=== PATIENT | male | born 1955 | race Caucasian/White ===

== ENCOUNTER 2019-05-05 09:47 | Outpatient (CLI) | payer OTHER, SELFPAY ==
--- NOTE | 2019-05-05 09:56 | NM_ITS ---
WS: [id number] NUCLEAR MEDICINE HIDA SCAN CLINICAL INFORMATION: ABDOMINAL PAIN TECHNIQUE: Following intravenous administration of 7.7 mCi of technetium 99m mebrofenin, images of th e abdomen were obtained over the course of 60 minutes. Next, gallbladder ejection fraction was determ ined by obtaining preprandial and one-hour postprandial images of the gallbladder following oral roma stion of Ensure. COMPARISON: None. FINDINGS: Normal hepatic uptake at 5 minutes. Gallbladder is seen at 10 minutes. No evidence of acute cholecyst itis. Normal small bowel activity is visualized. No evidence of choledocholithiasis. Normal hepatic e xcretion. Gallbladder ejection fraction 93% within normal limits. No evidence of chronic cholecystitis. NM/NM hepatobiliary w phar* [id number] IMPRESSION: 1. No evidence of acute or chronic cholecystitis. 2. Gallbladder ejection fraction 93%.
== END 2019-05-05 09:48 | disposition home or self-care (01) ==
LOC: RAD 09:48
PROVIDERS: Family Provider Emergency Medicine Emergency Medical Services; PCP Emergency Medicine Emergency Medical Services; Visit Provider Surgery
DX: R10.9 Unspecified abdominal pain (principal)
CPT/HCPCS: 78227; A9537

== ENCOUNTER 2019-05-28 06:48 | Day surgery (SDC) | payer OTHER, SELFPAY ==
[2019-05-27 08:18] VITALS: BMI 33.4
--- NOTE | 2019-05-28 07:26 | ANES.PREANE2 ---
Pre-Anesthetic Assessment Pre-Anesthetic Assessment: Height/Weight: Height 1.73 m Weight 99.79 kg Preop Diagnosis: abdominal pain Proposed Procedure: Operation Date: 05/28/19 08:15 Proposed Procedures p EGD(Not Applicable) - Paco Sullivan MD Last Intake: 22:00 Social: Packs per day: 1.5 Pack years: 30 Comment: dyan 1990 Exam: Pre-Anes Outpt Exam: alert, oriented x 3 and clear to auscultation bilaterally Additional Exam Findings (including area of procedure): irreg,irreg Airway: Submandibular: WNL Cervical ROM: WNL MP: 2 Dentition: False CV/HEM: CV/HEM: Afib Comments: afib x 2y stress test 5y ago negative Swapna 6m no changes/concerns GI: GI: GERD Metabolic: Metabolic: DM Comments: rx'd 5y, normally 77-105 Neuropsych: Neuropsych: CVA Comments: mini strokes, space out Anesthetic Plan: ASA status: III Anesthesia: MAC Data Anesthesia Cardiac Studies: No Data to Display
[2019-05-28 07:59] VITALS: BP 173/91; PULSE 59; RESP 20; TEMP 36.6; O2SAT 92
[2019-05-28] MEDS: sodium chloride 0.9% 1,000 ML 30 ML (08:09)
[2019-05-28 08:23] LABS: Glucose Point of Care 140 mg/dL (70-110)
--- NOTE | 2019-05-28 08:29 | PM.HPUD ---
H&P update H&P Update: DATE OF SURGERY/PROCEDURE: 05/28/19 DATE H&P PERFORMED: 05/05/19 PREOP DIAGNOSIS: abdominal pain PLANNED PROCEDURE: Operation Date: 05/28/19 08:15 Proposed Procedures p EGD(Not Applicable) - Paco Sullivan MD Full H&P HPI: PLANNED PROCEDURE: Diagnostic EGD HPI: Chief complaint repeated nausea and vomiting HPI This is a 63 years old gentleman was seen before in my office back in April 18, 2019 as a referral from the emergency department for nausea and vomiting and diarrhea for 3 weeks in association with abdominal pain, patient gives history of peptic ulcer disease patient had recently had a colonoscopy according to his description and was found to have diverticulosis, a CT scan of the abdomen and pelvis was done on April 07, 2019 was found to have no acute abdominal or pelvic abnormalities and also diverticulosis without acute diverticulitis and concomitant finding of avascular necrosis of left femoral head, patient at that time was offered a diagnostic EGD. ROS: ROS: All systems were reviewed negative except for the above Pertinent Exam Findings: PHYSICAL EXAM: alert, oriented x 3, clear to auscultation bilaterally and regular rate & rhythm OTHER PERTINENT EXAM FINDINGS: Abdominal examination nontender soft no signs of peritonitis or guarding A&P Assessment and plan (1) Nausea and vomiting: Plan of care; After thorough history and physical examination and reviewing the chart, plan to perform a diagnostic esophagogastroduodenoscopy and possible biopsy in the GI lab. Informed consent per chart were,Indications, risks, benefits, and alternatives were all discussed with the patient and did agree to proceed. Status: Acute Code(s): R11.2 - Nausea with vomiting, unspecified
--- NOTE | 2019-05-28 09:03 | ANE.PACU2 ---
 Inpatient post-anesthesia follow up: Airway intact: Yes Vital signs: Temperature 97.9 F Pulse Rate 59 Respiratory Rate 20 Blood Pressure 173/91 Pulse Oximetry 92 Oxygen Delivery Me thod Oxygen Flow Rate Fraction of Inspir ed Oxygen Hydration adequate: Yes Nausea and vomiting: No Pain level: 1 Mental status: Baseline
[2019-05-28 09:16] VITALS: PULSE 76; RESP 18; TEMP 36.2; O2SAT 94
[2019-05-29 07:44] LABS: H. Pylori / CLO Test Negative
== END 2019-05-28 09:38 | disposition home or self-care (01) ==
PROVIDERS: Family Provider Emergency Medicine Emergency Medical Services; Visit Provider Surgery
PROC: 0DJ08ZZ Inspection of Upper Intestinal Tract, Via Natural or Artificial Opening Endoscopic (ICD-10-PCS; CPT 43235; principal; 2019-05-28 08:15)
DX: R10.9 Unspecified abdominal pain (principal); K44.9 Diaphragmatic hernia without obstruction or gangrene; K29.70 Gastritis, unspecified, without bleeding; Z87.891 Personal history of nicotine dependence; I48.91 Unspecified atrial fibrillation; K21.9 Gastro-esophageal reflux disease without esophagitis; E11.9 Type 2 diabetes mellitus without complications; Z86.73 Personal history of transient ischemic attack (TIA), and cerebral infarction without residual deficits; E78.5 Hyperlipidemia, unspecified; I10 Essential (primary) hypertension; Z82.49 Family history of ischemic heart disease and other diseases of the circulatory system; F32.9 Major depressive disorder, single episode, unspecified; Z79.82 Long term (current) use of aspirin
CPT/HCPCS: 12345; 36416; 43239; 82962; 87077; J2704; J7030

== ENCOUNTER 2019-06-24 06:36 | Day surgery (SDC) | payer OTHER, SELFPAY ==
[2019-06-23 12:36] VITALS: BMI 32.5
--- NOTE | 2019-06-23 12:44 | ECG_ITS ---
Measurements Intervals Edison Rate: 56 P: 30 MI: 174 QRS: 55 QRSD: 96 T: 46 QT: 427 QTc: 413 SINUS BRADYCARDIA Compared to ECG 09/28/2017 17:44:05 No significant changes Electronically Signed On 06-23-2019 20:30:23 ENVIRONMENTAL HEALTH AND SAFETY INTERN by Leti Ma M.D. [email or web address]
--- NOTE | 2019-06-23 13:27 | ANES.PREANE2 ---
Pre-Anesthetic Assessment Pre-Anesthetic Assessment: Height/Weight: Height 1.73 m Weight 97.069 kg Preop Diagnosis: Symptomatic gallbladder disease Proposed Procedure: Operation Date: 06/24/19 08:10 Proposed Procedures p Laparoscopic Cholecystectomy 30243 R10.9(Not Applicable) - Paco Sullivan MD Familial anesthetic complications: trouble waking up Social: Social History: No alcohol and No tobacco Exam: Pre-Anes Outpt Exam: alert, oriented x 3, clear to auscultation bilaterally and regular rate & rhythm Airway: Cervical ROM: WNL and Other (large hall) MP: 2 Additional comments: edentulous Pulmonary: Pulmonary: None reported CV/HEM: CV/HEM: Afib (on (last took sunday)) and HTN : : None reported Hepatic: Hepatic: None reported GI: GI: GERD Metabolic: Metabolic: DM Musc/skel: Musc/skel: Lower Back Pain and OA/DJD Comments: gout Neuropsych: Neuropsych: TIA (1 year ago) Anesthetic Plan: ASA status: 3 Anesthesia: General Risk of > 500 ml blood loss (7ml/kg in children): No Data Anesthesia Cardiac Studies: No Data to Display
[2019-06-24] VITALS (9 sets, daily range): BP systolic 110–133; BP diastolic 57–70; PULSE 54–61; RESP 16–18; TEMP 36.1–36.6; O2SAT 90–98
[2019-06-24] MEDS: sodium chloride 0.9% 1,000 ML 30 ML IV (07:03)
[2019-06-24 07:04] LABS: Glucose Point of Care 131 mg/dL (70-110)
--- NOTE | 2019-06-24 07:48 | W.PM.OPSUD ---
Surgery/Procedure H&P Update DATE OF PROCEDURE: June 24, 2019 DATE H&P PERFORMED: 06/16/19 H&P UPDATE INFORMATION: I have reviewed H&P completed within last 30 days and No changes to prior documentation PREOP DIAGNOSIS: Symptomatic gallbladder disease PRIMARY INDICATION FOR PROCEDURE: The same PLANNED PROCEDURE: Operation Date: 06/24/19 08:10 Proposed Procedures p Laparoscopic Cholecystectomy 43391 R10.9(Not Applicable) - Paco Sullivan MD
[2019-06-24] MEDS: lidocaine 2% INJ 20 mL INJECTION (08:00)
--- NOTE | 2019-06-24 08:39 | P.OP_ITS ---
Operative Report Date of procedure: June 24, 2019 Pre-op Diagnosis: Symptomatic gallbladder disease Post-op diagnosis: same (Chronic cholecystitis) Procedure Done: Laparoscopic cholecystectomy Specimens removed/disposition: Gallbladder and contents Surgeon: Paco Sullivan Motion Picture Scene Builder: Surgical tonny Auguste Circulating nurse Rosa M Anesthesia: General (cRNAs is Laura and Smart) Estimated blood loss (mL): 5 Condition: stable Disposition: same day Brief History: This is a pleasant 64 years old gentleman with history of persistent nausea, further work-up showed dysfunction of the gallbladder with HIDA scan due to the patient's subjective symptoms. plan of care; After thorough history physical examination and reviewing the chart ,I counseled the patient for laparoscopic cholecystectomy possible open, indications risks including but not limited injury to the common bile duct and other viscera.benefits and alternatives all discussed with the patient, and she did a gree to proceed. All questions have been answered and all concerns have been addressed to patient's satisfaction. Informed consent per chart Procedure: Patient was identified in the holding area and taken back to the operative suite, placed in supine position intubated by anesthesia . Time-out was done verifying the patient's name/date of /planned procedure and destination after the procedure, all were in agreement. SCDs confirmed to be functioning, preoperative antibiotics administered per protocol, and beta capri protocol was confirmed. Patient was appropriately secured to the table, footboard was applied to the OR table, before prep and drape anesthesia was asked to tilt the table back and forth to make sure that the patient is appropriately secured and she was. Prep and drape of the abdomen was done under the usual sterile technique, followed by that supraumbilical skin incision,skin incision was done by a 15 blade knife, and stay sutures were applied to the fascia and Mandel trocar technique was used to enter the abdominal without injuring any abdominal viscera, started by low flow gas insufflation followed by a high flow, started with a 10 mm laparoscope and under direct vision there was no evidence of any injuries, the scope then switched to a 30? ,10 millimeter scope and under direct visualization 5 millimeter trocar was inserted in the epigastric region followed by two 5 mm trocars were inserted in the right upper quadrant that was done after injection of local lidocaine 2% at all incision sites. Gallbladder showed chronic cholecystitis with hepatomegaly likely due to fatty liver. Patient was then positioned in the head up and tilted to the left dissection started by taking adhesions down using Maryland forceps with heat, continued dissection until I identified the critical view of the cystic duct and cystic artery where seen connected to the gallbladder. Clips were applied on the cystic duct towards the common bile duct 1 towards the gallbladder then divided is in sharp scissors, 2 clips were then applied onto the cystic artery and 1 towards the gallbladder and divided by sharp scissors. Dissection was then carried along of the gallbladder from the gallbladder fossa using cautery as well as sharp dissection with heat energy. The gallbladder then was dissected out from the gallbladder fossa totally , cholecystectomy was then achieved and was placed in an Endo Catch bag and then retrieved from the Mandel trocar site under direct visualization using a 5 mm 30? scope through the epigastric trocar, specimen was then passed to the circulating nurse to go for permanent pathology,irrigation and hemostasis was done to the gallbladder fossa after hemostasis was secured, final survey laparoscopy was done that showed no injuries. Suction irrigation was obtained The supraumbilical fascial defect was then closed using interrupted Vicryl sutures using a fascial closure device ;Frank Llanos under direct visualization Gas was allowed to deflate,Trocars were then taken out under direct vision there was no evidence of bleeding Specimen was passed to the circulating nurse for permanent pathology. No drains were placed and the supraumbilical incision as well as all trocar sites were closed by by 4-0 Monocryl to approximate the skin edges of the supraumbilical incision, dressing was applied in the form of Dermabond and the patient patient got extubated and was taken to recovery area in a stable condition. Count of sponges, needles and instruments were completed at the end of the procedure I was present for the whole entire procedure.
[2019-06-24] MEDS: HYDROcodone-acetaminophen 5-325 mg Tablet 1 TAB PO (09:50)
== END 2019-06-24 10:40 | disposition home or self-care (01) ==
PROVIDERS: Family Provider Emergency Medicine Emergency Medical Services; PCP Emergency Medicine Emergency Medical Services; Visit Provider Surgery
PROC: 0FT44ZZ Resection of Gallbladder, Percutaneous Endoscopic Approach (ICD-10-PCS; CPT 47562; principal; 2019-06-24 08:10)
DX: K80.10 Calculus of gallbladder with chronic cholecystitis without obstruction (principal); Z79.82 Long term (current) use of aspirin; I48.91 Unspecified atrial fibrillation; I10 Essential (primary) hypertension; K21.9 Gastro-esophageal reflux disease without esophagitis; E11.9 Type 2 diabetes mellitus without complications; M19.90 Unspecified osteoarthritis, unspecified site; Z86.73 Personal history of transient ischemic attack (TIA), and cerebral infarction without residual deficits
CPT/HCPCS: 47562; 12345; 36416; 82962; 88304; 93005; 96365; J0131; J0690; J1100; J2001; J2370; J2704; J2710; J3010; J3490; J7030

== ENCOUNTER 2019-07-16 13:43 | Outpatient (CLI) | payer OTHER, SELFPAY ==
--- NOTE | 2019-07-16 14:15 | USCV_ITS ---
Clark Vinh Age: 64 Gender: M : 1955 Exam Date: 07/16/2019 13:52 Ordering Phys: Reagan Barcenas MD ([email or web address]) Technologist: Andry Joseph Exam Location: [facility] [place] Indication: CAROTID STENOSIS Risk Factors: Previous Vascular Surgery: Right Brachial BP: / Left Brachial BP: / Right Left Velocity (cm/s) Spectral Plaque Velocity (cm/s) Spectral Plaque Syst/Diast Broadening Syst/Diast Broadening 95.90/ 25.40 Prox CCA 78.80 / 17.80 94.80/ 19.80 Mid CCA 88.20 / 15.90 58.40/ 17.60 Distal CCA 66.60 / 16.90 40.10/ 10.30 Prox ICA 60.40 / 16.80 66.90/ 12.40 Mid ICA 92.80 / 24.60 56.35/ 16.30 Distal ICA 80.50 / 16.80 117.10 ECA 151.60 0.91 ICA/CCA 1.05 Antegrade Vertebral Antegrade 38.90/ 8.70 cm/s 33.50/ 8.90 cm/s Subclavian Tri FINDINGS Minimal atherosclerotic change at the right common carotid bifurcation. CONCLUSIONS Negative bilateral carotid Doppler ultrasound. Dr. Mercedes Medina MD (Electronically Signed) Final Date: 16 July 2019 14:43 S
== END 2019-07-16 13:44 | disposition home or self-care (01) ==
LOC: US 13:44
PROVIDERS: Family Provider Emergency Medicine Emergency Medical Services; PCP Emergency Medicine Emergency Medical Services; Visit Provider Internal Medicine Cardiovascular Disease
DX: I65.23 Occlusion and stenosis of bilateral carotid arteries (principal)
CPT/HCPCS: 93880

== ENCOUNTER → 2019-07-22 10:15 | Outpatient (BNVA) | payer OTHER, SELFPAY | PROVIDERS: Family Provider Emergency Medicine Emergency Medical Services; PCP Emergency Medicine Emergency Medical Services; Referring Provider Emergency Medicine Emergency Medical Services; Visit Provider Specialist | DX: R56.9 Unspecified convulsions (principal); G43.711 Chronic migraine without aura, intractable, with status migrainosus; Z87.891 Personal history of nicotine dependence | CPT/HCPCS: 99204 ==

== ENCOUNTER → 2019-08-12 12:48 | Outpatient (BNVA) | payer OTHER, SELFPAY | PROVIDERS: Family Provider Emergency Medicine Emergency Medical Services; PCP Emergency Medicine Emergency Medical Services; Visit Provider Specialist | DX: G40.909 Epilepsy, unspecified, not intractable, without status epilepticus (principal) | CPT/HCPCS: 95816 ==

== ENCOUNTER 2019-09-08 08:50 | Observation (INO) | payer OTHER, SELFPAY ==
[2019-09-05 09:32] VITALS: BMI 32.1
[2019-09-08] VITALS (15 sets, daily range): BP systolic 96–142; BP diastolic 51–86; PULSE 60–98; RESP 10–21; TEMP 36.3–36.6; O2SAT 88–99
--- NOTE | 2019-09-08 06:13 | P.ANESASSM_ITS ---
Pre-Anesthetic Assessment Pre-Anesthetic Assessment: Height/Weight: Height 1.73 m Weight 95.708 kg Temp Pulse Resp BP Pulse Ox 97.8 F 80 18 102/65 91 09/08/19 06:07 09/08/19 06:07 09/08/19 06:07 09/08/19 06:07 09/08/19 06:07 Preop Diagnosis: Lumbar spinal stenosis Proposed Procedure: Operation Date: 09/08/19 07:00 Proposed Procedures p Bilateral L4-5 laminotomy/foraminotomy/possible discectomy/possible laminectomy (77945) M48.062(Bilateral) - Tom Cabrera MD Familial anesthetic complications: none Was Beta Denae taken within 24 hours: Yes Last intake: Intake took no medications this morning Last Liquid Date 09/07/19 Last Liquid Time 20:00 Last Solid Date 09/07/19 Last Solid Time 20:00 Social: Comment: smokes pot Exam: Pre-Anes Outpt Exam: alert, oriented x 3, clear to auscultation bilaterally and regular rate & rhythm Airway: Cervical ROM: WNL MP: 4 Dentition: False Additional comments: full hall Pulmonary: Pulmonary: None reported CV/HEM: CV/HEM: Afib and HTN Comments: last took eliquis since sunday : : None reported Hepatic: Hepatic: None reported GI: GI: None reported Metabolic: Metabolic: DM, Hyperlipidemia and Morbid obesity Musc/skel: Musc/skel: Lower Back Pain Neuropsych: Neuropsych: Seizure (1 week ago (last one)) Comments: s/p CEA on L Anesthetic Plan: ASA status: 3 Anesthesia: General Risk of > 500 ml blood loss (7ml/kg in children): No PFSH Anesthesia PFSH: Medical History (Updated 07/29/19 @ 10:22 by Tom Cabrera MD) Afib Hypercholesteremia Hypertension Nausea and vomiting Spinal stenosis, lumbar region, with neurogenic claudication Spondylolisthesis, lumbar region Surgical History (Updated 07/29/19 @ 10:48 by Tom Cabrera MD) History of jeremiah hole surgery Twist drill drainage of bilateral subdural hematomas, 12/20/2016, [facility] [place] History of esophagogastroduodenoscopy (EGD) (~05/2019) History of laparoscopic cholecystectomy (~06/2019) Family History Other CAD (coronary artery disease) Cancer Diabetes Hypertension Stroke Denies family history of Anesthesia complication Bleeding disorder Social History (Updated 07/29/19 @ 10:07 by Carol Dawson LPN) Smoking and tobacco status: former smoker Alcohol intake: never Lives independently: Yes Marital status: Current occupational status: retired History of recent travel: No Data Anesthesia Cardiac Studies: No Data to Display
[2019-09-08 06:19] LABS: Glucose Point of Care 134 mg/dL (70-110)
[2019-09-08] MEDS: sodium chloride 0.9% 1,000 ML 30 ML IV (06:50)
--- NOTE | 2019-09-08 06:56 | W.PM.OPSUD ---
Surgery/Procedure H&P Update DATE OF PROCEDURE: September 08, 2019 DATE H&P PERFORMED: 09/03/19 H&P UPDATE INFORMATION: I have reviewed H&P completed within last 30 days and H&P to be scanned into chart PREOP DIAGNOSIS: Lumbar spinal stenosis PRIMARY INDICATION FOR PROCEDURE: Pain PLANNED PROCEDURE: Operation Date: 09/08/19 07:00 Proposed Procedures Bilateral L4-5 laminotomy/foraminotomy/possible discectomy/possible laminectomy (58004) M48.062(Bilateral) - Tom Cabrera MD
--- NOTE | 2019-09-08 07:06 | PM.OP2 ---
Brief Operative Note: Date of procedure: 09/08/19 Pre-op diagnosis: Lumbar spinal stenosis Post-op diagnosis: same Procedure Done: Bilateral L4-L5 laminotomy/foraminotomy Surgeon: Tom Cabrera Estimated blood loss (mL): 10 Complications: None. Post-op Plan: PACU, then rudolph Condition: stable Disposition: PACU Coding Level of Care Code Acute Director Of Perioperative Services for Jason Foley
--- NOTE | 2019-09-08 07:07 | XR_ITS ---
WS: [id number] Lumbar spine, portable lateral in the OR, 09/08/2019, 0724 hours Clinical Data: surgery Comparison: Lateral lumbar spine, 11/05/2018. Findings: There is a radiopaque needle in the subcutaneous tissues of back at the level of the L4 This process. The tip of the needle is directed toward the L4/L5 disc level XR/XR lumbar spine 1V port 60232 Impression: Localization of L4-L5 disc.
--- NOTE | 2019-09-08 07:46 | XR_ITS ---
WS: [id number] Lumbar spine, portable lateral in the OR, 09/08/2019, 0746 hours. Clinical Data: SURGERY Comparison: Portable lateral lumbar lumbar spine, 09/08/2019, 0724 hours. Findings: The radiopaque probe is now pointed at the L4-L5 disc level XR/XR lumbar spine 1V port 62645 Impression: Localization of L4-L5 disc.
[2019-09-08] MEDS: thrombin 5,000 unit SDV 5000 UNIT XX (07:49)
--- NOTE | 2019-09-08 08:05 | SUR.OPER ---
I tried to give family an update on the procedure but no one answered.
--- NOTE | 2019-09-08 08:09 | SUR.OPER ---
Family Notified Of Patient's Status Via Phone.
[2019-09-08] MEDS: atorvastatin 40 mg Tablet 80 MG PO (10:14)
[2019-09-08] MEDS: cyanocobalamin 1,000 mcg Tablet 3000 MCG PO (10:14)
[2019-09-08] MEDS: divalproex ER 500 mg Tablet (24H) 1000 MG PO (10:14)
[2019-09-08] MEDS: fluticasone nasal spray 16gm Btl 1 SPRAY INTRANASAL ×2 (10:14→17:28)
[2019-09-08] MEDS: ferrous sulfate EC 325 mg Tablet PO ×2 (10:14→17:28)
[2019-09-08] MEDS: tamsulosin 0.4 mg Capsule 0.8 MG PO (10:14)
[2019-09-08] MEDS: pantoprazole DR 40 mg Tablet PO (10:14)
[2019-09-08] MEDS: cetirizine 10 mg Tablet PO (10:14)
[2019-09-08] MEDS: sotalol 80 mg Tablet PO ×2 (10:14→17:28)
[2019-09-08] MEDS: gabapentin 300 mg Capsule PO ×2 (10:14→14:58)
[2019-09-08] MEDS: allopurinol 300 mg Tablet PO (10:14)
[2019-09-08 11:10] LABS: Glucose Point of Care 155 mg/dL (70-110)
--- NOTE | 2019-09-08 16:53 | P.OP_ITS ---
Operative Report Date of procedure: September 08, 2019 Pre-op Diagnosis: Lumbar spinal stenosis Post-op diagnosis: same Procedure Done: Bilateral L4-L5 laminotomy/foraminotomy/limited facetectomy Pathology: none sent Surgeon: Tom Cabrera Anesthesia: General Estimated blood loss (mL): 10 IV fluids (mL): 1,500 Urine output (mL): 250 Complications: None. Condition: stable Disposition: PACU Brief History: The patient is a 64-year-old male with symptomatic, radiographically confirmed lumbar spinal stenosis. Imaging studies demonstrated dominant abnormalities at L4-L5. Symptoms were more prominent on the left than the right. Conservative treatment trials failed to provide lasting symptom relief. After review of the options with the risks/potential benefits/rationale for each, the patient requested to proceed with bilateral surgical decompression at L4-L5. Procedure: After routine preoperative evaluation and informed consent were obtained, the patient was taken to the Operating Room and placed under general endotracheal anesthesia. He was rotated onto the Operating Room table in the modified knee- chest position with the aid of the Gill spine frame. The lumbosacral area was prepared with hair clippers. A proposed midline skin incision was marked with a sterile skin marker, following localization with intraoperative radiography. The lumbosacral area was scrubbed with Betadine and prepped with DuraPrep. Sterile towels and drapes were applied, and an Ioban surgical barrier was placed. The p roposed incision site was infiltrated with 1% Xylocaine with Epinephrine. A skin incision was made and carried down into the subcutaneous tissues. The lumbodorsal fascia was identified and divided in the midline. Subperiosteal dissection was carried down along the lamina of L4 and L5 on the left. Deep self-retaining retractors were placed. Intraoperative radiography verified the desired surgical level. A laminotomy was fashioned across the L4-L5 interspace with Leksell and Kerrison rongeurs. Ligamentum flavum was resected at the base of the laminotomy site with Kerrison rongeurs. Ligament resection was extended across the midline and into the lateral recess. A limited resection of the medial aspect of the facet joint was also performed to further decompress the lateral recess. The neural foramen was identified and enlarged in its medial extent with Kerrison rongeurs. The thecal sac was retracted from lateral to medial with the nerve root retractor. Disc bulge was demonstrated, without tc disc herniation or neural impingement. Once the decompression was felt to be adequate on the left side, the dura was covered with thrombin-soaked Gelfoam and a Cottonoid. The retractors were removed and repositioned to the contralateral side, where a right-sided subperiosteal dissection was performed across the L4-L5 interspace. A laminotomy was again fashioned with Leksell and Kerrison rongeurs. Ligamentum flavum was resected at the base of the laminotomy site with extension into the lateral recess. A limited resection of the medial aspect of the facet joint was performed with Kerrison rongeurs. The neural foramen was enlarged in its medial extent. Retraction of the thecal sac from lateral to medial with the nerve root retractor demonstrated disc bulge, but no herniation or residual neural impingement. Retractors were repositioned to maximize the exposure bilaterally. The previously placed Gelfoam and Cottonoid were removed, and the wound was copiously irrigated with sterile saline and antibiotic irrigation. Bilateral decompression of the neural elements at the operative level was again verified with the [place] dental instrument. A thin layer of Surgi-Emanuel hemostatic matrix was placed over the dura at both laminotomy sites. Wound closure was then performed in multiple layers with 2-0 Vicryl Plus simple interrupted closure of the lumbodorsal fascia, superficial fascia and deep dermis as separate layers. Final skin closure was performed with 3-0 Vicryl Plus in a running subcuticular pattern. Steri-Strips were applied, and a sterile dressing was placed. He was rotated onto the Recovery Room cart in the supine position, and extubated by Anesthesia personnel. He tolerated the procedure well. All sponge, needle, and instrument counts were correct at the completion of the procedure.
--- NOTE | 2019-09-08 16:58 | PM.DCS ---
Discharge Providers Date of Admission: 09/08/19 08:50 Date of Discharge: September 08, 2019 Attending Provider at Admission: Tom Cabrera MD Attending Provider at Discharge: Tom Cabrera MD Primary Care Provider: Guicho Vega DO Diagnoses at Discharge Discharge Diagnosis (1) Spinal stenosis, lumbar region, with neurogenic claudication: Status: Acute (2) Spondylolisthesis, lumbar region: Status: Acute Reason for Visit Reason for Visit: Reason For Visit: spinal stenosis Brief History: The patient is a 64-year-old male with symptomatic, radiographically confirmed lumbar spinal stenosis. Imaging studies demonstrated dominant abnormalities at L4-L5. Symptoms were more prominent on the left than the right. Conservative treatment trials failed to provide lasting symptom relief. After review of the options with the risks/potential benefits/rationale for each, the patient requested to proceed with bilateral surgical decompression at L4-L5. Hospital Course Hospital Course: Patient underwent bilateral L4-L5 laminotomy/foraminotomy on 09/08/2019. He tolerated the procedure well. He completed preoperative and postoperative intravenous antibiotic doses, and the physical therapy postop spine protocol. He was ambulatory, voiding, and tolerating diet prior to discharge home on the evening of the date of surgery. Physical Exam Const: COMMON NORMALS: no acute distress GENERAL APPEARANCE: cooperative Resp: COMMON NORMALS: normal respiratory effort EFFORT & INSPECTION: Yes able to speak in complete sentences and No tachypneic Extremity: COMMON NORMALS: no clubbing, cyanosis or edema Neuro: COMMON NORMALS: moves all extremities Psych: COMMON NORMALS: mental status grossly normal ATTITUDE: Yes calm and Yes engaged ACTIVITY/MOTOR BEHAVIOR: Yes appropriate eye contact MOOD & AFFECT: Yes euthymic mood Skin: WOUNDS: Yes surgical site (lumbar surgical site dressing C/D/I. Incision without erythema or drainage) Urinary Catheter Management^: F: Cath Placed During This Visit: yes, but has since been removed by the nurse Urinary Catheter Date of Insertion: 09/08/19 Urinary Catheter Time of Insertion: 07:25 Date Urinary Catheter Removed: 09/08/19 Time Urinary Catheter Discontinued: 08:50 Discharge Data Data Completed and Pending: Completed Studies During Hospitalization Category Date Time Status XR lumbar spine 1 view portable [XR lumbar spine 1V Exams 09/08/19 07:07 Completed port 83323] Routi ne XR lumbar spine 1 view portable [XR lumbar spine 1V Exams 09/08/19 07:46 Completed port [id number]] Routi ne Procedures Performed: Bilateral L4-L5 laminotomy/foraminotomy/limited facetectomy. IV antibiotics. Physical Therapy. Vitals: Last Vital Signs Temp 97.7 F 09/08/19 18:25 Pulse 67 09/08/19 18:25 Resp 18 09/08/19 18:25 BP 142/77 09/08/19 18:25 Pulse Ox 95 09/08/19 18:25 Discharge Plan Discharge Patient Disposition: Home, Self-Care Condition: Stable Prescriptions: [place] 7.5-325 mg tablet 1 tab PO Q4H PRN (Reason: pain) Qty: 30 RF: 0 Continued allopurinol 300 mg tablet 300 mg PO DAILY RF: 0 atorvastatin 80 mg tablet 80 mg PO DAILY RF: 0 cetirizine 10 mg capsule 10 mg PO DAILY RF: 0 cholecalciferol (vitamin D3) 3,000 unit tablet 3,000 unit PO DAILY RF: 0 docusate sodium 100 mg capsule 100 mg PO BID RF: 0 ferrous sulfate 325 mg (65 mg iron) tablet 325 mg PO BID RF: 0 fluticasone propionate [Allergy Relief (fluticasone)] 50 mcg/actuation spray,suspension 1 spray INTRANASAL BID RF: 0 gabapentin 300 mg capsule 300 mg PO TID RF: 0 hydrochlorothiazide 25 mg tablet 25 mg PO QAM RF: 0 lisinopril 40 mg tablet 40 mg PO DAILY RF: 0 omeprazole 20 mg tablet,delayed release (DR/EC) 20 mg PO BID RF: 0 pioglitazone 30 mg tablet 30 mg PO DAILY RF: 0 sildenafil 50 mg tablet 50 mg PO Q7D RF: 0 divalproex [Depakote ER] 500 mg tablet extended release 24 hr 1,000 mg PO DAILY Qty: 60 RF: 5 sotalol 160 mg Tablet 80 mg PO BID RF: 0 tamsulosin 0.4 mg Capsule 0.8 mg PO DAILY RF: 0 Held apixaban 5 mg tablet 5 mg PO BID RF: 0 Hold Instructions: Resume on 05/31/19. aspirin 81 mg tablet,delayed release (DR/EC) 81 mg PO ONCE RF: 0 Hold Instructions: Resume on 05/30/19. Discharge Orders: Discharge Order (Routine); Ordered 09/08/19 Ordered By: Tom Cabrera Referrals: Tom Cabrera MD [Physician] - 2 weeks (Please call in the morning to set up a follow up appointment with DR. Cabrera ) Discharge Diet: Usual diet Discharge Activity: Limit activity as instructed and As per PT/OT instructions Patient Instructions: Hydrocodone/Acetaminophen (By mouth), Lumbar Spinal Stenosis (DC), Surgical Site Infections (GEN) Activity Restrictions/Additional Instructions: Activity - No driving until office followup visit - No lifting/pushing/pulling over 10 pounds - Avoid twisting or bending - Walking is encouraged - Home exercise per physical therapist - You may engage in sexual intercourse at any time as long as it is comfortable for you - Check with your doctor before returning to work. Notify your doctor if you develop: - temperature of 101.5 degrees F. or higher - redness or swelling of the incision - Foul drainage - increasing pain - increasing numbness or tingling in the arms or legs - New or increasing problems with vision, balance, memory, speaking, nausea or vomiting Hygiene: - Showering is okay - No tub baths or soaking Other: Remove outer bandage 3 days after surgery. If you have paper strips, leave in place until they fall off on their own. If you have stitches, keep your incision dry until the stitches are removed. Your doctor's office is available to answer any questions from 7 AM to 5:00 PM, Sunday through at [phone]. After hours, go to the emergency room at [facility] or call 911 for assistance. Discharge Date/Time: 09/08/19 18:26 Discharge Attestations Time Spent in Discharge Care*: other (postop global) Quality Metrics Clinical Quality Measures During this hospital stay, did patient experience: None Coding Level of Care Code Acute Rubber Washer for Chg Fwd Diagnoses Spinal stenosis, lumbar region, with neurogenic claudication M48.062 Spondylolisthesis, lumbar region M43.16
[2019-09-08 17:16] LABS: Glucose Point of Care 117 mg/dL (70-110)
[2019-09-08] MEDS: HYDROcodone-acetaminophen 7.5-325 mg Tablet 1 TAB PO (17:27)
[2019-09-08] MEDS: ondansetron 2 mg/ML SDV 2 mL 4 MG IVP (17:28)
== END 2019-09-08 18:26 | disposition home or self-care (01) ==
LOC: MEDSURG 08:50
PROVIDERS: Admitting Provider Specialist; PCP Emergency Medicine Emergency Medical Services; Visit Provider Specialist
PROC: (CPT 63030; principal; 2019-09-08 07:00)
DX: M48.062 Spinal stenosis, lumbar region with neurogenic claudication (principal); M43.16 Spondylolisthesis, lumbar region; I48.91 Unspecified atrial fibrillation; I10 Essential (primary) hypertension; E11.9 Type 2 diabetes mellitus without complications; E78.5 Hyperlipidemia, unspecified; E66.01 Morbid (severe) obesity due to excess calories; Z68.32 Body mass index [BMI] 32.0-32.9, adult; Z87.891 Personal history of nicotine dependence
CPT/HCPCS: 63030; 12345; 36416; 51702; 72020; 82962; 96361; 96365; 96372; 96375; 97161; G0378; J0690; J1815; J2001; J2370; J2405; J2704; J3010; J3490; J7030

== ENCOUNTER → 2019-10-14 12:29 | Outpatient (BNVA) | payer OTHER, SELFPAY | PROVIDERS: PCP Emergency Medicine Emergency Medical Services; Visit Provider Specialist | DX: R29.90 Unspecified symptoms and signs involving the nervous system (principal); G40.219 Localization-related (focal) (partial) symptomatic epilepsy and epileptic syndromes with complex partial seizures, intractable, without status epilepticus; G43.109 Migraine with aura, not intractable, without status migrainosus | CPT/HCPCS: 99214 ==

== ENCOUNTER 2019-11-03 14:46 | Emergency (ER) | payer OTHER, MEDICARE, SELFPAY ==
[2019-11-03 14:56] VITALS: BP 118/63; PULSE 65; RESP 20; TEMP 36.2; O2SAT 94; BMI 30.4
--- NOTE | 2019-11-03 15:05 | W.ED.HA ---
HPI - Headache General: Chief Complaint: Dizziness Stated Complaint: poss seizure, dizzy Time Seen by Provider: 11/03/19 15:00 Source: patient Mode of arrival: ambulatory Limitations: no limitations History of Present Illness: HPI Narrative: 64-year-old male that has a history of migraines and sees Dr. Wei for these migraines. He states that he has had a migraine since Sunday that is been constant he rates a 4 out of 10. He states he is also had some dizziness that is consistent with his migraines. She started him on Depakote recently. He denies any fevers. He denies any vomiting. MD elicited complaint: headache Associated symptoms: Deny chest pain, fever(s), nausea, rash or vomiting Review of Systems Const: Denies: fever(s), chills, body aches or change in appetite Eyes: Denies: blurry vision or eye discomfort ENMT: Denies: throat pain or dental pain Card: Denies: chest pain Resp: Denies: dyspnea GI: Denies: abdominal pain, nausea, vomiting or diarrhea : Denies: dysuria Musc: Denies: neck pain or back pain Skin/Breast: Denies: rash Neuro: Reports: headache(s) Psych: Denies: depression Donny/Lymph: Denies: easy bruising All/Imm: Denies: urticaria PFSH ED PFSH: Medical History (Updated 11/03/19 @ 16:30 by Deniz Torrez MD) Afib Anticoagulation adequate with anticoagulant therapy Carotid stenosis Chronic kidney disease (CKD) Diabetes Hypercholesteremia Hypertension Nausea and vomiting Spinal stenosis, lumbar region, with neurogenic claudication Spondylolisthesis, lumbar region Surgical History History of jeremiah hole surgery Twist drill drainage of bilateral subdural hematomas, 12/20/2016, [facility] [place] History of esophagogastroduodenoscopy (EGD) (~05/2019) History of laparoscopic cholecystectomy (~06/2019) Family History Other CAD (coronary artery disease) Cancer Diabetes Hypertension Stroke Denies family history of Anesthesia complication Bleeding disorder Social History Smoking and tobacco status: former smoker Alcohol intake: never Lives independently: Yes Marital status: Current occupational status: retired History of recent travel: No Physical Exam Const: COMMON NORMALS: no acute distress, patient oriented x3 and healthy appearing HENMT: COMMON NORMALS: normocephalic and atraumatic HEAD & SCALP: normocephalic and atraumatic Eye: COMMON NORMALS: Equal, round and reactive pupils present and EOMs intact bilaterally PUPIL: Yes Equal, round and reactive pupils present Neck/C-Spine: COMMON NORMALS: full ROM and supple Chest: COMMONS NORMALS: normal inspection of the chest and normal palpation of entire chest wall Resp: COMMON NORMALS: normal respiratory effort, No retractions, No use of accessory muscles and clear to auscultation bilaterally AUSCULTATION: clear to auscultation bilaterally Cardio: COMMON NORMALS: regular rate, regular rhythm and No murmurs present (Cardio) RATE: regular rate RHYTHM: regular rhythm GI: COMMON NORMALS: Normal to inspection, nondistended, normoactive bowel sounds present, Soft to palpation, non-tender and no masses PALPATION: Yes Soft to palpation Extremity: COMMON NORMALS: normal to inspection and full ROM Neuro: COMMON NORMALS: patient oriented x3, moves all extremities and no focal motor deficits Psych: COMMON NORMALS: mental status grossly normal, Normal thought process present and cooperative THOUGHT PROCESS: Normal thought process present Skin: COMMON NORMALS: no rashes or lesions noted and no wounds GENERAL SKIN EXAM: no rashes or lesions noted Course Vital Signs: Vital signs: Vital Signs Temperature 97.2 F L 11/03/19 14:56 Pulse Rate 55 L 11/03/19 16:09 Respiratory Rate 18 11/03/19 16:09 Blood Pressure 103/57 11/03/19 16:09 Pulse Oximetry 95 11/03/19 16:09 MDM - Headache MDM Narrative: Medical decision making narrative: Patient presents here with headache that is chronic in nature. Patient also has some dizziness that is chronic as well. He feels improved after Reglan and Benadryl. We will place him on Antivert. He is stable for discharge and is to follow-up with his primary care doctor in 3 to 5 days and return if worsening. Lab Data: Labs: Lab Results 11/03/19 11/03/19 Range/Units 15:12 15:12 WBC 8.8 (4.0-10.0) 10^3/ uL RBC 4.62 (4.1-5.3) 10^6/u L Hgb 14.0 (11.7-16.6) g/dL Hct 42.6 (42.0-52.0) % MCV 92.2 (80-94) fL MCH 30.3 (28.0-34.0) pg MCHC 32.9 (30.0-36.0) g/dL RDW 14.4 (12.1-15.1) % Plt Count 196 (130-400) 10^3/c mm MPV 10.9 H (7.4-10.4) fL Neut % (Auto) 64.3 % Lymph % (Auto) 24.4 % [place] % (Auto) 7.9 % Eos % (Auto) 2.5 % Baso % (Auto) 0.7 % Neut # (Auto) 5.65 (1.8-7.7) 10^3/u L Lymph # (Auto) 2.1 (0.8-4.8) 10^3/u L [place] # (Auto) 0.7 (0.2-0.9) 10^3/u L Eos # (Auto) 0.2 (0.0-0.8) 10^3/u L Baso # (Auto) 0.1 (0.0-0.1) 10^3/u L Nucleated RBC % (a uto) 0 % Nucleated RBCs # 0.0 /100WBC Sodium 138 (136-145) mmol/L Potassium 3.8 (3.5-5.1) mmol/L Chloride 101 (98-107) mmol/L Carbon Dioxide 29 (22-29) mmol/L Anion Gap 11.8 (5-19) BUN 18 (8-23) mg/dL Creatinine 0.9 (0.7-1.2) mg/dL GFR Calculation 84.7 L (90-130) mL/min Glucose 158 H (65-115) mg/dL Calculated Osmolal ity 286 (285-295) mOsm/k g Calcium 10.0 (8.5-10.5) mg/dL Total Bilirubin 0.6 (0.15-1.2) mg/dL AST 14 (0-40) U/L ALT 11 (0-41) U/L Alkaline Phosphata se 94 (40-130) IU/L Total Protein 6.8 (6.6-8.7) g/dL Albumin 4.2 (3.5-5.2) g/dL Globulin 2.6 (1.3-4.6) g/dL Valproic Acid 2.8 L (50-100) ug/mL Imaging Data^: CT Head: Attestation: I personally reviewed and interpreted this imaging study as follows: Radiologist's impression: [address] [address] [address] Scan Report Signed Patient: Vinh Taylor Unit #: [id number] : 1955 Age/Sex: 64 / M ADM Date: 11/03/19 Loc: ER Room/Bed: Attending Dr: Ordering Provider/Ordering MD: Deniz Torrez MD Date of Service: 11/03/19 Procedure(s): CT head wo con* [id number] Accession Number(s): [id number] Report Number: [id number] PROCEDURE INFORMATION: Exam: CT Head Without Contrast Exam date and time: 11/03/2019 3:46 PM Age: 64 years old Clinical indication: Pain; Dizziness; Headache; Prior surgery; Additional info: MCCONNELL TECHNIQUE: Imaging protocol: Computed tomography of the head without contrast. Radiation optimization: All CT scans at this facility use at least one of these dose optimization techniques: automated exposure control; mA and/or kV adjustment per patient size (includes targeted exams where dose is matched to clinical indication); or iterative reconstruction. COMPARISON: [place] [id number] 04/09/2018 8:32 AM RADIATION DOSE METRICS: Total DLP (mGy-cm): 818.41 FINDINGS: Brain: There is volume loss and periventricular low density compatible with chronic small vessel disease changes. There is no acute hemorrhage, edema or mass effect. Basal ganglia lacunar infarcts are unchanged. Ventricles: Normal. No ventriculomegaly. Bones/joints: Unremarkable. No acute fracture. Sinuses: There is patchy mucosal thickening in the sinuses. No air-fluid levels in the sinuses. Mastoid air cells: Visualized mastoid air cells are well aerated. Soft tissues: Unremarkable. CT/CT head wo con* [id number] IMPRESSION: No acute intracranial abnormality. Discharge Plan Discharge Patient Disposition: Home, Self-Care Clinical Impression: Dizziness Headache Qualifiers: Headache type: unspecified Headache chronicity pattern: acute headache Intractability: not intractable Qualified Code(s): R51 - Headache Condition: Stable Prescriptions: New meclizine 25 mg tablet 25 mg PO BID PRN (Reason: dizziness) Qty: 20 RF: 0 No Action allopurinol 300 mg tablet 300 mg PO DAILY RF: 0 apixaban 5 mg tablet 5 mg PO BID RF: 0 Hold Instructions: Resume on 09/11/19. aspirin 81 mg tablet,delayed release (DR/EC) 81 mg PO ONCE RF: 0 Hold Instructions: Resume on 09/09/19. atorvastatin 80 mg tablet 80 mg PO DAILY RF: 0 cetirizine 10 mg capsule 10 mg PO DAILY RF: 0 cholecalciferol (vitamin D3) 3,000 unit tablet 3,000 unit PO DAILY RF: 0 docusate sodium 100 mg capsule 100 mg PO BID RF: 0 ferrous sulfate 325 mg (65 mg iron) tablet 325 mg PO BID RF: 0 fluticasone propionate [Allergy Relief (fluticasone)] 50 mcg/actuation spray,suspension 1 spray INTRANASAL BID RF: 0 hydrochlorothiazide 25 mg tablet 25 mg PO QAM RF: 0 lisinopril 40 mg tablet 40 mg PO DAILY RF: 0 omeprazole 20 mg tablet,delayed release (DR/EC) 20 mg PO BID RF: 0 pioglitazone 30 mg tablet 30 mg PO DAILY RF: 0 sildenafil 50 mg tablet 50 mg PO Q7D RF: 0 gabapentin 300 mg capsule 300 mg PO BID RF: 0 divalproex [Depakote ER] 500 mg tablet extended release 24 hr 1,000 mg PO DAILY Qty: 60 RF: 5 sotalol 160 mg Tablet 80 mg PO BID RF: 0 tamsulosin 0.4 mg Capsule 0.8 mg PO DAILY RF: 0 [place] 7.5-325 mg tablet 1 tab PO Q4H PRN (Reason: pain) Qty: 30 RF: 0 Discharge Orders: Discharge Order (Routine); Ordered 11/03/19 Ordered By: Deniz Torrez Referrals: Guicho Vega DO [Primary Care Provider] - 1-3 days Discharge Diet: Advance as tolerated Discharge Activity: Resume usual activity Patient Instructions: Acute Headache (ED), Dizziness (ED) Coding Level of Care Code ED Motion Designer for Jason Fwalexis Exam Comprehensive
[2019-11-03 15:14] VITALS: BP 118/63; PULSE 65; RESP 16; O2SAT 93
[2019-11-03] MEDS: sodium chloride 0.9% 1,000 ML 999 ML IV (15:19)
[2019-11-03 15:20] LABS: Basophils # 0.1 10^3/uL (0.0-0.1); Basophils % 0.7 %; Eosinophils # 0.2 10^3/uL (0.0-0.8); Eosinophils % 2.5 %; Hematocrit 42.6 % (42.0-52.0); Lymphocytes # 2.1 10^3/uL (0.8-4.8); Lymphocytes % 24.4 %; Mean Corpuscular HGB Conc 32.9 g/dL (30.0-36.0); Mean Corpuscular Hemoglobin 30.3 pg (28.0-34.0); Mean Corpuscular Volume 92.2 fL (80-94); Mean Platelet Volume 10.9 fL (7.4-10.4); Monocytes # 0.7 10^3/uL (0.2-0.9); Monocytes % 7.9 %; Neutrophils # 5.65 10^3/uL (1.8-7.7); Neutrophils % 64.3 %; Nucleated Red Blood Cells % 0 %; Platelet Count 196 10^3/cmm (130-400); Red Blood Count 4.62 10^6/uL (4.1-5.3); Red Cell Distribution Width 14.4 % (12.1-15.1); White Blood Count 8.8 10^3/uL (4.0-10.0)
[2019-11-03] MEDS: ketorolac 30 mg/mL INJ 15 MG IVP (15:20)
[2019-11-03] MEDS: metoclopramide 5 mg/mL SDV 2 mL IVP (15:21)
[2019-11-03] MEDS: diphenhydrAMINE 50 mg/mL SDV 1mL 25 MG IVP (15:21)
[2019-11-03 15:38] LABS: Alanine Aminotransferase 11 U/L (0-41); Albumin Level 4.2 g/dL (3.5-5.2); Alkaline Phosphatase 94 IU/L (40-130); Anion Gap 11.8 (5-19); Aspartate Amino Transferase 14 U/L (0-40); Blood Urea Nitrogen 18 mg/dL (8-23); Carbon Dioxide 29 mmol/L (22-29); Chloride 101 mmol/L (98-107); Creatinine Clr Calc Pharmacy 89.4991; Globulin 2.6 g/dL (1.3-4.6); Glomerular Filtration Rate 84.7 mL/min (90-130); Glucose 158 mg/dL (65-115); Osmolality Calculated 286 mOsm/kg (285-295); Potassium 3.8 mmol/L (3.5-5.1); Sodium 138 mmol/L (136-145); Total Bilirubin 0.6 mg/dL (0.15-1.2); Total Protein 6.8 g/dL (6.6-8.7); Valproic Acid Level 2.8 ug/mL (50-100)
--- NOTE | 2019-11-03 15:41 | CTR_ITS ---
PROCEDURE INFORMATION: Exam: CT Head Without Contrast Exam date and time: 11/03/2019 3:46 PM Age: 64 years old Clinical indication: Pain; Dizziness; Headache; Prior surgery; Additional info: MCCONNELL TECHNIQUE: Imaging protocol: Computed tomography of the head without contrast. Radiation optimization: All CT scans at this facility use at least one of these dose optimization techniques: automated exposure control; mA and/or kV adjustment per patient size (includes targeted exams where dose is matched to clinical indication); or iterative reconstruction. COMPARISON: CT [place] [facility] [place] [id number] 04/09/2018 8:32 AM RADIATION DOSE METRICS: Total DLP (mGy-cm): 818.41 FINDINGS: Brain: There is volume loss and periventricular low density compatible with chronic small vessel disease changes. There is no acute hemorrhage, edema or mass effect. Basal ganglia lacunar infarcts are unchanged. Ventricles: Normal. No ventriculomegaly. Bones/joints: Unremarkable. No acute fracture. Sinuses: There is patchy mucosal thickening in the sinuses. No air-fluid levels in the sinuses. Mastoid air cells: Visualized mastoid air cells are well aerated. Soft tissues: Unremarkable. CT/CT head wo con* [id number] IMPRESSION: No acute intracranial abnormality. Radiation Dose CTDIVOL = (mGy): DLP = 818.41 (mGy-cm)
[2019-11-03 16:09] VITALS: BP 103/57; PULSE 55; RESP 18; O2SAT 95
[2019-11-03 16:38] VITALS: BP 111/61; PULSE 57; RESP 18; O2SAT 92
[2019-11-03 17:06] VITALS: BP 112/61; PULSE 54; RESP 16; O2SAT 93
== END 2019-11-03 17:07 | disposition home or self-care (01) ==
PROVIDERS: Emergency Provider Emergency Medicine; PCP Emergency Medicine Emergency Medical Services
DX: R42 Dizziness and giddiness (principal); R51 Headache; Z79.82 Long term (current) use of aspirin; I48.91 Unspecified atrial fibrillation; E11.9 Type 2 diabetes mellitus without complications; I10 Essential (primary) hypertension; Z87.891 Personal history of nicotine dependence
CPT/HCPCS: 12345; 36415; 70450; 80053; 80164; 85025; 96361; 96374; 96375; 99282; 99284; J1200; J1885; J2765; J7030

== ENCOUNTER → 2020-07-21 11:50 | Outpatient (BNVA) | payer OTHER, SELFPAY | PROVIDERS: PCP Emergency Medicine Emergency Medical Services; Visit Provider Specialist | DX: G40.219 Localization-related (focal) (partial) symptomatic epilepsy and epileptic syndromes with complex partial seizures, intractable, without status epilepticus (principal); G43.711 Chronic migraine without aura, intractable, with status migrainosus; Z79.899 Other long term (current) drug therapy; Z87.891 Personal history of nicotine dependence | CPT/HCPCS: 99214 ==

== ENCOUNTER 2020-07-21 13:54 | Outpatient (CLI) | payer OTHER, SELFPAY ==
[2020-07-21 14:53] LABS: Valproic Acid Level 32.9 ug/mL (50-100)
== END 2020-07-21 13:55 | disposition home or self-care (01) ==
LOC: LAB 13:56
PROVIDERS: PCP Emergency Medicine Emergency Medical Services; Visit Provider Specialist
DX: R56.9 Unspecified convulsions (principal); Z79.899 Other long term (current) drug therapy
CPT/HCPCS: 36415; 80164

== ENCOUNTER 2020-08-06 08:00 | Outpatient (CLI) | payer OTHER, SELFPAY ==
--- NOTE | 2020-08-06 08:15 | USCV_ITS ---
OchiltreeJeremy gibsondy Age: 65 Gender: M : 1955 Exam Date: 08/06/2020 08:19 Ordering Phys: Guicho Vega DO Technologist: Jessy Gambino Exam Location: [facility] [place] Indication: SCREENING FOR AAA HISTORY: Screening Diameter (cm) AP x Transverse x Length Velocity (cm/s) Waveform Prox Aorta: 2.20 x 2.32 x 41.90 Mid Aorta: 2.05 x 2.18 x 48.10 Distal Aorta: 2.00 x 2.05 x 52.10 Right Iliac Prox: 0.86 x 1.20 x 66.10 Left Iliac Prox: 1.15 x 1.20 x 99.20 Stent Prox Landing x x Aneurysmal Sac Max x x Lt Lat Sac Dim Rt Lat Sac Dim Stent Dist Landing x x Right Iliac Stent x x Left Iliac Stent x x Right Renal Art Left Renal Art FINDINGS: Comparison: none available. A complete assessment of the abdominal aorta was not possible. Ectatic abdominal aorta with evidence of atherosclerotic plaque noted. There is no evidence of a right common iliac artery aneurysm. There is no evidence of a left common iliac artery aneurysm. CONCLUSIONS No evidence of abdominal aortic aneurysm. Limited by poor acoustic windows. Dr. Liane Dyer DO (Electronically Signed) Final Date: 06 August 2020 10:10 S
== END 2020-08-06 08:01 | disposition home or self-care (01) ==
LOC: US 08:02
PROVIDERS: PCP Emergency Medicine Emergency Medical Services; Visit Provider Emergency Medicine Emergency Medical Services
DX: Z13.6 Encounter for screening for cardiovascular disorders (principal)
CPT/HCPCS: 76706

== ENCOUNTER → 2020-08-18 08:13 | Outpatient (BNVA) | payer OTHER, SELFPAY | PROVIDERS: PCP Emergency Medicine Emergency Medical Services; Visit Provider Family Medicine | DX: R11.2 Nausea with vomiting, unspecified (principal); Z11.52 Encounter for screening for COVID-19 | CPT/HCPCS: 87635 ==

== ENCOUNTER 2020-08-23 06:48 | Day surgery (SDC) | payer OTHER, SELFPAY ==
[2020-08-19 13:47] VITALS: BMI 32.5
--- NOTE | 2020-08-23 07:06 | ANES.PREANE2 ---
Pre-Anesthetic Assessment Pre-Anesthetic Assessment: Height/Weight: Height 1.73 m Weight 97.069 kg Preop Diagnosis: Nausea and vomiting Proposed Procedure: Operation Date: 08/23/20 07:45 Proposed Procedures p EGD 83748 R11.2(Not Applicable) - Paco Sullivan MD Was Beta Denae taken within 24 hours: Yes Was Clonidine taken within 24 hours: N/A Social: Social History: Tobacco and No alcohol Exam: Pre-Anes Outpt Exam: alert and oriented x 3 Additional Exam Findings (including area of procedure): IRR, decreased BS, rhonchi Airway: Submandibular: WNL Cervical ROM: WNL MP: 2 Dentition: False Additional comments: [place] Pulmonary: Pulmonary: COPD CV/HEM: CV/HEM: Afib, HTN and PVD GI: GI: GERD Metabolic: Metabolic: Morbid obesity Musc/skel: Musc/skel: Lower Back Pain Neuropsych: Neuropsych: Seizure Anesthetic Plan: ASA status: 3 Anesthesia: MAC Risk of > 500 ml blood loss (7ml/kg in children): No PFSH Anesthesia PFSH: Medical History Afib Anticoagulation adequate with anticoagulant therapy Carotid stenosis Chronic kidney disease (CKD) Diabetes Hypercholesteremia Hypertension Nausea and vomiting Spinal stenosis, lumbar region, with neurogenic claudication Spondylolisthesis, lumbar region Surgical History History of jeremiah hole surgery Twist drill drainage of bilateral subdural hematomas, 12/20/2016, [facility] [place] History of esophagogastroduodenoscopy (EGD) (~05/2019) History of laparoscopic cholecystectomy (~06/2019) History of lumbar laminectomy Bilateral L4-L5 laminotomy/foraminotomy/limited facetectomy Family History Other CAD (coronary artery disease) Cancer Diabetes Hypertension Stroke Denies family history of Anesthesia complication Bleeding disorder Social History Smoking and tobacco status: former smoker Alcohol intake: never Lives independently: Yes Marital status: Current occupational status: retired History of recent travel: No Data Anesthesia Cardiac Studies: No Data to Display
[2020-08-23 07:17] VITALS: BP 157/78; PULSE 56; RESP 18; TEMP 36.3; O2SAT 96
--- NOTE | 2020-08-23 07:24 | W.PM.OPSUD ---
Surgery/Procedure H&P Update DATE OF PROCEDURE: August 23, 2020 DATE H&P PERFORMED: 08/16/20 H&P UPDATE INFORMATION: I have reviewed H&P completed within last 30 days, I have examined patient prior to procedure and No changes to prior documentation PREOP DIAGNOSIS: Nausea and vomiting PRIMARY INDICATION FOR PROCEDURE: The same PLANNED PROCEDURE: Operation Date: 08/23/20 07:45 Proposed Procedures p EGD 85815 R11.2(Not Applicable) - Paco Sullivan MD
[2020-08-23] MEDS: sodium chloride 0.9% 1,000 ML 30 ML IV (07:30)
[2020-08-23 08:37] VITALS: BP 118/73; PULSE 64; RESP 16; TEMP 36.2; O2SAT 93
[2020-08-23 08:47] VITALS: BP 118/73; PULSE 63; RESP 16; TEMP 36.2; O2SAT 93
[2020-08-23 09:19] LABS: Glucose Point of Care 120 mg/dL (70-110)
--- NOTE | 2020-08-23 14:47 | ANE.PACU2 ---
Inpatient post-anesthesia follow up: Airway intact: Yes Vital signs: Temperature 97.2 F Pulse Rate 63 Respiratory Rate 16 Blood Pressure 118/73 Pulse Oximetry 93 Oxygen Delivery Me thod Room Air Oxygen Flow Rate Fraction of Inspir ed Oxygen Hydration adequate: Yes Nausea and vomiting: No Pain level: 1 Mental status: Baseline
[2020-08-24 12:11] LABS: H. Pylori / CLO Test Negative
== END 2020-08-23 09:06 | disposition home or self-care (01) ==
PROVIDERS: PCP Emergency Medicine Emergency Medical Services; Visit Provider Surgery
PROC: 0DJ08ZZ Inspection of Upper Intestinal Tract, Via Natural or Artificial Opening Endoscopic (ICD-10-PCS; CPT 43235; principal; 2020-08-23 07:45)
DX: R11.2 Nausea with vomiting, unspecified (principal); K21.00 Gastro-esophageal reflux disease with esophagitis, without bleeding; K44.9 Diaphragmatic hernia without obstruction or gangrene; K29.70 Gastritis, unspecified, without bleeding; J44.9 Chronic obstructive pulmonary disease, unspecified; I48.91 Unspecified atrial fibrillation; E66.01 Morbid (severe) obesity due to excess calories; Z68.32 Body mass index [BMI] 32.0-32.9, adult; E11.22 Type 2 diabetes mellitus with diabetic chronic kidney disease; I12.9 Hypertensive chronic kidney disease with stage 1 through stage 4 chronic kidney disease, or unspecified chronic kidney disease; N18.9 Chronic kidney disease, unspecified; Z87.891 Personal history of nicotine dependence
CPT/HCPCS: 36416; 43239; 82962; 87077; 96360; J2704; J7030

== ENCOUNTER 2021-01-14 02:31 | Inpatient (IN) | payer OTHER, MEDICARE, SELFPAY ==
[2021-01-14] VITALS (13 sets, daily range): BP systolic 103–178; BP diastolic 68–125; PULSE 75–133; RESP 11–22; TEMP 36.4–37.7; O2SAT 89–96; BMI 31.9
--- NOTE | 2021-01-14 02:32 | XRR_ITS ---
PROCEDURE INFORMATION: Exam: XR Chest Exam date and time: 01/14/2021 2:32 AM Age: 65 years old Clinical indication: Sternal or substernal pain; Patient HX: Substernal chest pain. History of afib. ; Additional info: Cp TECHNIQUE: Imaging protocol: XR of the chest. Views: 1 view. COMPARISON: CR Chest 1 [place] [id number] 09/28/2017 12:36 PM FINDINGS: Lungs: There are low lung volumes. Otherwise, the lungs are clear. Pleural spaces: Unremarkable. No pleural effusion. No pneumothorax. Heart/Mediastinum: Unremarkable. No cardiomegaly. Bones/joints: Unremarkable. XR/XR chest 1V portable [id number] IMPRESSION: There are low lung volumes. Otherwise, the lungs are clear.
--- NOTE | 2021-01-14 02:32 | ECG_ITS ---
[facility] Test Date: 2021-01-14 Pat Name: Vinh Taylor Department: Room: Gender: Male Life Claims Examiner: : 1955 Requested By: Deniz Torrez Order Number: [id number] Reading MD: DEE HILTON Measurements Intervals [place] Rate: 155 P: NM: QRS: 64 QRSD: 96 T: 31 QT: 273 QTc: 438 Interpretive Statements ATRIAL FIBRILLATION WITH RAPID VENTRICULAR RESPONSE MARKED ST DEPRESSION, CONSIDER SUBENDOCARDIAL INJURY Compared to ECG 06/23/2019 13:19:43 ST (T wave) deviation now present Sinus bradycardia no longer present Electronically Signed On 01-14-2021 15:41:57 CDT by DEE HILTON [id number]
--- NOTE | 2021-01-14 02:43 | ED_ITS ---
HPI - Chest Pain General: Chief Complaint: Chest Pain Stated Complaint: Chest Pains Time Seen by Provider: 01/14/21 02:31 Source: patient Mode of arrival: ambulatory Limitations: no limitations History of Present Illness: HPI narrative: 65-year-old male who states he woke up roughly 30 minutes an hour ago with chest pain. States pressure type pains in her chest he rates a 10 out of 10. Denies any nausea or shortness of breath. He does have a history of A. fib. Denies any history of heart disease. Denies any nausea or vomiting. Denies any worsening improving factors. Associated symptoms: Deny abdominal pain, dyspnea, fever(s), nausea or vomiting Review of Systems Const: Denies: fever(s), chills, body aches or change in appetite Eyes: Denies: blurry vision or eye discomfort ENMT: Denies: throat pain or dental pain Card: Reports: chest pain Resp: Denies: dyspnea GI: Denies: abdominal pain, nausea, vomiting or diarrhea : Denies: dysuria Musc: Denies: neck pain or back pain Skin/Breast: Denies: rash Neuro: Denies: headache(s) Psych: Denies: depression Donny/Lymph: Denies: easy bruising All/Imm: Denies: urticaria PFSH ED PFSH: Medical History Afib Anticoagulation adequate with anticoagulant therapy Carotid stenosis Chronic kidney disease (CKD) Diabetes Hypercholesteremia Hypertension Nausea and vomiting Spinal stenosis, lumbar region, with neurogenic claudication Spondylolisthesis, lumbar region Surgical History History of jeremiah hole surgery Twist drill drainage of bilateral subdural hematomas, 12/20/2016, [facility] [place] History of esophagogastroduodenoscopy (EGD) (~05/2019) History of laparoscopic cholecystectomy (~06/2019) History of lumbar laminectomy Bilateral L4-L5 laminotomy/foraminotomy/limited facetectomy Family History Other CAD (coronary artery disease) Cancer Diabetes Hypertension Stroke Denies family history of Anesthesia complication Bleeding disorder Social History Smoking and tobacco status: former smoker Alcohol intake: never Lives independently: Yes Marital status: Current occupational status: retired History of recent travel: No Physical Exam Const: COMMON NORMALS: no acute distress, patient oriented x3 and healthy ap pearing HENMT: COMMON NORMALS: normocephalic and atraumatic HEAD & SCALP: normocephalic and atraumatic Eye: COMMON NORMALS: Equal, round and reactive pupils present and EOMs intact bilaterally PUPIL: Yes Equal, round and reactive pupils present Neck/C-Spine: COMMON NORMALS: full ROM and supple Chest: COMMONS NORMALS: normal inspection of the chest and normal palpation of entire chest wall Resp: COMMON NORMALS: normal respiratory effort, No retractions, No use of accessory muscles and clear to auscultation bilaterally AUSCULTATION: clear to auscultation bilaterally Cardio: COMMON NORMALS: No murmurs present (Cardio) RATE: tachycardic RHYTHM: abnormal rhythm irregularly irregular GI: COMMON NORMALS: Normal to inspection, nondistended, normoactive bowel sounds present, Soft to palpation, non-tender and no masses PALPATION: Yes Soft to palpation Extremity: COMMON NORMALS: normal to inspection and full ROM Neuro: COMMON NORMALS: patient oriented x3, moves all extremities and no focal motor deficits Psych: COMMON NORMALS: mental status grossly normal, Normal thought process present and cooperative THOUGHT PROCESS: Normal thought process present Skin: COMMON NORMALS: no rashes or lesions noted and no wounds GENERAL SKIN EXAM: no rashes or lesions noted Course Vital Signs: Vital signs: Vital Signs Temperature 99.4 F 01/14/21 02:50 Pulse Rate 128 H 01/14/21 02:50 Respiratory Rate 20 H 01/14/21 03:26 Blood Pressure 144/73 01/14/21 02:50 Pulse Oximetry 89 L 01/14/21 02:50 MDM - Chest Pain MDM Narrative: Medical decision making narrative: Patient presents here with chest pain is also in A. fib with RVR. Patient is currently on a Cardizem drip and his rate is improved to around 100. Patient is pain-free currently and has a negative D-dimer and negative troponin. Spoke to hospitalist and will admit to the cardiac stepdown unit. Lab Data: Labs: Lab Results 01/14/21 01/14/21 01/14/21 02:44 02:44 02:44 WBC 9.9 10^3/uL 10^3/ uL (4.0-10.0) RBC 4.81 10^6/uL 10^6 /uL (4.1-5.3) Hgb 15.1 g/dL g/dL (11.7-16.6) Hct 44.1 % % (42.0-52.0) MCV 91.7 fl fl (80-94) MCH 31.4 pg pg (28.0-34.0) MCHC 34.2 g/dL g/dL (30.0-36.0) RDW 13.1 % % (12.1-15.1) Plt Count 198 10^3/cmm 10^3 /cmm (130-400) MPV 10.6 fL H fL (7.4-10.4) Neut % (Auto) 55.9 % % Lymph % (Auto) 30.4 % % [place]bot % (Auto) 8.1 % % Eos % (Auto) 4.4 % % Baso % (Auto) 0.9 % % Neut # (Auto) 5.53 10^3/uL 10^3 /uL (1.8-7.7) Lymph # (Auto) 3.0 10^3/uL 10^3/ uL (0.8-4.8) [place]bot # (Auto) 0.8 10^3/uL 10^3/ uL (0.2-0.9) Eos # (Auto) 0.4 10^3/uL 10^3/ uL (0.0-0.8) Baso # (Auto) 0.1 10^3/uL 10^3/ uL (0.0-0.1) Nucleated RBC % (a uto) 0 % % Nucleated RBCs # 0.0 /100WBC /100W BC PT INR D-Dimer Sodium 137 mmol/L mmol/L (136-145) Potassium 3.2 mmol/L L mmol /L (3.5-5.1) Chloride 90 mmol/L L mmol/ L (98-107) Carbon Dioxide 34 mmol/L H mmol/ L (22-29) Anion Gap 16.2 (5-19) BUN 15 mg/dL mg/dL (8-23) Creatinine 0.9 mg/dL mg/dL (0.7-1.2) GFR Calculation 84.4 mL/min L mL/ min (90-130) Glucose 138 mg/dL H mg/dL (65-115) Calculated Osmolal ity 287 mOsm/kg mOsm/ kg (285-295) Calcium 10.0 mg/dL mg/dL (8.5-10.5) Total Bilirubin 0.4 mg/dL mg/dL (0.15-1.2) AST 12 U/L U/L (0-40) ALT 9 U/L U/L (0-41) Alkaline Phosphata se 92 IU/L IU/L (40-130) Troponin T Baselin e 9 ng/L ng/L (0-15) Total Protein 8.0 g/dL g/dL (6.6-8.7) Albumin 4.3 g/dL g/dL (3.5-5.2) Globulin 3.7 g/dL g/dL (1.3-4.6) SARS-CoV-2 Ag (Rap id) 01/14/21 01/14/21 02:44 03:30 WBC RBC Hgb Hct MCV MCH MCHC RDW Plt Count MPV Neut % (Auto) Lymph % (Auto) [place] % (Auto) Eos % (Auto) Baso % (Auto) Neut # (Auto) Lymph # (Auto) [place] # (Auto) Eos # (Auto) Baso # (Auto) Nucleated RBC % (a uto) Nucleated RBCs # PT 13.60 SECONDS SEC ONDS (12.1-14.9) INR 1.01 (0.8-1.2) D-Dimer 0.50 ug/mIFEU ug/ mIFEU (0-0.59) Sodium Potassium Chloride Carbon Dioxide Anion Gap BUN Creatinine GFR Calculation Glucose Calculated Osmolal ity Calcium Total Bilirubin AST ALT Alkaline Phosphata se Troponin T Baselin e Total Protein Albumin Globulin SARS-CoV-2 Ag (Rap id) Negative (Negative) Imaging Data^: CXR: Attestation: I personally reviewed and interpreted this imaging study as follows: Radiologist's impression: [address] [address] XRay Report Signed Patient: Vinh Taylor Unit #: [id number] : 1955 Age/Sex: 65 / M ADM Date: 01/14/21 Loc: ER Room/Bed: Attending Dr: Ordering Provider/Ordering MD: Deniz Torrez MD Date of Service: 01/14/21 Procedure(s): XR chest 1V portable [id number] Accession Number(s): [id number] Report Number: [id number] PROCEDURE INFORMATION: Exam: XR Chest Exam date and time: 01/14/2021 2:32 AM Age: 65 years old Clinical indication: Sternal or substernal pain; Patient HX: Substernal chest pain. History of afib. ; Additional info: Cp TECHNIQUE: Imaging protocol: XR of the chest. Views: 1 view. COMPARISON: CR Chest 1 [place] [id number] 09/28/2017 12:36 PM FINDINGS: Lungs: There are low lung volumes. Otherwise, the lungs are clear. Pleural spaces: Unremarkable. No pleural effusion. No pneumothorax. Heart/Mediastinum: Unremarkable. No cardiomegaly. Bones/joints: Unremarkable. XR/XR chest 1V portable [id number] IMPRESSION: There are low lung volumes. Otherwise, the lungs are clear. Dictated By: Nando Felder Signed By: Nando Felder Signed Date/Time: 01/14/21346 DD/ 5 EKG Data^: EKG 1: Attestation: I personally reviewed and interpreted this EKG as follows: EKG interpretation date: 01/14/21 EKG interpretation time: 02:37 Interpretation: afib with rvr hr [address] elevation qrs 96 qtc 360 EKG 2: Attestation: I personally reviewed and interpreted this EKG as follows: EKG interpretation date: 01/14/21 EKG interpretation time: 03:06 Interpretation: aib with rvr hr [address] elevation qrs 101 qtc 456 Discharge Plan Discharge Patient Disposition: Admitted As Inpatient Clinical Impression: Chest pain, Atrial fibrillation with RVR Condition: Stable Coding Level of Care Code ED Information Technology Account Manager for Chg Fwd Exam Comprehensive
[2021-01-14 02:48] LABS: Basophils # 0.1 10^3/uL (0.0-0.1); Basophils % 0.9 %; Eosinophils # 0.4 10^3/uL (0.0-0.8); Eosinophils % 4.4 %; Hematocrit 44.1 % (42.0-52.0); Hemoglobin 15.1 g/dL (11.7-16.6); Lymphocytes % 30.4 %; Mean Corpuscular HGB Conc 34.2 g/dL (30.0-36.0); Mean Corpuscular Hemoglobin 31.4 pg (28.0-34.0); Mean Corpuscular Volume 91.7 fl (80-94); Mean Platelet Volume 10.6 fL (7.4-10.4); Monocytes # 0.8 10^3/uL (0.2-0.9); Monocytes % 8.1 %; Neutrophils # 5.53 10^3/uL (1.8-7.7); Neutrophils % 55.9 %; Nucleated Red Blood Cells % 0 %; Platelet Count 198 10^3/cmm (130-400); Red Blood Count 4.81 10^6/uL (4.1-5.3); Red Cell Distribution Width 13.1 % (12.1-15.1); White Blood Count 9.9 10^3/uL (4.0-10.0)
[2021-01-14] MEDS: aspirin 81 mg Chew Tablet 324 MG PO (02:54)
[2021-01-14] MEDS: ondansetron 2 mg/ML SDV 2 mL 4 MG IVP (02:55)
[2021-01-14] MEDS: aspirin 325 mg Tablet 81 MG PO (02:55)
[2021-01-14] MEDS: morphine 4 mg/mL SDV 1 mL IVP (02:55)
--- NOTE | 2021-01-14 02:56 | PC.NURSE ---
Pt dropped one of the 81mg ASA tablets onto the floor. A new verbal order was obtained for the 4th 81mg tablet.
[2021-01-14 03:01] LABS: INR 1.01 (0.8-1.2)
[2021-01-14 03:09] LABS: Alanine Aminotransferase 9 U/L (0-41); Albumin Level 4.3 g/dL (3.5-5.2); Alkaline Phosphatase 92 IU/L (40-130); Anion Gap 16.2 (5-19); Aspartate Amino Transferase 12 U/L (0-40); Blood Urea Nitrogen 15 mg/dL (8-23); Carbon Dioxide 34 mmol/L (22-29); Chloride 90 mmol/L (98-107); Globulin 3.7 g/dL (1.3-4.6); Glomerular Filtration Rate 84.4 mL/min (90-130); Glucose 138 mg/dL (65-115); Osmolality Calculated 287 mOsm/kg (285-295); Potassium 3.2 mmol/L (3.5-5.1); Sodium 137 mmol/L (136-145); Total Bilirubin 0.4 mg/dL (0.15-1.2)
[2021-01-14 03:10] LABS: Troponin(5th) Baseline 9 ng/L (0-15)
[2021-01-14] MEDS: HYDROmorphone 1 mg/mL INJ 1 mL IVP (03:26)
[2021-01-14] MEDS: acetaminophen 325 mg Tablet 650 MG PO (03:27)
[2021-01-14] MEDS: sodium chloride 0.9% 1,000 ML 999 ML IV (03:55)
[2021-01-14 04:20] LABS: SARS Covid-2 Antigen Negative (Negative)
--- NOTE | 2021-01-14 04:32 | ECG_ITS ---
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1955 Requested By: Deniz Torrez Order Number: [id number] Reading MD: DEE HILTON Measurements Intervals [place] Rate: 92 P: [place]: QRS: 46 QRSD: 101 T: 45 QT: 397 QTc: 493 Interpretive Statements ATRIAL FIBRILLATION WITH ABERRANT CONDUCTION OR VENTRICULAR PREMATURE COMPLEXES ABNORMAL RHYTHM ECG Compared to ECG 01/14/2021 02:37:08 Ventricular premature complex(es) now present Aberrant conduction of supraventricular beat(s) now present ST (T wave) deviation no longer present Electronically Signed On 01-14-2021 15:42:28 CDT by DEE HILTON [id number]
[2021-01-14 05:08] LABS: Troponin 5 2HR 13.36 ng/L (0-15); Troponin 5 2HR Delta 4.36 ABS# (0-10)
--- NOTE | 2021-01-14 05:25 | PM.HP ---
Providers/Chief Complaint Admitting Physician: Zuleika Adamson MD Primary Care Provider: Guicho Vega DO Chief Complaint: Chest Pains History of Present Illness Vinh Taylor is a 65 year old male with past medical history of atrial fibrillation, diabetes, hypertension, history of a traumatic subdural hematoma 2016 , carotid stenosis and dyslipidemia, complex partial seziures presented to the hospital today with chief complaint of chest pain. States that he had an episode of chest pressure located in the retrosternal area, nonradiating started yesterday at around 4:00, then self resolved. Symptoms recurred again early this morning which brought him into the emergency room. Also c/o shortness of breath with this episode. Here he was noted to have A. fib with RVR with heart rate in 150s to 160s. He has been started on a Cardizem infusion currently going at 15/h, heart rate currently between 90-100. States that the chest discomfort is resolved with better heart rate control. He has had on and off chest pain which is similar in nature at least for the past 6 months. He also has a history of an abnormal stress test in 2017, followed as outpatient by cardiology. Today his EKG showed A. fib with RVR with ST segment depression. Troponin at baseline and 2 hours are negative. Blood pressure has been stable between 1 30-1 40 systolic. He is currently on anticoagulation with Eliquis for A. fib, confirms that Eliquis has been reinstated once the subdural hematoma had resolved. It was traumatic in nature. Patient is additionally on aspirin 81 mg p.o. daily. He had an upper GI endoscopy in August 2020 which showed reflux and findings of gastritis. No recent cough, expectoration, fever. He is unvaccinated for COVID-19. D-dimer today is negative at 0.5 Review of Systems General: Reports: 10 or more systems reviewed and unremarkable except in HPI and below Const: Denies: fever(s), chills or body aches Eyes: Denies: change in vision, blurry vision or photophobia ENMT: Reports: hoarseness; Denies: throat pain, enlarged tonsils, odynophagia or nasal congestion Card: Denies: chest pain, palpitations, irregular heart rhythm, edema, swelling of feet/ankles, lightheadedness, pre-syncope, dyspnea on exertion or orthopnea Resp: Denies: dyspnea, productive cough, non-productive cough, wheezing, stridor, pain on inspiration, change in phlegm color, hemoptysis or chest congestion GI: Denies: abdominal pain, nausea, vomiting, hematemesis, coffee ground emesis, dysphagia, heartburn, diarrhea, constipation, GI cramping, change in stool character, hematochezia or melena : Denies: flank pain, dysuria, urinary frequency, urinary urgency, urinary hesitancy or hematuria Musc: Denies: neck pain, back pain, extremity pain, joint swelling, joint warmth or deformity Neuro: Denies: headache(s), numbness in extremities, weakness in extremities, sensory changes, difficulty walking, frequent falls, dizziness, vertigo, behavioral changes, Slurred speech present or seizure-like activity Psych: Denies: anxiety, depression, suicidal ideation or homicidal ideation Endo: Denies: polyuria, polydipsia, tired all the time, cold intolerance or hot flashes Donny/Lymph: Denies: easy bruising or easy bleeding Medications/Allergies Home Medications Medication Instructions Recorded Confirmed Last Taken Type allopurinol 300 mg tablet 300 mg PO DAILY 05/06/19 09/23/20 08/22/20 History apixaban 5 mg tablet 5 mg PO BID 05/06/19 09/23/20 08/21/20 History aspirin 81 mg tablet,delayed 81 mg PO ONCE 05/06/19 09/23/20 08/21/20 History release atorvastatin 80 mg tablet 80 mg PO DAILY 05/06/19 09/23/20 08/22/20 History cetirizine 10 mg capsule 10 mg PO DAILY 05/06/19 09/23/20 08/22/20 History cholecalciferol (vitamin D3) 75 3,000 unit PO DAILY 05/06/19 09/23/20 08/22/20 History mcg (3,000 unit) tablet docusate sodium 100 mg capsule 100 mg PO BID 05/06/19 09/23/20 08/22/20 History ferrous sulfate 325 mg (65 mg 325 mg PO BID 05/06/19 09/23/20 08/22/20 History iron) tablet fluticasone propionate 50 1 spray INTRANASAL BID 05/06/19 09/23/20 08/22/20 History mcg/actuation nasal spray,suspension hydrochlorothiazide 25 mg tablet 25 mg PO QAM 05/06/19 09/23/20 08/22/20 History lisinopril 40 mg tablet 40 mg PO DAILY 05/06/19 09/23/20 08/22/20 History omeprazole 20 mg tablet,delayed 20 mg PO BID 05/06/19 09/23/20 08/22/20 History release pioglitazone 30 mg tablet 30 mg PO DAILY 05/06/19 09/23/20 08/22/20 History sildenafil 50 mg tablet 50 mg PO Q7D 05/06/19 09/23/20 1 Day Ago History ~09/07/19 sotalol 80 mg PO BID 05/27/19 09/23/20 08/22/20 History tamsulosin 0.8 mg PO DAILY 05/27/19 09/23/20 08/22/20 History gabapentin 300 mg capsule 300 mg PO BID cap 10/14/19 09/23/20 08/22/20 History divalproex 500 mg tablet,extended 1,500 mg PO DAILY #90 tab 07/22/20 09/23/20 08/22/20 Rx release 24 hr Allergies Allergy/AdvReac Type Severity Reaction Status Date / Time codeine Allergy Intermediate ALGY-Swell Verified 09/23/20 13:37 Lip/Tongue/Throat PFSH Acute PFSH: Medical History (Updated 01/14/21 @ 05:51 by Zuleika Adamson MD) Afib Anticoagulation adequate with anticoagulant therapy Carotid stenosis Chronic kidney disease (CKD) Diabetes Hypercholesteremia Hypertension Nausea and vomiting Spinal stenosis, lumbar region, with neurogenic claudication Spondylolisthesis, lumbar region Surgical History (Updated 01/14/21 @ 05:51 by Zuleika Adamson MD) History of jeremiah hole surgery Twist drill drainage of bilateral subdural hematomas, 12/20/2016, [facility] [place] History of esophagogastroduodenoscopy (EGD) (~05/2019) History of laparoscopic cholecystectomy (~06/2019) History of lumbar laminectomy Bilateral L4-L5 laminotomy/foraminotomy/limited facetectomy Previous back surgery Family History Other CAD (coronary artery disease) Cancer Diabetes Hypertension Stroke Denies family history of Anesthesia complication Bleeding disorder Social History Smoking and tobacco status: former smoker Alcohol intake: never Lives independently: Yes Marital status: Current occupational status: retired History of recent travel: No Vitals/I&O/Wt Last Vital Signs Temp 99.4 F 01/14/21 02:50 Pulse 128 H 01/14/21 02:50 Resp 20 H 01/14/21 03:26 BP 144/73 01/14/21 02:50 Pulse Ox 89 L 01/14/21 02:50 01/13/21 01/13/21 01/14/21 14:59 22:59 06:59 Intake Total 2.833 / 2.833 Balance 2.833 / 2.833 Weight last 48 hrs Weight 95.254 kg Physical Exam Narrative: EXAM NARRATIVE: General: No acute distress, AO x3 HEENT: PERRLA, pupils bilaterally equal and reactive, pallors not present Chest: Normal vesicular breath sounds, no added sounds, equal good air entry bilaterally CVS: S1-S2 regular, no murmurs, no tachycardia, no gallops, no rubs Abdomen: Soft, nontender, no organomegaly, bowel sounds present Neuro: No focal deficits, no facial deformity, AO x3, power 5/5 in all limbs Extremities: no edema clubbing or cyanosis Data : 01/14/21 02:44 01/14/21 02:44 A&P Assessment and plan (1) Atrial fibrillation with RVR: Presenting today with A. fib with RVR and chest pain. EKG showed A. fib RVR with heart rate of [address] segment depression noted in leads II, III, V5, V6. Troponin series negative at baseline and 2 hours. Pending 6-hour troponin. Started on Cardizem infusion, currently at 15 mg/h Start overlap with p.o. Cardizem,, continue sotalol Continue Eliquis 5 mg p.o. twice daily, confirmed with that Eliquis was resumed once subdural hematoma resolved. That was a result of a traumatic injury in 2017. Continue aspirin 81 mg p.o. daily Abnormal stress test dating back to 2018, complaining of on and off chest pain going on about 6 months at this point. Status: Acute (2) Chest pain: Currently likely related to A. fib with RVR, reports pain is improved with heart rate control. Status: Acute (3) Hypokalemia: Supplement with 40 mEq p.o. potassium Status: Acute Attestations Medical Necessity Statement*: Anticipate greater than 2 midnight admission for A. fib RVR, heart rate control, work-up of chest pain Coding Level of Care Code Acute Textile Science Technician for [facility] Fwd Diagnoses Atrial fibrillation with RVR I48.91 Chest pain R07.9 Hypokalemia E87.6
[2021-01-14 06:13] LABS: NT Pro B Type Natriuretic Pept 156 pg/mL (0-125)
[2021-01-14 08:09] LABS: Thyroid Stimulating Hormone 13.06 uIU/mL (0.27-4.20)
--- NOTE | 2021-01-14 08:20 | PC.PHAR ---
pt and pts verified pts medications- still waiting for [facility] to fax med list-pts states the medication bottle has gabapentin 900mg po tid-pt states he only takes 300mg bid-pts states the pts medication bottle has meclizine 50mg tid prn-pt states he just takes 25mg bid-pts states the pt is still taking effexor xr -notes are made in the pharmacy comments
[2021-01-14 08:29] LABS: Glucose Point of Care 179 mg/dL (70-110)
--- NOTE | 2021-01-14 08:32 | ECG_ITS ---
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
[2021-01-14] MEDS: potassium chloride ER 20 mEq Tablet 40 MEQ PO (08:54)
[2021-01-14] MEDS: allopurinol 300 mg Tablet PO (08:55)
[2021-01-14] MEDS: apixaban 5 mg Tablet PO (08:55)
[2021-01-14] MEDS: gabapentin 300 mg Capsule PO ×2 (08:55→18:03)
[2021-01-14] MEDS: sotalol 80 mg Tablet PO ×2 (08:56→18:03)
[2021-01-14] MEDS: aspirin 81 mg EC Tablet PO (08:56)
[2021-01-14] MEDS: atorvastatin 40 mg Tablet 80 MG PO (08:56)
[2021-01-14] MEDS: pantoprazole DR 40 mg Tablet PO (08:56)
[2021-01-14] MEDS: divalproex ER 500 mg Tablet (24H) 1500 MG PO (09:45)
[2021-01-14 09:50] LABS: Troponin 5 6HR 17.61 ng/L (0-15); Troponin 5 6HR Delta 8.61 ng/L (0-12)
--- NOTE | 2021-01-14 10:07 | PM.PN ---
Subjective Subjective: Interval history: This morning heart rate is in 70s I have asked flow his nurse to cut down Cardizem drip to 5 and give him scheduled sotalol and Cardizem and turn off Cardizem within 30 minutes to 1 hour Hold hydrochlorothiazide for low blood pressure Patient is describing his chest pain as substernal, pressure-like sensation, 1/10, mostly happened at the time of exertion associated shortness of breath. Vitals/I&O/Wt Last Vital Signs Temp 97.5 F L 01/14/21 07:28 Pulse 75 01/14/21 07:28 Resp 16 01/14/21 07:28 BP 111/68 01/14/21 07:28 Pulse Ox 96 01/14/21 07:28 01/13/21 01/14/21 01/14/21 22:59 06:59 14:59 Intake Total 2.833 / 2.833 196.5 / 196.5 Balance 2.833 / 2.833 196.5 / 196.5 Weight last 48 hrs Weight 95.254 kg Physical Exam Narrative: EXAM NARRATIVE: Patient was sitting comfortably in his bed Saturating well on room air, I discontinued his nasal cannula oxygen supplementation, and he was able to maintain his O2 saturation above 92% Still complaining of 1/10 substernal chest pain however states significant improvement since last night No active shortness of breath Chest pain is not reproducible Abdomen soft Dose-limiting no edema Awake alert oriented x3 GCS 15 Data : 01/14/21 02:44 01/14/21 02:44 A&P Assessment and plan (1) Unstable angina: Status: Acute (2) Hypokalemia: Status: Acute (3) Atrial fibrillation with RVR: Status: Acute (4) GERD (gastroesophageal reflux disease): Status: Acute (5) Hiatal hernia: Status: Acute (6) Gastritis: Status: Acute Additional A&P Information Active issues Unstable angina A. fib RVR Hypokalemia Abnormal TSH Plan Titrate off Cardizem and start Cardizem p.o. along sotalol Continue Eliquis Hold hydrochlorothiazide because of borderline blood pressures EKG without ischemic or infarctive changes troponins unremarkable D-dimer 0.5 Full code Cardiac diet I will ask Dr. Marcano to evaluate him today as well, he does show typical signs of unstable angina, substernal, lasting more than 30 minutes, response to opioids, exertional shortness of breath and chest pain Requested treat for abnormal TSH noted Attestations Medical Necessity Statement*: Continue cardiac management Time Spent in Patient Care: 16 - 35 minutes Coding Level of Care Code Acute Printing Assistant for Chg Fwd Diagnoses Unstable angina I20.0 Hypokalemia E87.6 Atrial fibrillation with RVR I48.91 GERD (gastroesophageal reflux disease) K21.9 Hiatal hernia K44.9 Gastritis K29.70
--- NOTE | 2021-01-14 10:17 | USCV_ITS ---
Vinh Taylor Age: 65 Gender: M : 1955 Exam Date: 01/14/2021 13:58 Ordering Phys: Kevin Varela MD Technologist: Exam Location: [facility] – [place] Indication: SOB BP: 95 / 65 HR: 79 Rhythm: Sinus Technical Quality: Adequate MEASUREMENTS (Male / Female) Normal Values 2D ECHO LV Diastolic Diameter PLAX 3.4 cm 4.2 - 5.9 / 3.9 - 5.3 cm LV Systolic Diameter PLAX 2.9 cm IVS Diastolic Thickness 1.2 cm 0.6 - 1.0 / 0.6 - 0.9 cm IVS Systolic Thickness 1.5 cm LVPW Diastolic Thickness 1.2 cm 0.6 - 1.0 / 0.6 - 0.9 cm LVPW Systolic Thickness 1.5 cm LVOT Diameter 2.1 cm LV Ejection Fraction 2D Teich 1.5 % LV Ejection Fraction MOD 2C 55.6 % LV Ejection Fraction 2C AL 55.9 % LA Diameter 4.1 cm LA Width 4.1 cm LA Height 5.7 cm RA Width 4.0 cm RA Height 4.2 cm DOPPLER AV Peak Velocity 127.0 cm/s LVOT Peak Velocity 79.0 cm/s AV Area Cont Eq vti 2.2 cm squared AV Area Cont Eq pk 2.1 cm squared MV Area PHT 5.0 cm squared Mitral E to A Ratio 1.8 MV E' Velocity 51.5 cm/s Mitral E to MV E' Ratio 8.6 Mitral E to LV E' Lateral Ratio 7.1 Mitral E to LV E' Septal Ratio 11.0 TR Peak Velocity 164.8 cm/s TR Peak Gradient 10.9 mmHg TV Peak E Velocity 101.0 cm/s Right Atrial Pressure 3.0 mmHg Pulmonary Artery Systolic Pressu 13.9 mmHg FINDINGS Left Ventricle Normal left ventricular size. LV systolic function is normal with EF of 55-60%. No regional wall motion abnormalities. Diastolic function is indeterminate because of atrial fibrillation Right Ventricle The right ventricle is normal in size and function. Right Atrium The right atrium is normal in size. RA pressure is normal Left Atrium The left atrium is normal in size. Mitral Valve Structurally normal mitral valve without significant stenosis or prolapse. There is no mitral regurgitation. Aortic Valve Structurally normal aortic valve without significant sclerosis or stenosis. There is no aortic regurgitation. Tricuspid Valve Structurally normal tricuspid valve without significant stenosis or regurgitation. Insufficient TR jet to calculate RVSP Pulmonic Valve Structurally normal pulmonic valve without significant stenosis. There is no pulmonic regurgitation. Pericardium Normal pericardium without effusion. Aorta Normal ascending aorta dimension. CONCLUSIONS LV systolic function is normal with EF of 55 to 60%. Diastolic function is indeterminate because of atrial fibrillation. RA pressure is normal. No significant valvular heart disease is noted. No comparison studies are available. Arpit Marcano MD (Electronically Signed) Final Date: 15 January 2021 13:59 S
[2021-01-14 10:52] LABS: Free T4 Free Thyroxine 0.89 ng/dL (0.82-1.77)
[2021-01-14] MEDS: dilTIAZem 30 mg Tablet PO ×3 (11:54→23:05)
--- NOTE | 2021-01-14 13:16 | PC.CHAP ---
Pastoral Care Encounter/Spiritual Assessment Type of Contact [] Declined goggles assembler visit [] Patient/Family/Request visit [] Outpatient visit [] Follow-up visit [] Physician referral [] Code/Alert [] Routine visit [] Staff referral [] Actively dying [] Patient sleeping [] Family support [] [] Out of room [] Palliative care [] [xx] Receiving care in room [] Pre-surgical visit [] Trauma [] Long length of stay [] ICU visit [] Other: Relational/Emotional Strength [] Patient feels connected with others/family/visitors/staff [] Distress [] Loneliness/isolation [] Abandonment Spirituality of Patient [] Person of Amairani [] Attends Rastafarian of their Amairani [] Believes in Prayer [] Reads Bible or Gnosticist materials [] There are Spiritual issues to be addressed Roaster Helper Interventions [] Prayer [] Active listening [] Non-anxious presence [] Spiritual/emotional support [] Crisis/trauma care [] Spiritual counseling [] Bereavement support [] Provided bereavement packet [] Provided Bible/devotional materials [] Provided toy/stuffed animal, coloring book to patient or family member [] Provided Communion [] Anointing/[place] [] Salvation [] Completed spiritual assessment [] Other: Impact on Illness or Injury [] Angry [] Fearful [] Anxious [] Often cries [] Exhaustion [] Unable to work [] Unable to attend scientology [] Unable to walk/stand [] Unable to read [] Unable to drive [] Unable to eat/drink [] Unable to sleep [] Unable to be with family [] Patient intubated [] Other: Summary Therapist had just entered room to start therapy. Follow up later. Time spent with patient
--- NOTE | 2021-01-14 16:18 | P.CONIM_ITS ---
Providers/Reason For Consult Consulting Physician/Specialty*: Arpit Marcano MD/ Cardiology Reason for Consult*: Unstable angina Requesting Physician: Dr Varela Attending Physician: Kevin Varela MD Primary Care Provider: Guicho Vega DO History of Present Illness History of Present Illness Vinh Taylor is a 65 year old male with past medical history of atrial fibrillation, diabetes, hypertension, history of a traumatic subdural hematoma 2016 , carotid stenosis and dyslipidemia, complex partial seziures presented to the hospital chest discomfort episodes. Hepresented to the h he started having chest pain yesterday afternoon which was on and off. It was substernal without significant radiation. Earlier this morning the episode of chest discomfort was prolonged and he came to the hospital for that. Was found to be in A. fib with RVR. Heart rate was in 130-140 range. He is on Eliquis for anticoagulation at home. He had upper GI endoscopy in August of this year which showed gastritis. He was put on Cardizem drip initially and his heart rates improved with that. However chest discomfort episodes are still there. He says that these symptoms are happening for the last few months. Troponin has not increased. EKG showed atrial fibrillation with PVCs. Review of Systems General: Reports: 10 or more systems reviewed and unremarkable except in HPI and below Const: Denies: fever(s), chills or body aches Eyes: Denies: change in vision, blurry vision or photophobia ENMT: Reports: hoarseness; Denies: throat pain, enlarged tonsils, odynophagia or nasal congestion Card: Denies: chest pain, palpitations, irregular heart rhythm, edema, swelling of feet/ankles, lightheadedness, pre-syncope, dyspnea on exertion or orthopnea Resp: Denies: dyspnea, productive cough, non-productive cough, wheezing, strid or, pain on inspiration, change in phlegm color, hemoptysis or chest congestion GI: Denies: abdominal pain, nausea, vomiting, hematemesis, coffee ground emesis, dysphagia, heartburn, diarrhea, constipation, GI cramping, change in stool character, hematochezia or melena : Denies: flank pain, dysuria, urinary frequency, urinary urgency, urinary hesitancy or hematuria Musc: Denies: neck pain, back pain, extremity pain, joint swelling, joint warmth or deformity Neuro: Denies: headache(s), numbness in extremities, weakness in extremities, sensory changes, difficulty walking, frequent falls, dizziness, vertigo, behavioral changes, Slurred speech present or seizure-like activity Psych: Denies: anxiety, depression, suicidal ideation or homicidal ideation Endo: Denies: polyuria, polydipsia, tired all the time, cold intolerance or hot flashes Donny/Lymph: Denies: easy bruising or easy bleeding Meds/Allergies Home Medications and Allergies Home Medications Medication Instructions Recorded Confirmed Last Taken Type allopurinol 300 mg tablet 300 mg PO DAILY 05/06/19 01/14/21 08/22/20 History atorvastatin 80 mg tablet 80 mg PO DAILY 05/06/19 01/14/21 08/22/20 History cetirizine 10 mg capsule 10 mg PO QAM 05/06/19 01/14/21 08/22/20 History docusate sodium 100 mg capsule 100 mg PO BID 05/06/19 01/14/21 08/22/20 History ferrous sulfate 325 mg (65 mg 325 mg PO BID 05/06/19 01/14/21 08/22/20 History iron) tablet fluticasone propionate 50 2 spray INTRANASAL DAILY PRN 05/06/19 01/14/21 08/22/20 History mcg/actuation nasal spray,suspension hydrochlorothiazide 25 mg tablet 25 mg PO QAM 05/06/19 01/14/21 08/22/20 History lisinopril 40 mg tablet 40 mg PO DAILY 05/06/19 01/14/21 08/22/20 History omeprazole 20 mg tablet,delayed 20 mg PO BID 05/06/19 01/14/21 08/22/20 History release pioglitazone 30 mg tablet 30 mg PO DAILY 05/06/19 01/14/21 08/22/20 History sildenafil 50 mg tablet 50 mg PO PRN 05/06/19 01/14/21 1 Day Ago History ~09/07/19 sotalol 80 mg PO BID 05/27/19 01/14/21 08/22/20 History tamsulosin 0.8 mg PO BEDTIME 05/27/19 01/14/21 08/22/20 History gabapentin 300 mg capsule 300 mg PO BID cap 10/14/19 01/14/21 08/22/20 History Vitamin D3 1 cap PO DAILY 01/14/21 01/14/21 Unknown History albuterol sulfate [ProAir HFA] 2 puff INHALATION Q4H PRN 01/14/21 01/14/21 Unknown History apixaban 5 mg PO BID 01/14/21 01/14/21 Unknown History aspirin [Aspir-81] 81 mg PO QAM 01/14/21 01/14/21 Unknown History dextromethorphan-guaifenesin 1 tab PO BID PRN 01/14/21 01/14/21 Unknown History [Mucinex DM] divalproex 750 mg PO BID 01/14/21 01/14/21 Unknown History meclizine 25 mg PO BID 01/14/21 01/14/21 Unknown History venlafaxine [Effexor XR] 37.5 mg PO DAILY 01/14/21 01/14/21 Unknown History Allergies Allergy/AdvReac Type Severity Reaction Status Date / Time codeine Allergy Intermediate ALGY-Swell Verified 01/14/21 08:20 Lip/Tongue/Throat Current Medications Current Medications Generic Name Dose Route Start Last Admin Trade Name Freq PRN Reason Stop Dose Admin Allopurinol 300 mg 01/14/21 09:00 01/14/21 08:55 Allopurinol 300 Mg Tablet PO 300 mg DAILY MITCHEL Administration Apixaban 5 mg 01/14/21 09:00 01/14/21 08:55 Apixaban 5 Mg Tablet PO 5 mg BID MITCHEL Administration Aspirin 81 mg 01/14/21 09:00 01/14/21 08:56 Aspirin 81 Mg Ec Tablet PO 81 mg DAILY MITCHEL Administration Atorvastatin Calcium 80 mg 01/14/21 09:00 01/14/21 08:56 Atorvastatin 40 Mg Tablet PO 80 mg DAILY MITCHEL Administration Diltiazem HCl 30 mg 01/14/21 06:00 01/14/21 11:54 Diltiazem 30 Mg Tablet PO 30 mg Q6H MITCHEL Administration Divalproex Sodium 1,500 mg 01/14/21 09:00 01/14/21 09:45 Divalproex Er 500 Mg Tablet (24h) PO 1,500 mg DAILY MITCHEL Administration Gabapentin 300 mg 01/14/21 09:00 01/14/21 08:55 Gabapentin 300 Mg Capsule PO 300 mg BID MITCHEL Administration Hydrochlorothiazide 25 mg 01/14/21 06:00 01/14/21 08:36 Hydrochlorothiazide 25 Mg Tablet PO Not Given QAM MITCHEL Lisinopril 40 mg 01/14/21 09:00 01/14/21 08:35 Lisinopril 20 Mg Tablet PO Not Given DAILY MITCHEL Pantoprazole Sodium 40 mg 01/14/21 09:00 01/14/21 08:[address] 40 Mg Tablet PO 40 mg DAILY MITCHEL Administration Sotalol HCl 80 mg 01/14/21 09:00 01/14/21 08:56 Sotalol 80 Mg Tablet PO 80 mg BID MITCHEL Administration PFSH Acute PFSH: Medical History Afib Anticoagulation adequate with anticoagulant therapy Carotid stenosis Chronic kidney disease (CKD) Diabetes Hypercholesteremia Hypertension Nausea and vomiting Spinal stenosis, lumbar region, with neurogenic claudication Spondylolisthesis, lumbar region Surgical History History of jeremiah hole surgery Twist drill drainage of bilateral [place]omas[place] [facility] [place] of esophagogastroduodenoscopy (EGD) (~05/2019) History of laparoscopic cholecystectomy (~06/2019) History of lumbar laminectomy Bilateral L4-L5 laminotomy/foraminotomy/limited facetectomy Previous back surgery Family History Other CAD (coronary artery disease) Cancer Diabetes Hypertension Stroke Denies family history of Anesthesia complication Bleeding disorder Social History Smoking and tobacco status: former smoker Alcohol intake: never Lives independently: Yes Marital status: Current occupational status: retired History of recent travel: No Vitals/I&O/Wt Last Vital Signs Temp 97.6 F 01/14/21 12:00 Pulse 103 H 01/14/21 14:00 Resp 16 01/14/21 12:00 BP 103/68 01/14/21 12:00 Pulse Ox 95 01/14/21 12:00 01/14/21 01/14/21 01/14/21 06:59 14:59 22:59 Intake Total 2.833 / 2.833 444.917 / 444.917 Balance 2.833 / 2.833 444.917 / 444.917 Weight last 48 hrs Weight 210 lb Physical Exam Narrative: EXAM NARRATIVE: GENERAL: Patient is alert, awake and oriented x3. [] NECK: No jugular vein distension. [] HEENT: No cyanosis. No icterus. No pallor. [] HEART: Irregularly irregular, S1 and S2. No murmur, rub or gallop. [] LUNGS: Clear to auscultate bilaterally. [] ABDOMEN: Soft, nontender and nondistended. Positive bowel sounds. No guarding, rebound or tenderness. [] CENTRAL NERVOUS SYSTEM: Grossly nonfocal. [] EXTREMITIES: Lower extremities with 1+ edema bilaterally. Pulses palpable in the lower extremities, both dorsalis pedis and posterior tibial. [] A&P Assessment and plan (1) Unstable angina: Status: Acute (2) Atrial fibrillation with RVR: Status: Acute (3) Carotid stenosis: Status: Acute (4) Chronic kidney disease (CKD): Status: Acute (5) Hypertension: Status: Acute (6) Hypercholesteremia: Status: Acute Patient has presented with atrial fibrillation he does have associated chest pain symptoms that have been worsening over the last few months. He is still having on and off chest pain. As he was on anticoagulation with Eliquis and got his morning dose today, we will hold off on coronary angiogram for today and will plan on performing it tomorrow. Risks and benefits of the procedure have been discussed with the patient. He understands the risks and benefits and wants to proceed with the procedure. N.p.o. past midnight. Order echocardiogram. Hold Eliquis for coronary angiogram. Continue sotalol Thank you for involving us with care of this patient. We will continue to follow. Please call with questions. 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
[2021-01-14] MEDS: tamsulosin 0.4 mg Capsule 0.8 MG PO (20:40)
[2021-01-15] VITALS (42 sets, daily range): BP systolic 85–175; BP diastolic 57–94; PULSE 58–104; RESP 0–23; TEMP 36.4–36.7; O2SAT 91–99
[2021-01-15] MEDS: ondansetron 2 mg/ML SDV 2 mL 4 MG IVP (03:23)
[2021-01-15 04:06] LABS: Basophils # 0.1 10^3/uL (0.0-0.1); Basophils % 0.8 %; Eosinophils # 0.5 10^3/uL (0.0-0.8); Eosinophils % 4.7 %; Hematocrit 40.7 % (42.0-52.0); Hemoglobin 13.6 g/dL (11.7-16.6); Lymphocytes # 2.6 10^3/uL (0.8-4.8); Lymphocytes % 26.3 %; Mean Corpuscular HGB Conc 33.4 g/dL (30.0-36.0); Mean Corpuscular Hemoglobin 31.4 pg (28.0-34.0); Monocytes # 0.7 10^3/uL (0.2-0.9); Monocytes % 6.5 %; Neutrophils % 61.4 %; Nucleated Red Blood Cells % 0 %; Platelet Count 176 10^3/cmm (130-400); Red Blood Count 4.33 10^6/uL (4.1-5.3); Red Cell Distribution Width 13.3 % (12.1-15.1); White Blood Count 9.9 10^3/uL (4.0-10.0)
[2021-01-15 04:26] LABS: Alanine Aminotransferase 7 U/L (0-41); Albumin Level 3.4 g/dL (3.5-5.2); Alkaline Phosphatase 76 IU/L (40-130); Anion Gap 11.1 (5-19); Aspartate Amino Transferase 11 U/L (0-40); Blood Urea Nitrogen 16 mg/dL (8-23); Carbon Dioxide 32 mmol/L (22-29); Chloride 95 mmol/L (98-107); Globulin 2.7 g/dL (1.3-4.6); Glomerular Filtration Rate 112.8 mL/min (90-130); Glucose 129 mg/dL (65-115); Magnesium 1.9 mg/dL (1.7-2.3); Osmolality Calculated 281 mOsm/kg (285-295); Potassium 4.1 mmol/L (3.5-5.1); Sodium 134 mmol/L (136-145); Total Bilirubin 0.4 mg/dL (0.15-1.2); Total Protein 6.1 g/dL (6.6-8.7)
--- NOTE | 2021-01-15 05:48 | PC.NURSE ---
Pts systolic blood pressure have been fluctuating froms 80s-low 100s. Notified Dr. Adamson and she said to hold the 0600 Cardizem.
--- NOTE | 2021-01-15 05:50 | PC.NURSE ---
Shift Note Frequent safety and comfort rounds continue. Pt reported no pain throughout the night. Orders and nursing care completed as indicated. Pt has been NPO since 0000 due to heart cath 01/15. Patient monitored for response to intervention and treatment. Education provided includes Cardizem and its side effects. Patient verbalized understanding.
[2021-01-15 07:34] LABS: Glucose Point of Care 135 mg/dL (70-110)
[2021-01-15] MEDS: dilTIAZem 30 mg Tablet PO ×2 (09:05→17:10)
[2021-01-15] MEDS: sodium chloride 0.9% 1,000 ML 50 ML IV (09:05)
[2021-01-15] MEDS: diphenhydrAMINE 50 mg Capsule PO (10:30)
--- NOTE | 2021-01-15 10:45 | PC.NURSE ---
to cardiac laboratory secretary at this time
--- NOTE | 2021-01-15 10:51 | P.PN_ITS ---
Subjective Subjective: Interval history: No overnight events Patient is planned for angiogram today at 11 Patient is not endorsing active chest pain Normal hemodynamics Vitals/I&O/Wt Last Vital Signs Temp 97.5 F L 01/15/21 08:00 Pulse 74 01/15/21 08:00 Resp 16 01/15/21 08:00 BP 107/65 01/15/21 08:00 Pulse Ox 96 01/15/21 08:00 01/14/21 01/15/21 01/15/21 22:59 06:59 14:59 Intake Total 340 / 784.917 Balance 340 / 784.917 Weight last 48 hrs Weight 95.254 kg Physical Exam Narrative: EXAM NARRATIVE: Patient was laying comfortably in his bed Euvolemic No neurological deficit EOMI, PERRLA S1, S2 Saturating well on room air No audible stridor or wheezing Data : 01/15/21 03:10 01/15/21 03:10 A&P Assessment and plan (1) Unstable angina: Status: Acute (2) Hypokalemia: Status: Acute (3) Atrial fibrillation with RVR: Status: Acute (4) GERD (gastroesophageal reflux disease): Status: Acute Additional A&P Information Plan for today Patient is going for angiogram for chest pain, unstable angina A. fib with slow ventricular response, I will decrease frequency of Cardizem to every 8 hours instead of every 6 continue sotalol, monitor on telemetry, will reevaluate after angiogram I will advance his diet after the angiogram Start Eliquis 12 hours after the procedure Attestations Medical Necessity Statement*: Continue medical management Time Spent in Patient Care: less than 15 minutes Coding Level of Care Code Acute Medical Office Specialist for Jason Foley Diagnoses Unstable angina I20.0 Hypokalemia E87.6 Atrial fibrillation with RVR I48.91 GERD (gastroesophageal reflux disease) K21.9
--- NOTE | 2021-01-15 11:00 | XACV_ITS ---
Exam Room: [facility] Ht: 173 cm Wt: 95 kg BSA: 2.17 m2 Gender: Male : 1955 Any Known Allergies: Codeine Exam Priority: Routine Procedure(s): Procedure Description: Diagnostic procedure Procedure Description: Left Heart Catheterization Procedure Description: Coronary Angiography Diagnostic Cath Status: Urgent Diagnostic Findings * Left Anterior Descending has minor luminal irregularities. * Circumflex has luminal irregularities. * Left Main: Difficult to assess because of tortuosity. Has moderate to severe 50% stenosis. RAFY: 3 flow. * Proximal Right Coronary Artery: obstructive 70% stenosis, RAFY: 3 flow. * Coronary angiography shows right dominance. Conclusions 1. Moderate to severe left main stenosis. However because of tortuosity, accurate assessment of stenosis not possible. FFR was not available today 2. in Gumming Machine Operator and will need staged procedure 3. on Sunday 4. to assess severity of left main artery.. 5. Severe proximal RCA stenosis. Recommendations * Plan for FFR of left main artery on Sunday. If FFR is significant, we will refer to CT surgery for CABG. If it is not significant, we will proceed with PCI of RCA.. * Continue with antiplatelet therapy. Interventional RX Recommendation: none Diagnostic RX Recommendation: none Anticoagulation: Heparin Pressures Phase:Rest AO : 121 / 50 ( 82 ) @ 10:19:00 AM 135 / 76 ( 102 ) @ 10:23:00 AM 130 / 61 ( 92 ) @ 10:27:00 AM 126 / 57 ( 86 ) @ 10:27:00 AM 126 / 62 ( 90 ) @ 10:35:00 AM LV : 122 / / 23 @ 10:27:00 AM 133 / / 23 @ 10:27:00 AM Valves Phase:DefaultPhase AV : 0.0 @ 11:52:20 AM AV Mean Gradient: 0.0 @ 11:52:20 AM Clinical Evaluation EBL: 5mL-10mL Procedural Details Procedure Consent Obtained. Pre-Procedure Time Out. Identified patient by full name and date of as verbalized by the patient/guarantor. Does the consent match the physician's order: Yes. Accurate & Complete Informed Consent: Yes. Inpatient/Outpatient History & Physical on Chart: Yes. If H&P is completed, is and addenduem needed: No; If yes, is the addendum complete: N/A. Visualize and Verify Site with Patient/Guarantor: N/A. Relevant Radiology Images available: Yes. Pre-op teaching completed and patient verbalized understanding. The risks, benefits, and alternatives of sedation and/or procedure were discussed by physician. The patient agrees to continue. Procedure started. [facility] Clinical Fraility Score: 3: Managing Well. Gumming Machine Operator Indications: ACS > 24 hours. Chest Pain Symptom Assessment: Typical Angina Symptoms. Correct patient, site and procedure confirmed by cath team. Current diagnosis: NSTEMI. PERRLA. Strong, equal hand automation application engineer bilaterally. Lungs clear x 5 lobes. IV Site on Arrival: 20 gauge in the left anticubital. IV Fluids: 0.9% NaCl at KVO. 0 mL infused prior to vp lab. Pre Procedural Pulses: bilateral dorsalis pedis was 2+. Pre Procedural Pulses: bilateral posterior tibial was 1+. Oxygen started at 2liters/min via nasal canula. right groin was prepped with chloroprep then draped in the usual sterile fashion. right radial was prepped with chloroprep then draped in the usual sterile fashion. Baseline sample Acquired. HR: 67 BPM. Physician notified. Patient's family unavailable. Physician arrived. Physician scrubbed in. Immediate Pre-Procedure Time Out. Correct Patient: Yes; Correct Procedure: Yes; Correct Site: Yes; Correct Patient Position: Yes; Correct Supplies: Yes; Dried Flammable Prep: Yes; Blood Products Available: N/A;. Lidocaine 1% infiltrated to the right radial. Arterial access obtained. A 5 eritrean Juliocesar catheter in over wire. Multiple views taken of left coronary artery. Catheter redirected to the RCA. Catheter removed over the exchange wire. A 5 eritrean JR4 catheter in over wire. Multiple views taken of right coronary artery. JR4 advanced to the LV. EDP Sample taken: LV 122/4,23; HR: 54 BPM; SpO2: 92%. Pullback taken: LV 133/1,23; AO 130/61(92); Mean: 0mmHg, Peak to Peak: 0mmHg, SEP: 8sec/min; HR: 71 BPM; SpO2: 92%. Catheter removed over the exchange wire. Side port of sheath attached to Normal Saline flush at KVO to maintain patency. Physician scrubbed out. Physician review of cine films. Physician scrubbed in. A 5 eritrean JL3.5 catheter in over wire. Multiple views taken of left coronary artery. Catheter removed over the exchange wire. A 5 eritrean JL4 catheter in over wire. Catheter removed over the exchange wire. A 5 eritrean TIG catheter in over wire. Catheter removed over the exchange wire. Physician review of cine films. Physician scrubbed out. Vital chart was stopped. A TR Band was successful obtaining hemostatsis at the Right Radial artery insertion site. TR band placed. Hemostasis obtained. Post Procedure: Pulses reassessed and unchanged. PERRLA. Strong, equal hand automation application engineer bilaterally. No VTE prophylaxis required. Medication's Wasted: Lidocaine 1% = 18 mL. Medication's Wasted: Heparin = 1000 units. Medication's Wasted: Nitro = 50 mcg. Total IV fluids: 42 mL. Contrast type used: Omnipaque 300 mgI/mL, 500 mL bottle. Complications: None. Estimated blood loss: 5mL-10mL. Procedure completed. Patient transferred by wheelchair to 1st floor. Access Site Site: Right Radial artery Sheath Size: 6 Fr Hemostasis Method: TR Band Hemostasis Success: Successful Procedure Medications Start: 11:08 AM Stop: 11:08 AM Medication: Versed Amount: 1 mg Route: I.V. Start: 11:08 AM Stop: 11:08 AM Medication: Fentanyl Amount: 50 mcg Start: 11:15 AM Stop: 11:15 AM Medication: Heparin Amount: 5000 units Route: I.V. Start: 11:18 AM Stop: 11:18 AM Medication: Versed Amount: 1 mg Route: I.V. I, the attending physician, have reviewed and verified all procedure medications. Yes, all medications given per verbal order History/Risk Factors Hypertension: Yes Dyslipidemia: Yes Peripheral Arterial Disease (PAD): No Myocardial Infarction (WA): No Obesity: Yes Renal Disease: No Tobacco Use: Former Prior Interventions PCI: No CABG: No Valve Surgery: No Report Signatures Finalized by Arpit Marcano MD on 01/30/2021 09:49 PM
[2021-01-15] MEDS: atorvastatin 40 mg Tablet 80 MG PO (13:10)
[2021-01-15] MEDS: aspirin 81 mg EC Tablet PO (13:11)
[2021-01-15] MEDS: sotalol 80 mg Tablet PO ×2 (13:11→18:20)
[2021-01-15] MEDS: tamsulosin 0.4 mg Capsule 0.8 MG PO (13:13)
[2021-01-15] MEDS: gabapentin 300 mg Capsule PO ×2 (13:14→18:20)
[2021-01-15] MEDS: divalproex ER 500 mg Tablet (24H) 1500 MG PO (13:14)
[2021-01-15] MEDS: lisinopril 20 mg Tablet 40 MG PO (13:15)
[2021-01-15] MEDS: pantoprazole DR 40 mg Tablet PO (13:16)
[2021-01-15] MEDS: allopurinol 300 mg Tablet PO (13:16)
[2021-01-15 13:52] LABS: Glucose Point of Care 154 mg/dL (70-110)
[2021-01-15 16:44] LABS: Glucose Point of Care 131 mg/dL (70-110)
--- NOTE | 2021-01-15 17:00 | PC.NURSE ---
received from cardiac laboratory technical specialist at 12:00 via w/c.report received.pt is drowsy but easily awakened.right wrist with tr band on and inflated.right hand is warm to touch and with brisk capillary refill.no hematoma noted.palpable radial pulse noted distal to tr band.instructed in activity restrictions s/p radial artery procedure...and instructed to notify staff for any bleeding,pain,numbness..or for any concerns at all.pt verb understanding of instructions.
--- NOTE | 2021-01-15 18:59 | PC.NURSE ---
tr band slowly deflated over several hours...and finally removed at 1600.no hematoma formation noted.right hand remains warm to touch and with brisk capillary refill.palpable pulse noted.site dressed with 2x2 and secured with biocclusive drsg.instructed in activity restrictions s/p tr band removal...and instructed to notify staff for any bleediing,pain,numbness..or for any concerns at all.pt verb understanding of instructions
--- NOTE | 2021-01-15 19:29 | P.HPUD_ITS ---
Surgery/Procedure H&P Update DATE OF PROCEDURE: January 15, 2021 DATE H&P PERFORMED: 01/14/21 H&P UPDATE INFORMATION: I have reviewed H&P completed within last 30 days, I have examined patient prior to procedure and No changes to prior documentation PREOP DIAGNOSIS: Chest pain/unstable angina PRIMARY INDICATION FOR PROCEDURE: Chest pain/unstable angina PLANNED PROCEDURE: Operation Date: 01/15/21 11:00 Proposed Procedures p Cardiac Catheterization(Left) - Arpit Marcano M.D Possible percutaneous coronary intervention PATIENT REASSESSED PRIOR TO SEDATION, WITH NO CHANGE NOTED: Yes PHYSICAL EXAM: alert, oriented x 3, clear to auscultation bilaterally and reg ular rate & rhythm AIRWAY EVAL/ANESTHESIA PLAN: ASA III, Monitored Anesthesia, Local Anesthesia, Risks, benefits & alternatives of sedation and/or procedure discussed and Patie nt agrees to continue as planned
--- NOTE | 2021-01-15 19:32 | P.PN_ITS ---
Subjective Subjective: Interval history: Patient has converted back to NSR. He underwent coronary angiogram today. He has moderate left main stenosis that was difficult to assess because of tortuosity. Also had proximal RCA severe stenosis. We will plan on a staged procedure on Sunday to perform FFR of left main artery as it was not available in the lab today. Vitals/I&O/Wt Last Vital Signs Temp 98.1 F 01/15/21 18:46 Pulse 73 01/15/21 18:46 Resp 15 01/15/21 18:46 BP 144/82 01/15/21 18:46 Pulse Ox 99 01/15/21 18:46 01/15/21 01/15/21 01/15/21 06:59 14:59 22:59 Output Total 400 / 400 Balance -400 / -400 Weight last 48 hrs Weight 210 lb Physical Exam Narrative: EXAM NARRATIVE: GENERAL: Patient is alert, awake and oriented x3. [] NECK: No jugular vein distension. [] HEENT: No cyanosis. No icterus. No pallor. [] HEART: Irregularly irregular, S1 and S2. No murmur, rub or gallop. [] LUNGS: Clear to auscultate bilaterally. [] ABDOMEN: Soft, nontender and nondistended. Positive bowel sounds. No guarding, rebound or tenderness. [] CENTRAL NERVOUS SYSTEM: Grossly nonfocal. [] EXTREMITIES: Lower extremities with no edema bilaterally. Pulses palpable in the lower extremities, both dorsalis pedis and posterior tibial. [] Data : 01/15/21 03:10 01/15/21 03:10 A&P Assessment and plan (1) Unstable angina: Status: Acute (2) Atrial fibrillation with RVR: Status: Acute (3) Carotid stenosis: Status: Acute (4) Chronic kidney disease (CKD): Status: Acute (5) Hypertension: Status: Acute (6) Hypercholesteremia: Status: Acute Patient has converted back to normal sinus rhythm. Start Lovenox at therapeutic doses so we will continue holding Eliquis for now in anticipation of FFR/PCI on Sunday. Patient had coronary angiogram done today. Left main artery has at least moderate stenosis. Will need better assessment with FFR. It was not available in the Clean Up Worker today. We will plan on FFR of left main artery on Sunday morning. If abnormal, CT surgery will be consulted for possible CABG. If it is normal, we will proceed with PCI of RCA. Echocardiogram performed does not show regional wall motion abnormalities and EF is normal. Continue sotalol Thank you for involving us with care of this patient. We will continue to follow. Please call with questions. Attestations Medical Necessity Statement*: Care expected to cross 2 midnights. Coding Level of Care Code Acute Package Yarns Drying Machine Operator for [facility] Fwd Diagnoses Unstable angina I20.0 Atrial fibrillation with RVR I48.91 Carotid stenosis I65.29 Chronic kidney disease (CKD) N18.9 Hypertension I10 Hypercholesteremia E78.00
[2021-01-15 19:41] LABS: Quest SARS-CoV-2 RNA NOT DETECTED (NOT DETECTED)
[2021-01-15] MEDS: enoxaparin 100 mg/mL Syringe SUBCUT (21:03)
[2021-01-16] VITALS (14 sets, daily range): BP systolic 93–171; BP diastolic 48–84; PULSE 60–71; RESP 12–20; TEMP 36.8; O2SAT 92–96
--- NOTE | 2021-01-16 01:43 | PC.NURSE ---
Pts blood pressures have been low throughout the night ranging from 90s-100s. Cardizem was due at 0100, messaged Dr. Adamson and dose is to be held.
--- NOTE | 2021-01-16 05:23 | PC.NURSE ---
Shift Note Frequent safety and comfort rounds continue. Pt tolerated going to the bathroom without getting lightheaded or SOB. Orders and nursing care completed as indicated. Patient monitored for response to intervention and treatment. Education provided includes lovenox. Patient verbalized understanding but needs reinforcement.
[2021-01-16] MEDS: aspirin 81 mg EC Tablet PO (09:22)
[2021-01-16] MEDS: enoxaparin 100 mg/mL Syringe SUBCUT ×2 (09:22→20:49)
[2021-01-16] MEDS: gabapentin 300 mg Capsule PO ×2 (09:22→17:57)
[2021-01-16] MEDS: tamsulosin 0.4 mg Capsule 0.8 MG PO (09:22)
[2021-01-16] MEDS: allopurinol 300 mg Tablet PO (09:23)
[2021-01-16] MEDS: atorvastatin 40 mg Tablet 80 MG PO (09:23)
[2021-01-16] MEDS: dilTIAZem 30 mg Tablet PO ×2 (09:23→20:48)
[2021-01-16] MEDS: lisinopril 20 mg Tablet 40 MG PO (09:23)
[2021-01-16] MEDS: divalproex ER 500 mg Tablet (24H) 1500 MG PO (09:23)
[2021-01-16] MEDS: pantoprazole DR 40 mg Tablet PO (09:23)
[2021-01-16] MEDS: sotalol 80 mg Tablet PO ×2 (09:23→17:57)
--- NOTE | 2021-01-16 09:50 | P.PN_ITS ---
Subjective Subjective: Interval history: Patient is overall doing well. He is staying in normal sinus rhythm with controlled heart rate. Denies active chest pain today. Vitals/I&O/Wt Last Vital Signs Temp 98.3 F 01/16/21 03:05 Pulse 63 01/16/21 08:00 Resp 20 H 01/16/21 08:00 BP 120/67 01/16/21 08:00 Pulse Ox 92 01/16/21 08:00 Physical Exam Narrative: EXAM NARRATIVE: GENERAL: Patient is alert, awake and oriented x3. [] NECK: No jugular vein distension. [] HEENT: No cyanosis. No icterus. No pallor. [] HEART: Irregularly irregular, S1 and S2. No murmur, rub or gallop. [] LUNGS: Clear to auscultate bilaterally. [] ABDOMEN: Soft, nontender and nondistended. Positive bowel sounds. No guarding, rebound or tenderness. [] CENTRAL NERVOUS SYSTEM: Grossly nonfocal. [] EXTREMITIES: Lower extremities with no edema bilaterally. Pulses palpable in the lower extremities, both dorsalis pedis and posterior tibial. [] Data : 01/15/21 03:10 01/15/21 03:10 A&P Assessment and plan (1) Unstable angina: Status: Acute (2) Atrial fibrillation with RVR: Status: Acute (3) Carotid stenosis: Status: Acute (4) Chronic kidney disease (CKD): Status: Acute (5) Hypertension: Status: Acute (6) Hypercholesteremia: Status: Acute Patient has converted back to normal sinus rhythm. Patient started on Lovenox for now. Continue holding Eliquis in anticipation of FFR with possible PCI tomorrow. Patient had coronary angiogram done yesterday. Left main artery has at least moderate stenosis. Will need better assessment with FFR. It was not available in the Bonding [facility] today. We will plan on FFR of left main artery on Sunday morning. If abnormal, CT surgery will be consulted for possible CABG. If it is normal, we will proceed with PCI of RCA. Echocardiogram performed does not show regional wall motion abnormalities and EF is normal. Continue sotalol Thank you for involving us with care of this patient. We will continue to follow. Please call with questions. Attestations Medical Necessity Statement*: Care expected to cross 2 midnights. Coding Level of Care Code Acute Talent Development Consultant for [facility] Fwd Diagnoses Unstable angina I20.0 Atrial fibrillation with RVR I48.91 Carotid stenosis I65.29 Chronic kidney disease (CKD) N18.9 Hypertension I10 Hypercholesteremia E78.00
--- NOTE | 2021-01-16 10:42 | PM.PN ---
Subjective Subjective: Interval history: Patient was seen and examined this morning. No recurrence of chest pain. Plan for staged angiogram probably on Sunday CSU nurse updated, patient updated Vitals/I&O/Wt Last Vital Signs Temp 98.3 F 01/16/21 03:05 Pulse 63 01/16/21 08:00 Resp 20 H 01/16/21 08:00 BP 120/67 01/16/21 08:00 Pulse Ox 92 01/16/21 08:00 01/15/21 01/16/21 01/16/21 22:59 06:59 14:59 Intake Total 240 / 240 Balance 240 / 240 Physical Exam Narrative: EXAM NARRATIVE: Patient was laying comfortably in his bed Breakfast tray in front of him EOMI, PERRLA No neurological deficit S1, S2 No murmur No sign of heart failure Abdomen soft Saturating well on room air Data : 01/15/21 03:10 01/15/21 03:10 A&P Assessment and plan (1) Unstable angina: Status: Acute (2) Hypokalemia: Status: Acute (3) Atrial fibrillation with RVR: Status: Acute (4) GERD (gastroesophageal reflux disease): Status: Acute (5) Hiatal hernia: Status: Acute (6) Gastritis: Status: Acute Additional A&P Information Paroxysmal A. fib: Patient has converted into sinus rhythm heart rate fluctuated between 58-80, hemodynamically stable I decreased his Cardizem yesterday to 60 mg every 12h I did notice today that his heart rate has been going below 60, will discontinue Cardizem and monitor on sotalol his Eliquis was held in anticipation of angiogram, we will keep him on therapeutic dose of Lovenox for now and start Eliquis after his procedure Unstable angina Please review cardiac cath report for further details, in summary he has 2 stenotic lesions, there were no FFR studies done yesterday, plan for another angiogram on Sunday No recurrence of chest pain Hiatal hernia no acute exacerbation Gastritis: No active pain N.p.o. after midnight Full code DVT prophylaxis therapeutic Lovenox will suffice Attestations Medical Necessity Statement*: Angiogram tomorrow Time Spent in Patient Care: less than 15 minutes Coding Level of Care Code Acute Websphere Commerce Developer for [facility] Fwd Diagnoses Unstable angina I20.0 Hypokalemia E87.6 Atrial fibrillation with RVR I48.91 GERD (gastroesophageal reflux disease) K21.9 Hiatal hernia K44.9 Gastritis K29.70
--- NOTE | 2021-01-16 11:53 | PC.CHAP ---
Pastoral Care Encounter/Spiritual Assessment Type of Contact [] Declined tie knitter helper visit [] Patient/Family/Request visit [] Outpatient visit [XX] Follow-up visit [] Physician referral [] Code/Alert [] Routine visit [] Staff referral [] Actively dying [XX] Patient sleeping [] Family support [] [] Out of room [] Palliative care [] [] Receiving care in room [] Pre-surgical visit [] Trauma [] Long length of stay [] ICU visit [] Other: Relational/Emotional Strength [] Patient feels connected with others/family/visitors/staff [] Distress [] Loneliness/isolation [] Abandonment Spirituality of Patient [] Person of Amairani [] Attends Holiness of their Amairani [] Believes in Prayer [] Reads Bible or Episcopalian materials [] There are Spiritual issues to be addressed Legal Librarian Interventions [] Prayer [] Active listening [] Non-anxious presence [] Spiritual/emotional support [] Crisis/trauma care [] Spiritual counseling [] Bereavement support [] Provided bereavement packet [] Provided Bible/devotional materials [] Provided toy/stuffed animal, coloring book to patient or family member [] Provided Communion [] Anointing/[place] [] Salvation [] Completed spiritual assessment [] Other: Impact on Illness or Injury [] Angry [] Fearful [] Anxious [] Often cries [] Exhaustion [] Unable to work [] Unable to attend druze [] Unable to walk/stand [] Unable to read [] Unable to drive [] Unable to eat/drink [] Unable to sleep [] Unable to be with family [] Patient intubated [] Other: Summary Time spent with patient
--- NOTE | 2021-01-16 18:31 | PC.NURSE ---
Shift Note Frequent safety and comfort rounds continue. Orders and/or nursing care completed as indicated. Patient monitored for response to intervention and treatment(s). Education provided includes[medication education]. Patient and/or brand representative verb understanding. Will continue to monitor.
[2021-01-17] VITALS (7 sets, daily range): BP systolic 147–176; BP diastolic 77–90; PULSE 66–104; RESP 15–17; TEMP 36.6–36.8; O2SAT 93–96
[2021-01-17] MEDS: sodium chloride 0.9% 1,000 ML 50 ML IV (05:07)
[2021-01-17] MEDS: diphenhydrAMINE 50 mg Capsule PO (05:07)
--- NOTE | 2021-01-17 05:08 | XACV_ITS ---
Exam Room: 103 Ht: 173 cm Wt: 95 kg BSA: 2.17 m2 Gender: Male : 1955 Any Known Allergies: Codeine Exam Priority: Routine Indication(s): - Unstable angina Procedure(s): Procedure Description: Diagnostic procedure Procedure Description: Coronary Angiography Procedure Description: Pressure Wire Diagnostic Cath Status: Urgent Diagnostic Findings * Circumflex has luminal irregularities. Mid left circumflex artery has moderate disease.. * Left Main : moderate 50% stenosis, RAFY: 3 flow. * Left Anterior Descending has no disease. * Proximal Right Coronary Artery: obstructive 70% stenosis, RAFY: 3 flow. * Coronary angiography shows right dominance. Interventional Findings * Procedure details: We engaged left main artery with XB 3.5 guide catheter. IV heparin was administered to maintain an ACT above 250 seconds. After zeroing and equalizing FFR wire was put in LAD. FFR value of 0.77 was obtained. FFR wire was then advanced to the left circumflex artery and FFR value 0.78 was obtained. This confirmed severe left main artery stenosis. At this time final angiogram was performed that showed excellent stent expansion, RAFY-3 flow and no residual stenosis. Pressure wire and guide catheter were removed. Patient left the Half Section Ironer in a stable condition. Conclusions 1. Severe left main artery stenosis.. 2. Severe proximal RCA stenosis. Recommendations * Transferred back to CSU. * CT surgery consult for CABG. Interventional RX Recommendation: CABG Diagnostic RX Recommendation: CABG Anticoagulation: Heparin Clinical Evaluation EBL: 5mL-10mL Procedural Details Hemodynamic formulas in Rest were re-calculated based on hemoglobin value from 01/15/2021 3:10:00 AM. Procedure Consent Obtained. Admit Source: In Patient. Current Diagnosis : Unstable angina. Pre-Procedure Time Out. Identified patient by full name and date of as verbalized by the patient/guarantor. Does the consent match the physician's order: Yes. Accurate & Complete Informed Consent: Yes. Inpatient/Outpatient History & Physical on Chart: Yes. If H&P is completed, is and addenduem needed: No; If yes, is the addendum complete: N/A. Visualize and Verify Site with Patient/Guarantor: N/A. Relevant Radiology Images available: Yes. Pre-op teaching completed and patient verbalized understanding. The risks, benefits, and alternatives of sedation and/or procedure were discussed by physician. The patient agrees to continue. Procedure started. [facility] Clinical Fraility Score: 3: Managing Well. Half Section Ironer Indications: Unstable Angina. Chest Pain Symptom Assessment: Typical Angina Symptoms. Cardiovascular Instability: No, stable. Correct patient, site and procedure confirmed by cath team. Current diagnosis: Unstable angina. PERRLA. Strong, equal hand wheel cutter bilaterally. Lungs clear x 5 lobes. IV Site on Arrival: 18 gauge in the right wrist. IV Site on Arrival: 20 gauge in the left wrist. IV Fluids: 0.9% NaCl at KVO. 0 mL infused prior to cardiac catheterization technician. Pre Procedural Pulses: bilateral dorsalis pedis was Doppled. Pre Procedural Pulses: bilateral posterior tibial was Doppled. Pre Procedural Pulses: bilateral radial was 2+. Oxygen started at 3liters/min via nasal canula. bilateral groins was prepped with chloroprep then draped in the usual sterile fashion. Physician notified. Patient's family unavailable. Equipment: 5F - Femoral. Equipment: 6F - Femoral. Heparinized Saline (2 units/mL), 1000 mL bag. Kit, Micropuncture. Cardiac Cath Pack. ACIST Manifold Kit Model BT 2000. Physician arrived. Physician scrubbed in. Immediate Pre-Procedure Time Out. Correct Patient: Yes; Correct Procedure: Yes; Correct Site: Yes; Correct Patient Position: Yes; Correct Supplies: Yes; Dried Flammable Prep: Yes; Blood Products Available: N/A;. Lidocaine 1% infiltrated to the right groin. Inventory is CRD 6 FR XB 3.5 GUIDE. Arterial access obtained with micropuncture set. 6 faroese XB 3.5 guide catheter was inserted over the wire. Guide seated in the LCS. FFR guidewire was advanced through the guide catheter to lesion in the Mid Left Main. FFR equilized and advanced across the lesion. Wire parked in the LAD. An FFR value of 0.77 was obtained for a lesion located at LMCA. FFR wire removed. Rezeroed calibration and reinserted. Wire equilized then advanced down the circumflex artery. An FFR value of 0.78 was obtained for a lesion located at LMCA. FFR wire removed. Angiography performed. Guide catheter removed over the wire. A CRD 5F JR4 Diagnostic Catheter was advanced over the wire and used for right coronary angiography. Multiple views taken of right coronary artery. Catheter removed over the wire. A Right femoral angiogram was performed to determine safe placement of closure device. A Angio-Seal VIP ([facility] [place]go) was successful obtaining hemostatsis at the Right Femoral artery insertion site. Angioseal placed without complications. No signs or symptoms of hematoma noted. Sterile dressing applied per usual sterile fashion.. LOT # [id number]. exp: 09-20-2021. Physician scrubbed out after review of films. Post Procedure: Pulses reassessed and unchanged. PERRLA. Strong, equal hand wheel cutter bilaterally. No VTE prophylaxis required. Medication's Wasted: Lidocaine 1% = 10 ml. Medication's Wasted: Adenosine = 57 mg. Medication's Wasted: Fentanyl = 50 mcg. Total IV fluids: 45.7 mL. Fluoro: 11:02. Contrast type used: Omnipaque 300 mgI/mL, 500 mL bottle. [id number]. Post-op diagnosis: Severe left main disease. CAD. Stenosis of the proximal right coronary artery. Complications: None. Estimated blood loss: 5mL-10mL. Procedure completed. Patient transferred by bed to 1st floor. Vital chart was stopped. Access Site Site: Right Femoral artery Sheath Size: 6 Fr Hemostasis Method: Angio-Seal VIP ([facility] [facility]fego) Hemostasis Success: Successful Procedure Medications Start: 6:04 AM Stop: 6:04 AM Medication: Versed Amount: 1 mg Route: I.V. Start: 6:04 AM Stop: 6:04 AM Medication: Fentanyl Amount: 50 mcg Route: I.V. Start: 6:11 AM Stop: 6:11 AM Medication: Heparin Amount: 6000 units Route: I.V. Start: 6:19 AM Stop: 6:19 AM Medication: Adenosine (Adenocard) Amount: 806 ml/hr Route: I.V. Start: 6:23 AM Stop: 6:23 AM Medication: Adenosine (Adenocard) Route: I.V. Start: 6:29 AM Stop: 6:29 AM Medication: Adenosine (Adenocard) Amount: 806 ml/hr Route: I.V. Start: 6:30 AM Stop: 6:30 AM Medication: Adenosine (Adenocard) Route: I.V. Start: 6:31 AM Stop: 6:31 AM Medication: Versed Amount: 1 mg Route: I.V. I, the attending physician, have reviewed and verified all procedure medications. Yes, all medications given per verbal order History/Risk Factors Hypertension: Yes Dyslipidemia: Yes Peripheral Arterial Disease (PAD): No Myocardial Infarction (ND): No Obesity: Yes Renal Disease: No Tobacco Use: Former Prior Interventions PCI: No CABG: No Valve Surgery: No Report Signatures Finalized by Arpit Marcano MD on 01/30/2021 10:10 PM
[2021-01-17 05:42] LABS: Anion Gap 12.4 (5-19); Blood Urea Nitrogen 19 mg/dL (8-23); Calcium 8.8 mg/dL (8.5-10.5); Carbon Dioxide 30 mmol/L (22-29); Chloride 99 mmol/L (98-107); Glomerular Filtration Rate 96.7 mL/min (90-130); Glucose 101 mg/dL (65-115); Osmolality Calculated 288 mOsm/kg (285-295); Potassium 3.4 mmol/L (3.5-5.1); Sodium 138 mmol/L (136-145)
--- NOTE | 2021-01-17 05:46 | PC.NURSE ---
Patient picked up for technology lab teacher. Report will be given to oncoming nurse at shift change.
--- NOTE | 2021-01-17 06:51 | W.PM.OPSUD ---
Surgery/Procedure H&P Update DATE OF PROCEDURE: January 17, 2021 DATE H&P PERFORMED: 01/14/21 H&P UPDATE INFORMATION: I have reviewed H&P completed within last 30 days and I have examined patient prior to procedure CHANGES TO PREVIOUS DOCUMENTATION: Patient underwent left heart cath on 01/15/2021 that showed moderate to severe left main stenosis and severe proximal RCA stenosis. However given tortuous nature of left main artery, visual assessment was not felt to be adequate for decision making regarding coronary artery bypass surgery. We have brought patient back for FFR of left main artery as it was not available during the last procedure. PREOP DIAGNOSIS: Chest pain/unstable angina PRIMARY INDICATION FOR PROCEDURE: Chest pain/unstable angina PLANNED PROCEDURE: Operation Date: 01/15/21 11:00 Proposed Procedures p Cardiac Catheterization(Left) - Arpit Marcano M.D Operation Date: 01/17/21 06:00 Proposed Procedures p Cardiac Catheterization/FFR/Possible Percutaneous Coronary Intervention(Left) - Arpit Marcano M.D PATIENT REASSESSED PRIOR TO SEDATION, WITH NO CHANGE NOTED: Yes PHYSICAL EXAM: alert, oriented x 3, clear to auscultation bilaterally and regular rate & rhythm AIRWAY EVAL/ANESTHESIA PLAN: normal airway, ASA III, Monitored Anesthesia, Local Anesthesia, Risks, benefits & alternatives of sedation and/or procedure discussed and Patient agrees to continue as planned
--- NOTE | 2021-01-17 07:25 | PM.PN ---
Subjective Subjective: Interval history: Patient underwent FFR of left main artery. It was significantly abnormal with a value of 0.77 from LAD and 0.78 from left circumflex artery. He developed chest discomfort symptoms with engagement during adenosine infusion which resolved once adenosine was stopped. Vitals/I&O/Wt Last Vital Signs Temp 98 F 01/17/21 03:34 Pulse 77 01/17/21 05:45 Resp 17 01/17/21 03:34 BP 147/77 01/17/21 03:34 Pulse Ox 93 01/17/21 03:34 01/16/21 01/17/21 01/17/21 22:59 06:59 14:59 Intake Total 540 / 1140 150 / 1290 Output Total 400 / 400 400 / 800 Balance 140 / 740 -250 / 490 Physical Exam Narrative: EXAM NARRATIVE: GENERAL: Patient is alert, awake and oriented x3. [] NECK: No jugular vein distension. [] HEENT: No cyanosis. No icterus. No pallor. [] HEART: Irregularly irregular, S1 and S2. No murmur, rub or gallop. [] LUNGS: Clear to auscultate bilaterally. [] ABDOMEN: Soft, nontender and nondistended. Positive bowel sounds. No guarding, rebound or tenderness. [] CENTRAL NERVOUS SYSTEM: Grossly nonfocal. [] EXTREMITIES: Lower extremities with no edema bilaterally. Pulses palpable in the lower extremities, both dorsalis pedis and posterior tibial. [] Data : 01/15/21 03:10 01/17/21 04:33 A&P Assessment and plan (1) Unstable angina: Status: Acute (2) Atrial fibrillation with RVR: Status: Acute (3) Carotid stenosis: Status: Acute (4) Chronic kidney disease (CKD): Status: Acute (5) Hypertension: Status: Acute (6) Hypercholesteremia: Status: Acute Patient has converted back to normal sinus rhythm. Patient underwent FFR of left main artery that showed significant left main disease. I have discussed the case with Dr. Batista from CT surgery who will see patient and give his recommendations regarding appropriateness and timing of CABG. Based on CT surgery recommendations, plan for discharge later today if CABG is planned as an outpatient. Will await recs. Also has significant proximal RCA stenosis. Echocardiogram performed does not show regional wall motion abnormalities and EF is normal. Continue sotalol Continue Lovenox for now till surgery plan is finalized. If planned as an outpatient, can resume Eliquis. Thank you for involving us with care of this patient. We will continue to follow. Please call with questions. Attestations Medical Necessity Statement*: Care expected to cross 2 midnights Coding Level of Care Code Acute Diesel Maintenance Technician for [facility] Fwd Diagnoses Unstable angina I20.0 Atrial fibrillation with RVR I48.91 Carotid stenosis I65.29 Chronic kidney disease (CKD) N18.9 Hypertension I10 Hypercholesteremia E78.00
[2021-01-17] MEDS: apixaban 5 mg Tablet PO ×2 (08:35→19:01)
--- NOTE | 2021-01-17 10:29 | PC.SOCIAL ---
IMM UPdated Page 2 of IMM updated and reviewed. Initialed, timed and dated. Copy left in the chart.
--- NOTE | 2021-01-17 16:55 | P.CONIM_ITS ---
Providers/Reason For Consult Consulting Physician/Specialty*: Dr. Batista/cardiothoracic surgery Reason for Consult*: Coronary artery disease with left main coronary artery stenosis Requesting Physician: Dr. Marcano Attending Physician: Mayuri Turcios MD Primary Care Provider: Guicho Vega DO History of Present Illness History of Present Illness Vinh Taylor is a 65 year old male who was admitted after presenting to the emergency department on January 14 with retrosternal chest discomfort associated with shortness of breath and rapid heart rate of 150-160. He was determined to be in atrial fibrillation with RVR and Cardizem infusion was initiated with control of his heart rate to less than [address] also [address] depression. He has a prior history of atrial fibrillation and is on Eliquis. There is also history of an abnormal stress test in 2018 and he had previously been cared for by Dr. Barcenas from our cardiology department. On presentation, his chest discomfort improved with control of his heart rate and was the second episode he had had in the prior 24 hours. Family history for coronary artery disease includes a brother who had three- vessel bypass surgery approximately 6 years ago at the age of approximately 62- 64. Mr. Taylor has a past history of tobacco use, though none since the . Transthoracic echocardiogram performed on the day of admission revealed preserved LV function of 55 to 60%. He did have some diastolic dysfunction but this was also in the face of atrial fibrillation. Right atrial pressure was normal. No significant valvular pathology was noted. After admission, he did have continued short episodes of chest discomfort and after evaluation by Dr. Graham, left heart catheterization was recommended. This was performed on January 15 after he had spontaneously converted back to normal sinus rhythm. He was noted to have some left main stenosis which was difficult to quantify due to tortuosity. He also had proximal RCA disease. It was felt he would benefit from FFR interrogation, and this was performed earlier today. FFR revealed a value of 0.77 with a left main as compared to the LAD and 0.78 compared to the left circumflex. He did develop chest discomfort with adenosine administration and resolution once it was stopped. Given these findings of significance of his left main stenosis, I was consulted to evaluate for consideration for surgical revascularization. Currently, Mr. Maldonado is resting comfortably in the CSU and remains pain-free. He has was present during my interview. It is to note that he has had prior left carotid endarterectomy by Dr. Toi Romero several years ago. I did duplex study was most recently completed on July 15 and ICA/CCA ratio 1.05 on the left (operative) side. ICA to CCA ratio was 0.91 on the right side. He has had no neurologic complaints or history for amaurosis. His past history is significant for subdural hematoma requiring bilateral bur holes drainage and November 2016. Chest x-ray from January 14 is clear. Cardiac silhouette is unremarkable. Review of Systems Const: Denies: fever(s), chills, change in appetite, change in weight, fatigue or night sweats Eyes: Denies: change in vision or blurry vision ENMT: Denies: odynophagia or hoarseness Card: Reports: chest pain, palpitations, irregular heart rhythm and dyspnea on exertion; Denies: edema Resp: Reports: dyspnea and non-productive cough; Denies: hemoptysis GI: Reports: heartburn; Denies: abdominal pain, nausea, vomiting, hematemesis, coffee ground emesis, dysphagia or change in bowel habits : Denies: difficulty urinating, dysuria, urinary frequency, urinary urgency or urinary hesitancy Musc: Denies: extremity pain or extremity swelling Skin/Breast: Denies: rash Neuro: Denies: headache(s), numbness in extremities, weakness in extremities or sensory changes Psych: Denies: anxiety, depression or change in appetite Endo: Denies: polyuria, polydipsia or cold intolerance Donny/Lymph: Denies: easy bruising, easy bleeding, petechiae or enlarged lymph nodes Meds/Allergies Home Medications and Allergies Home Medications Medication Instructions Recorded Confirmed Last Taken Type allopurinol 300 mg tablet 300 mg PO DAILY 05/06/19 01/14/21 08/22/20 History atorvastatin 80 mg tablet 80 mg PO DAILY 05/06/19 01/14/21 08/22/20 History cetirizine 10 mg capsule 10 mg PO QAM 05/06/19 01/14/21 08/22/20 History docusate sodium 100 mg capsule 100 mg PO BID 05/06/19 01/14/21 08/22/20 History ferrous sulfate 325 mg (65 mg 325 mg PO BID 05/06/19 01/14/21 08/22/20 History iron) tablet fluticasone propionate 50 2 spray INTRANASAL DAILY PRN 05/06/19 01/14/21 08/22/20 History mcg/actuation nasal spray,suspension hydrochlorothiazide 25 mg tablet 25 mg PO QAM 05/06/19 01/14/21 08/22/20 History lisinopril 40 mg tablet 40 mg PO DAILY 05/06/19 01/14/21 08/22/20 History omeprazole 20 mg tablet,delayed 20 mg PO BID 05/06/19 01/14/21 08/22/20 History release pioglitazone 30 mg tablet 30 mg PO DAILY 05/06/19 01/14/21 08/22/20 History sildenafil 50 mg tablet 50 mg PO PRN 05/06/19 01/14/21 1 Day Ago History ~09/07/19 sotalol 80 mg PO BID 05/27/19 01/14/21 08/22/20 History tamsulosin 0.8 mg PO BEDTIME 05/27/19 01/14/21 08/22/20 History gabapentin 300 mg capsule 300 mg PO BID cap 10/14/19 01/14/21 08/22/20 History Vitamin D3 1 cap PO DAILY 01/14/21 01/14/21 Unknown History albuterol sulfate [ProAir HFA] 2 puff INHALATION Q4H PRN 01/14/21 01/14/21 Unknown History apixaban 5 mg PO BID 01/14/21 01/14/21 Unknown History aspirin [Aspir-81] 81 mg PO QAM 01/14/21 01/14/21 Unknown History dextromethorphan-guaifenesin 1 tab PO BID PRN 01/14/21 01/14/21 Unknown History [Mucinex DM] divalproex 750 mg PO BID 01/14/21 01/14/21 Unknown History meclizine 25 mg PO BID 01/14/21 01/14/21 Unknown History venlafaxine [Effexor XR] 37.5 mg PO DAILY 01/14/21 01/14/21 Unknown History Allergies Allergy/AdvReac Type Severity Reaction Status Date / Time codeine Allergy Intermediate ALGY-Swell Verified 01/14/21 08:20 Lip/Tongue/Throat Current Medications Current Medications Generic Name Dose Route Start Last Admin Trade Name Freq PRN Reason Stop Dose Admin Allopurinol 300 mg 01/14/21 09:00 01/16/21 09:23 Allopurinol 300 Mg Tablet PO 300 mg DAILY MITCHEL Administration Apixaban 5 mg 01/14/21 09:00 01/17/21 08:35 Apixaban 5 Mg Tablet PO 5 mg BID MITCHEL Administration Aspirin 81 mg 01/14/21 09:00 01/16/21 09:22 Aspirin 81 Mg Ec Tablet PO 81 mg DAILY MITCHEL Administration Atorvastatin Calcium 80 mg 01/14/21 09:00 01/16/21 09:23 Atorvastatin 40 Mg Tablet PO 80 mg DAILY MITCHEL Administration Diltiazem HCl 30 mg 01/16/21 21:00 01/16/21 20:48 Diltiazem 30 Mg Tablet PO 30 mg Q12H MITCHEL Administration Divalproex Sodium 1,500 mg 01/14/21 09:00 01/16/21 09:23 Divalproex Er 500 Mg Tablet (24h) PO 1,500 mg DAILY MITCHEL Administration Gabapentin 300 mg 01/14/21 09:00 01/16/21 17:57 Gabapentin 300 Mg Capsule PO 300 mg BID MITCHEL Administration Hydrochlorothiazide 25 mg 01/14/21 06:00 01/14/21 08:36 Hydrochlorothiazide 25 Mg Tablet PO Not Given QAM MITCHEL Sodium Chloride 1,000 mls @ 50 mls/hr 01/17/21 05:00 01/17/21 05:07 Sodium Chloride 0.9% IV 01/18/21 00:59 50 mls/hr .Q20H ONE Administration Lisinopril 40 mg 01/14/21 09:00 01/16/21 09:23 Lisinopril 20 Mg Tablet PO 40 mg DAILY MITCHEL Administration Ondansetron HCl 4 mg 01/14/21 05:33 01/15/21 03:23 Ondansetron 2 Mg/Ml Sdv 2 Ml IVP 4 mg Q8H PRN Administration vomiting, or N/V if npo Pantoprazole Sodium 40 mg 01/14/21 09:00 01/16/21 09:[address] 40 Mg Tablet PO 40 mg DAILY MITCHEL Administration Sotalol HCl 80 mg 01/14/21 09:00 01/16/21 17:57 Sotalol 80 Mg Tablet PO 80 mg BID MITCHEL Administration Tamsulosin HCl 0.8 mg 01/14/21 09:00 01/16/21 09:22 Tamsulosin 0.4 Mg Capsule PO 0.8 mg DAILY MITCHEL Administration PFSH Acute PFSH: Medical History Afib Anticoagulation adequate with anticoagulant therapy Carotid stenosis Chronic kidney disease (CKD) Diabetes Hypercholesteremia Hypertension Nausea and vomiting Spinal stenosis, lumbar region, with neurogenic claudication Spondylolisthesis, lumbar region Surgical History History of jeremiah hole surgery Twist drill drainage of [place] [facility] [place] of esophagogastroduodenoscopy (EGD) (~05/2019) History of laparoscopic cholecystectomy (~06/2019) History of lumbar laminectomy Bilateral L4-L5 laminotomy/foraminotomy/limited facetectomy Previous back surgery Family History Other CAD (coronary artery disease) Cancer Diabetes Hypertension Stroke Denies family history of Anesthesia complication Bleeding disorder Social History Smoking and tobacco status: former smoker Alcohol intake: never Lives independently: Yes Marital status: Current occupational status: retired History of recent travel: No Vitals/I&O/Wt Last Vital Signs Temp 98.2 F 01/17/21 11:27 Pulse 104 H 01/17/21 14:00 Resp 17 01/17/21 11:27 BP 148/82 01/17/21 11:27 Pulse Ox 96 01/17/21 11:27 01/17/21 01/17/21 01/17/21 06:59 14:59 22:59 Intake Total 150 / 1290 840 / 840 Output Total 400 / 800 900 / 900 Balance -250 / 490 -60 / -60 Physical Exam Const: COMMON NORMALS: alert ORIENTATION/CONSCIOUSNESS: Yes oriented to person, Yes oriented to place and Yes oriented to time HENMT: COMMON NORMALS: normocephalic, atraumatic and hearing grossly normal bilaterally HEAD & SCALP: normocephalic and atraumatic FACE & SINUS: normal facial exam Neck/C-Spine: COMMON NORMALS: full ROM, supple and No carotid bruits GENERAL: Yes trachea midline and No lymphadenopathy OTHER: Well-healed left neck incision Lymph: LYMPHATIC: no lymphadenopathy noted and no lymphedema noted Chest: COMMONS NORMALS: normal inspection of the chest and normal palpation of entire chest wall Resp: COMMON NORMALS: normal respiratory effort, No use of accessory muscles, clear to auscultation bilaterally and percussion normal EFFORT & INSPECTION: Yes able to speak in complete sentences and Yes symmetric chest movement AUSCULTATION: clear to auscultation bilaterally PERCUSSION: percussion normal Cardio: COMMON NORMALS: regular rate, regular rhythm, S1 normal heart sound present, No murmurs present (Cardio) and No rub (Cardio) PALPATION: normal PMI RATE: regular rate RHYTHM: regular rhythm HEART SOUNDS: S1 normal heart sound present GI: COMMON NORMALS: Normal to inspection, nondistended, normoactive bowel sounds present Extremity: COMMON NORMALS: no clubbing, cyanosis or edema Neuro: COMMON NORMALS: no focal motor deficits and no sensory deficits noted SENSORIUM/ORIENTATION: Yes alert, Yes oriented to person, Yes oriented to place and Yes oriented to time Psych: COMMON NORMALS: mental status grossly normal, Normal thought process present, cooperative and speech normal SPEECH: Yes normal speech MOOD & AFFECT: Yes euthymic mood THOUGHT PROCESS: Normal thought process present A&P Assessment and plan (1) Left main coronary artery disease: Mr. Taylor is a 65-year old diabetic gentleman with two-vessel coronary artery disease including significant left main coronary artery stenosis and proximal RCA disease. He has preserved LV function. Severity of his left main disease has been confirmed by FFR measurement by Dr. Marcano. He currently is pain-free. He does not use tobacco. He is followed through the [place] [facility] system here in [place]. He resides locally. I reviewed with him and his the findings of the left heart catheterization and utilized our educational teaching materials to discuss his coronary stenoses and the recommendation to consider surgical revascularization. This was discussed at length and numerous questions were answered. He wishes to discuss matters further with his and with other family members. We did provide our educational materials for him to take home with him for further conversations. We will be contacting him later next week to schedule an appointment early next week further conversations or to answer any questions he may have. If he and family so desire, we will tentatively plan for surgical revascularization or assist with other arrangements at his direction. Presently, he remains pain-free and is eager for discharge. I will keep in close contact with Dr. Marcano as we proceed. Status: Acute Consult Attestations Medical Necessity Statement: Exertional chest pain with confirmed left main coronary artery stenosis Time Spent in Patient Care: Greater than 35 minutes Coding Level of Care Code Acute Project Consultant for Jason Foley Diagnoses Left main coronary artery disease I25.10
--- NOTE | 2021-01-17 18:17 | PM.DCS ---
Discharge Providers Date of Admission: 01/14/21 06:30 Date of Discharge: January 17, 2021 Attending Provider at Admission: Zuleika Adamson MD Attending Provider at Discharge: Mayuri Turcios MD Primary Care Provider: Guicho Vega DO Diagnoses at Discharge Discharge Diagnosis (1) Left main coronary artery disease: Status: Acute Reason for Visit Reason for Visit: Chest Pains Hospital Course Hospital Course HPI as per Dr. Snow Justice Cuca Taylor is a 65 year old male with past medical history of atrial fibrillation, diabetes, hypertension, history of a traumatic subdural hematoma 2016 , carotid stenosis and dyslipidemia, complex partial seziures presented to the hospital today with chief complaint of chest pain. States that he had an episode of chest pressure located in the retrosternal area, nonradiating started yesterday at around 4:00, then self resolved. Symptoms recurred again early this morning which brought him into the emergency room. Also c/o shortness of breath with this episode. Here he was noted to have A. fib with RVR with heart rate in 150s to 160s. He has been started on a Cardizem infusion currently going at 15/h, heart rate currently between 90-100. States that the chest discomfort is resolved with better heart rate control. He has had on and off chest pain which is similar in nature at least for the past 6 months. He also has a history of an abnormal stress test in 2017, followed as outpatient by cardiology. Today his EKG showed A. fib with RVR with ST segment depression. Troponin at baseline and 2 hours are negative. Blood pressure has been stable between 1 30-1 40 systolic. He is currently on anticoagulation with Eliquis for A. fib, confirms that Eliquis has been reinstated once the subdural hematoma had resolved. It was traumatic in nature. Patient is additionally on aspirin 81 mg p.o. daily. He had an upper GI endoscopy in August 2020 which showed reflux and findings of gastritis. No recent cough, expectoration, fever. He is unvaccinated for COVID-19. D-dimer today is negative at 0.5 Course: Patient was admitted with chest pain. He was seen by cardiology and taken for angiogram. A second angiogram was done for FFR studies as they could not be done the first time. LAD occluded and tortuous in nature. Cardiothoracic surgery was consulted by cardiology. Decision was made to perform CABG as an outpatient. Patient was discharged to follow up with CT surgery and cardiology outpatient. Patient was discharged on sotalol 80 BID and cardizem 120 mg daily. Rest of home medications were kept the same as prior. Physical Exam Narrative: EXAM NARRATIVE: Patient was sittin comfortably in bed having lunch when seen. present at bedside. EOMI, PERRLA No neurological deficit S1, S2, no murmer, No sign of heart failure Abdomen soft, non distended, Saturating well on room air Lower extremities: non edematous Discharge Data Data Completed and Pending: Completed Studies During Hospitalization Category Date Time Status XR chest 1V fahad ble [id number] Stat Exams 01/14/21 02:32 Completed CV. echo complete * [id number] Routine Ultrasound 01/14/21 10:17 Completed Pending at discharge Category Date Time Status BOOK ILLUSTRATOR request for service Routin e Exams 01/15/21 11:00 Taken BOOK ILLUSTRATOR request for service Routin e Exams 01/17/21 05:08 Taken Sestamibi Stress Test Request Routi ne Exams 01/14/21 08:37 Ordered Labs from last 24 hours 01/17/21 04:33 Sodium 138 Potassium 3.4 L Chloride 99 Carbon Dioxide 30 H Anion Gap 12.4 BUN 19 Creatinine 0.8 GFR Calculation 96.7 Glucose 101 Calculated Osmolal ity 288 Calcium 8.8 Vitals: Last Vital Signs Temp 98.2 F 01/17/21 11:27 Pulse 104 H 01/17/21 14:00 Resp 17 01/17/21 11:27 BP 148/82 01/17/21 11:27 Pulse Ox 96 01/17/21 11:27 Discharge Plan Discharge Patient Disposition: Home Condition: Stable Prescriptions: New sotalol 80 mg Tablet 80 mg PO BID 30 Days Qty: 60 RF: 0 Cardizem CD 120 mg capsule,extended release 24hr 120 mg PO DAILY 30 Days Qty: 30 RF: 0 Continued allopurinol 300 mg tablet 300 mg PO DAILY RF: 0 atorvastatin 80 mg tablet 80 mg PO DAILY RF: 0 cetirizine 10 mg capsule 10 mg PO QAM RF: 0 docusate sodium 100 mg capsule 100 mg PO BID RF: 0 ferrous sulfate 325 mg (65 mg iron) tablet 325 mg PO BID RF: 0 fluticasone propionate [Allergy Relief (fluticasone)] 50 mcg/actuation spray,suspension 2 spray INTRANASAL DAILY PRN (Reason: Allergy Symptoms) RF: 0 hydrochlorothiazide 25 mg tablet 25 mg PO QAM RF: 0 lisinopril 40 mg tablet 40 mg PO DAILY RF: 0 omeprazole 20 mg tablet,delayed release (DR/EC) 20 mg PO BID RF: 0 pioglitazone 30 mg tablet 30 mg PO DAILY RF: 0 gabapentin 300 mg capsule 300 mg PO BID RF: 0 tamsulosin 0.4 mg Capsule 0.8 mg PO BEDTIME RF: 0 Effexor XR 37.5 mg Capsule,Extended Release 24hr 37.5 mg PO DAILY RF: 0 aspirin 81 mg Tablet,Delayed Release (Dr/Ec) 81 mg PO QAM RF: 0 divalproex 500 mg Tablet Extended Release 24 Hr 750 mg PO BID RF: 0 ProAir HFA 90 mcg/actuation Hfa Aerosol Inhaler 2 puff INHALATION Q4H PRN (Reason: Shortness Of Breath) RF: 0 apixaban 5 mg Tablet 5 mg PO BID RF: 0 Vitamin D3 1 cap PO DAILY RF: 0 Held sildenafil 50 mg tablet 50 mg PO PRN RF: 0 Hold Instructions: discuss with cardiology outpatient before resuming Discontinued sotalol 160 mg Tablet 80 mg PO BID RF: 0 meclizine 25 mg Tablet 25 mg PO BID RF: 0 dextromethorphan-guaifenesin [Mucinex DM] 60-1,200 mg Tablet Extended Release 12 Hr 1 tab PO BID PRN (Reason: Congestion) RF: 0 Discharge Orders: Discharge Order (Routine); Ordered 01/17/21 Ordered By: Mayuri Turcios Referrals: Arpit Marcano M.D [Physician] - 1 week ([facility] will contact you to schedule an appointment in 1 week. If you haven't heard from them by tomorrow afternoon. Please call ) Guicho Vega DO [Primary Care Provider] - 4-7 days (Please call fpr an follow-up appointment in 4 to 7 days. ) Jorge Luis Batista MD [Physician] - 1 week ([facility] will contact you to schedule an appointment in 1 week. If you haven't heard from them by tomorrow. Please call ) Discharge Diet: Cardiac Discharge Activity: Limit activity as instructed Patient Instructions: Left Heart Catheterization (DC), Chest Pain Stoplight, Post Angiogram Home Care Instructions Discharge Attestations Time Spent in Discharge Care*: greater than 30 min Status at Discharge: Cognitive status at discharge: cognitively intact, Quality Metrics Clinical Quality Measures During this hospital stay, did patient experience: None Coding Level of Care Code Acute Chg FW DC note Diagnoses Left main coronary artery disease I25.10
[2021-01-17] MEDS: potassium chloride oral liq 20 mEq/15 mL UDC 40 MEQ PO (19:02)
--- NOTE | 2021-01-17 21:07 | PC.NURSE ---
Patient discharged to home via car accompanied by . Discharge instructions reviewed with patient and/or customer success representative. Mobile pharmacy medications and/or prescriptions provided. Belongings/home medications returned.
--- NOTE | 2021-01-19 08:45 | PC.SOCIAL ---
discharge follow up call made, spoke with patient. patient reports he is doing good. patient picked up cardizem and sotalol from the pharmacy and he is taking as directed. patient is aware of discontinued medications. follow up appointment dates and times for Dr. Krys Batista given to patient. patient had made his follow up appointment with his pcp.
== END 2021-01-17 20:30 | disposition home or self-care (01) | DRG 287 ==
LOC: ER 04:32 → CSU 07:40
PROVIDERS: Internal Medicine; Admitting Provider Student in an Organized Health Care Education/Training Program; Emergency Provider Emergency Medicine; PCP Emergency Medicine Emergency Medical Services; Visit Provider Internal Medicine
PROC: B2151ZZ Fluoroscopy of Left Heart using Low Osmolar Contrast (ICD-10-PCS; principal; 2021-01-15 11:00)
PROC: B2101ZZ Fluoroscopy of Single Coronary Artery using Low Osmolar Contrast (ICD-10-PCS; principal; 2021-01-17 06:00)
DX: I25.110 Atherosclerotic heart disease of native coronary artery with unstable angina pectoris (principal); I48.91 Unspecified atrial fibrillation; I65.29 Occlusion and stenosis of unspecified carotid artery; E11.22 Type 2 diabetes mellitus with diabetic chronic kidney disease; I12.9 Hypertensive chronic kidney disease with stage 1 through stage 4 chronic kidney disease, or unspecified chronic kidney disease; N18.9 Chronic kidney disease, unspecified; Z87.891 Personal history of nicotine dependence; E78.5 Hyperlipidemia, unspecified; E87.6 Hypokalemia; K21.9 Gastro-esophageal reflux disease without esophagitis; Z79.51 Long term (current) use of inhaled steroids; Z79.82 Long term (current) use of aspirin; Z82.49 Family history of ischemic heart disease and other diseases of the circulatory system; E78.00 Pure hypercholesterolemia, unspecified; K29.70 Gastritis, unspecified, without bleeding; K44.9 Diaphragmatic hernia without obstruction or gangrene
CPT/HCPCS: 36415; 36416; 71045; 80048; 80053; 82962; 83735; 83880; 84439; 84443; 84484; 85025; 85378; 85610; 87426; 87635; 93005; 93306; 93452; 93571; 96361; 96372; 96374; 96375; 96376; 99285; C1760; C1769; C1887; C1894; J0153; J1170; J1644; J1650; J2250; J2270; J2405; J3010; J3490; J7030; J7050; Q0163; Q9967

== ENCOUNTER → 2021-01-19 13:46 | Outpatient (BNVA) | payer OTHER, SELFPAY | PROVIDERS: PCP Emergency Medicine Emergency Medical Services; Visit Provider Specialist | DX: R56.9 Unspecified convulsions (principal); G43.711 Chronic migraine without aura, intractable, with status migrainosus; Z98.890 Other specified postprocedural states; Z87.891 Personal history of nicotine dependence | CPT/HCPCS: 99214 ==

== ENCOUNTER → 2021-02-03 15:06 | Outpatient (BNVA) | payer OTHER, SELFPAY | PROVIDERS: PCP Emergency Medicine Emergency Medical Services; Visit Provider Nurse Practitioner Family | DX: I25.10 Atherosclerotic heart disease of native coronary artery without angina pectoris (principal); Z09 Encounter for follow-up examination after completed treatment for conditions other than malignant neoplasm | CPT/HCPCS: 80048 ==

== ENCOUNTER → 2021-02-10 10:03 | Outpatient (BNVA) | payer OTHER, SELFPAY | PROVIDERS: PCP Emergency Medicine Emergency Medical Services; Visit Provider Internal Medicine | DX: I25.810 Atherosclerosis of coronary artery bypass graft(s) without angina pectoris (principal); Z20.822 Contact with and (suspected) exposure to COVID-19 | CPT/HCPCS: 87635 ==

== ENCOUNTER 2021-02-14 17:02 | Inpatient (IN) | payer OTHER, MEDICARE, SELFPAY ==
[2021-02-09 11:46] VITALS: BMI 30.4
[2021-02-09 12:26] LABS: Add Urine Microscopic? NO; Charge for UA Resulting for Rev
[2021-02-09 12:31] LABS: Basophils # 0.1 10^3/uL (0.0-0.1); Basophils % 1.3 %; Eosinophils # 0.4 10^3/uL (0.0-0.8); Eosinophils % 5.1 %; Hematocrit 41.9 % (42.0-52.0); Hemoglobin 13.9 g/dL (11.7-16.6); Lymphocytes # 1.6 10^3/uL (0.8-4.8); Lymphocytes % 19.4 %; Mean Corpuscular HGB Conc 33.2 g/dL (30.0-36.0); Mean Corpuscular Hemoglobin 31.2 pg (28.0-34.0); Mean Corpuscular Volume 94.2 fl (80-94); Mean Platelet Volume 10.8 fL (7.4-10.4); Monocytes # 0.7 10^3/uL (0.2-0.9); Neutrophils # 5.37 10^3/uL (1.8-7.7); Neutrophils % 65.8 %; Nucleated Red Blood Cells % 0 %; Platelet Count 175 10^3/cmm (130-400); Red Blood Count 4.45 10^6/uL (4.1-5.3); White Blood Count 8.2 10^3/uL (4.0-10.0)
--- NOTE | 2021-02-09 12:40 | PC.OT ---
OT PRE-OP CABG EDUCATION ORDERS RECEIVED. PATIENT EDUCATED ON STERNAL PRECAUTIONS, PLB AND ENERGY CONSERVATION TECHNIQUES.
[2021-02-09 12:44] LABS: INR 1.02 (0.8-1.2)
[2021-02-09 12:45] LABS: Partial Thromboplastin Time 28.1 SECONDS (23.9-36.7)
--- NOTE | 2021-02-09 12:45 | USCV_ITS ---
Vinh Taylor Age: 65 Gender: M : 1955 Exam Date: 02/09/2021 12:55 Ordering Phys: Jorge Luis Batista MD (Andy) ([email or web address] [email or web address] Technologist: Alisha Díaz [place] [facility] [place]: pre op CABG RIGHT LEFT LOWER EXTREMITY Diameter Diameter (cm) (cm) 0.54 High Thigh 0.52 0.26 Mid Thigh 0.34 0.28 Above Knee 0.28 0.17 Below Knee 0.35 0.19 Mid Calf 0.23 0.13 Ankle 0.25 RIGHT LEFT UPPER EXTREMITY The Upper Extremity section is not evaluated at this time Findings right leg GSV calf is small and superficial. Patient was in dependent position during scan. Veins were found to be easily compressible. Conclusions 1. Compressible patent veins bilaterally. 2. Normal caliber veins in the left side. 3. Relatively small caliber infrapopliteal veins on the right side, appears to be very superficial Dr Leti Ma MD [facility] (Electronically Signed) Final Date: 09 February 2021 22:33 S
--- NOTE | 2021-02-09 12:46 | ANES.PREANE2 ---
Pre-Anesthetic Assessment Pre-Anesthetic Assessment: Height/Weight: Height 1.73 m Weight 90.718 kg Preop Diagnosis: Coronary artery disease/left main stenosis Proposed Procedure: Operation Date: 02/14/21 08:30 Proposed Procedures p CABG(Not Applicable) - Jorge Luis Batista MD Was Beta Denae taken within 24 hours: N/A Was Clonidine taken within 24 hours: N/A Social: Social History: No alcohol and No tobacco Comment: h/o smoking Exam: Pre-Anes Outpt Exam: alert, oriented x 3 and clear to auscultation bilaterally Airway: Submandibular: WNL Cervical ROM: WNL MP: 2 Dentition: False Pulmonary: Pulmonary: COPD CV/HEM: CV/HEM: Afib, Angina (Stable), CAD, HTN and PVD Comments: EF 55% : : Chronic renal Insufficiency GI: GI: GERD Metabolic: Metabolic: Hyperlipidemia Neuropsych: Neuropsych: MCCONNELL and Seizure Anesthetic Plan: ASA status: 4 Anesthesia: General Other: A.line, CVL/PAC, SHOAIB Risk of > 500 ml blood loss (7ml/kg in children): Yes, adequate IV access and fluids planned PFSH Anesthesia PFSH: Medical History Afib Anticoagulation adequate with anticoagulant therapy Carotid stenosis Chronic kidney disease (CKD) Diabetes Gastritis Hypercholesteremia Hypertension Nausea and vomiting Spinal stenosis, lumbar region, with neurogenic claudication Spondylolisthesis, lumbar region Surgical History History of jeremiah hole surgery Twist drill drainage of bilateral subdural hematomas, 12/20/2016, [facility] [place] History of esophagogastroduodenoscopy (EGD) (~05/2019) History of laparoscopic cholecystectomy (~06/2019) History of lumbar laminectomy Bilateral L4-L5 laminotomy/foraminotomy/limited facetectomy Previous back surgery Family History Other CAD (coronary artery disease) Cancer Diabetes Hypertension Stroke Denies family history of Anesthesia complication Bleeding disorder Social History Alcohol intake: never Lives independently: Yes Marital status: Current occupational status: retired History of recent travel: No Data Anesthesia CBC & Chem 7: 02/09/21 12:10 02/09/21 12:10 Other Labs: Laboratory Results - last 48 hr 02/09/21 02/09/21 12:10 12:10 WBC 8.2 RBC 4.45 Hgb 13.9 Hct 41.9 L MCV 94.2 H MCH 31.2 MCHC 33.2 RDW 14.0 Plt Count 175 MPV 10.8 H Neut % (Auto) 65.8 Lymph % (Auto) 19.4 [place] % (Auto) 8.0 Eos % (Auto) 5.1 Baso % (Auto) 1.3 Neut # (Auto) 5.37 Lymph # (Auto) 1.6 [place] # (Auto) 0.7 Eos # (Auto) 0.4 Baso # (Auto) 0.1 Nucleated RBC % (auto) 0 Nucleated RBCs # 0.0 PT 13.70 INR 1.02 APTT 28.1 Cardiac Studies: Echocardiogram 01/14/21
[2021-02-09 13:01] LABS: Alanine Aminotransferase 9 U/L (0-41); Alkaline Phosphatase 88 IU/L (40-130); Anion Gap 14.2 (5-19); Aspartate Amino Transferase 15 U/L (0-40); Blood Urea Nitrogen 14 mg/dL (8-23); Calcium 9.3 mg/dL (8.5-10.5); Carbon Dioxide 29 mmol/L (22-29); Chloride 99 mmol/L (98-107); Free T4 Free Thyroxine 0.96 ng/dL (0.82-1.77); Globulin 3.2 g/dL (1.3-4.6); Glomerular Filtration Rate 84.4 mL/min (90-130); Glucose 122 mg/dL (65-115); Osmolality Calculated 288 mOsm/kg (285-295); Potassium 4.2 mmol/L (3.5-5.1); Sodium 138 mmol/L (136-145); Thyroid Stimulating Hormone 3.26 uIU/mL (0.27-4.20); Total Bilirubin 0.5 mg/dL (0.15-1.2); Total Protein 7.2 g/dL (6.6-8.7)
[2021-02-09 13:15] LABS: Bilirubin Urine Neg (Negative); Blood Urine Neg (Negative); Glucose Urine UA Norm (Normal); Ketones Urine Negative (Negative); Leukocyte Esterase Urine Negative (Negative); Nitrate Urine Negative (Negative); Protein Urine Neg (Negative); Urine Appearance Clear (CLEAR); Urine Color Straw (Yellow); Urobilinogen Urine Norm (Negative); pH Urine 7 (5-7)
[2021-02-14] VITALS (32 sets, daily range): BP systolic 76–170; BP diastolic 55–85; PULSE 56–78; RESP 15–17; TEMP 36.2–37.8; O2SAT 96–100
[2021-02-14 06:04] LABS: Glucose Point of Care 144 mg/dL (70-110)
[2021-02-14] MEDS: lidocaine 1% INJ 20 mL INTRADERMA (06:18)
--- NOTE | 2021-02-14 06:19 | W.PM.OPSUD ---
Surgery/Procedure H&P Update DATE OF PROCEDURE: February 14, 2021 DATE H&P PERFORMED: 02/06/21 H&P UPDATE INFORMATION: I have reviewed H&P completed within last 30 days, I have examined patient prior to procedure and No changes to prior documentation PREOP DIAGNOSIS: Chest pain/unstable angina: Left Main stenosis PLANNED PROCEDURE: Operation Date: 02/14/21 08:00 Proposed Procedures p CABG(Not Applicable) - Jorge Luis Batista MD
--- NOTE | 2021-02-14 07:01 | P.ANESUD_ITS ---
Pre-Anesthetic Update Pre-Anesthetic Assessment: Date of Surgery/Procedure: 02/14/21 Preop Kaelyn gnosis: Chest pain/unstable angina: Left Main stenosis Proposed Procedure: Operation Date: 02/14/21 08:00 Proposed Procedures p CABG(Not Applicable) - Jorge Luis Batista MD Any changes to Pre-Anesthetic Assessment?: No Last Intake: Intake Last Liquid Date 02/13/21 Last Liquid Time 21:30 Last Solid Date 02/13/21 Last Solid Time 21:30 Labs Last 48hrs: Laboratory Results - last 48 hr 02/09/21 02/14/21 12:10 06:01 POC Glucose 144 H Blood Type O Positive Rho(D) Type Positive Antibody Screen Negative Crossmatch See Detail Vitals: Temperature 97.1 F L 02/14/21 05:43 Temperature Source Temporal Artery S can 02/14/21 05:43 Pulse Rate 56 L 02/14/21 05:43 Respiratory Rate 15 02/14/21 05:43 Blood Pressure 170/85 02/14/21 05:43 Blood Pressure Rachana n 113 02/14/21 05:43 Pulse Oximetry 96 02/14/21 05:43 Oxygen Delivery Me thod 02/14/21 05:43 Exam: Pre-Anes Outpt Exam: alert, oriented x 3, clear to auscultation bilaterally and regular rate & rhythm Other Pertinent Information: Other Pertinent Information: GETA, A.line, CVL/PAC, SHOAIB Cardiac Studies: Echocardiogram 01/14/21
[2021-02-14] MEDS: cefUROXime 1,500 MG in sodium chloride 0.9% (plus) 50 ML 100 MG IV ×2 (08:25→14:07)
[2021-02-14] MEDS: vancomycin 1,000 MG SDV 2000 MG IRRIGATION (08:45)
[2021-02-14] MEDS: heparin, porcine 1,000 unit/mL INJ 10 mL 1750 UNIT IRRIGATION (08:45)
[2021-02-14] MEDS: sodium bicarbonate 1 mEq/mL SDV 50mL 0.7 MEQ IRRIGATION (08:45)
--- NOTE | 2021-02-14 12:08 | XR_ITS ---
WS: [id number] Exam: XR chest 1V portable [id number] Date/Time of Exam: 02/14/2021 5:08 PM Reason For Exam: POST OPEN HEART IN OR 1 WILL CALL WHEN READY Comparison 01/14/2021. There is mild cardiac enlargement with diffuse bilateral interstitial infiltrates throughout both renan gs. The lungs are fully inflated. No pleural effusions. Signs of previous CABG surgery. A right IJ ca theter extends into the heart with the tip of the catheter located at the right perihilar region. An endotracheal tube is in place about 5 cm above the robina in good position. An additional opaque line is seen in the midline and extends below the diaphragm. A another opaque line superimposes the left chest. Significance of this is undetermined. A second IJ line also noted appears to end in the lower one third of the SVC. XR/XR chest 1V portable [id number] IMPRESSION: 1. Diffuse infiltrates throughout both lungs that may represent interstitial pu lmonary edema or pneumonia. 2. Mild cardiac enlargement. 3. Signs of recent cardiac surgery. 4. ET tube appears to be in satisfactory position. Additional vascular lines id entified as detailed above.
--- NOTE | 2021-02-14 17:29 | ECG_ITS ---
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 Measurements Intervals [place] Rate: 72 P: 35 UT: 130 QRS: 66 QRSD: 101 T: 39 QT: 424 QTc: 467 Interpretive Statements SINUS RHYTHM NONSPECIFIC T-WAVE ABNORMALITY Compared to ECG 01/14/2021 08:26:08 Atrial fibrillation no longer present Ventricular premature complex(es) no longer present Aberrant conduction of supraventricular beat(s) no longer present T-wave abnormality still present Electronically Signed On 02-14-2021 23:57:12 CDT by Leti Ma M.D. [id number]
--- NOTE | 2021-02-14 17:34 | P.OP_ITS ---
Operative Report Date of procedure: February 14, 2021 Pre-op Diagnosis: Chest pain/unstable angina: Left Main stenosis Post-op diagnosis: same Procedure Done: 1. Coronary artery bypass grafting x3 (1 artery and 2 veins) utilizing in situ left internal mammary artery to left anterior descending artery, reverse saphenous vein graft aorta to the obtuse marginal branch of the circumflex artery, and reverse of his vein graft aorta to the right coronary artery. #2. Endoscopic vein harvesting of the left greater saphenous vein Pathology: none sent Surgeon: Jorge Luis Batista Anesthesia: General Estimated blood loss (mL): 500 Complications: None Condition: stable Disposition: ICU Brief History: Mr. Taylor is a 65-year-old gentleman with left main coronary artery stenosis who was originally evaluated by Dr. Marcano after presenting with atrial fibrillation and rapid ventricular response. Left heart catheterization confirmed proximal RCA disease and a complex left main stenosis which was confirmed by FFR. Because of his left main stenosis he was referred for consideration of surgical revascularization. He underwent outpatient evaluation and education. After consultation, he wished to proceed with plans for CABG. He and his were carefully educated. Appropriate consents have been reviewed and signed. Procedure: Details and risks of the surgery were carefully and frankly explained to Mr. Taylor and his family. Particular risks of this surgery carefully reviewed with them included the possibility of , stroke, heart attack, major bleeding, infection, pneumonia, pain, organ failure, failure to benefit, early closure of the bypass grafts, prolonged hospital stay and subsequent need for further procedures. Increased risks for complications secondary to diabetes mellitus and left main coronary artery stenosis were carefully reviewed. Patient and family understand these increased risks. All questions were answered and appropriate consents were reviewed and signed. Preoperative education for the patient and the family included both written and video materials. He and his wished to proceed with plans for attempted surgical revascularization for severe coronary artery bypass. PROCEDURE: Preoperative evaluation was obtained from our Anesthesia colleagues and adequate IVs were confirmed. The patient was then taken to the Operating Room Suite where general anesthesia was induced. Appropriate invasive monitoring lines were placed, including large bore peripheral IVs, central line, Licking-Lori catheter, Yan catheter and associated monitoring leads. After careful positioning on the Operating Room table, the patient was subsequently sterilely prepped and draped. Saphenous vein was harvested by endoscopic technique from the left thigh and leg. Branches were secured with ligature and clips and the vein was extracted from the tunnel without tension. It was then flushed with a Heparin and albumin solution and prepared for grafting. Vein harvest sites were irrigated, platelet poor plasma infused into the tunnel and port sites closed with 3-0 and 4-0 Vicryl Plus suture. Simultaneously with vein harvesting, a median sternotomy was created utilizing a #10 scalpel blade with hemostasis controlled with cautery. After reaching the sternal table, the sternum was divided with a reciprocating saw. Bleeding was controlled with cautery and judicious use of bone wax. Following this, the left chest wall was elevated with a Rultract retractor. The left internal mammary artery was dissected free with branches being secured with clips and cautery. The distal end was left intact. After harvesting of the mammary artery, a left pleural chest tube was then placed. The left chest wall was then lowered and moistened antibiotic-soaked laparotomy pads were placed in the wound, followed by an Ankeney retractor. The sternum was then and the pericardium opened and secured with stay sutures. After inspection, 2-0 pledgeted Ethibond sutures were placed at cannulation sites, at which time the patient was fully heparinized. Following this, the left internal mammary artery was taken down from its distal attachment, flushed with Papaverine solution, prepared for grafting and brisk flow confirmed. A soft bulldog was applied distally. Next, the heart was cannulated with a 22-Latvian aortic cannula, two-stage venous cannula and aortic root vent. The patient was subsequently placed on cardiopulmonary bypass and cooled systemically to 34 degrees. Aortic cross-clamp was then carefully placed and 4 degree Celsius cold blood cardioplegia was administered through the aortic root in antegrade fashion. Prompt diastolic arrest was obtained. Left ventricular decompression was confirmed. The heart was cooled systemically with iced saline with an insulation pad in place to protect the phrenic nerve. Throughout the cross-clamp period, at 20-30 minute intervals, antegrade blood cardioplegia was administered to maintain asystole. We then inspected the cardiac surface and coronary anatomy. Initially, the RCA at 1.75 mm in size was dissected free from a generous adipose layer. Coronary arteriotomy was created. Vein was anastomosed distally with running 7-0 Prolene suture and proximally to a 4 mm aortotomy with 5-0 Prolene. Next, the obtuse marginal branch of the circumflex artery was dissected free. Arteriotomy was created and another end-to-side anastomosis was performed utilizing saphenous vein to the coronary artery distally with running 7-0 Prolene suture and proximally to a 4 mm aortotomy with 5-0 Prolene. With the rewarming phase of bypass continuing, the left internal mammary artery was brought through a left anterior pericardial window into the field. The LAD was opened up in its mid one-third and was approximately 2 mm in size. The POOLE was then anastomosed to the LAD with a running 7-0 Prolene suture. It should be noted that all distal coronary anastomoses were performed over the appropriate size coronary shunt which was removed prior to securing the distal suture line. Following this, aortic cross-clamp was released and de-airing maneuvers were performed through the aortic root vent, as well as being confirmed by transesophageal echocardiography. Dobutamine at 3 mcg per kilogram per minute was administered with good chronotropic and inotropic affect. The heart returned to spontaneous sinus rhythm and did not require cardioversion or pacing. After adequate recovery from the cross-clamp period and confirmation of cardiac stability, Mr. Taylor was weaned from bypass without difficulty. Venous cannula was removed. Heparin was reversed with Protamine and confirmed by measurement of activated clotting time. The heart was then decannulated and cannulation sites were oversewn as required. Pacing wires were placed and brought through the skin and secured. Radiopaque markers were placed on the vein grafts at the level of aorta. Two mediastinal drains were placed and connected to Pleur-evac suction. The wound was carefully irrigated and hemostasis was confirmed after repair of some bleeding from the distal anastomosis of the OMB graft. This was performed utilizing 7-0 Prolene suture in an off-pump fashion. Ankeney retractor was removed and sponge and needle count was correct. The sternum was then reapproximated very carefully with interrupted #7 stainless steel wire with Surgicel strips used beneath the sternal table. Fascia was closed with #1 Vicryl suture with the next layers being closed with 2-0 and 3-0 suture. The skin was reapproximated carefully in a subcuticular manner. Sterile dressings were applied, followed by a vacuum-assisted dressing. The patient was carefully removed from the operating room table and transferred to the Intensive Care Unit. His was then counseled as to the details of the procedure.
[2021-02-14 17:42] LABS: ABG PCO2 46.4 mmHg (35-45); ABG PH Result 7.33 (7.35-7.45); Alveolar-Arterial Oxygen Gradi 65.4 mmHg (5-10); Arterial Blood Gas Hematocrit 34.9 % (42-52); Base Excess ABG -1.6 mmol/L (-2.0-2.0); Blood Gas Allen Test Pos; Blood Gas Operator Identificat BD; Blood Gas Sample Site ALINE; Blood Gas Sample Type Arterial; Blood Gas Tidal Volume 0.55; Carboxyhemoglobin 1.8 %THgb (0.4-20.1); HCO3 ABG 24.5 mmol/L (22-26); HGB O2 Sat 96.5 % (95-100); Ionized Calcium Level - ABG 1.3 mmol/L (1.1-1.4); Methemoglobin 1.3 % (0.4-1.5); Oxygen Device VENT; Oxygen Saturation ABG 99.5; Potassium Level - ABG 4.6 mmol/L (3.5-5.0); Total Hemoglobin 11.4 g/dL (14-18)
[2021-02-14 17:47] LABS: Basophils # 0.1 10^3/uL (0.0-0.1); Basophils % 0.6 %; Eosinophils % 0.1 %; Hematocrit 33.8 % (42.0-52.0); Hemoglobin 10.8 g/dL (11.7-16.6); Lymphocytes # 0.9 10^3/uL (0.8-4.8); Mean Corpuscular Hemoglobin 30.3 pg (28.0-34.0); Mean Corpuscular Volume 94.7 fl (80-94); Mean Platelet Volume 10.9 fL (7.4-10.4); Monocytes % 9.8 %; Neutrophils # 8.11 10^3/uL (1.8-7.7); Neutrophils % 79.8 %; Nucleated Red Blood Cells % 0 %; Platelet Count 91 10^3/cmm (130-400); Red Blood Count 3.57 10^6/uL (4.1-5.3); Red Cell Distribution Width 14.9 % (12.1-15.1); White Blood Count 10.2 10^3/uL (4.0-10.0)
[2021-02-14] MEDS: fentaNYL 50 mcg/mL INJ 2mL IVP ×2 (18:06→20:09)
[2021-02-14 18:20] LABS: Anion Gap 10.7 (5-19); Blood Urea Nitrogen 10 mg/dL (8-23); Calcium 8.4 mg/dL (8.5-10.5); Carbon Dioxide 23 mmol/L (22-29); Chloride 112 mmol/L (98-107); Glomerular Filtration Rate 112.8 mL/min (90-130); Glucose 137 mg/dL (65-115); Magnesium 2.2 mg/dL (1.7-2.3); Osmolality Calculated 293 mOsm/kg (285-295); Potassium 4.7 mmol/L (3.5-5.1); Sodium 141 mmol/L (136-145)
[2021-02-14] MEDS: sodium chloride 0.9% 1,000 ML 75 ML IV (18:23)
[2021-02-14] MEDS: chlorhexidine gluconate 0.12% Btl 473 mL 15 ML MUCOUS MEM (18:23)
[2021-02-14] MEDS: mupirocin oint 22 gm 1 APPLIC NASAL (18:41)
[2021-02-14 18:43] LABS: Glucose Point of Care 137 mg/dL (70-110)
[2021-02-14] MEDS: albumin 12.5 GM/250 ML VIAL IV (19:18)
[2021-02-14] MEDS: propofol 1,000 MG/100 ML INJ 27.22 MG IV (19:20)
[2021-02-14] MEDS: nitroglycerin drip 50 MG/250 ML PREMIX IV (19:45)
[2021-02-14] MEDS: aspirin 81 mg Chew Tablet PO (20:09)
[2021-02-14] MEDS: divalproex Sprinkles 125 mg Capsule 750 MG PO (20:09)
[2021-02-14 21:02] LABS: INR 1.23 (0.8-1.2)
[2021-02-14 21:03] LABS: Partial Thromboplastin Time 33.4 SECONDS (23.9-36.7)
[2021-02-14] MEDS: atorvastatin 40 mg Tablet 80 MG PO (21:06)
[2021-02-14] MEDS: gabapentin 300 mg Capsule PO (21:06)
[2021-02-14] MEDS: tamsulosin 0.4 mg Capsule 0.8 MG PO (21:06)
[2021-02-14 21:51] LABS: Basophils % 0.3 %; Hematocrit 30.6 % (42.0-52.0); Hemoglobin 10.1 g/dL (11.7-16.6); Lymphocytes # 0.9 10^3/uL (0.8-4.8); Mean Corpuscular Hemoglobin 30.3 pg (28.0-34.0); Mean Corpuscular Volume 91.9 fl (80-94); Mean Platelet Volume 11.1 fL (7.4-10.4); Monocytes # 0.7 10^3/uL (0.2-0.9); Monocytes % 7.6 %; Neutrophils # 7.41 10^3/uL (1.8-7.7); Neutrophils % 81.5 %; Nucleated Red Blood Cells % 0 %; Platelet Count 88 10^3/cmm (130-400); Red Blood Count 3.33 10^6/uL (4.1-5.3); Red Cell Distribution Width 15.3 % (12.1-15.1); White Blood Count 9.1 10^3/uL (4.0-10.0)
[2021-02-14 22:12] LABS: Blood Urea Nitrogen 11 mg/dL (8-23); Calcium 8.4 mg/dL (8.5-10.5); Carbon Dioxide 23 mmol/L (22-29); Chloride 110 mmol/L (98-107); Glomerular Filtration Rate 96.7 mL/min (90-130); Glucose 108 mg/dL (65-115); Osmolality Calculated 290 mOsm/kg (285-295); Sodium 140 mmol/L (136-145)
[2021-02-14] MEDS: propofol 1,000 MG/100 ML INJ 10.89 MG IV (23:08)
[2021-02-14] MEDS: oxyCODONE-APAP 5-325 mg Tablet PO (23:50)
[2021-02-15] VITALS (100 sets, daily range): BP systolic 91–152; BP diastolic 52–81; PULSE 62–95; RESP 0–22; TEMP 36.4–37.7; O2SAT 92–99
[2021-02-15] MEDS: fentaNYL 50 mcg/mL INJ 2mL IVP ×2 (00:17→02:28)
[2021-02-15 01:35] LABS: Basophils % 0.2 %; Hematocrit 31.1 % (42.0-52.0); Hemoglobin 10.1 g/dL (11.7-16.6); Lymphocytes % 9.4 %; Mean Corpuscular HGB Conc 32.5 g/dL (30.0-36.0); Mean Corpuscular Hemoglobin 30.3 pg (28.0-34.0); Mean Corpuscular Volume 93.4 fl (80-94); Mean Platelet Volume 10.9 fL (7.4-10.4); Monocytes # 0.8 10^3/uL (0.2-0.9); Monocytes % 7.8 %; Neutrophils # 8.51 10^3/uL (1.8-7.7); Neutrophils % 82.2 %; Nucleated Red Blood Cells % 0 %; Platelet Count 91 10^3/cmm (130-400); Red Blood Count 3.33 10^6/uL (4.1-5.3); Red Cell Distribution Width 15.6 % (12.1-15.1); White Blood Count 10.4 10^3/uL (4.0-10.0)
--- NOTE | 2021-02-15 01:37 | PC.NURSE ---
Extubated per RT and placed on O2 at 3L per NC. Tolerated well.
[2021-02-15 02:07] LABS: Anion Gap 11.8 (5-19); Blood Urea Nitrogen 12 mg/dL (8-23); Calcium 8.1 mg/dL (8.5-10.5); Carbon Dioxide 23 mmol/L (22-29); Chloride 110 mmol/L (98-107); Glomerular Filtration Rate 84.4 mL/min (90-130); Glucose 131 mg/dL (65-115); Osmolality Calculated 294 mOsm/kg (285-295); Potassium 3.8 mmol/L (3.5-5.1); Sodium 141 mmol/L (136-145)
[2021-02-15] MEDS: potassium chloride premix 100 ML 50 MEQ IV (02:18)
[2021-02-15 02:28] LABS: Magnesium 1.9 mg/dL (1.7-2.3)
[2021-02-15 03:22] LABS: ABG PCO2 37.7 mmHg (35-45); ABG PH Result 7.33 (7.35-7.45); Alveolar-Arterial Oxygen Gradi 2.3 mmHg (5-10); Arterial Blood Gas Hematocrit 27.7 % (42-52); Base Excess ABG -5.9 mmol/L (-2.0-2.0); Blood Gas Allen Test Pos; Blood Gas Sample Site Radial, right; Blood Gas Sample Type Arterial; Carboxyhemoglobin 1.3 %THgb (0.4-20.1); HCO3 ABG 19.6 mmol/L (22-26); HGB O2 Sat 94.2 % (95-100); Methemoglobin 1.2 % (0.4-1.5); Oxygen Device NC; Oxygen Saturation ABG 96.7; PO2 ABG 84.7 mmHg (80.0-100.0); Potassium Level - ABG 3.3 mmol/L (3.5-5.0)
[2021-02-15] MEDS: hyDRALAzine 20 mg/mL INJ 1 mL 5 MG IVP (03:29)
[2021-02-15] MEDS: morphine 4 mg/mL SDV 1 mL 2 MG IVP ×3 (03:40→21:13)
[2021-02-15] MEDS: oxyCODONE-APAP 5-325 mg Tablet PO ×3 (04:27→23:15)
--- NOTE | 2021-02-15 04:47 | ANE.PACU2 ---
Inpatient post-anesthesia follow up: Airway intact: Yes (ETT) Vital signs: Temperature 97.1 F Pulse Rate 79 Respiratory Rate 12 Blood Pressure 131/65 Pulse Oximetry 92 Oxygen Delivery Me thod Nasal Cannula Oxygen Flow Rate 100 Fraction of Inspir ed Oxygen 40 Hydration adequate: Yes Nausea and vomiting: No Pain level: 3 Additional Comments: Intubated/ventilated to ICU
--- NOTE | 2021-02-15 06:00 | XRR_ITS ---
PROCEDURE INFORMATION: Exam: XR Chest Exam date and time: 02/15/2021 6:00 AM Age: 65 years old Clinical indication: Other: Cabg; Prior surgery; Surgery date: 3-7 days post-operative; Additional info: S/P cabg TECHNIQUE: Imaging protocol: XR of the chest. Views: 1 view. COMPARISON: CR XR chest 1V portable [id number] 02/14/2021 5:01 PM FINDINGS: Tubes, catheters and devices: Right IJ approach central line is in satisfactory position, with distal tip in the SVC, approximately 2 cm above the SVC/RA junction. Surgical clips project over the left neck. Right IJ approach Stoddard-Lori catheter is in satisfactory position, with tip in the distal main right pulmonary artery. Lungs: Improving pulmonary edema. Streaky bilateral atelectasis seen. Pleural spaces: Mediastinal and pleural drains remain in satisfactory position. Heart/Mediastinum: Stable cardiomediastinal silhouette. The patient is status post CABG. Bones/joints: Median sternotomy changes seen. XR/XR chest 1V portable [id number] IMPRESSION: Improving pulmonary edema. Radiation Dose CTDIVOL = (mGy): DLP = (mGy-cm)
--- NOTE | 2021-02-15 06:00 | ECG_ITS ---
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 Measurements Intervals [place] Rate: 75 P: 14 HI: 145 QRS: 44 QRSD: 94 T: 79 QT: 392 QTc: 441 Interpretive Statements SINUS RHYTHM NONSPECIFIC ST & T-WAVE ABNORMALITY Compared to ECG 02/14/2021 17:52:00 No significant changes Electronically Signed On 02-15-2021 23:32:29 CDT by Arpit Marcano M.D. [id number]
[2021-02-15 06:30] LABS: INR 1.16 (0.8-1.2)
[2021-02-15 06:45] LABS: Basophils % 0.3 %; Eosinophils % 0.1 %; Hematocrit 30.6 % (42.0-52.0); Lymphocytes # 1.6 10^3/uL (0.8-4.8); Mean Corpuscular HGB Conc 32.7 g/dL (30.0-36.0); Mean Corpuscular Hemoglobin 30.6 pg (28.0-34.0); Mean Corpuscular Volume 93.6 fl (80-94); Mean Platelet Volume 10.8 fL (7.4-10.4); Monocytes # 1.2 10^3/uL (0.2-0.9); Monocytes % 10.2 %; Neutrophils # 8.68 10^3/uL (1.8-7.7); Neutrophils % 75.1 %; Nucleated Red Blood Cells % 0 %; Platelet Count 89 10^3/cmm (130-400); Red Blood Count 3.27 10^6/uL (4.1-5.3); Red Cell Distribution Width 15.7 % (12.1-15.1); White Blood Count 11.5 10^3/uL (4.0-10.0)
[2021-02-15 07:12] LABS: Anion Gap 10.2 (5-19); Blood Urea Nitrogen 12 mg/dL (8-23); Calcium 7.7 mg/dL (8.5-10.5); Carbon Dioxide 25 mmol/L (22-29); Chloride 111 mmol/L (98-107); Glomerular Filtration Rate 112.8 mL/min (90-130); Glucose 113 mg/dL (65-115); Glucose Fasting 113 mg/dL (74-106); Magnesium 2.1 mg/dL (1.7-2.3); Osmolality Calculated 295 mOsm/kg (285-295); Potassium 4.2 mmol/L (3.5-5.1); Sodium 142 mmol/L (136-145)
--- NOTE | 2021-02-15 07:25 | PC.NURSE ---
recd. sleeping. awakens easily.
--- NOTE | 2021-02-15 07:30 | PM.PN ---
Subjective Subjective: Interval history: Postop day #1 status post CABG x3. Extubated. No arrhythmias reported by nursing service. Chest tube output 500 cc since surgery. H&H is stable. Chest x-ray shows improving pulmonary edema. Cardiac silhouette is stable. Streak-like basilar atelectasis left greater than right. Support lines are in good position. Sotalol was held due to his heart rate being between mid 60s to 70 Vitals/I&O/Wt Last Vital Signs Temp 97.1 F L 02/14/21 05:43 Pulse 73 02/15/21 07:00 Resp 16 02/15/21 07:00 BP 120/69 02/15/21 06:00 Pulse Ox 95 02/15/21 07:00 02/14/21 02/15/21 02/15/21 22:59 06:59 14:59 Intake Total 6672.323 / 6772.323 367.292 / 7139.615 Output Total 3054 / 3054 653 / 3707 145 / 145 Balance 3618.323 / 3718.323 -285.708 / 3432.615 -145 / -145 Weight last 48 hrs Weight 222 lb Physical Exam Chest: COMMONS NORMALS: normal inspection of the chest and normal palpation of entire chest wall Resp: COMMON NORMALS: normal respiratory effort, No retractions and No use of accessory muscles EFFORT & INSPECTION: Yes symmetric chest movement OTHER: Creased breath sounds in the bases. Cardio: COMMON NORMALS: regular rate, regular rhythm, S1 normal heart sound present, No gallops present (Cardio) and No rub (Cardio) RATE: regular rate RHYTHM: regular rhythm HEART SOUNDS: S1 normal heart sound present Extremity: OTHER: 1-2+ peripheral edema Neuro: OTHER: Moves all extremities to command though is not very verbal this morning. Shaking his head yes and no to questions appropriately. Urinary Catheter Management^: Yan: Cath Placed During This Visit: yes Reason for Continuing Indwelling Catheter: Accurate Measurement of Urinary Output in Critically Ill Patients Urinary Catheter Date of Insertion: 02/14/21 Urinary Catheter Time of Insertion: 07:30 Data : 02/15/21 06:38 02/15/21 06:38 A&P Assessment and plan (1) Status post aorto-coronary artery bypass graft: POD #1 status post CABG x3 Plan: CBC, BMP, chest x-ray in a.m. Aspirin 81 mg daily. Lipitor 80 mg daily. Will hold on beta-capri for now as we watch his heart rate recover. I have spoken personally with Dr. Marcano who is gracious enough to assist with assessing Mr. Taylor postoperatively as well. Status: Acute Attestations Medical Necessity Statement*: POD #1 status post CABG Time Spent in Patient Care: 16 - 35 minutes Coding Level of Care Code Acute Toolmaker Helper for Jason Foley Diagnoses Status post aorto-coronary artery bypass graft Z95.1
--- NOTE | 2021-02-15 07:49 | PC.NURSE ---
swan tor catheter removed intact. cordis remains as well as cvl. no ectopy with removal. is having occasional pvc noted. this am.
[2021-02-15] MEDS: sodium chloride 0.9% 1,000 ML 75 ML IV ×2 (08:08→20:23)
[2021-02-15] MEDS: ondansetron 2 mg/ML SDV 2 mL 4 MG IVP (09:09)
[2021-02-15 09:21] LABS: Glucose Point of Care 107 mg/dL (70-110)
[2021-02-15 09:21] LABS: Glucose Point of Care 119 mg/dL (70-110)
[2021-02-15 09:21] LABS: Glucose Point of Care 115 mg/dL (70-110)
[2021-02-15 09:21] LABS: Glucose Point of Care 118 mg/dL (70-110)
[2021-02-15 09:21] LABS: Glucose Point of Care 124 mg/dL (70-110)
[2021-02-15 09:21] LABS: Glucose Point of Care 115 mg/dL (70-110)
[2021-02-15 09:21] LABS: Glucose Point of Care 109 mg/dL (70-110)
[2021-02-15 09:21] LABS: Glucose Point of Care 112 mg/dL (70-110)
[2021-02-15 09:21] LABS: Glucose Point of Care 136 mg/dL (70-110)
[2021-02-15 09:21] LABS: Glucose Point of Care 131 mg/dL (70-110)
[2021-02-15 09:21] LABS: Glucose Point of Care 151 mg/dL (70-110)
[2021-02-15 09:21] LABS: Glucose Point of Care 107 mg/dL (70-110)
[2021-02-15 09:21] LABS: Glucose Point of Care 137 mg/dL (70-110)
[2021-02-15 09:21] LABS: Glucose Point of Care 95 mg/dL (70-110)
[2021-02-15 09:21] LABS: Glucose Point of Care 140 mg/dL (70-110)
[2021-02-15] MEDS: aspirin 81 mg Chew Tablet PO (09:32)
[2021-02-15] MEDS: pantoprazole 40 mg SDV IVP (09:32)
[2021-02-15] MEDS: chlorhexidine gluconate 0.12% Btl 473 mL 15 ML MUCOUS MEM ×2 (09:32→18:02)
[2021-02-15] MEDS: mupirocin oint 22 gm 1 APPLIC NASAL ×2 (09:33→18:02)
[2021-02-15] MEDS: venlafaxine ER (24HR) 37.5 mg Capsule PO (09:38)
[2021-02-15] MEDS: gabapentin 300 mg Capsule PO ×2 (09:38→21:10)
[2021-02-15] MEDS: metoprolol tartrate 25 mg Tablet 12.5 MG PO ×2 (09:54→21:22)
--- NOTE | 2021-02-15 10:57 | PC.NURSE ---
asked to bring depakote in. dr. brody has been directing dosing. her office was called and her nurse stated he was using it for headaches and was instructed to wean off by 500mg each day, starting on 01/19/21. pt. states he has already weaned himself off the depakote
[2021-02-15 11:05] LABS: Glucose Point of Care 137 mg/dL (70-110)
[2021-02-15 11:05] LABS: Glucose Point of Care 137 mg/dL (70-110)
--- NOTE | 2021-02-15 11:30 | PC.NURSE ---
remains up in chair sleeping.
--- NOTE | 2021-02-15 11:39 | PC.NURSE ---
remains up in chair, sleeping. at bedside. fadumoakote returned to to take home.
[2021-02-15] MEDS: albumin 12.5 GM/250 ML VIAL IV (13:54)
[2021-02-15 14:20] LABS: ABG PCO2 39.5 mmHg (35-45); ABG PCO2 42.2 mmHg (35-45); ABG PCO2 43.4 mmHg (35-45); ABG PCO2 46.3 mmHg (35-45); ABG PCO2 47.5 mmHg (35-45); ABG PCO2 47.8 mmHg (35-45); ABG PCO2 50.2 mmHg (35-45); ABG PCO2 50.3 mmHg (35-45); ABG PH Result 7.31 (7.35-7.45); ABG PH Result 7.35 (7.35-7.45); ABG PH Result 7.36 (7.35-7.45); ABG PH Result 7.39 (7.35-7.45); ABG PH Result 7.41 (7.35-7.45); ABG PH Result 7.42 (7.35-7.45); ABG PH Result 7.43 (7.35-7.45); ABG PH Result 7.44 (7.35-7.45); Alveolar-Arterial Oxygen Gradi 0.7 mmHg (5-10); Alveolar-Arterial Oxygen Gradi 4.9 mmHg (5-10); Arterial Blood Gas Hematocrit 25.1 % (42-52); Arterial Blood Gas Hematocrit 26.3 % (42-52); Arterial Blood Gas Hematocrit 26.5 % (42-52); Arterial Blood Gas Hematocrit 27.5 % (42-52); Arterial Blood Gas Hematocrit 27.6 % (42-52); Arterial Blood Gas Hematocrit 31.8 % (42-52); Arterial Blood Gas Hematocrit 36.3 % (42-52); Base Excess ABG -2.6 mmol/L (-2.0-2.0); Base Excess ABG 0.3 mmol/L (-2.0-2.0); Base Excess ABG 2.5 mmol/L (-2.0-2.0); Base Excess ABG 2.8 mmol/L (-2.0-2.0); Base Excess ABG 3.9 mmol/L (-2.0-2.0); Base Excess ABG 4.2 mmol/L (-2.0-2.0); Base Excess ABG 4.6 mmol/L (-2.0-2.0); Blood Gas Allen Test Pos; Blood Gas Sample Type Arterial; Carboxyhemoglobin 2.2 %THgb (0.4-20.1); Carboxyhemoglobin 2.4 %THgb (0.4-20.1); Carboxyhemoglobin 2.5 %THgb (0.4-20.1); Carboxyhemoglobin 2.7 %THgb (0.4-20.1); HCO3 ABG 23.8 mmol/L (22-26); HCO3 ABG 26.2 mmol/L (22-26); HCO3 ABG 26.8 mmol/L (22-26); HCO3 ABG 27.5 mmol/L (22-26); HCO3 ABG 28.6 mmol/L (22-26); HCO3 ABG 28.7 mmol/L (22-26); HCO3 ABG 29.4 mmol/L (22-26); HCO3 ABG 30.3 mmol/L (22-26); HGB O2 Sat 83.5 % (95-100); HGB O2 Sat 93.8 % (95-100); HGB O2 Sat 94.3 % (95-100); HGB O2 Sat 97.4 % (95-100); HGB O2 Sat 97.7 % (95-100); HGB O2 Sat 97.8 % (95-100); HGB O2 Sat 97.9 % (95-100); HGB O2 Sat 98.1 % (95-100); Ionized Calcium Level - ABG 1.1 mmol/L (1.1-1.4); Ionized Calcium Level - ABG 1.5 mmol/L (1.1-1.4); Methemoglobin 0.3 % (0.4-1.5); Methemoglobin 0.4 % (0.4-1.5); Methemoglobin 0.5 % (0.4-1.5); Methemoglobin 0.7 % (0.4-1.5); Oxygen Saturation ABG 86.3; Oxygen Saturation ABG 96.6; Oxygen Saturation ABG 97.7; Oxygen Saturation ABG > 100.0; PO2 ABG 50.8 mmHg (80.0-100.0); PO2 ABG 85.2 mmHg (80.0-100.0); PO2 ABG 90.5 mmHg (80.0-100.0); Potassium Level - ABG 4.3 mmol/L (3.5-5.0); Potassium Level - ABG 4.5 mmol/L (3.5-5.0); Potassium Level - ABG 4.6 mmol/L (3.5-5.0); Potassium Level - ABG 5.1 mmol/L (3.5-5.0); Potassium Level - ABG 5.6 mmol/L (3.5-5.0); Total Hemoglobin 10.4 g/dL (14-18); Total Hemoglobin 11.8 g/dL (14-18); Total Hemoglobin 8.2 g/dL (14-18); Total Hemoglobin 8.6 g/dL (14-18); Total Hemoglobin 8.7 g/dL (14-18)
[2021-02-15 14:32] LABS: ABG PCO2 49.7 mmHg (35-45); ABG PH Result 7.38 (7.35-7.45); Arterial Blood Gas Hematocrit 37.2 % (42-52); Blood Gas Allen Test Pos; Blood Gas Sample Type Arterial; Carboxyhemoglobin 2.7 %THgb (0.4-20.1); HGB O2 Sat 97.7 % (95-100); Ionized Calcium Level - ABG 1.2 mmol/L (1.1-1.4); Methemoglobin 0.4 % (0.4-1.5); Oxygen Saturation ABG > 100.0; Potassium Level - ABG 3.8 mmol/L (3.5-5.0); Total Hemoglobin 12.1 g/dL (14-18)
[2021-02-15 14:35] LABS: Blood Gas Sample Site Not specified
[2021-02-15 14:36] LABS: Blood Gas Sample Site Not specified
[2021-02-15 14:37] LABS: Blood Gas Sample Site Not specified
[2021-02-15 14:38] LABS: Blood Gas Sample Site Not specified; Blood Gas Sample Type Venous
[2021-02-15 14:39] LABS: Blood Gas Sample Site Not specified
[2021-02-15 14:40] LABS: Blood Gas Sample Site Not specified
[2021-02-15 14:41] LABS: Blood Gas Sample Site Not specified
[2021-02-15 14:42] LABS: Blood Gas Sample Site Not specified
--- NOTE | 2021-02-15 14:57 | PC.NURSE ---
blood pressure soft this afternoon, albumin was given. awakened for I/S. pulled 500 x 2 with encouragement, otherwise 100-200.awakened easily.
--- NOTE | 2021-02-15 17:27 | PC.NURSE ---
fed pt. clear liquids, took 1/2 of tray. c/o side hurting. moist non productive cough.
[2021-02-15 17:57] LABS: Glucose Point of Care 124 mg/dL (70-110)
[2021-02-15 17:57] LABS: Glucose Point of Care 111 mg/dL (70-110)
[2021-02-15 17:57] LABS: Glucose Point of Care 118 mg/dL (70-110)
[2021-02-15 17:57] LABS: Glucose Point of Care 103 mg/dL (70-110)
[2021-02-15 17:57] LABS: Glucose Point of Care 102 mg/dL (70-110)
[2021-02-15 17:57] LABS: Glucose Point of Care 105 mg/dL (70-110)
[2021-02-15 17:57] LABS: Glucose Point of Care 126 mg/dL (70-110)
--- NOTE | 2021-02-15 18:04 | PC.NURSE ---
c/o pain in left side. oxycodone 1 given.
--- NOTE | 2021-02-15 18:53 | P.CONIM_ITS ---
Providers/Reason For Consult Consulting Physician/Specialty*: Arpit Marcano MD/ Cardiology Reason for Consult*: Post CABG/ medical management Requesting Physician: Dr Batista Attending Physician: Jorge Luis Batista MD Primary Care Provider: Guicho Vega DO History of Present Illness History of Present Illness Vinh Taylor is a 65 year old male with past medical history of atrial fibrillation, hypertension who was recently found to have severe left main and RCA disease underwent CABG x3 yesterday. He had POOLE to LAD, SVG to OM and SVG to RCA. Patient is extubated now. It has some chest discomfort at sternotomy site. Heart rate is controlled at this time. His sotalol was stopped because of hypotension. Review of Systems Narrative: CONSTITUTIONAL: No fever chills weight loss or gain or night sweats. [] HEENT: Normocephalic, atraumatic.[] RESPIRATORY: No cough, sputum, hemoptysis or wheezing.[] CARDIOVASCULAR: Complains of chest discomfort at surgical site. GI: no nausea vomiting diarrhea. [] REVENUE ENFORCEMENT COLLECTION AGENT: No numbness, tingling, weakness or loss of function in any part of the body. [] MUSCULOSKELETAL: No knee or joint pain or rashes. [] Meds/Allergies Home Medications and Allergies Home Medications Medication Instructions Recorded Confirmed Last Taken Type allopurinol 300 mg tablet 300 mg PO DAILY 05/06/19 02/09/21 08/22/20 History atorvastatin 80 mg tablet 80 mg PO DAILY 05/06/19 02/14/21 02/13/21 History cetirizine 10 mg capsule 10 mg PO QAM 05/06/19 02/14/21 02/13/21 History docusate sodium 100 mg capsule 100 mg PO BID 05/06/19 02/14/21 02/13/21 History ferrous sulfate 325 mg (65 mg 325 mg PO BID 05/06/19 02/14/21 02/13/21 History iron) tablet fluticasone propionate 50 2 spray INTRANASAL DAILY PRN 05/06/19 02/14/21 02/13/21 History mcg/actuation nasal spray,suspension hydrochlorothiazide 25 mg tablet 25 mg PO QAM 05/06/19 02/14/21 02/13/21 History lisinopril 40 mg tablet 40 mg PO DAILY 05/06/19 02/14/21 02/13/21 History omeprazole 20 mg tablet,delayed 20 mg PO BID 05/06/19 02/14/21 02/13/21 History release pioglitazone 30 mg tablet 30 mg PO DAILY 05/06/19 02/14/21 02/13/21 History tamsulosin 0.8 mg PO BEDTIME 05/27/19 02/14/21 02/13/21 History gabapentin 300 mg capsule 300 mg PO BID cap 10/14/19 02/14/21 02/13/21 History Vitamin D3 1 cap PO DAILY 01/14/21 02/14/21 02/13/21 History albuterol sulfate [ProAir HFA] 2 puff INHALATION Q4H PRN 01/14/21 02/09/21 Unknown History apixaban 5 mg PO BID 01/14/21 02/14/21 02/10/21 History aspirin 81 mg PO QAM 01/14/21 02/14/21 02/13/21 History venlafaxine [Effexor XR] 37.5 mg PO DAILY 01/14/21 02/14/21 02/13/21 History diltiazem HCl [Cardizem CD] 120 mg PO DAILY 30 Days #30 cap 01/17/21 02/14/21 02/14/21 Rx sotalol 80 mg PO BID 30 Days #60 tab 01/17/21 02/14/21 02/13/21 Rx Allergies Allergy/AdvReac Type Severity Reaction Status Date / Time codeine Allergy Intermediate ALGY-Swell Verified 02/03/21 14:35 Lip/Tongue/Throat Current Medications Current Medications Generic Name Dose Route Start Last Admin Trade Name Freq PRN Reason Stop Dose Admin Aspirin 81 mg 02/15/21 09:00 02/15/21 09:32 Aspirin 81 Mg Chew Tablet PO 81 mg DAILY MITCHEL Administration Atorvastatin Calcium 80 mg 02/14/21 21:00 02/14/21 21:06 Atorvastatin 40 Mg Tablet PO 80 mg BEDTIME MITCHEL Administration Chlorhexidine Gluconate 15 ml 02/14/21 18:00 02/15/21 18:02 Chlorhexidine Gluconate 0.12% Btl 473 Ml MUCOUS MEM 15 applic BID MITCHEL Administration Fentanyl 50 mcg 02/14/21 17:29 02/15/21 02:28 Fentanyl 50 Mcg/Ml Inj 2ml IVP 50 mcg Q1H PRN Administration SEVERE PAIN Gabapentin 300 mg 02/14/21 21:00 02/15/21 09:38 Gabapentin 300 Mg Capsule PO 300 mg BID@0900,2100 MITCHEL Administration Cefuroxime Sodium 1,500 mg/ 100 mls @ 200 mls/hr 02/15/21 02:00 02/15/21 14:20 Sodium Chloride IV 02/16/21 14:29 Infused Q12H MITCHEL Infusion Protocol Nitroglycerin/Dextrose 50 mg in 250 mls @ 0 mls/hr 02/14/21 17:29 02/14/21 21:54 Nitroglycerin Drip IV 60 mcg/min .Q0M MITCHEL 18 mls/hr Titration Protocol Per Protocol Sodium Nitroprusside 50 mg/ 252 mls @ 0 mls/hr 02/14/21 17:29 02/14/21 21:53 Dextrose IV 0.25 mcg/kg/min .Q0M MITCHEL 6.86 mls/hr Administration Protocol Per Protocol Albumin Human 12.5 gm in 250 mls @ 600 mls/hr 02/14/21 17:29 02/15/21 14:20 Albumin IV Infused PRN PRN Infusion For CVP < 4 or SBP< 90 Sodium Chloride 1,000 mls @ 75 mls/hr 02/14/21 17:29 02/15/21 08:08 Sodium Chloride 0.9% IV 75 mls/hr .[id number] MITCHEL Administration Propofol 1,000 mg in 100 mls @ 0 mls/hr 02/14/21 17:29 02/15/21 00:45 Diprivan IV Infused .Q0M MITCHEL Titration Protocol Per Protocol Metoprolol Tartrate 12.5 mg 02/15/21 09:00 02/15/21 09:54 Metoprolol Tartrate 25 Mg Tablet PO 12.5 mg BID@0900,2100 MITCHEL Administration Morphine Sulfate 2 mg 02/14/21 17:29 02/15/21 16:09 Morphine 4 Mg/Ml Sdv 1 Ml IVP 2 mg Q1H PRN Administration BREAKTHROUGH PAIN Mupirocin 1 applic 02/14/21 18:00 02/15/21 18:02 Mupirocin Oint 22 Gm NASAL 1 applic BID MITCHEL Administration Ondansetron HCl 4 mg 02/14/21 17:29 02/15/21 09:09 Ondansetron 2 Mg/Ml Sdv 2 Ml IVP 4 mg Q6H PRN Administration NAUSEA Oxycodone/Acetaminophen 1 - 2 tab 02/14/21 17:29 02/15/21 17:37 Oxycodone-Apap 5-325 Mg Tablet PO 1 tab Q6H PRN Administration MILD TO MODERATE PAIN Pantoprazole Sodium 40 mg 02/15/21 09:00 02/15/21 09:32 Pantoprazole 40 Mg Sdv IVP 02/16/21 08:59 40 mg DAILY MITCHEL Administration Sotalol HCl 80 mg 02/14/21 21:00 02/14/21 21:07 Sotalol 80 Mg Tablet PO Not Given BID@0900,2100 MITCHEL Tamsulosin HCl 0.8 mg 02/14/21 21:00 02/14/21 21:06 Tamsulosin 0.4 Mg Capsule PO 0.8 mg BEDTIME MITCHEL Administration Venlafaxine HCl 37.5 mg 02/15/21 09:00 02/15/21 09:38 Venlafaxine Er (24hr) 37.5 Mg Capsule PO 37.5 mg DAILY MITCHEL Administration PFSH Acute 2 PFSH: Medical History Afib Anticoagulation adequate with anticoagulant therapy Carotid stenosis Chronic kidney disease (CKD) Diabetes Gastritis Hypercholesteremia Hypertension Nausea and vomiting Spinal stenosis, lumbar region, with neurogenic claudication Spondylolisthesis, lumbar region Surgical History History of jeremiah hole surgery Twist drill drainage of bilateral subdural hematomas, 12/20/2016, [facility] [place] History of esophagogastroduodenoscopy (EGD) (~05/2019) History of laparoscopic cholecystectomy (~06/2019) History of lumbar laminectomy Bilateral L4-L5 laminotomy/foraminotomy/limited facetectomy Previous back surgery Status post aorto-coronary artery bypass graft Family History Other CAD (coronary artery disease) Cancer Diabetes Hypertension Stroke Denies family history of Anesthesia complication Bleeding disorder Social History Alcohol intake: never Lives independently: Yes Marital status: Current occupational status: retired History of recent travel: No Vitals/I&O/Wt Last Vital Signs Temp 97.6 F 02/15/21 16:00 Pulse 75 02/15/21 16:11 Resp 20 H 02/15/21 17:37 BP 111/64 02/15/21 16:00 Pulse Ox 94 02/15/21 17:37 02/15/21 02/15/21 02/15/21 06:59 14:59 22:59 Intake Total 367.292 / 7139.615 1830 / 1830 Output Total 653 / 3707 533 / 533 125 / 658 Balance -285.708 / 3432.615 1297 / 1297 -125 / 1172 Weight last 48 hrs Weight 222 lb Physical Exam Narrative: EXAM NARRATIVE: GENERAL: Patient is drowsy but arousable NECK: No jugular vein distension. [] HEENT: No cyanosis. No icterus. No pallor. [] HEART: Regular S1 and S2. No murmur, rub or gallop. [] LUNGS: Clear to auscultate bilaterally. [] ABDOMEN: Soft, nontender and nondistended. Positive bowel sounds. No guarding, rebound or tenderness. [] CENTRAL NERVOUS SYSTEM: Grossly nonfocal. [] EXTREMITIES: Lower extremities with 1+ edema bilaterally. Pulses palpable in the lower extremities, both dorsalis pedis and posterior tibial. [] Urinary Catheter Management^: Yan: Cath Placed During This Visit: yes Reason for Continuing Indwelling Catheter: Accurate Measurement of Urinary Output in Critically Ill Patients Urinary Catheter Date of Insertion: 02/14/21 Urinary Catheter Time of Insertion: 07:30 A&P Assessment and plan (1) Status post aorto-coronary artery bypass graft: Status: Acute (2) Left main coronary artery disease: Status: Acute (3) Afib: Status: Acute (4) Diabetes: Status: Acute (5) Chronic kidney disease (CKD): Status: Acute (6) Hypertension: Status: Acute Patient had successful revascularization yesterday with CABG x3. He is extubated now. His heart rate is controlled at this time. His sotalol was held because of hypotension. Continue ICU monitoring. Aspirin and statin therapy. If he goes into A. fib with RVR, will start amiodarone. His blood pressure is soft at this time however once it normalizes can be started on low-dose metoprolol that can be uptitrated based on his hemodynamics. Thank you for involving us with care of this patient. We will continue to follow. Please call with questions. Coding Level of Care Code Acute School Bus Driver/Custodian for Jason Foley Diagnoses Status post aorto-coronary artery bypass graft Z95.1 Left main coronary artery disease I25.10 Afib I48.91 Diabetes E11.9 Chronic kidney disease (CKD) N18.9 Hypertension I10
[2021-02-15] MEDS: insulin regular-human 250 UNIT in sodium chloride 0.9% 250 ML IV (19:15)
[2021-02-15 19:28] LABS: Glucose Point of Care 110 mg/dL (70-110)
[2021-02-15 20:22] LABS: Glucose Point of Care 109 mg/dL (70-110)
--- NOTE | 2021-02-15 20:58 | PC.NURSE ---
BEGINNING OF SHIFT PT AAOX4 AND ABLE TO VERBALIZE NEEDS. LINES TRACED, JOSE PATENT/ DRAINING, MCTs AND pct PATENT/ DRAINING. IVF INFUSING ORDERED. BG WITHIN RANGE AT THIS TIME-- INSULIN GTT INFUSING AT 1.6 U/HR EDUCATED ON FALL RISK-- CALL LIGHT IN REACH. DOOR OPEN TO NURSE'S STATION. WILL CONTINUE POC.
[2021-02-15] MEDS: tamsulosin 0.4 mg Capsule 0.8 MG PO (21:09)
[2021-02-15] MEDS: atorvastatin 40 mg Tablet 80 MG PO (21:09)
[2021-02-15 21:20] LABS: Glucose Point of Care 105 mg/dL (70-110)
[2021-02-15 22:11] LABS: Glucose Point of Care 116 mg/dL (70-110)
[2021-02-15] MEDS: diphenhydrAMINE 25 mg Capsule PO (23:16)
[2021-02-15 23:22] LABS: Glucose Point of Care 110 mg/dL (70-110)
[2021-02-16] VITALS (54 sets, daily range): BP systolic 94–173; BP diastolic 51–94; PULSE 68–171; RESP 5–32; TEMP 36.5–37.1; O2SAT 87–96
[2021-02-16 00:09] LABS: Glucose Point of Care 115 mg/dL (70-110)
--- NOTE | 2021-02-16 00:11 | PC.NURSE ---
REASSESSMENT REASSESSMENT COMPLETE. NO ACUTE CHANGES NOTED-- NO S/S OF DISTRESS. CONTINUE POC.
[2021-02-16 01:11] LABS: Glucose Point of Care 102 mg/dL (70-110)
[2021-02-16 02:21] LABS: Glucose Point of Care 111 mg/dL (70-110)
[2021-02-16 03:12] LABS: Glucose Point of Care 105 mg/dL (70-110)
[2021-02-16] MEDS: oxyCODONE-APAP 5-325 mg Tablet PO ×2 (03:25→18:04)
[2021-02-16 04:02] LABS: Glucose Point of Care 111 mg/dL (70-110)
[2021-02-16 04:17] LABS: Basophils # 0.1 10^3/uL (0.0-0.1); Basophils % 0.5 %; Eosinophils # 0.1 10^3/uL (0.0-0.8); Eosinophils % 0.9 %; Hematocrit 28.7 % (42.0-52.0); Lymphocytes % 9.8 %; Mean Corpuscular HGB Conc 31.4 g/dL (30.0-36.0); Mean Corpuscular Hemoglobin 30.4 pg (28.0-34.0); Mean Platelet Volume 11.2 fL (7.4-10.4); Monocytes % 10.1 %; Neutrophils # 7.81 10^3/uL (1.8-7.7); Neutrophils % 78.2 %; Nucleated Red Blood Cells % 0 %; Platelet Count 83 10^3/cmm (130-400); Red Blood Count 2.96 10^6/uL (4.1-5.3); Red Cell Distribution Width 15.7 % (12.1-15.1)
[2021-02-16 04:32] LABS: Anion Gap 7.9 (5-19); Blood Urea Nitrogen 12 mg/dL (8-23); Calcium 7.9 mg/dL (8.5-10.5); Carbon Dioxide 26 mmol/L (22-29); Chloride 106 mmol/L (98-107); Glomerular Filtration Rate 134.8 mL/min (90-130); Glucose 103 mg/dL (65-115); Osmolality Calculated 282 mOsm/kg (285-295); Potassium 3.9 mmol/L (3.5-5.1); Sodium 136 mmol/L (136-145)
[2021-02-16 05:01] LABS: Glucose Point of Care 123 mg/dL (70-110)
--- NOTE | 2021-02-16 05:22 | PC.NURSE ---
END OF SHIFT PT MEDICATED FOR PAIN WITH PO PERCOCET. BATHED WITH CHG AND ASSISTED UP TO CHAIR. PT ABLE TO DEEP BREATHE AND COUGH UP MODERATE AMOUNT OF THICK SPUTUM WITH BLACK SPECKS NO S/S OF ACUTE DISTRESS. WILL PREPARE REPORT FOR ONCOMING RN.
[2021-02-16] MEDS: potassium chloride premix 100 ML 25 MEQ IV ×2 (05:44→17:46)
[2021-02-16 06:00] LABS: Glucose Point of Care 128 mg/dL (70-110)
--- NOTE | 2021-02-16 06:00 | XR_ITS ---
WS: [id number] Exam: XR chest 1V portable [id number] Date/Time of Exam: 02/16/2021 6:00 AM Reason For Exam: POD #2 status post CABG Comparison 02/15/2021. Left lower lobe atelectasis noted. Mild cardiac enlargement. No pneumothorax. Left-sided chest tube u nchanged in position. There are 2 IJ lines noted. The smallest line appears to end at the cavoatrial junction. The larger line ends in the midportion of the SVC. Postoperative changes secondary to CABG surgery. XR/XR chest 1V portable [id number] IMPRESSION: 1. Improving left lower lobe atelectasis. 2. Left chest tube unchanged in position. 3. No sign of a pneumothorax. 4. Cardiac enlargement unchanged.
[2021-02-16] MEDS: lactated ringers 1,000 ML 30 ML IV (06:28)
[2021-02-16] MEDS: FUROsemide 10 mg/mL SDV 2mL 20 MG IVP ×2 (06:28→17:29)
--- NOTE | 2021-02-16 06:33 | P.PN_ITS ---
Subjective Subjective: Interval history: Up in chair on rounds though still fairly somnolent. No focal deficits. Intake and output up almost 2.5 L past 24 hours. Chest tube output 500 cc past 24 hours no more serous. No arrhythmias reported by nursing service. Vital signs are stable. Surgical dressings in place. Vitals/I&O/Wt Last Vital Signs Temp 98 F 02/16/21 03:00 Pulse 78 02/16/21 06:00 Resp 13 02/16/21 06:00 BP 114/57 02/16/21 06:00 Pulse Ox 91 02/16/21 06:00 02/15/21 02/15/21 02/16/21 14:59 22:59 06:59 Intake Total 1980.18 / 1060 / 3041.18 1050.506 / 4091.686 Output Total 533 / 533 380 / 913 500 / 1413 Balance 1448.18 / 1448.18 680 / 2128.18 550.506 / 2678.686 Weight last 48 hrs Weight 224 lb 11.2 oz Weight 222 lb Physical Exam Chest: COMMONS NORMALS: normal inspection of the chest and normal palpation of entire chest wall OTHER: Chest wall is stable. Support lines are in position. Wound VAC dressing in place. Resp: COMMON NORMALS: normal respiratory effort, No retractions and No use of accessory muscles OTHER: Decreased breath sounds at the bases with crackles Cardio: COMMON NORMALS: regular rate, regular rhythm, S1 normal heart sound present and No murmurs present (Cardio) RATE: regular rate RHYTHM: regular rhythm HEART SOUNDS: S1 normal heart sound present Extremity: OTHER: 1-2+ peripheral edema. Upper extremity edema slowly resolving. Urinary Catheter Management^: Yan: Cath Placed During This Visit: yes Reason for Continuing Indwelling Catheter: Accurate Measurement of Urinary Output in Critically Ill Patients Urinary Catheter Date of Insertion: 02/14/21 Urinary Catheter Time of Insertion: 07:30 Data : 02/16/21 04:00 02/16/21 04:00 A&P Assessment and plan (1) Status post aorto-coronary artery bypass graft: POD #2 status post CABG. Volume expansion. Plan: Lasix 20 mg IV now. DC D5W LR at 30 cc an hour BMP at 2 PM Potassium replacement now CBC, BMP, chest x-ray in a.m. Continue aggressive pulmonary toilet. Will reassess diuresis and early afternoon to determine second dose of diuretic. Maintain Yan for now secondary to diuresing. Ambulate in ICU. Greatly appreciate expertise and oversight of Dr. Marcano. Status: Acute Attestations Medical Necessity Statement*: POD #2 status post CABG Time Spent in Patient Care: 16 - 35 minutes Coding Level of Care Code Acute Screwmaker Automatic for Christianeg Fwd Diagnoses Status post aorto-coronary artery bypass graft Z95.1
[2021-02-16] MEDS: guaiFENesin 100 mg/5 mL UDC 10 mL 200 MG PO ×2 (07:38→20:48)
[2021-02-16] MEDS: morphine 4 mg/mL SDV 1 mL 2 MG IVP ×2 (07:41→17:20)
[2021-02-16 07:51] LABS: Glucose Point of Care 126 mg/dL (70-110)
[2021-02-16] MEDS: venlafaxine ER (24HR) 37.5 mg Capsule PO (08:58)
[2021-02-16] MEDS: aspirin 81 mg Chew Tablet PO (08:58)
[2021-02-16] MEDS: gabapentin 300 mg Capsule PO ×2 (08:58→20:26)
[2021-02-16] MEDS: mupirocin oint 22 gm 1 APPLIC NASAL (08:59)
[2021-02-16] MEDS: metoprolol tartrate 25 mg Tablet 12.5 MG PO (08:59)
--- NOTE | 2021-02-16 09:36 | PC.NURSE ---
Patient family called while in patient's room. Nurse returned called but no answer.
--- NOTE | 2021-02-16 10:08 | PC.CHAP ---
Pastoral Care Encounter/Spiritual Assessment Type of Contact [] Declined certified registered locksmith visit [] Patient/Family/Request visit [] Outpatient visit [] Follow-up visit [] Physician referral [] Code/Alert [x] Routine visit [] Staff referral [] Actively dying [] Patient sleeping [] Family support [] [] Out of room [] Palliative care [] [] Receiving care in room [] Pre-surgical visit [] Trauma [] Long length of stay [x] ICU visit [x] Other: heart surg. yesterday Relational/Emotional Strength [] Patient feels connected with others/family/visitors/staff [] Distress [] Loneliness/isolation [] Abandonment Spirituality of Patient [] Person of Amairani [] Attends Lutheran of their Amairani [] Believes in Prayer [] Reads Bible or Holiness materials [] There are Spiritual issues to be addressed Wood Scaler Interventions [x] Prayer [x] Active listening [x] Non-anxious presence [x] Spiritual/emotional support [] Crisis/trauma care [] Spiritual counseling [] Bereavement support [] Provided bereavement packet [] Provided Bible/devotional materials [] Provided toy/stuffed animal, coloring book to patient or family member [] Provided Communion [] Anointing/[place] [] Salvation [x] Completed spiritual assessment [] Other: Impact on Illness or Injury [] Angry [] Fearful [] Anxious [] Often cries [] Exhaustion [] Unable to work [] Unable to attend confucianism [] Unable to walk/stand [] Unable to read [] Unable to drive [] Unable to eat/drink [] Unable to sleep [] Unable to be with family [] Patient intubated [] Other: Summary patient having lots of flume. trying to get it up....... Time spent with patient 5 min
--- NOTE | 2021-02-16 10:46 | PHA.FALL ---
A Pharmacy Consult Was Conducted For Vinh Taylor Due To: Fowler Fall Scale Risk Level: High Fall Risk On 02/16/21 08:00 And A Medication Fall Risk Score Greater Than 10. The Recommendations Are As Follows: The patient is on a variety of medications with neurologic side effects including dizziness, somnolence and lightheadedness. Extra caution should be practiced when adding to this list or when patient is ambulatory. - Diphenhydramine prn: Neurologic: Dizziness, Dyskinesia, Sedated - Fentanyl: Neurologic: Asthenia (5% to 30% (lozenge, buccal tablet) ), Confusion (2% to 16% ), Dizziness (6% (nasal spray) ; up to 26% (lozenge, sublingual, buccal tablet) ), Headache (1% or greater (nasal spray) ; up to 17% (lozenge, sublingual, buccal tablet) ), Insomnia (1% to 11% (lozenge, buccal tablet) ), Somnolence (Up to 15% (sublingual, buccal tablet) ) - Gabapentin: Neurologic: Dizziness (Adults, 28%; adults and adolescents, 17%; pediatrics, 3% ), Somnolence (Adults, 21%; adults and adolescents, 19%; pediatrics, 8% ) - Labetalol: Neurologic: Dizziness (Oral, 11% ; IV, 9% ) - Metoprolol: Neurologic: Dizziness (10% - Midazolam: Neurologic: Excessive somnolence (1.6%), Headache (1.3% to 1.5% ), Somnolence (1.2%) - Morphine: Neurologic: Dizziness (6% ), Headache (less than 2% to greater than 10% ), Lightheadedness, Somnolence (3% or greater ) - Nitroglycerin: Neurologic: Dizziness (SL, 2% or more; intraanal, 5% ), Headache (SL, 2% or more ; intraanal, 63% ; transdermal, 64% ), Lightheadedness (Transdermal, 6% ) - Oxycodone: Neurologic: Dizziness (1.6% to 5.7% ), Headache (6.2% to 13.9% ), Somnolence (Up to 8.8% ) - Promethazine: Neurologic: Central nervous system depression, Dizziness, Extrapyramidal disease, Lowered convulsive threshold, Sedated, Somnolence - Sotalol: Neurologic: Disturbance of consciousness (4% ), Dizziness (13.1% to 20% ), Headache (3.3% to 11.5% ) Tamsulosin: Neurologic: Asthenia (7.8% to 8.5% ), Dizziness (14.9% to 17.1% ), Headache (19.3% to 21.1% ), Insomnia (1.4% to 2.4% ), Somnolence (3% to 4.3% )
[2021-02-16 11:41] LABS: Glucose Point of Care 151 mg/dL (70-110)
[2021-02-16 11:41] LABS: Glucose Point of Care 122 mg/dL (70-110)
[2021-02-16] MEDS: insulin lispro 100 unit/1 mL SUBCUT (12:46)
[2021-02-16] MEDS: cefUROXime 1,500 MG in sodium chloride 0.9% (plus) 50 ML 100 MG IV (14:02)
[2021-02-16 14:45] LABS: Anion Gap 11.8 (5-19); Blood Urea Nitrogen 12 mg/dL (8-23); Calcium 8.2 mg/dL (8.5-10.5); Carbon Dioxide 28 mmol/L (22-29); Chloride 102 mmol/L (98-107); Glomerular Filtration Rate 134.8 mL/min (90-130); Glucose 136 mg/dL (65-115); Osmolality Calculated 288 mOsm/kg (285-295); Potassium 3.8 mmol/L (3.5-5.1); Sodium 138 mmol/L (136-145)
[2021-02-16 16:53] LABS: Glucose Point of Care 128 mg/dL (70-110)
--- NOTE | 2021-02-16 17:12 | ECG_ITS ---
[facility] Test Date: 2021-02-16 Pat Name: Vinh Taylor Department: Room: ICU10 Gender: Male River Guide: : 1955 Requested By: Arpit Marcano Order Number: [id number] Bravo MD: Leti Ma M.D. Measurements Intervals [place] Rate: 167 P: [place]: QRS: 69 QRSD: 90 T: -89 QT: 250 QTc: 417 Interpretive Statements ATRIAL FIBRILLATION WITH RAPID VENTRICULAR RESPONSE ST DEVIATION AND MODERATE T-WAVE ABNORMALITY, CONSIDER ANTEROLATERAL ISCHEMIA [-0.1+ mV T-WAVE IN V3-V6] ST DEVIATION AND MODERATE T-WAVE ABNORMALITY, CONSIDER INFERIOR ISCHEMIA [-0.1+ mV T-WAVE IN II/aVF] CRITICAL TEST RESULT Compared to ECG 02/15/2021 09:50:13 Possible ischemia now present Sinus rhythm no longer present T-wave abnormality still present Electronically Signed On 02-17-2021 1:25:19 CDT by Leti Ma M.D. [email or web address]
[2021-02-16] MEDS: metoprolol tartrate 1 mg/1 mL SDV 5 mL 5 MG IVP (17:20)
[2021-02-16] MEDS: metoprolol tartrate 25 mg Tablet PO (18:04)
--- NOTE | 2021-02-16 18:10 | P.PN_ITS ---
Subjective Subjective: Interval history: Santosh Taylor has been up in chair most of today. He is ambulated in the ICU. He is making steady progress. He has developed A. fib with RVR and received 5 mg of metoprolol and amiodarone has been initiated. Dr. Marcano is also at bedside. Blood pressure 120 systolic. He did receive Lasix this morning 20 mg, and I will repeat that this evening due to volume expansion. Chest tube output is more serous and continues to decrease. Vitals/I&O/Wt Last Vital Signs Temp 97.9 F 02/16/21 08:00 Pulse 99 02/16/21 11:37 Resp 23 H 02/16/21 18:04 BP 133/66 02/16/21 08:30 Pulse Ox 95 02/16/21 18:04 02/16/21 02/16/21 02/16/21 06:59 14:59 22:59 Intake Total 1054.421 / 4095.601 520 / 520 50 / 570 Output Total 500 / 1413 1460 / 1460 177 / 1637 Balance 554.421 / 2682.601 -940 / -940 -127 / -1067 Weight last 48 hrs Weight 224 lb 11.2 oz Weight 222 lb Physical Exam Urinary Catheter Management^: Yan: Cath Placed During This Visit: yes Reason for Continuing Indwelling Catheter: Accurate Measurement of Urinary Output in Critically Ill Patients Urinary Catheter Date of Insertion: 02/14/21 Urinary Catheter Time of Insertion: 07:30 Data : 02/16/21 04:00 02/16/21 14:10 A&P Assessment and plan (1) Postoperative atrial fibrillation: Postop atrial fibrillation with RVR. Metoprolol IV given. Amiodarone infusion initiated. Blood pressure stable at systolic 120 Plan: Bedrest until sinus rhythm is restored. Potassium replacement underway as well for a potassium of 3.8 at our 2 PM lab. Status: Acute Attestations Medical Necessity Statement*: Postop day #2 status post CABG x3 with postop A. fib Time Spent in Patient Care: 16 - 35 minutes Coding Level of Care Code Acute Fuel Retrofitting Technician for Jason Fwd Diagnoses Postoperative atrial fibrillation I97.89; I48.91
[2021-02-16 18:48] LABS: Magnesium 1.8 mg/dL (1.7-2.3)
--- NOTE | 2021-02-16 18:49 | P.PN_ITS ---
Subjective Subjective: Interval history: Patient is overall doing well. His metoprolol has been restarted. Vitals/I&O/Wt Last Vital Signs Temp 97.9 F 02/16/21 08:00 Pulse 99 02/16/21 11:37 Resp 23 H 02/16/21 18:04 BP 133/66 02/16/21 08:30 Pulse Ox 95 02/16/21 18:04 02/16/21 02/16/21 02/16/21 06:59 14:59 22:59 Intake Total 1054.421 / 4095.601 520 / 520 50 / 570 Output Total 500 / 1413 1460 / 1460 337 / 1797 Balance 554.421 / 2682.601 -940 / -940 -287 / -1227 Weight last 48 hrs Weight 224 lb 11.2 oz Weight 222 lb Physical Exam Narrative: EXAM NARRATIVE: GENERAL: Patient is drowsy but arousable NECK: No jugular vein distension. [] HEENT: No cyanosis. No icterus. No pallor. [] HEART: Regular S1 and S2. No murmur, rub or gallop. [] LUNGS: Clear to auscultate bilaterally. [] ABDOMEN: Soft, nontender and nondistended. Positive bowel sounds. No guarding, rebound or tenderness. [] CENTRAL NERVOUS SYSTEM: Grossly nonfocal. [] EXTREMITIES: Lower extremities with 1+ edema bilaterally. Pulses palpable in the lower extremities, both dorsalis pedis and posterior tibial. [] Urinary Catheter Management^: Yan: Cath Placed During This Visit: yes Reason for Continuing Indwelling Catheter: Accurate Measurement of Urinary Output in Critically Ill Patients Urinary Catheter Date of Insertion: 02/14/21 Urinary Catheter Time of Insertion: 07:30 Data : 02/17/21 03:40 02/17/21 03:40 A&P Assessment and plan (1) Status post aorto-coronary artery bypass graft: Status: Acute (2) Left main coronary artery disease: Status: Acute (3) Afib: Status: Acute (4) Diabetes: Status: Acute (5) Chronic kidney disease (CKD): Status: Acute (6) Hypertension: Status: Acute Patient had successful revascularization yesterday with CABG x3. He is extubated now. His heart rate is controlled at this time. Follow-up Continue ICU monitoring. Aspirin and statin therapy. If he goes into A. fib with RVR, will start amiodarone. Uptitrate metoprolol as his blood pressure tolerates. Thank you for involving us with care of this patient. We will continue to follow. Please call with questions. Attestations Medical Necessity Statement*: Care expected to cross 2 midnights. Coding Level of Care Code Acute Outside Industrial Sales Representative for Jason Foley Diagnoses Status post aorto-coronary artery bypass graft Z95.1 Left main coronary artery disease I25.10 Afib I48.91 Diabetes E11.9 Chronic kidney disease (CKD) N18.9 Hypertension I10
[2021-02-16 20:00] LABS: Glucose Point of Care 179 mg/dL (70-110)
[2021-02-16] MEDS: tamsulosin 0.4 mg Capsule 0.8 MG PO (20:26)
[2021-02-16] MEDS: atorvastatin 40 mg Tablet 80 MG PO (20:26)
[2021-02-16] MEDS: amiodarone 200 mg Tablet 400 MG PO (20:26)
[2021-02-16] MEDS: diphenhydrAMINE 25 mg Capsule PO (20:48)
--- NOTE | 2021-02-16 20:58 | PC.NURSE ---
BEGINNING OF SHIFT: SHIFT REPORT FROM LINWOOD MADRIGAL. PT IN AFIB RVR WITH OCCASIONAL SVT. AMIO GTT, POTASSIUM GTT AND LR INFUSING ORDERED. JOSE PATENT AND DRAINING. PIVs CLEAN, DRY AND INTACT. RIJ CVC PATENT AND INFUSING IVF. CHANGED CT ATRIUM. CHG WIPES TO TORSO, ABDOMEN AND JOSE TUBING. LLE INCISIONS CLEANSED WITH BETADINE SWABS. PT CONVERTED FROM AFIB RVR TO NSR DURING 2000 HOUR. PT BECAME MORE ALERT. SHIFT ASSESSMENT COMPLETE-- PT AAOX4 AND ABLE TO VERBALIZE NEEDS. PT MEDICATED ORDERED-- NO S/S OF DISTRESS AT THIS TIME.
[2021-02-16] MEDS: labetalol 5 mg/mL SDV 20mL 10 MG IVP (22:06)
[2021-02-16] MEDS: ondansetron 2 mg/ML SDV 2 mL 4 MG IVP (22:33)
--- NOTE | 2021-02-16 22:48 | PC.NURSE ---
PRN PRN Benadryl given for sleep. Pt resting with eyes closed, but awakened with nausea. PRN Zofran given for nausea. Pt now resting in bed with eyes closed.
[2021-02-17] VITALS (90 sets, daily range): BP systolic 109–200; BP diastolic 56–94; PULSE 63–101; RESP 5–25; TEMP 36.9–37.6; O2SAT 90–96
[2021-02-17] MEDS: morphine 4 mg/mL SDV 1 mL 2 MG IVP (00:11)
[2021-02-17] MEDS: nitroglycerin drip 50 MG/250 ML PREMIX IV (01:09)
--- NOTE | 2021-02-17 01:39 | PC.NURSE ---
HTN SBP 200. Neither PRN labetalol nor PRN pain management (morphine) were effective. Nitroglycerine gtt started per orders. Titrating to SBP <140 as ordered.
[2021-02-17] MEDS: promethazine 25 mg Supp PR (02:29)
--- NOTE | 2021-02-17 03:02 | PC.NURSE ---
CHG BATH. PRN NAUSEA PT BATHED WITH CHG WIPES. BATH WIPES TO DANIEL AREA. CATHETER CARE DONE. LINEN AND GOWN CHANGED. ORAL CARE PROVIDED PT VOMITED APPX 60 ML GREEN BILE PRN PHENERGAN SUPPOSITORY ADMINISTERED. PT RESTING WITH EYES CLOSED.
[2021-02-17 03:59] LABS: Basophils % 0.2 %; Eosinophils % 0.1 %; Hematocrit 27.6 % (42.0-52.0); Hemoglobin 8.8 g/dL (11.7-16.6); Lymphocytes # 0.8 10^3/uL (0.8-4.8); Lymphocytes % 6.7 %; Mean Corpuscular HGB Conc 31.9 g/dL (30.0-36.0); Mean Corpuscular Hemoglobin 30.2 pg (28.0-34.0); Mean Corpuscular Volume 94.8 fl (80-94); Mean Platelet Volume 11.3 fL (7.4-10.4); Monocytes % 8.5 %; Neutrophils # 9.56 10^3/uL (1.8-7.7); Neutrophils % 83.9 %; Nucleated Red Blood Cells % 0 %; Platelet Count 93 10^3/cmm (130-400); Red Blood Count 2.91 10^6/uL (4.1-5.3); Red Cell Distribution Width 14.6 % (12.1-15.1); White Blood Count 11.4 10^3/uL (4.0-10.0)
[2021-02-17 04:32] LABS: Anion Gap 9.6 (5-19); Blood Urea Nitrogen 14 mg/dL (8-23); Calcium 8.1 mg/dL (8.5-10.5); Carbon Dioxide 31 mmol/L (22-29); Chloride 98 mmol/L (98-107); Glomerular Filtration Rate 166.4 mL/min (90-130); Glucose 165 mg/dL (65-115); Osmolality Calculated 284 mOsm/kg (285-295); Potassium 3.6 mmol/L (3.5-5.1); Sodium 135 mmol/L (136-145)
[2021-02-17] MEDS: oxyCODONE-APAP 5-325 mg Tablet PO (04:39)
[2021-02-17] MEDS: ondansetron 2 mg/ML SDV 2 mL 4 MG IVP ×2 (04:39→08:06)
[2021-02-17] MEDS: alum-mag-hydroxide-sime 30 mL UDC PO (04:39)
[2021-02-17] MEDS: docusate sodium 100 mg Capsule PO (04:40)
[2021-02-17] MEDS: labetalol 5 mg/mL SDV 20mL 10 MG IVP (05:04)
[2021-02-17] MEDS: potassium chloride premix 100 ML 25 MEQ IV (05:22)
--- NOTE | 2021-02-17 05:58 | USCV_ITS ---
Vinh Taylor Age: 65 Gender: M : 1955 Exam Date: 02/17/2021 06:27 Ordering Phys: Jorge Luis Batista MD (Andy) ([email or web address]) Technologist: ADRIAN [place] [facility] [place]: POST CABG BP: 116 / 59 HR: 71 Rhythm: Sinus Technical Quality: Adequate MEASUREMENTS (Male / Female) Normal Values 2D ECHO LV Diastolic Diameter PLAX 3.9 cm 4.2 - 5.9 / 3.9 - 5.3 cm LV Systolic Diameter PLAX 2.4 cm IVS Diastolic Thickness 1.0 cm 0.6 - 1.0 / 0.6 - 0.9 cm IVS Systolic Thickness 1.7 cm LVPW Diastolic Thickness 1.1 cm 0.6 - 1.0 / 0.6 - 0.9 cm LVPW Systolic Thickness 1.3 cm LVOT Diameter 2.0 cm LV Ejection Fraction 2D Teich 63.1 % LV Ejection Fraction MOD 2C 73.8 % LV Ejection Fraction 2C AL 73.9 % LA Diameter 3.5 cm M-MODE LV Diastolic Diameter MM 5.3 cm 4.2 - 5.9 / 3.9 - 5.3 cm LV Systolic Diameter MM 3.7 cm LV Ejection Fraction MM Teich 57.6 % IVS Diastolic Thickness MM 1.2 cm 0.6 - 1.0 / 0.6 - 0.9 cm IVS Systolic Thickness MM 1.4 cm LVPW Diastolic Thickness MM 1.6 cm 0.6 - 1.0 / 0.6 - 0.9 cm LVPW Systolic Thickness MM 1.7 cm RV Diastolic Diameter MM 1.6 cm Aortic Annulus Diameter 3.4 cm LA Ao Ratio MM 1.0 MV E Point Septal Separation 0.4 cm DOPPLER AV Peak Velocity 161.7 cm/s LVOT Peak Velocity 81.0 cm/s AV Area Cont Eq vti 1.2 cm squared AV Area Cont Eq pk 1.5 cm squared MV Area PHT 5.0 cm squared Mitral E to A Ratio 0.9 MV E' Velocity 32.5 cm/s Mitral E to MV E' Ratio 7.9 Mitral E to LV E' Lateral Ratio 9.1 Mitral E to LV E' Septal Ratio 7.1 TR Peak Velocity 209.0 cm/s TR Peak Gradient 17.5 mmHg TV Peak E Velocity 82.0 cm/s Right Atrial Pressure 3.0 mmHg Pulmonary Artery Systolic Pressu 20.5 mmHg PV Peak Velocity 77.0 cm/s FINDINGS Left Ventricle Limited quality echocardiogram because of poor ultrasonic windows. LV systolic function is normal with EF of 60 to 65%. No regional wall motion abnormalities are seen. Septal motion is consistent with prior cardiac surgery. Grade 1 diastolic dysfunction. Right Ventricle Grossly normal Right Atrium Grossly normal Left Atrium Grossly normal Mitral Valve Grossly normal Aortic Valve Not well-visualized. No significant stenosis is seen. Tricuspid Valve Grossly normal. No significant tricuspid regurgitation or stenosis is seen. Insufficient TR jet to calculate RVSP. Pulmonic Valve Not well-visualized Pericardium No significant pericardial effusion Aorta Grossly normal CONCLUSIONS Limited quality echocardiogram because of poor ultrasonic windows. LV systolic function is normal with EF of 60 to 65%. No regional wall motion abnormalities are seen. Septal motion is consistent with prior cardiac surgery. Grade 1 diastolic dysfunction. No significant pericardial effusion is seen. Because of limited quality images, comparison with prior records is not possible. Arpit Marcano MD (Electronically Signed) Final Date: 17 February 2021 11:42 S
--- NOTE | 2021-02-17 06:00 | XR_ITS ---
WS: [id number] Exam: XR chest 1V portable [id number] Date/Time of Exam: 02/17/2021 4:58 AM Reason For Exam: POD#3 s/p cabg (diuresing) Comparison 02/16/2021. Mild residual plaque atelectasis in the left base. No consolidated infiltrates or pleural effusions. Mild cardiac enlargement unchanged. Left-sided chest tube unchanged in location. Right IJ catheter en ding at the cavoatrial junction. Signs of previous recent CABG surgery. XR/XR chest 1V portable [id number] IMPRESSION: 1. Mild residual plaque atelectasis in the left lung base. Mild cardiac enlarge ment. 2. No acute process identified. 3. Left chest tube and right IJ catheter in satisfactory position without sevilla e.
--- NOTE | 2021-02-17 06:03 | P.PN_ITS ---
Subjective Subjective: Interval history: Postop day #3 status post CABG x3. Up in chair on rounds. Complaining of abdominal discomfort and bloating. He has received Phenergan suppository as well as Zofran with improvement of his nausea. Converted from A. fib to sinus rhythm around 8 PM last night. Continues on amiodarone IV and p.o. Did develop some hypertension with systolics up to 200 l ast night, currently on nitroglycerin drip with a blood pressure of 128. Heart rate is 75 and sinus. Intake and output is -1400 cc past 24 hours. Chest tube output 220 cc over the past 11 hours. Serosanguineous. Chest x-ray reveals perhaps a small right pleural effusion developing. The cardiac silhouette is generous though I think this was because of the elevation of his diaphragm while he sitting up in the chair. Good, effective cough. Nonproductive. White count 11,000. He developed a temperature of 99.5 in the early hours of the morning. Vitals/I&O/Wt Last Vital Signs Temp 99.6 F 02/17/21 04:57 Pulse 81 02/17/21 04:45 Resp 16 02/17/21 04:45 BP 174/94 02/17/21 04:45 Pulse Ox 92 02/17/21 04:45 02/16/21 02/16/21 02/17/21 14:59 22:59 06:59 Intake Total 670 / 670 579.308 / 1249.308 196.831 / 1446.139 Output Total 1460 / 1460 1312 / 2772 805 / 3577 Balance -790 / -790 -732.692 / -1522.692 -608.169 / -2130.861 Weight last 48 hrs Weight 222 lb 11.2 oz Weight 224 lb 11.2 oz Physical Exam Chest: COMMONS NORMALS: normal inspection of the chest and normal palpation of entire chest wall OTHER: Chest wall is stable to palpation. Surgical dressings and wound VAC dressings remain in place. Support tubes in position. Resp: COMMON NORMALS: normal respiratory effort OTHER: Improving inspira tion. Still with some decreased breath sounds in the bases. Cardio: OTHER: Slightly muffled but without murmur. There is a chest tube rub. Extremity: OTHER: Slowly improving peripheral edema. Urinary Catheter Management^: Yan: Cath Placed During This Visit: yes Reason for Continuing Indwelling Catheter: Accurate Measurement of Urinary Output in Critically Ill Patients Urinary Catheter Date of Insertion: 02/14/21 Urinary Catheter Time of Insertion: 07:30 Data : 02/17/21 03:40 02/17/21 03:40 A&P Assessment and plan (1) Status post aorto-coronary artery bypass graft: Postop day #3 status post CABG x3. Postop A. fib currently resolved. Plan: We will reinstitute Cardizem CD 120 daily. Will also reinstitute lisinopril 40 mg daily. Lactulose p.o. I will discuss further with Dr. Graham about restitution of his sotalol. I will obtain a transthoracic echocardiogram to confirm adequate evacuation of his pericardial space, though given his episode of hypertension early this morning, I doubt clinically he has any substantial compressive effects from retained fluid. Chest tube output, currently, is still too high to recommend removal. I greatly appreciate Dr. Marcano's oversight, expertise, and recommendations. Status: Acute Attestations Medical Necessity Statement*: Postop day #3 status post CABG Time Spent in Patient Care: 16 - 35 minutes Coding Level of Care Code Acute Sales Expert Home Theater for Jason Fwd Diagnoses Status post aorto-coronary artery bypass graft Z95.1
[2021-02-17] MEDS: lactulose oral liq 20 gm/30 mL UDC PO (06:04)
[2021-02-17] MEDS: dilTIAZem ER (24HR) 120 mg Capsule PO (06:10)
[2021-02-17] MEDS: lisinopril 20 mg Tablet 40 MG PO (06:10)
--- NOTE | 2021-02-17 06:21 | PC.NURSE ---
MD UPDATE. LAXATIVE DR CARTER AT BEDSIDE-- SBAR GIVEN INCLUDING UPDATE ON TEMP, VS, LABS, OUTPUT AND ASSESSMENT. NEW ORDERS FOR ECHO, RESTART HOME LISINOPRIL, RESTART HOME CARDIZEM COLACE NOT EFFECTIVE-- PRN LACTULOSE GIVEN ORDERED. BOWEL SOUNDS PRESENT X 4 QUADRANTS, PT BURPING AND HAS URGE TO ELIMINATE
[2021-02-17] MEDS: lactated ringers 1,000 ML 30 ML IV (06:45)
--- NOTE | 2021-02-17 06:53 | PC.NURSE ---
Handoff Shift report given to LINWOOD Castro. SBAR with updates on shift events. Pt resting in chair, AAOx4 and able to verbalize needs. ECHO complete-- pending interpretation.
--- NOTE | 2021-02-17 07:00 | PC.NURSE ---
Nitro Drip Patient Nitro drip set to 20mcg when this nurse received the patient this morning. MAR shows the drip at 15mcg. Patient drip increased in the MAR. Will continue to monitor patient response to treatment and titrate per protocol for hypertension.
[2021-02-17 07:55] LABS: Glucose Point of Care 208 mg/dL (70-110)
[2021-02-17] MEDS: insulin lispro 100 unit/1 mL SUBCUT ×3 (08:27→17:42)
[2021-02-17] MEDS: lidocaine 2% viscous 15 mL UDC MUCOUS MEM (08:35)
--- NOTE | 2021-02-17 09:41 | XR_ITS ---
WS: [id number] Exam: XR chest 1V portable [id number] Date/Time of Exam: 02/17/2021 9:41 AM Reason For Exam: NGT placement Comparison with the prior study performed earlier on the same day at 0507 hours. An enteric tube has been inserted and appears to enter the stomach. The side-port of the tube is prob ably just below the GE junction. The tube could be advanced another 4 to 5 cm for optimal position. A gain noted is residual atelectasis in the left lung base. Remaining lung pierson are clear. Left chest tube and right-sided central line both remain in satisfactory position. Heart size is stable. No obv ious pleural effusion. XR/XR chest 1V portable [id number] IMPRESSION: 1. NG tube within the stomach however the side-port of the tube is probably jus t below the GE junction. The tube could be advanced another 4 to 5 cm for optim al position. 2. The chest is otherwise unchanged since the previous study performed earlier on this same day.
--- NOTE | 2021-02-17 10:11 | PC.CHAP ---
Pastoral Care Encounter/Spiritual Assessment Type of Contact [] Declined sales closer visit [] Patient/Family/Request visit [] Outpatient visit [] Follow-up visit [] Physician referral [] Code/Alert [x] Routine visit [] Staff referral [] Actively dying [] Patient sleeping [x] Family support [] [] Out of room [] Palliative care [] [x] Receiving care in room [] Pre-surgical visit [] Trauma [] Long length of stay [x] ICU visit [x] Other: heart patient Relational/Emotional Strength [] Patient feels connected with others/family/visitors/staff [] Distress [] Loneliness/isolation [] Abandonment Spirituality of Patient [] Person of Amairani [] Attends Adventism of their Amairani [] Believes in Prayer [] Reads Bible or Tenriism materials [] There are Spiritual issues to be addressed Manager Primary Interventions [x] Prayer [] Active listening [] Non-anxious presence [] Spiritual/emotional support [] Crisis/trauma care [] Spiritual counseling [] Bereavement support [] Provided bereavement packet [] Provided Bible/devotional materials [] Provided toy/stuffed animal, coloring book to patient or family member [] Provided Communion [] Anointing/[place] [] Salvation [x] Completed spiritual assessment [] Other: Impact on Illness or Injury [] Angry [] Fearful [] Anxious [] Often cries [] Exhaustion [] Unable to work [] Unable to attend anabaptist [] Unable to walk/stand [] Unable to read [] Unable to drive [] Unable to eat/drink [] Unable to sleep [] Unable to be with family [] Patient intubated [] Other: Summary Time spent with patient
[2021-02-17 11:58] LABS: Glucose Point of Care 166 mg/dL (70-110)
--- NOTE | 2021-02-17 13:23 | P.PN_ITS ---
Subjective Subjective: Interval history: Patient went into atrial fibrillation with RVR last night. He was started on amiodarone drip. His metoprolol has also been uptitrated. His heart rate is better controlled this morning. However appears that he has developed possible ileus. He feels nauseous. Blood pressure also went up and was put on nitro drip. Vitals/I&O/Wt Last Vital Signs Temp 99.6 F 02/17/21 04:57 Pulse 75 02/17/21 06:00 Resp 16 02/17/21 04:45 BP 174/94 02/17/21 04:45 Pulse Ox 92 02/17/21 04:45 02/16/21 02/17/21 02/17/21 22:59 06:59 14:59 Intake Total 579.308 / 1623.391 1388.306 / 2316.614 240.6 / 240.6 Output Total 1312 / 2772 940 / 3712 315 / 315 Balance -732.692 / -1522.692 127.306 / -1395.386 -74.4 / -74.4 Weight last 48 hrs Weight 222 lb 11.2 oz Weight 224 lb 11.2 oz Physical Exam Narrative: EXAM NARRATIVE: GENERAL: Patient is drowsy but arousable NECK: No jugular vein distension. [] HEENT: No cyanosis. No icterus. No pallor. [] HEART: Regular S1 and S2. No murmur, rub or gallop. [] LUNGS: Clear to auscultate bilaterally. [] ABDOMEN: Soft, nontender and nondistended. Positive bowel sounds. No guarding, rebound or tenderness. [] CENTRAL NERVOUS SYSTEM: Grossly nonfocal. [] EXTREMITIES: Lower extremities with 1+ edema bilaterally. Pulses palpable in the lower extremities, both dorsalis pedis and posterior tibial. [] Urinary Catheter Management^: Yan: Cath Placed During This Visit: yes Reason for Continuing Indwelling Catheter: Accurate Measurement of Urinary Output in Critically Ill Patients Urinary Catheter Date of Insertion: 02/14/21 Urinary Catheter Time of Insertion: 07:30 Data : 02/17/21 03:40 02/17/21 03:40 A&P Assessment and plan (1) Status post aorto-coronary artery bypass graft: Status: Acute (2) Left main coronary artery disease: Status: Acute (3) Afib: Status: Acute (4) Diabetes: Status: Acute (5) Chronic kidney disease (CKD): Status: Acute (6) Hypertension: Status: Acute Patient had successful revascularization on 02/14/2021 with CABG x3. He is extubated now. He went into A. fib with RVR last evening. He was put on amiodarone drip. Heart rate is better controlled now. He was also given higher dose of metoprolol. Given his hypertension, lisinopril and Cardizem have been restarted. Patient has possible ileus and is getting NG tube put in today. Continue ICU monitoring. Aspirin and statin therapy. Thank you for involving us with care of this patient. We will continue to follow. Please call with questions. Attestations Medical Necessity Statement*: Care expected to cross 2 midnights. Coding Level of Care Code Acute Senior Mechanical Development Engineer for Jason Foley Diagnoses Status post aorto-coronary artery bypass graft Z95.1 Left main coronary artery disease I25.10 Afib I48.91 Diabetes E11.9 Chronic kidney disease (CKD) N18.9 Hypertension I10
--- NOTE | 2021-02-17 14:07 | PC.SOCIAL ---
IMM update IMM updated with patient. Copy Pg 2 provided. Verbalized an understanding. Initialled, dated, timed, and placed in chart.
[2021-02-17] MEDS: mupirocin oint 22 gm 1 APPLIC NASAL (14:28)
[2021-02-17] MEDS: amiodarone 200 mg Tablet 400 MG PO ×2 (14:30→18:40)
[2021-02-17] MEDS: metoprolol tartrate 25 mg Tablet PO ×2 (14:31→20:49)
[2021-02-17] MEDS: gabapentin 300 mg Capsule PO ×2 (14:31→20:49)
[2021-02-17] MEDS: aspirin 81 mg Chew Tablet PO (14:31)
[2021-02-17] MEDS: venlafaxine ER (24HR) 37.5 mg Capsule PO (14:31)
--- NOTE | 2021-02-17 14:42 | PC.NURSE ---
MAR Medication Administration Patient morning medications because patient was nauseous and refused. Patient agreed to take medication this afternoon regardless of nausea. Did not give Sodium Chloride IV Fluids, patient on LR currently and the bag is not empty.
--- NOTE | 2021-02-17 16:54 | PM.MISC ---
Miscellaneous Note Purpose of Documentation: Moderate amount of gastric gas was removed with NG tube insertion. NG tube is now been removed. We are able to decrease his narcotic use and utilize Tylenol for pain control with good effect. He was able to ambulate in the ICU today. Chest output continues to decrease. I have discussed the transthoracic echocardiogram results with Dr. Graham who reviewed the study. Good ejection fraction and no substantial pericardial fluid collection noted. Blood pressures under better control. Dr. Marcano will reassess as to the timing or need for the addition of sotalol. We will continue postop supportive measures. I believe overall he will feel much improved when his bowel function returns. He does report problems with constipation routinely.
[2021-02-17] MEDS: metoclopramide 5 mg/mL SDV 2 mL 10 MG IVP ×2 (17:42→23:48)
[2021-02-17 17:45] LABS: Glucose Point of Care 148 mg/dL (70-110)
--- NOTE | 2021-02-17 19:25 | PC.NURSE ---
All charting by Anaid Danielson reviewed and confirmed.
[2021-02-17 20:46] LABS: Glucose Point of Care 137 mg/dL (70-110)
[2021-02-17] MEDS: atorvastatin 40 mg Tablet 80 MG PO (20:49)
[2021-02-17] MEDS: tamsulosin 0.4 mg Capsule 0.8 MG PO (20:50)
[2021-02-18] VITALS (36 sets, daily range): BP systolic 96–178; BP diastolic 52–86; PULSE 61–80; RESP 11–31; TEMP 36.5; O2SAT 92–99
[2021-02-18] MEDS: metoclopramide 5 mg/mL SDV 2 mL 10 MG IVP ×4 (04:42→23:12)
[2021-02-18 05:29] LABS: Basophils % 0.3 %; Eosinophils # 0.1 10^3/uL (0.0-0.8); Eosinophils % 1.2 %; Hematocrit 24.7 % (42.0-52.0); Hemoglobin 8.5 g/dL (11.7-16.6); Lymphocytes # 1.2 10^3/uL (0.8-4.8); Lymphocytes % 11.1 %; Mean Corpuscular HGB Conc 34.4 g/dL (30.0-36.0); Mean Corpuscular Hemoglobin 30.9 pg (28.0-34.0); Mean Corpuscular Volume 89.8 fl (80-94); Mean Platelet Volume 11.2 fL (7.4-10.4); Monocytes % 9.5 %; Neutrophils # 8.01 10^3/uL (1.8-7.7); Neutrophils % 77.3 %; Nucleated Red Blood Cells % 0 %; Platelet Count 119 10^3/cmm (130-400); Red Blood Count 2.75 10^6/uL (4.1-5.3); Red Cell Distribution Width 14.3 % (12.1-15.1); White Blood Count 10.4 10^3/uL (4.0-10.0)
[2021-02-18 05:36] LABS: Anion Gap 9.5 (5-19); Blood Urea Nitrogen 14 mg/dL (8-23); Carbon Dioxide 32 mmol/L (22-29); Chloride 98 mmol/L (98-107); Glomerular Filtration Rate 166.4 mL/min (90-130); Glucose 135 mg/dL (65-115); Osmolality Calculated 285 mOsm/kg (285-295); Potassium 3.5 mmol/L (3.5-5.1); Sodium 136 mmol/L (136-145)
--- NOTE | 2021-02-18 06:00 | XR_ITS ---
WS: [id number] Exam: XR chest 1V portable [id number] Date/Time of Exam: 02/18/2021 5:07 AM Reason For Exam: Postop day #4 status post CABG Comparison 02/17/2021. The lungs are fully expanded. Mild plaque atelectasis in the bibasal areas. No consolidating infiltra yaneth. The heart is enlarged but unchanged in size. Left-sided chest tube is unchanged in location. Rig ht IJ catheter ends at the lower one third of the SVC. Signs of a CABG surgery and median sternotomy. XR/XR chest 1V portable [id number] IMPRESSION: 1. Cardiac enlargement unchanged. 2. Bibasal plaque atelectasis. 3. No acute infiltrate or pneumothorax.
--- NOTE | 2021-02-18 06:13 | PC.NURSE ---
Shift Note Frequent safety and comfort rounds continue. Chest tubes checked frequently with good output throughout the night. Pt pivoted well to bedside commode. Orders and nursing care completed as indicated. Patient monitored for response to intervention and treatments. Education provided includes nitroglycerin. Patient verbalized understanding but needs reinforcement. Will continue care.
--- NOTE | 2021-02-18 07:26 | P.PN_ITS ---
Subjective Subjective: Interval history: Patient is doing better. Had bowel movement. Blood pressure is still elevated. Vitals/I&O/Wt Last Vital Signs Temp 98.4 F 02/17/21 20:15 Pulse 69 02/18/21 06:00 Resp 15 02/17/21 22:30 BP 120/61 02/17/21 22:30 Pulse Ox 94 02/17/21 21:30 02/17/21 02/18/21 02/18/21 22:59 06:59 14:59 Intake Total 339.956 / 868.456 207.300 / 1075.756 Output Total 640 / 1165 594 / 1759 Balance -300.044 / -296.544 -386.700 / -683.244 Weight last 48 hrs Weight 214 lb 6.4 oz Weight 222 lb 11.2 oz Physical Exam Narrative: EXAM NARRATIVE: GENERAL: Patient is alert and oriented x 3 NECK: No jugular vein distension. [] HEENT: No cyanosis. No icterus. No pallor. [] HEART: Regular S1 and S2. No murmur, rub or gallop. [] LUNGS: Clear to auscultate bilaterally. [] ABDOMEN: Soft, nontender and nondistended. Positive bowel sounds. No guarding, rebound or tenderness. [] CENTRAL NERVOUS SYSTEM: Grossly nonfocal. [] EXTREMITIES: Lower extremities with 1+ edema bilaterally. Pulses palpable in the lower extremities, both dorsalis pedis and posterior tibial. [] Urinary Catheter Management^: Yan: Cath Placed During This Visit: yes Reason for Continuing Indwelling Catheter: Accurate Measurement of Urinary Output in Critically Ill Patients Urinary Catheter Date of Insertion: 02/14/21 Urinary Catheter Time of Insertion: 07:30 Data : 02/18/21 05:00 02/18/21 05:00 A&P Assessment and plan (1) Status post aorto-coronary artery bypass graft: Status: Acute (2) Left main coronary artery disease: Status: Acute (3) Afib: Status: Acute (4) Diabetes: Status: Acute (5) Chronic kidney disease (CKD): Status: Acute (6) Hypertension: Status: Acute Patient had successful revascularization on 02/14/2021 with CABG x3. He is extubated We will stop amio gtt and continue po amiodarone 400mg bid. He is in sinus rhythm now. Start Eliquis once at acceptible bleeding risk from CT surgery standpoint. Given his hypertension, lisinopril and Cardizem have been restarted. If blood pressure remains elevated can start HCTZ 12.5mg daily Continue ICU monitoring. Aspirin and statin therapy. Thank you for involving us with care of this patient. We will continue to follow. Please call with questions. Attestations Medical Necessity Statement*: Care expected to cross 2 midnights. Coding Level of Care Code Acute Key Account Executive for Jason Foley Diagnoses Status post aorto-coronary artery bypass graft Z95.1 Left main coronary artery disease I25.10 Afib I48.91 Diabetes E11.9 Chronic kidney disease (CKD) N18.9 Hypertension I10
[2021-02-18 07:34] LABS: Slide Review Slide Review Perform
--- NOTE | 2021-02-18 07:35 | PM.PN ---
Subjective Subjective: Interval history: Sleeping this morning on rounds. Nurses report Mr. Taylor had a good night. He has begun passing flatus. His nausea has been improved with the use of Reglan in addition to Zofran. Intake and output is negative approximately 650 cc. Chest tube output 220 cc past 24 hours. He is hypokalemic. He will require potassium replacement this morning. CBC is currently pending. Chest x-ray is unchanged with what appears to be a small dependent right pleural effusion. He does complain of some left posterior back pain, which I suspect is probably related to his pleural tube. He is in sinus rhythm. No further episodes of A. fib have been noted. Vitals/I&O/Wt Last Vital Signs Temp 98.4 F 02/17/21 20:15 Pulse 69 02/18/21 06:00 Resp 15 02/17/21 22:30 BP 120/61 02/17/21 22:30 Pulse Ox 94 02/17/21 21:30 02/17/21 02/18/21 02/18/21 22:59 06:59 14:59 Intake Total 339.956 / 868.456 207.300 / 1075.756 Output Total 640 / 1165 594 / 1759 Balance -300.044 / -296.544 -386.700 / -683.244 Weight last 48 hrs Weight 214 lb 6.4 oz Weight 222 lb 11.2 oz Physical Exam Chest: COMMONS NORMALS: normal inspection of the chest and normal palpation of entire chest wall OTHER: Chest wall remained stable. Wound VAC dressing and support tubes are in position. Resp: COMMON NORMALS: normal respiratory effort EFFORT & INSPECTION: Yes able to speak in complete sentences and Yes symmetric chest movement OTHER: O2 saturation 96% on 2 L nasal cannula Cardio: COMMON NORMALS: regular rate, regular rhythm, S1 normal heart sound present, No murmurs present (Cardio) and No rub (Cardio) RATE: regular rate RHYTHM: regular rhythm HEART SOUNDS: S1 normal heart sound present Extremity: OTHER: Peripheral edema is improving. Urinary Catheter Management^: Yan: Cath Placed During This Visit: yes Reason for Continuing Indwelling Catheter: Accurate Measurement of Urinary Output in Critically Ill Patients Urinary Catheter Date of Insertion: 02/14/21 Urinary Catheter Time of Insertion: 07:30 Data : 02/17/21 03:40 10/29/21 05:00 A&P Assessment and plan (1) Status post aorto-coronary artery bypass graft: POD #4 status post CABG x3. Postop ileus appears to be slowly resolving. A. fib has resolved. Hypokalemia. Plan: Potassium replacement this morning. Continue ambulation and use of incentive spirometry. I will assess chest tube output today to determine if whether we can remove them later this evening. Greatly appreciate continue follow-up and recommendations by Dr. Marcano. Status: Acute Attestations Medical Necessity Statement*: Postop day #4 status post CABG with postop A. fib resolved and postop ileus improving Time Spent in Patient Care: less than 15 minutes Coding Level of Care Code Acute Coiled Coil Inspector for Chg Fwd Diagnoses Status post aorto-coronary artery bypass graft Z95.1
[2021-02-18 07:45] LABS: Glucose Point of Care 153 mg/dL (70-110)
--- NOTE | 2021-02-18 07:50 | PC.NURSE ---
Pt OOB with PT. Ambulating through yap without difficulty. 4 laps around unit . Pt tolerated well.
[2021-02-18] MEDS: acetaminophen 1,000 MG/100 ML PIGGYBACK 400 MG IV (08:44)
[2021-02-18] MEDS: insulin lispro 100 unit/1 mL SUBCUT ×2 (08:45→20:30)
[2021-02-18] MEDS: amiodarone 200 mg Tablet 400 MG PO ×2 (08:48→17:32)
[2021-02-18] MEDS: lisinopril 20 mg Tablet 40 MG PO (08:48)
[2021-02-18] MEDS: metoprolol tartrate 25 mg Tablet PO (08:48)
[2021-02-18] MEDS: venlafaxine ER (24HR) 37.5 mg Capsule PO (08:48)
[2021-02-18] MEDS: mupirocin oint 22 gm 1 APPLIC NASAL ×2 (08:49→17:31)
[2021-02-18] MEDS: dilTIAZem ER (24HR) 120 mg Capsule PO (08:49)
[2021-02-18] MEDS: gabapentin 300 mg Capsule PO ×2 (08:49→20:30)
[2021-02-18] MEDS: aspirin 81 mg Chew Tablet PO (08:49)
[2021-02-18] MEDS: potassium chloride premix 100 ML 25 MEQ IV (09:36)
--- NOTE | 2021-02-18 10:01 | PC.CHAP ---
Pastoral Care Encounter/Spiritual Assessment Type of Contact [] Declined flexographic press plate setter visit [] Patient/Family/Request visit [] Outpatient visit [] Follow-up visit [] Physician referral [] Code/Alert [x] Routine visit [] Staff referral [] Actively dying [] Patient sleeping [] Family support [] [] Out of room [] Palliative care [] [] Receiving care in room [] Pre-surgical visit [] Trauma [] Long length of stay [x] ICU visit [] Other: Relational/Emotional Strength [] Patient feels connected with others/family/visitors/staff [] Distress [] Loneliness/isolation [] Abandonment Spirituality of Patient [] Person of Amairani [] Attends Orthodoxy of their Amairani [] Believes in Prayer [] Reads Bible or Faith materials [] There are Spiritual issues to be addressed Catalyst Impregnator Interventions [x] Prayer [x] Active listening [x] Non-anxious presence [x] Spiritual/emotional support [] Crisis/trauma care [] Spiritual counseling [] Bereavement support [] Provided bereavement packet [] Provided Bible/devotional materials [] Provided toy/stuffed animal, coloring book to patient or family member [] Provided Communion [] Anointing/[place] [] Salvation [x] Completed spiritual assessment [] Other: Impact on Illness or Injury [] Angry [] Fearful [] Anxious [] Often cries [] Exhaustion [] Unable to work [] Unable to attend restoration [] Unable to walk/stand [] Unable to read [] Unable to drive [] Unable to eat/drink [] Unable to sleep [] Unable to be with family [] Patient intubated [] Other: Summary patient coloring much better... feeling stronger.. doing breathing treatments... working hard at getting well Time spent with patient 10 min
--- NOTE | 2021-02-18 11:20 | PC.NURSE ---
Pt's SBP 178. Put in order for HCTZ 12.5mg PO daily as previously directed by Dr Marcano.
[2021-02-18 11:22] LABS: Glucose Point of Care 129 mg/dL (70-110)
[2021-02-18] MEDS: hydroCHLOROthiazide 25 mg Tablet 12.5 MG PO (11:30)
[2021-02-18] MEDS: potassium chloride premix 100 ML 50 MEQ IV (11:32)
--- NOTE | 2021-02-18 14:20 | PC.NURSE ---
Pt ambulate around unit. 4 laps again. No ectopy or shortness of breath noted. Pt tolerated well. Patient then to BSC, flatulence and a very small BM noted. Pt to bed. Pt able to get in bed with minimum of assistance.
[2021-02-18] MEDS: labetalol 5 mg/mL SDV 20mL 10 MG IVP (15:47)
--- NOTE | 2021-02-18 15:48 | PC.NURSE ---
Addendum entered by Kely Olguin RN 02/18/21 19:23: Discontinue CVL. orders also received. Addendum entered by Kely Olguin RN 02/18/21 15:50: Can stop IV fluids. May advance diet carefully to not cause bloating. Original Note: Dr Batista rounded. BP 170/77. Reported orders for B/P meds just received from Dr Marcano to him and the Labetalol to be given if SBP 180. Per Dr Batista, go ahead ad give. Pressure too high for grafts. Third dose of Labetalol IV admin.
[2021-02-18 17:25] LABS: Glucose Point of Care 136 mg/dL (70-110)
[2021-02-18] MEDS: metoprolol tartrate 50 mg Tablet PO (17:32)
--- NOTE | 2021-02-18 19:10 | PC.NURSE ---
Shift Note: Pt sat up in chair most of shift. Rested in bed for a couple hours afternoon. He has ambulated twice around unit, His gait is steady and strong, only stand-by assistance required for equipment. He finished the shift on 3lpm/NC, stats 98%. Sinus rhythm with no ectopy noted on monitor. He has had high B/P, Dr orders for medication adjustments throughout the shift. He stated his belly felt better. He has had flatus and has had 2-3 loose/liquid BMs today. Urine output nearly 2000ml, clear yellow urine. Chest tube drainage: pleural 70ml and Mediastinal 120ml, this shift. Both serosangiunous drainage. Dressings around chest tubes changes and incsion on legs care for as ordered. WOund vac remains patent with compressed sponge. has been in twice today to visit. Frequent safety and comfort rounds continue. Orders and/or nursing care completed as indicated. Patient monitored for response to intervention and treatment(s). Education provided includes amlodipine, HCTZ, metoprolol, activity, sternal precautions, infection prevention Patient and/or verbalized understanding. Will continue to monitor.
[2021-02-18] MEDS: amlodipine 5 mg Tablet PO (19:33)
[2021-02-18 19:46] LABS: Glucose Point of Care 156 mg/dL (70-110)
[2021-02-18] MEDS: tamsulosin 0.4 mg Capsule 0.8 MG PO (20:30)
[2021-02-18] MEDS: atorvastatin 40 mg Tablet 80 MG PO (20:30)
[2021-02-19] VITALS (52 sets, daily range): BP systolic 93–172; BP diastolic 57–101; PULSE 65–732; RESP 10–31; O2SAT 87–95
[2021-02-19] MEDS: metoclopramide 5 mg/mL SDV 2 mL 10 MG IVP ×4 (04:03→22:03)
[2021-02-19 08:20] LABS: Glucose Point of Care 137 mg/dL (70-110)
[2021-02-19] MEDS: venlafaxine ER (24HR) 37.5 mg Capsule PO (09:40)
[2021-02-19] MEDS: hydroCHLOROthiazide 25 mg Tablet 12.5 MG PO (09:40)
[2021-02-19] MEDS: amiodarone 200 mg Tablet 400 MG PO ×2 (09:40→17:57)
[2021-02-19] MEDS: aspirin 81 mg Chew Tablet PO (09:40)
[2021-02-19] MEDS: dilTIAZem ER (24HR) 120 mg Capsule PO (09:40)
[2021-02-19] MEDS: lisinopril 20 mg Tablet 40 MG PO (09:41)
[2021-02-19] MEDS: gabapentin 300 mg Capsule PO ×2 (09:42→20:16)
[2021-02-19] MEDS: metoprolol tartrate 50 mg Tablet PO ×2 (09:42→20:15)
[2021-02-19] MEDS: mupirocin oint 22 gm 1 APPLIC NASAL ×2 (09:46→17:57)
[2021-02-19] MEDS: amlodipine 5 mg Tablet PO ×2 (09:47→17:57)
--- NOTE | 2021-02-19 10:21 | P.PN_ITS ---
Subjective Subjective: Interval history: Postop day #5 status post CABG. Uneventful night. No arrhythmias. Has remained in sinus rhythm. Intake and output is -1300 cc past 24 hours. Chest tube output 220 cc past 24 hours. Large bowel movement early this morning. Positive flatus throughout the day. Abdominal distention has resolved. Vitals/I&O/Wt Last Vital Signs Temp 97.7 F 02/18/21 11:30 Pulse 76 02/19/21 08:48 Resp 13 02/18/21 23:30 BP 96/52 02/18/21 23:30 Pulse Ox 92 02/19/21 08:48 02/18/21 02/19/21 02/19/21 22:59 06:59 14:59 Intake Total 500 / 1785.947 500 / 2285.947 Output Total 1085 / 2140 1580 / 3720 Balance -585 / -354.053 -1080 / -1434.053 Weight last 48 hrs Weight 218 lb Weight 214 lb 6.4 oz Physical Exam Chest: COMMONS NORMALS: normal inspection of the chest and normal palpation of entire chest wall OTHER: Chest wall is stable. Wound VAC dressing in place. Mediastinal and pleural drains were removed as well as pacing wires. Resp: COMMON NORMALS: normal respiratory effort, No retractions and No use of accessory muscles OTHER: Basilar crackles though improved inspiratory effort. Cardio: COMMON NORMALS: regular rate, regular rhythm, S1 normal heart sound present, No murmurs present (Cardio) and No rub (Cardio) RATE: regular rate RHYTHM: regular rhythm HEART SOUNDS: S1 normal heart sound present Extremity: OTHER: Peripheral edema has resolved. Urinary Catheter Management^: Yan: Cath Placed During This Visit: yes Reason for Continuing Indwelling Catheter: Accurate Measurement of Urinary Output in Critically Ill Patients Urinary Catheter Date of Insertion: 02/14/21 Urinary Catheter Time of Insertion: 07:30 Data : 02/18/21 05:00 02/18/21 05:00 A&P Assessment and plan (1) Status post aorto-coronary artery bypass graft: Postop day #5 status post CABG x3. Postop A. fib resolved. Postop ileus resolved. Plan: DC Yan catheter. Increase ambulation and activities. Plan to discontinue wound VAC dressing tomorrow. Discharge planning. Greatly appreciate expertise of our cardiology colleagues. Status: Acute Attestations Medical Necessity Statement*: Postop day #5 status post CABG x3 Time Spent in Patient Care: 16 - 35 minutes Coding Level of Care Code Acute Client Services Director for Jason Foley Diagnoses Status post aorto-coronary artery bypass graft Z95.1
--- NOTE | 2021-02-19 10:35 | PC.NURSE ---
Dr Batista removed chest tubes. Pt tolerated well.
[2021-02-19 12:19] LABS: Glucose Point of Care 148 mg/dL (70-110)
[2021-02-19] MEDS: insulin lispro 100 unit/1 mL SUBCUT ×2 (12:19→20:16)
--- NOTE | 2021-02-19 15:55 | PC.SOCIAL ---
IMM Update: pg 2 of IMM updated and reviewed w/patient. Copy provided.
[2021-02-19 17:31] LABS: Glucose Point of Care 95 mg/dL (70-110)
[2021-02-19] MEDS: chlorhexidine gluconate 0.12% Btl 473 mL 15 ML MUCOUS MEM (17:58)
--- NOTE | 2021-02-19 18:00 | PM.PN ---
Subjective Subjective: Interval history: Patient continues in sinus rhythm blood pressure moderately elevated chest tubes are out Medications: Reviewed: Yes Vitals/I&O/Wt Last Vital Signs Temp 97.7 F 02/18/21 11:30 Pulse 70 02/19/21 14:00 Resp 13 02/18/21 23:30 BP 96/52 02/18/21 23:30 Pulse Ox 92 02/19/21 08:48 02/19/21 02/19/21 02/19/21 06:59 14:59 22:59 Intake Total 500 / 2285.947 700 / 700 Output Total 1580 / 3720 915 / 915 Balance -1080 / -1434.053 -215 / -215 Weight last 48 hrs Weight 218 lb Weight 214 lb 6.4 oz Physical Exam Narrative: EXAM NARRATIVE: GENERAL: Patient is alert, awake and oriented x3. Sitting on the chair NECK: No jugular vein distension. HEENT: No cyanosis. No icterus. No pallor. HEART: Regular S1 and S2. No murmur, rub or gallop. LUNGS: Clear to auscultate bilaterally. ABDOMEN: Soft, nontender and nondistended. Positive bowel sounds. No guarding, rebound or tenderness. CENTRAL NERVOUS SYSTEM: Grossly nonfocal. EXTREMITIES: Lower extremities without edema bilaterally. Urinary Catheter Management^: Yan: Cath Placed During This Visit: yes, but has since been removed by the nurse Reason for Continuing Indwelling Catheter: Decision to DC Catheter Urinary Catheter Date of Insertion: 02/14/21 Urinary Catheter Time of Insertion: 07:30 Date Urinary Catheter Removed: 02/19/21 Time Urinary Catheter Discontinued: 10:30 Data : 02/18/21 05:00 02/18/21 05:00 A&P Assessment and plan (1) Status post aorto-coronary artery bypass graft: S/p CABG doing fine from cardiovascular perspective. Continue current regimen Status: Acute (2) Hypertension: Blood pressure is not well controlled will add amlodipine Status: Acute (3) Afib: Continue to be in sinus rhythm continue amiodarone by mouth. Status: Acute Attestations Medical Necessity Statement*: Patient may can be moved out of the unit. Coding Level of Care Code Established Pt Acute [employer] Creative Chairman for Jason Foley Patient Type Established History Detailed Exam Detailed Medical Decision Making Moderate Complexity Diagnoses Status post aorto-coronary artery bypass graft Z95.1 Hypertension I10 Afib I48.91
--- NOTE | 2021-02-19 19:13 | PC.NURSE ---
Shift Note: Pt remains in sinus rhythym.. B/P better controlled today. Chest tubes and hare removed today. Pt tolerated well. Pt started on Amlodipine BID today. He has bathed with minimal assistance. He can get up out of chair to BSC, sternal precautions were observed. He has urinated and BM several times today. He has ambulated around unit once,then next time with PT they did exercises and edcuation for discharge. Frequent safety and comfort rounds continue. Orders and/or nursing care completed as indicated. Patient monitored for response to intervention and treatment(s). Education provided include amlodipine and sternal precautions. Patient and/or practice representative verbalized understanding. Will continue to monitor.
[2021-02-19] MEDS: atorvastatin 40 mg Tablet 80 MG PO (20:15)
[2021-02-19] MEDS: tamsulosin 0.4 mg Capsule 0.8 MG PO (20:15)
[2021-02-19 20:18] LABS: Glucose Point of Care 185 mg/dL (70-110)
[2021-02-20] MEDS: metoclopramide 5 mg/mL SDV 2 mL 10 MG IVP ×4 (05:06→23:42)
[2021-02-20 05:09] LABS: Basophils # 0.1 10^3/uL (0.0-0.1); Basophils % 0.6 %; Eosinophils # 0.6 10^3/uL (0.0-0.8); Eosinophils % 5.8 %; Hematocrit 28.1 % (42.0-52.0); Hemoglobin 9.4 g/dL (11.7-16.6); Lymphocytes # 1.7 10^3/uL (0.8-4.8); Lymphocytes % 18.3 %; Mean Corpuscular HGB Conc 33.5 g/dL (30.0-36.0); Mean Corpuscular Hemoglobin 30.7 pg (28.0-34.0); Mean Corpuscular Volume 91.8 fl (80-94); Mean Platelet Volume 10.2 fL (7.4-10.4); Monocytes # 0.9 10^3/uL (0.2-0.9); Neutrophils # 6.24 10^3/uL (1.8-7.7); Neutrophils % 65.7 %; Nucleated Red Blood Cells % 0 %; Platelet Count 184 10^3/cmm (130-400); Red Blood Count 3.06 10^6/uL (4.1-5.3); Red Cell Distribution Width 14.4 % (12.1-15.1); White Blood Count 9.5 10^3/uL (4.0-10.0)
[2021-02-20 05:36] LABS: Blood Urea Nitrogen 17 mg/dL (8-23); Calcium 8.5 mg/dL (8.5-10.5); Carbon Dioxide 35 mmol/L (22-29); Chloride 97 mmol/L (98-107); Glomerular Filtration Rate 134.8 mL/min (90-130); Glucose 126 mg/dL (65-115); Osmolality Calculated 291 mOsm/kg (285-295); Sodium 139 mmol/L (136-145)
[2021-02-20 06:00] VITALS: PULSE 65
--- NOTE | 2021-02-20 06:00 | XRR_ITS ---
PROCEDURE INFORMATION: Exam: XR Chest Exam date and time: 02/20/2021 6:00 AM Age: 65 years old Clinical indication: Pain; Other: General; Prior surgery; Surgery date: <1 month; Surgery type: Cabg; Additional info: Pod #6 status post cabg/chest tubes removed TECHNIQUE: Imaging protocol: XR of the chest. Views: 1 view. COMPARISON: CR XR chest 1V portable [id number] 02/18/2021 5:10 AM FINDINGS: Tubes, catheters and devices: Interval removal of mediastinal and left-sided chest tube. The right IJ central line has been removed. Surgical clips project over the left neck. Lungs: Unremarkable. No consolidation. Pleural spaces: No pneumothorax. No pleural effusion. Heart/Mediastinum: Stable cardiomediastinal silhouette. The patient is status post CABG. Bones/joints: Median sternotomy changes seen. XR/XR chest 1V portable [id number] IMPRESSION: 1. The patient is status post CABG. No evidence of active cardiopulmonary disease. 2. Interval removal of mediastinal and left-sided chest tubes. No pneumothorax. Radiation Dose CTDIVOL = (mGy): DLP = (mGy-cm)
--- NOTE | 2021-02-20 06:14 | PC.NURSE ---
Shift Note Frequent safety and comfort rounds continue. Pt walked from chair to bed to commode and tolerated well. Pt slept throughout most of the night. No pain reported. Orders and nursing care completed as indicated. Patient monitored for response to intervention and treatment. Education provided includes fall risk. Patient verbalized understanding. Will continue care.
[2021-02-20 08:06] LABS: Glucose Point of Care 133 mg/dL (70-110)
[2021-02-20] MEDS: amiodarone 200 mg Tablet 400 MG PO ×2 (09:53→17:21)
[2021-02-20] MEDS: aspirin 81 mg Chew Tablet PO (09:53)
[2021-02-20] MEDS: lisinopril 20 mg Tablet 40 MG PO (09:54)
[2021-02-20] MEDS: dilTIAZem ER (24HR) 120 mg Capsule PO (09:54)
[2021-02-20] MEDS: amlodipine 5 mg Tablet PO ×2 (09:54→17:21)
[2021-02-20] MEDS: hydroCHLOROthiazide 25 mg Tablet 12.5 MG PO (09:55)
[2021-02-20] MEDS: gabapentin 300 mg Capsule PO ×2 (09:55→20:06)
[2021-02-20] MEDS: chlorhexidine gluconate 0.12% Btl 473 mL 15 ML MUCOUS MEM ×2 (09:58→17:36)
[2021-02-20] MEDS: venlafaxine ER (24HR) 37.5 mg Capsule PO (10:02)
[2021-02-20] MEDS: mupirocin oint 22 gm 1 APPLIC NASAL (10:02)
--- NOTE | 2021-02-20 10:24 | P.PN_ITS ---
Subjective Subjective: Interval history: Postop day #6 status post CABG x3. Mr. Taylor is up in chair getting ready to ambulate in the ICU. He looks quite good. Wound VAC dressing was removed. Sternotomy incision is clean, dry, and intact. Sternum stable. New dressing applied. Good use of incentive spirometry. Tolerating diet well. Sternotomy discomfort under good control. Cardiac silhouette has decreased in dimensions. There appears to perhaps be a small developing left pleural effusion. Hypokalemia with a potassium of 3.0 is noted. Intake and output is about even. Vitals/I&O/Wt Last Vital Signs Temp 97.7 F 02/18/21 11:30 Pulse 65 02/20/21 06:00 Resp 25 H 02/19/21 23:45 BP 128/66 02/19/21 23:45 Pulse Ox 94 02/19/21 23:30 02/19/21 02/20/21 02/20/21 22:59 06:59 14:59 Intake Total 300 / 1000 100 / 1100 Balance 300 / 85 100 / 185 Weight last 48 hrs Weight 217 lb Weight 218 lb Physical Exam Const: COMMON NORMALS: patient oriented x3 Chest: COMMONS NORMALS: normal inspection of the chest and normal palpation of entire chest wall OTHER: Sternotomy incision is clean, dry, and intact. New dressing was applied after wound VAC was removed. Resp: COMMON NORMALS: normal respiratory effort, No retractions, No use of accessory muscles and clear to auscultation bilaterally AUSCULTATION: clear to auscultation bilaterally OTHER: Improving aeration to the lower lung pierson. Cardio: COMMON NORMALS: regular rate, regular rhythm, S1 normal heart sound present, No murmurs present (Cardio) and No rub (Cardio) RATE: regular rate RHYTHM: regular rhythm HEART SOUNDS: S1 normal heart sound present Extremity: COMMON NORMALS: no clubbing, cyanosis or edema OTHER: Preoperative edema and third space fluid has resolved. Neuro: COMMON NORMALS: patient oriented x3 and no focal motor deficits Urinary Catheter Management^: Yan: Cath Placed During This Visit: yes, but has since been removed by the nurse Reason for Continuing Indwelling Catheter: Decision to DC Catheter Urinary Catheter Date of Insertion: 02/14/21 Urinary Catheter Time of Insertion: 07:30 Date Urinary Catheter Removed: 02/19/21 Time Urinary Catheter Discontinued: : Data : 02/20/21 04:48 02/20/21 04:48 A&P Assessment and plan (1) Status post aorto-coronary artery bypass graft: Postop day #6 that is post CABG x3. Mr. Taylor has made substantial progress over the past 72 hours. Plan: We will transfer to [facility]. Potassium replacement to include 40 p.o. and 60 mg IV Discharge planning in progress. BMP and chest x-ray in a.m. Will plan for discharge home tomorrow or perhaps Sunday. Greatly appreciate continued oversight and review by our cardiology colleagues. Status: Acute Attestations Medical Necessity Statement*: Postop day #6 that is post CABG x3 Time Spent in Patient Care: 16 - 35 minutes Coding Level of Care Code Acute Resident Director for Jason Foley Diagnoses Status post aorto-coronary artery bypass graft Z95.1
[2021-02-20] MEDS: potassium chloride ER 20 mEq Tablet 40 MEQ PO (11:00)
[2021-02-20] MEDS: carvedilol 6.25 mg Tablet PO ×3 (11:00→17:50)
[2021-02-20] MEDS: lidocaine 1% 5 ML in potassium chloride premix 100 ML 50 ML IV (11:04)
--- NOTE | 2021-02-20 11:41 | PC.NURSE ---
1120 po amiodarone given.
[2021-02-20] MEDS: enoxaparin 40 mg/0.4 mL Syringe SUBCUT (13:37)
[2021-02-20 14:00] VITALS: PULSE 75
--- NOTE | 2021-02-20 15:12 | PC.NURSE ---
see runs of svt in chart.
[2021-02-20] MEDS: lidocaine 1% 5 ML in potassium chloride premix 100 ML 25 ML IV (15:19)
--- NOTE | 2021-02-20 18:47 | PC.NURSE ---
has been up in chair all day, watching tv, talking on phone. no c/o. dr. amezquita increased coreg to 12.5mg. 2nd dose of 6.25 given
[2021-02-20 19:42] LABS: Glucose Point of Care 177 mg/dL (70-110)
[2021-02-20] MEDS: tamsulosin 0.4 mg Capsule 0.8 MG PO (20:06)
[2021-02-20] MEDS: insulin lispro 100 unit/1 mL SUBCUT (20:06)
[2021-02-20] MEDS: atorvastatin 40 mg Tablet 80 MG PO (20:06)
[2021-02-20 21:06] LABS: Glucose Point of Care 143 mg/dL (70-110)
[2021-02-20] MEDS: docusate sodium 100 mg Capsule PO (21:06)
[2021-02-20 21:13] VITALS: BP 147/70; PULSE 77; RESP 18; TEMP 36.6; O2SAT 93
[2021-02-21] VITALS (9 sets, daily range): BP systolic 103–130; BP diastolic 51–71; PULSE 66–98; RESP 16–17; TEMP 36.4–37.2; O2SAT 94–96
[2021-02-21 01:45] LABS: Glucose Point of Care 106 mg/dL (70-110)
[2021-02-21 01:45] LABS: Glucose Point of Care 157 mg/dL (70-110)
[2021-02-21] MEDS: acetaminophen 325 mg Tablet 650 MG PO (05:28)
[2021-02-21] MEDS: metoclopramide 5 mg/mL SDV 2 mL 10 MG IVP ×3 (05:28→17:13)
[2021-02-21 06:32] LABS: Glucose Point of Care 142 mg/dL (70-110)
[2021-02-21 06:54] LABS: Anion Gap 12.4 (5-19); Blood Urea Nitrogen 18 mg/dL (8-23); Calcium 8.7 mg/dL (8.5-10.5); Carbon Dioxide 31 mmol/L (22-29); Chloride 95 mmol/L (98-107); Glomerular Filtration Rate 112.8 mL/min (90-130); Glucose 132 mg/dL (65-115); Osmolality Calculated 284 mOsm/kg (285-295); Potassium 3.4 mmol/L (3.5-5.1); Sodium 135 mmol/L (136-145)
--- NOTE | 2021-02-21 07:01 | P.PN_ITS ---
Subjective Subjective: Interval history: Postop day #7 status post CABG x3. Uneventful night. Sitting up on the side of the bed during rounds this morning. No complaints other than some general soreness. He is in very good spirits. No complaints for GI or concerns. Tolerating diet well. Afebrile. Vital signs stable. No arrhythmias reported by nursing service. Vitals/I&O/Wt Last Vital Signs Temp 97.9 F 02/21/21 04:18 Pulse 73 02/21/21 06:00 Resp 17 02/21/21 04:18 BP 107/66 02/21/21 04:18 Pulse Ox 96 02/21/21 04:18 02/20/21 02/21/21 02/21/21 22:59 06:59 14:59 Intake Total 400 / 1120 Output Total 800 / 1800 350 / 2150 Balance -800 / -1080 50 / -1030 Weight last 48 hrs Weight 213 lb 3 oz Weight 217 lb Physical Exam Chest: COMMONS NORMALS: normal inspection of the chest and normal palpation of entire chest wall OTHER: Chest wall is stable. Surgical dressings in place. Resp: COMMON NORMALS: normal respiratory effort, No use of accessory muscles and clear to auscultation bilaterally EFFORT & INSPECTION: Yes able to speak in complete sentences and Yes symmetric chest movement AUSCULTATION: clear to auscultation bilaterally Cardio: COMMON NORMALS: regular rate, regular rhythm, S1 normal heart sound present, No murmurs present (Cardio) and No rub (Cardio) RATE: regular rate RHYTHM: regular rhythm HEART SOUNDS: S1 normal heart sound present Extremity: COMMON NORMALS: no clubbing, cyanosis or edema Urinary Catheter Management^: Yan: Cath Placed During This Visit: yes, but has since been removed by the nurse Reason for Continuing Indwelling Catheter: Decision to DC Catheter Urinary Catheter Date of Insertion: 02/14/21 Urinary Catheter Time of Insertion: 07:30 Date Urinary Catheter Removed: 02/19/21 Time Urinary Catheter Discontinued: 10:30 Data : 02/20/21 04:48 02/21/21 06:06 A&P Assessment and plan (1) Status post aorto-coronary artery bypass graft: 1 week status post CABG x3 Plan: Chlorhexidine shower today. Confirm discharge planning is in place with home health services arranged and will consider discharge midday or tomorrow if required. Status: Acute Attestations Medical Necessity Statement*: Status post CABG x3 Time Spent in Patient Care: less than 15 minutes Coding Level of Care Code Acute [place] Supervisor for Christianeg Fwd Diagnoses Status post aorto-coronary artery bypass graft Z95.1
[2021-02-21] MEDS: aspirin 81 mg Chew Tablet PO (08:54)
[2021-02-21] MEDS: chlorhexidine gluconate 0.12% Btl 473 mL 15 ML MUCOUS MEM (08:54)
[2021-02-21] MEDS: mupirocin oint 22 gm 1 APPLIC NASAL (08:54)
[2021-02-21] MEDS: gabapentin 300 mg Capsule PO (08:55)
[2021-02-21] MEDS: lisinopril 20 mg Tablet 40 MG PO (08:55)
[2021-02-21] MEDS: amlodipine 5 mg Tablet PO ×2 (08:55→17:12)
[2021-02-21] MEDS: hydroCHLOROthiazide 25 mg Tablet 12.5 MG PO (08:55)
[2021-02-21] MEDS: dilTIAZem ER (24HR) 120 mg Capsule PO (08:55)
[2021-02-21] MEDS: carvedilol 12.5 mg Tablet PO ×2 (08:56→17:12)
[2021-02-21] MEDS: potassium chloride ER 20 mEq Tablet 40 MEQ PO (08:56)
[2021-02-21] MEDS: venlafaxine ER (24HR) 37.5 mg Capsule PO (08:57)
[2021-02-21] MEDS: chlorhexidine gluconate 4% Btl 118 mL 1 APPLIC TOPICAL (08:57)
[2021-02-21] MEDS: amiodarone 200 mg Tablet 400 MG PO ×2 (08:57→17:12)
[2021-02-21] MEDS: carvedilol 6.25 mg Tablet PO ×2 (08:57→17:12)
[2021-02-21] MEDS: docusate sodium 100 mg Capsule PO (08:58)
--- NOTE | 2021-02-21 09:18 | PC.SOCIAL ---
IMM Update Pg. 2 of IMM updated and reviewed with patient, who verbalized understanding. Copy provided.
--- NOTE | 2021-02-21 09:40 | P.PN_ITS ---
Subjective Subjective: Interval history: Patient is overall doing well. He has been ambulating. His blood pressure is better controlled today. Vitals/I&O/Wt Last Vital Signs Temp 98.9 F 02/21/21 07:57 Pulse 77 02/21/21 07:57 Resp 16 02/21/21 07:57 BP 108/68 02/21/21 07:57 Pulse Ox 96 02/21/21 07:57 02/20/21 02/21/21 02/21/21 22:59 06:59 14:59 Intake Total 400 / 1120 480 / 480 Output Total 800 / 1800 350 / 2150 Balance -800 / -1080 50 / -1030 480 / 480 Weight last 48 hrs Weight 213 lb 3 oz Weight 217 lb Physical Exam Narrative: EXAM NARRATIVE: GENERAL: Patient is alert, awake and oriented x3. Sitting on the chair NECK: No jugular vein distension. HEENT: No cyanosis. No icterus. No pallor. HEART: Regular S1 and S2. No murmur, rub or gallop. LUNGS: Clear to auscultate bilaterally. ABDOMEN: Soft, nontender and nondistended. Positive bowel sounds. No guarding, rebound or tenderness. CENTRAL NERVOUS SYSTEM: Grossly nonfocal. EXTREMITIES: Lower extremities without edema bilaterally. Urinary Catheter Management^: Yan: Cath Placed During This Visit: yes, but has since been removed by the nurse Reason for Continuing Indwelling Catheter: Decision to DC Catheter Urinary Catheter Date of Insertion: 02/14/21 Urinary Catheter Time of Insertion: 07:30 Date Urinary Catheter Removed: 02/19/21 Time Urinary Catheter Discontinued: 10:30 Data : 02/20/21 04:48 02/21/21 06:06 A&P Assessment and plan (1) Status post aorto-coronary artery bypass graft: Status post CABG. Patient is doing well. Continue current medications Status: Acute (2) Hypertension: Blood pressure is better controlled today. Status: Acute (3) Afib: Patient is in normal sinus rhythm. Continue amiodarone. Will down titrate to 200 mg twice daily at time of discharge. Restart Eliquis once okay with CT surgery. Status: Acute Attestations Medical Necessity Statement*: Care expected to cross 2 midnights. Coding Level of Care Code Acute [employer] Department Head for Jason Foley Diagnoses Status post aorto-coronary artery bypass graft Z95.1 Hypertension I10 Afib I48.91
[2021-02-21 11:56] LABS: Glucose Point of Care 130 mg/dL (70-110)
--- NOTE | 2021-02-21 12:08 | PC.NURSE ---
patient rates pain 4/10 but denies pain meds at this time.
[2021-02-21] MEDS: enoxaparin 40 mg/0.4 mL Syringe SUBCUT (13:52)
[2021-02-21 16:54] LABS: Glucose Point of Care 115 mg/dL (70-110)
--- NOTE | 2021-02-21 17:17 | PC.NURSE ---
faxed FÉLIX HOLM
--- NOTE | 2021-02-21 17:29 | P.DS_ITS ---
Discharge Providers Date of Admission: 02/14/21 17:02 Date of Discharge: February 21, 2021 Attending Provider at Admission: Jorge Luis Batista MD Attending Provider at Discharge: Jorge Luis Batista MD Primary Care Provider: Guicho Vega DO Diagnoses at Discharge Discharge Diagnosis (1) Status post aorto-coronary artery bypass graft: Status: Acute (2) Hypertension: Status: Acute (3) Afib: Status: Acute Reason for Visit Reason for Visit: CAD Hospital Course Hospital Course AdmittedMr. Taylor is a 65-year-old gentleman for planned elective coronary artery bypass grafting, had originally presented through the emergency department at an earlier hospitalization with A. fib and RVR determined by subsequent left heart catheterization to have left main coronary artery stenosis with a proximal RCA stenosis. He underwent careful outpatient evaluation and then was electively admitted. On February 14 he underwent three-vessel coronary bypass grafting utilizing in situ mammary artery to the LAD with reverse vein graft to the OMB and reverse vein graft to the RCA. Postoperatively, he convalesced in the ICU where he did well though he did have an episode of atrial fibrillation requiring IV amiodarone and beta-blockade for spontaneous conversion back to sinus rhythm. He also developed a postop ileus which delayed his recovery approximately 48 hours. Chest tube output continued to decrease after the first 3 days and chest tubes were separately discontinued over the weekend. Sternotomy incision is clean and dry and well approximated. Wound VAC dressing was removed on postop day #5. He is now tolerating her regular diabetic diet. He is having normal bowel and bladder function. There is no abdominal distention. He underwent chlorhexidine showering today which he did very well. He is remained in sinus rhythm after spontaneous conversion and currently is on oral amiodarone as well as Coreg. He continues to progress well with good use of incentive spirometry. Discharge planning has been completed and home health arrangements have been made with [facility] health services. He will be discharged home today in stable condition. He will be scheduled to f ollow-up in my clinic in 1 week. He will also have subsequent later follow-up with Dr. Marcano from our cardiology service. Physical Exam Const: COMMON NORMALS: patient oriented x3 Chest: COMMONS NORMALS: normal inspection of the chest and normal palpation of entire chest wall OTHER: Sternotomy incision clean and dry. No drainage. Drain sites well approximated. Sternum is stable to palpation. Resp: COMMON NORMALS: normal respiratory effort, No use of accessory muscles, clear to auscultation bilaterally and percussion normal EFFORT & INSPECTION: Yes able to speak in complete sentences and Yes symmetric chest movement AUSCULTATION: clear to auscultation bilaterally PERCUSSION: percussion normal Cardio: COMMON NORMALS: regular rate, regular rhythm, S1 normal heart sound present, No murmurs present (Cardio) and No rub (Cardio) RATE: regular rate RHYTHM: regular rhythm HEART SOUNDS: S1 normal heart sound present Extremity: COMMON NORMALS: normal to inspection and no clubbing, cyanosis or edema OTHER: A trace of edema just above the left ankle. Neuro: COMMON NORMALS: patient oriented x3, moves all extremities, no focal motor deficits, no sensory deficits noted and gait normal Urinary Catheter Management^: Yan: Cath Placed During This Visit: yes, but has since been removed by the nurse Reason for Continuing Indwelling Catheter: Decision to DC Catheter Urinary Catheter Date of Insertion: 02/14/21 Urinary Catheter Time of Insertion: 07:30 Date Urinary Catheter Removed: 02/19/21 Time Urinary Catheter Discontinued: 10:30 Discharge Data Data Completed and Pending: Completed Studies During Hospitalization Category Date Time Status XR chest 1V fahad ble 98615 NOW Exams 02/17/21 09:41 Completed XR chest 1V fahad ble [id number] Routine Exams 02/14/21 12:08 Completed XR chest 1V fahad ble 16475 Routine Exams 02/15/21 06:00 Completed XR chest 1V fahad ble [id number] Routine Exams 02/16/21 06:00 Completed XR chest 1V fahad ble 56100 Routine Exams 02/17/21 06:00 Completed XR chest 1V fahad ble 32466 Routine Exams 02/18/21 06:00 Completed XR chest 1V fahad ble [id number] Routine Exams 02/20/21 06:00 [place] [address] Routi ne Ultrasound 02/09/21 12:45 Completed US echo complete [CV. echo complete * [id number]] Urgent Ultrasound 02/17/21 05:58 Completed Pending at discharge Category Date Time Status Complete Crossmat ch Routine Lab 02/09/21 12:10 Results Leukocyte Reduced RBC Routine Lab 02/09/21 12:10 Results Leukrd/Plat Phere sis 1st Cont Routi ne Lab 02/09/21 12:10 Results Type and Screen - Cardiac Routine Lab 02/09/21 12:10 Results Labs from last 24 hours 02/21/21 02/21/21 02/21/21 16:52 11:14 06:19 Sodium Potassium Chloride Carbon Dioxide Anion Gap BUN Creatinine GFR Calculation Glucose POC Glucose 115 H 130 H 142 H Calculated Osmolal ity Calcium 02/21/21 02/20/21 02/20/21 06:06 21:02 19:38 Sodium 135 L Potassium 3.4 L Chloride 95 L Carbon Dioxide 31 H Anion Gap 12.4 BUN 18 Creatinine 0.7 GFR Calculation 112.8 Glucose 132 H POC Glucose 143 H 177 H Calculated Osmolal ity 284 L Calcium 8.7 02/20/21 02/20/21 17:01 11:53 Sodium Potassium Chloride Carbon Dioxide Anion Gap BUN Creatinine GFR Calculation Glucose POC Glucose 106 157 H Calculated Osmolal ity Calcium Vitals: Last Vital Signs Temp 98.4 F 02/21/21 16:10 Pulse 66 02/21/21 16:34 Resp 16 02/21/21 16:10 BP 130/71 02/21/21 16:10 Pulse Ox 94 02/21/21 16:10 Discharge Plan Discharge Patient Disposition: Home Health Service Condition: Stable Prescriptions: New carvedilol 6.25 mg Tablet 6.25 mg PO BID Qty: 60 RF: 4 amlodipine 5 mg Tablet 5 mg PO BID Qty: 60 RF: 4 amiodarone 200 mg tablet 200 mg PO BID Qty: 60 RF: 2 hydrocodone-acetaminophen 5-325 mg tablet 1 tab PO Q8H PRN (Reason: pain) Qty: 30 RF: 0 Continued allopurinol 300 mg tablet 300 mg PO DAILY RF: 0 atorvastatin 80 mg tablet 80 mg PO DAILY RF: 0 cetirizine 10 mg capsule 10 mg PO QAM RF: 0 docusate sodium 100 mg capsule 100 mg PO BID RF: 0 ferrous sulfate 325 mg (65 mg iron) tablet 325 mg PO BID RF: 0 fluticasone propionate [Allergy Relief (fluticasone)] 50 mcg/actuation spray,suspension 2 spray INTRANASAL DAILY PRN (Reason: Allergy Symptoms) RF: 0 hydrochlorothiazide 25 mg tablet 25 mg PO QAM RF: 0 lisinopril 40 mg tablet 40 mg PO DAILY RF: 0 omeprazole 20 mg tablet,delayed release (DR/EC) 20 mg PO BID RF: 0 pioglitazone 30 mg tablet 30 mg PO DAILY RF: 0 gabapentin 300 mg capsule 300 mg PO BID RF: 0 tamsulosin 0.4 mg Capsule 0.8 mg PO BEDTIME RF: 0 venlafaxine [Effexor XR] 37.5 mg Capsule,Extended Release 24hr 37.5 mg PO DAILY RF: 0 aspirin 81 mg Tablet,Delayed Release (Dr/Ec) 81 mg PO QAM RF: 0 albuterol sulfate [ProAir HFA] 90 mcg/actuation Hfa Aerosol Inhaler 2 puff INHALATION Q4H PRN (Reason: Shortness Of Breath) RF: 0 apixaban 5 mg Tablet 5 mg PO BID RF: 0 Vitamin D3 1 cap PO DAILY RF: 0 diltiazem HCl [Cardizem CD] 120 mg capsule,extended release 24hr 120 mg PO DAILY 30 Days Qty: 30 RF: 0 Discontinued sotalol 80 mg Tablet 80 mg PO BID 30 Days Qty: 60 RF: 0 Discharge Orders: Discharge Order (Routine); Ordered 02/21/21 Ordered By: Jorge Luis Batista Ref[place]: [facility] ([facility]) [Outside] Jorge Luis Batista MD [Physician] - 1 week Arpit Marcano M.D [Physician] - 6 Weeks Discharge Diet: Diabetic Discharge Activity: Limit activity as instructed Patient Instructions: Hydrocodone/Acetaminophen (By mouth), Amiodarone (By mouth), Amlodipine (By mouth), Carvedilol (By mouth), Surgical Site Infections (DC), Sternal Precautions (GEN), CABG (Coronary Artery Bypass Graft) (DC), Opioid Safety Activity Restrictions/Additional Instructions: May shower with dressings off May recover after drying completely if desired to prevent irritation from clothing. Confirm there is no adhesive over incision or drain sites. No swimming or tub baths x3 weeks No lifting, pulling, or pushing with upper extremities more than 5 pounds for the next 6 weeks Dry incisions thoroughly after shower Report any fever, incisional redness, swelling, drainage, or increasing pain. Report any increasing shortness of breath or weight gain over 10 pounds Use incentive spirometer frequently Keep heart pillow readily available to assist with coughing, deep breathing, or sneezing Discharge Attestations Time Spent in Discharge Care*: less than 30 min Specific Discharge Activities: educating patient, discussing with child support case officer/social workers/dc planners, documenting/other paperwork and evaluating patient/reviewing data Status at Discharge: Cognitive status at discharge: cognitively intact , Behavioral status at discharge: cooperative , Functional status at discharge: independent ambulation Overall status at discharge: patient is progressing back to baseline Quality Metrics Clinical Quality Measures During this hospital stay, did patient experience: None Coding Level of Care Code Acute Chg FW DC note Diagnoses Status post aorto-coronary artery bypass graft Z95.1 Hypertension I10 Afib I48.91
--- NOTE | 2021-02-21 18:26 | PC.NURSE ---
patient and given discharge instructions and verbalized understanding. patient taken to private vehicle via wheelchair by staff and assisted into vehicle.
== END 2021-02-21 18:28 | disposition home health service (06) | DRG 236 ==
LOC: ICU 17:02 → MEDSURG 02-20 20:21
PROVIDERS: Internal Medicine; Admitting Provider Thoracic Surgery (Cardiothoracic Vascular Surgery); PCP Emergency Medicine Emergency Medical Services; Visit Provider Thoracic Surgery (Cardiothoracic Vascular Surgery)
PROC: 02100Z9 Bypass Coronary Artery, One Artery from Left Internal Mammary, Open Approach (ICD-10-PCS; principal; 2021-02-14 08:00)
DX: I25.10 Atherosclerotic heart disease of native coronary artery without angina pectoris (principal); I48.20 Chronic atrial fibrillation, unspecified; K56.7 Ileus, unspecified; J90 Pleural effusion, not elsewhere classified; I12.9 Hypertensive chronic kidney disease with stage 1 through stage 4 chronic kidney disease, or unspecified chronic kidney disease; E11.22 Type 2 diabetes mellitus with diabetic chronic kidney disease; N18.9 Chronic kidney disease, unspecified; E78.00 Pure hypercholesterolemia, unspecified; E87.6 Hypokalemia; Z79.82 Long term (current) use of aspirin
CPT/HCPCS: 36415; 36416; 36592; 36600; 71045; 80048; 80051; 80076; 81003; 82330; 82805; 82947; 82962; 83735; 84439; 84443; 85025; 85347; 85610; 85730; 86850; 86900; 86920; 93005; 93306; 93970; 94002; 94640; 94799; 96372; 97110; 97116; 97163; 97165; 97530; 97535; C9113; J0171; J0282; J0360; J0697; J1250; J1644; J1650; J1815; J1940; J2001; J2150; J2250; J2270; J2370; J2405; J2440; J2704; J2720; J2765; J3010; J3370; J3475; J3480; J3490; J7030; J7040; J7050; J7060; J8498; P9016; P9041; P9047

== ENCOUNTER 2021-03-02 21:45 | Observation (INO) | payer OTHER, MEDICARE, SELFPAY ==
--- NOTE | 2021-03-02 21:51 | XRR_ITS ---
PROCEDURE INFORMATION: Exam: XR Chest Exam date and time: 03/02/2021 9:51 PM Age: 65 years old Clinical indication: Other: Low BP; Prior surgery; Surgery date: <1 month; Additional info: Cp TECHNIQUE: Imaging protocol: XR of the chest. Views: 1 view. Total images: 1 COMPARISON: CR (CHEST, ) 02/20/2021 5:19 AM FINDINGS: Lungs: No visible active interstitial or alveolar airspace disease. Pleural spaces: No visible pleural effusion or pneumothorax. Heart/Mediastinum: Cardiac structures and configuration with cardiomegaly and a water bottle shaped cardiac contour raising the potential for underlying pericardial effusion. Status post sternotomy chest and CABG. Arteriosclerosis. Bones/joints: Old right clavicle fracture. XR/XR chest 1V portable [id number] IMPRESSION: Cardiac structures and configuration with cardiomegaly and a water bottle shaped cardiac contour raising the potential for underlying pericardial effusion. Radiation Dose CTDIVOL = (mGy): DLP = (mGy-cm)
--- NOTE | 2021-03-02 21:51 | ECG_ITS ---
[facility] Test Date: 2021-03-02 Pat Name: Vinh Taylor Department: Room: Gender: Male Medical Stenographer: : 1955 Requested By: Deniz Torrez Order Number: [id number] Bravo MD: Leti Ma M.D. Measurements Intervals [place] Rate: 58 P: 24 DE: 175 QRS: 48 QRSD: 96 T: 132 QT: 473 QTc: 466 Interpretive Statements SINUS BRADYCARDIA MODERATE T-WAVE ABNORMALITY, CONSIDER ANTEROLATERAL ISCHEMIA [-0.1+ mV T-WAVE IN V3-V6] Compared to ECG 02/16/2021 17:15:41 Atrial fibrillation no longer present T-wave abnormality still present Possible ischemia still present Electronically Signed On 03-03-2021 22:38:16 DIRECTOR DIGITAL by Leti Ma M.D. [id number]
[2021-03-02 22:04] VITALS: BMI 32.3
[2021-03-02 22:10] VITALS: BP 64/42; PULSE 60; RESP 16; O2SAT 94
--- NOTE | 2021-03-02 22:12 | W.ED.CHESTPA ---
HPI - Chest Pain General: Chief Complaint: General Medical Stated Complaint: low Bp , low HR post 2 week open heart surgery Time Seen by Provider: 03/02/21 22:06 Source: patient Mode of arrival: ambulatory Limitations: no limitations History of Present Illness: HPI narrative: 65-year-old male who has a history of a coronary artery bypass done on February 12 he states that he was going to the bathroom tonight states that after he got up he started having diaphoresis and feeling very lightheaded he states this happened 45 minutes/h while states she took her blood pressure and it was in the 70s blood pressure here is also in the 70s. He has diaphoresis. States he just feels very lightheaded he denies any shortness of breath denies any chest pain denies any fever vomiting or diarrhea. Associated symptoms: Deny abdominal pain, dyspnea, fever(s), nausea or vomiting Review of Systems Const: Denies: fever(s), chills, body aches or change in appetite Eyes: Denies: blurry vision or eye discomfort ENMT: Denies: throat pain or dental pain Card: Reports: pre-syncope Resp: Denies: dyspnea GI: Denies: abdominal pain, nausea, vomiting or diarrhea : Denies: dysuria Musc: Denies: neck pain or back pain Skin/Breast: Denies: rash Neuro: Reports: weakness in extremities Psych: Denies: depression Donny/Lymph: Denies: easy bruising All/Imm: Denies: urticaria PFSH ED PFSH: Medical History Afib Anticoagulation adequate with anticoagulant therapy Carotid stenosis Chronic kidney disease (CKD) Diabetes Gastritis Hypercholesteremia Hypertension Nausea and vomiting Spinal stenosis, lumbar region, with neurogenic claudication Spondylolisthesis, lumbar region Surgical History History of jeremiah hole surgery Twist drill drainage of bilateral subdural hematomas, 12[place] [facility] [place] History of esophagogastroduodenoscopy (EGD) (~05/2019) History of laparoscopic cholecystectomy (~06/2019) History of lumbar laminectomy Bilateral L4-L5 laminotomy/foraminotomy/limited facetectomy Previous back surgery Status post aorto-coronary artery bypass graft Family History Other CAD (coronary artery disease) Cancer Diabetes Hypertension Stroke Denies family history of Anesthesia complication Bleeding disorder Social History Alcohol intake: never Lives independently: Yes Marital status: Current occupational status: retired History of recent travel: No Physical Exam Const: COMMON NORMALS: patient oriented x3 and healthy appearing GENERAL APPEARANCE: in distress OTHER: diaphoresis HENMT: COMMON NORMALS: normocephalic and atraumatic HEAD & SCALP: normocephalic and atraumatic Eye: COMMON NORMALS: Equal, round and reactive pupils present and EOMs intact bilaterally PUPIL: Yes Equal, round and reactive pupils present Neck/C-Spine: COMMON NORMALS: full ROM and supple Chest: COMMONS NORMALS: normal inspection of the chest and normal palpation of entire chest wall Resp: COMMON NORMALS: normal respiratory effort, No retractions, No use of accessory muscles and clear to auscultation bilaterally AUSCULTATION: clear to auscultation bilaterally Cardio: COMMON NORMALS: regular rate, regular rhythm and No murmurs present (Cardio) RATE: regular rate RHYTHM: regular rhythm GI: COMMON NORMALS: Normal to inspection, nondistended, normoactive bowel sounds present, Soft to palpation, non-tender and no masses PALPATION: Yes Soft to palpation Extremity: COMMON NORMALS: normal to inspection and full ROM Neuro: COMMON NORMALS: patient oriented x3, moves all extremities and no focal motor deficits Psych: COMMON NORMALS: mental status grossly normal, Normal thought process present and cooperative THOUGHT PROCESS: Normal thought process present Skin: COMMON NORMALS: no rashes or lesions noted and no wounds GENERAL SKIN EXAM: no rashes or lesions noted Course Vital Signs: Vital signs: Vital Signs Pulse Rate 58 L 03/02/21 23:15 Respiratory Rate 16 03/02/21 23:15 Blood Pressure 94/48 03/02/21 23:15 Pulse Oximetry 99 03/02/21 23:15 MDM - Chest Pain MDM Narrative: Medical decision making narrative: Patient presents here with near syncopal event with hypotension. Blood pressure here is improved after IV fluids. Did a femoral echo showed a good EF no signs of tamponade he has no signs of any cardiogenic shock likely had a vagal reaction patient has no signs of sepsis his blood pressure is improving did speak to the hospitalist will admit for observation. Lab Data: Labs: Lab Results 03/02/21 03/02/21 03/02/21 22:06 22:09 22:09 WBC 9.9 10^3/uL 10^3/ uL (4.0-10.0) RBC 3.18 10^6/uL L 10 ^6/uL (4.1-5.3) Hgb 9.5 g/dL L g/dL (11.7-16.6) Hct 29.3 % L % (42.0-52.0) MCV 92.1 fl fl (80-94) MCH 29.9 pg pg (28.0-34.0) MCHC 32.4 g/dL g/dL (30.0-36.0) RDW 14.1 % % (12.1-15.1) Plt Count 331 10^3/cmm 10^3 /cmm (130-400) MPV 10.2 fL fL (7.4-10.4) Neut % (Auto) 64.4 % % Lymph % (Auto) 19.5 % % Chambers % (Auto) 7.4 % % Eos % (Auto) 7.2 % % Baso % (Auto) 1.1 % % Neut # (Auto) 6.39 10^3/uL 10^3 /uL (1.8-7.7) Lymph # (Auto) 1.9 10^3/uL 10^3/ uL (0.8-4.8) Chambers # (Auto) 0.7 10^3/uL 10^3/ uL (0.2-0.9) Eos # (Auto) 0.7 10^3/uL 10^3/ uL (0.0-0.8) Baso # (Auto) 0.1 10^3/uL 10^3/ uL (0.0-0.1) Nucleated RBC % (a uto) 0 % % Nucleated RBCs # 0.0 /100WBC /100W BC PT 17.80 SECONDS H S ECONDS (12.1-14.9) INR 1.43 H (0.8-1.2) Sodium Potassium Chloride Carbon Dioxide Anion Gap BUN Creatinine GFR Calculation Glucose POC Glucose 224 mg/dL H mg/dL (70-110) Calculated Osmolal ity Lactate Calcium Total Bilirubin AST ALT Alkaline Phosphata se Troponin T Baselin e NT-Pro-B Natriuret Pep Total Protein Albumin Globulin 03/02/21 03/02/21 03/02/21 22:09 22:09 22:09 WBC RBC Hgb Hct MCV MCH MCHC RDW Plt Count MPV Neut % (Auto) Lymph % (Auto) Chambers % (Auto) Eos % (Auto) Baso % (Auto) Neut # (Auto) Lymph # (Auto) Chambers # (Auto) Eos # (Auto) Baso # (Auto) Nucleated RBC % (a uto) Nucleated RBCs # PT INR Sodium 134 mmol/L L mmol /L (136-145) Potassium 3.7 mmol/L mmol/L (3.5-5.1) Chloride 92 mmol/L L mmol/ L (98-107) Carbon Dioxide 30 mmol/L H mmol/ L (22-29) Anion Gap 15.7 (5-19) BUN 26 mg/dL H mg/dL (8-23) Creatinine 1.3 mg/dL H mg/dL (0.7-1.2) GFR Calculation 55.2 mL/min L mL/ min (90-130) Glucose 189 mg/dL H mg/dL (65-115) POC Glucose Calculated Osmolal ity 288 mOsm/kg mOsm/ kg (285-295) Lactate 2.3 mmol/L H mmol /L (0.5-2.2) Calcium 9.1 mg/dL mg/dL (8.5-10.5) Total Bilirubin 0.4 mg/dL mg/dL (0.15-1.2) AST 8 U/L U/L (0-40) ALT 8 U/L U/L (0-41) Alkaline Phosphata se 92 IU/L IU/L (40-130) Troponin T Baselin e 36 ng/L H ng/L (0-15) NT-Pro-B Natriuret Pep Total Protein 6.1 g/dL L g/dL (6.6-8.7) Albumin 3.6 g/dL g/dL (3.5-5.2) Globulin 2.5 g/dL g/dL (1.3-4.6) 03/02/21 22:09 WBC RBC Hgb Hct MCV MCH MCHC RDW Plt Count MPV Neut % (Auto) Lymph % (Auto) Chambers % (Auto) Eos % (Auto) Baso % (Auto) Neut # (Auto) Lymph # (Auto) Chambers # (Auto) Eos # (Auto) Baso # (Auto) Nucleated RBC % (a uto) Nucleated RBCs # PT INR Sodium Potassium Chloride Carbon Dioxide Anion Gap BUN Creatinine GFR Calculation Glucose POC Glucose Calculated Osmolal ity Lactate Calcium Total Bilirubin AST ALT Alkaline Phosphata se Troponin T Baselin e NT-Pro-B Natriuret Pep 232 pg/mL H pg/mL (0-125) Total Protein Albumin Globulin Imaging Data^: CXR: Attestation: I personally reviewed and interpreted this imaging study as follows: Radiologist's impression: [employer] [address] [address] XRay Report Signed Patient: Vinh Taylor Unit #: [id number] : 1955 Age/Sex: 65 / M ADM Date: 03/02/21 Loc: ER Room/Bed: Attending Dr: Ordering Provider/Ordering MD: Deniz Torrez MD Date of Service: 03/02/21 Procedure(s): XR chest 1V portable [id number] Accession Number(s): [id number] Report Number: [id number] PROCEDURE INFORMATION: Exam: XR Chest Exam date and time: 03/02/2021 9:51 PM Age: 65 years old Clinical indication: Other: Low BP; Prior surgery; Surgery date: <1 month; Additional info: Cp TECHNIQUE: Imaging protocol: XR of the chest. Views: 1 view. Total images: 1 COMPARISON: CR (CHEST, ) 02/20/2021 5:19 AM FINDINGS: Lungs: No visible active interstitial or alveolar airspace disease. Pleural spaces: No visible pleural effusion or pneumothorax. Heart/Mediastinum: Cardiac structures and configuration with cardiomegaly and a water bottle shaped cardiac contour raising the potential for underlying pericardial effusion. Status post sternotomy chest and CABG. Arteriosclerosis. Bones/joints: Old right clavicle fracture. XR/XR chest 1V portable [id number] IMPRESSION: Cardiac structures and configuration with cardiomegaly and a water bottle shaped cardiac contour raising the potential for underlying pericardial effusion. Radiation Dose CTDIVOL = (mGy): DLP = (mGy-cm) Dictated By: Joshua Ovalles Signed By: Joshua Ovalles Signed Date/Time: 03/02/212247 DD/ 50 EKG Data^: EKG 1: Attestation: I personally reviewed and interpreted this EKG as follows: EKG interpretation date: 03/02/21 EKG interpretation time: 22:08 Interpretation: sinus lan hr [address] or t wave abnormalities qrs 96 qtc 469 Discharge Plan Discharge Patient Disposition: Admitted As Inpatient Clinical Impression: Near syncope, Acute hypotension, Status post coronary artery bypass graft Condition: Stable Coding Level of Care Code ED Research Worker Kitchen for Chg Fwd Exam Comprehensive
[2021-03-02] MEDS: sodium chloride 0.9% 500 ML 999 ML IV ×2 (22:15→22:32)
[2021-03-02 22:17] LABS: Glucose Point of Care 224 mg/dL (70-110)
[2021-03-02 22:21] LABS: Basophils # 0.1 10^3/uL (0.0-0.1); Basophils % 1.1 %; Eosinophils # 0.7 10^3/uL (0.0-0.8); Eosinophils % 7.2 %; Hematocrit 29.3 % (42.0-52.0); Hemoglobin 9.5 g/dL (11.7-16.6); Lymphocytes # 1.9 10^3/uL (0.8-4.8); Lymphocytes % 19.5 %; Mean Corpuscular HGB Conc 32.4 g/dL (30.0-36.0); Mean Corpuscular Hemoglobin 29.9 pg (28.0-34.0); Mean Corpuscular Volume 92.1 fl (80-94); Mean Platelet Volume 10.2 fL (7.4-10.4); Monocytes # 0.7 10^3/uL (0.2-0.9); Monocytes % 7.4 %; Neutrophils # 6.39 10^3/uL (1.8-7.7); Neutrophils % 64.4 %; Nucleated Red Blood Cells % 0 %; Platelet Count 331 10^3/cmm (130-400); Red Blood Count 3.18 10^6/uL (4.1-5.3); Red Cell Distribution Width 14.1 % (12.1-15.1); White Blood Count 9.9 10^3/uL (4.0-10.0)
[2021-03-02 22:37] LABS: INR 1.43 (0.8-1.2)
[2021-03-02 22:38] VITALS: BP 81/50; PULSE 58; RESP 16; O2SAT 99
[2021-03-02 22:48] LABS: Alanine Aminotransferase 8 U/L (0-41); Albumin Level 3.6 g/dL (3.5-5.2); Alkaline Phosphatase 92 IU/L (40-130); Anion Gap 15.7 (5-19); Aspartate Amino Transferase 8 U/L (0-40); Blood Urea Nitrogen 26 mg/dL (8-23); Calcium 9.1 mg/dL (8.5-10.5); Carbon Dioxide 30 mmol/L (22-29); Chloride 92 mmol/L (98-107); Globulin 2.5 g/dL (1.3-4.6); Glomerular Filtration Rate 55.2 mL/min (90-130); Glucose 189 mg/dL (65-115); Osmolality Calculated 288 mOsm/kg (285-295); Potassium 3.7 mmol/L (3.5-5.1); Sodium 134 mmol/L (136-145); Total Bilirubin 0.4 mg/dL (0.15-1.2); Total Protein 6.1 g/dL (6.6-8.7)
[2021-03-02 22:49] LABS: Lactate (Lactic Acid level) 2.3 mmol/L (0.5-2.2)
[2021-03-02 22:50] LABS: Troponin(5th) Baseline 36 ng/L (0-15)
[2021-03-02 22:59] LABS: NT Pro B Type Natriuretic Pept 232 pg/mL (0-125)
[2021-03-02 23:15] VITALS: BP 94/48; PULSE 58; RESP 16; O2SAT 99
[2021-03-02] MEDS: sodium chloride 0.9% 1,000 ML 999 ML IV (23:19)
--- NOTE | 2021-03-02 23:51 | ECG_ITS ---
[facility] Test Date: 2021-03-03 Pat Name: Vinh Taylor Department: Room: 105 Gender: Male Clinical Fellow: : 1955 Requested By: Deniz Torrez Order Number: [id number] Reading MD: Leti Ma M.D. Measurements Intervals [place] Rate: 66 P: 54 [place]: 205 QRS: 67 QRSD: 105 T: 120 QT: 452 QTc: 475 Interpretive Statements SINUS RHYTHM NONSPECIFIC T-WAVE ABNORMALITY PROLONGED QT INTERVAL Compared to ECG 03/02/2021 22:08:38 Prolonged QT interval now present Sinus bradycardia no longer present Possible ischemia no longer present T-wave abnormality still present Electronically Signed On 03-03-2021 22:53:50 ESCROW CLOSER by Leti Ma M.D. [id number]
--- NOTE | 2021-03-02 23:55 | P.HP_ITS ---
Providers/Chief Complaint Admitting Physician: Saman Lopez Primary Care Provider: Guicho Vega DO Chief Complaint: low Bp , low HR post 2 week open heart surgery History of Present Illness Vinh Taylor is a 65 year old male with past medical history of hypertension, diabetes, dyslipidemia, coronary artery disease, who underwent CABG by Dr. Batista 2 weeks ago. Today he is presenting to emergency room due to complaints of lightheadedness, dizziness and low blood pressure. He denies fainting. Denies any focal weakness or sensory loss. He reports that he took GoLYTELY before going to bathroom for constipation. During defecation he experienced extreme lightheadedness. Denies associated chest pain, shortness of breath. In emergency room his blood pressure was decreased. EKG revealed anterolateral T wave changes. Troponin was unremarkable. Bedside echo revealed trace pericardial effusion but no tamponade. Currently the patient is feeling a little better. He and his report that since after his surgery he was feeling dizzy and lightheaded. Description of the symptoms closely resembles orthostatic symptoms. He denies similar episodes in the past. Review of Systems General: Reports: 10 or more systems reviewed and unremarkable except in HPI and below Medications/Allergies Home Medications Medication Instructions Recorded Confirmed Last Taken Type allopurinol 300 mg tablet 300 mg PO DAILY 05/06/19 02/09/21 08/22/20 History atorvastatin 80 mg tablet 80 mg PO DAILY 05/06/19 02/14/21 02/13/21 History cetirizine 10 mg capsule 10 mg PO QAM 05/06/19 02/14/21 02/13/21 History docusate sodium 100 mg capsule 100 mg PO BID 05/06/19 02/14/21 02/13/21 History ferrous sulfate 325 mg (65 mg 325 mg PO BID 05/06/19 02/14/21 02/13/21 History iron) tablet fluticasone propionate 50 2 spray INTRANASAL DAILY PRN 05/06/19 02/14/21 02/13/21 History mcg/actuation nasal spray,suspension hydrochlorothiazide 25 mg tablet 25 mg PO QAM 05/06/19 02/14/21 02/13/21 History lisinopril 40 mg tablet 40 mg PO DAILY 05/06/19 02/14/21 02/13/21 History omeprazole 20 mg tablet,delayed 20 mg PO BID 05/06/19 02/14/21 02/13/21 History release pioglitazone 30 mg tablet 30 mg PO DAILY 05/06/19 02/14/21 02/13/21 History tamsulosin 0.8 mg PO BEDTIME 05/27/19 02/14/21 02/13/21 History gabapentin 300 mg capsule 300 mg PO BID cap 10/14/19 02/14/21 02/13/21 History Vitamin D3 1 cap PO DAILY 01/14/21 02/14/21 02/13/21 History albuterol sulfate [ProAir HFA] 2 puff INHALATION Q4H PRN 01/14/21 02/09/21 Unknown History apixaban 5 mg PO BID 01/14/21 02/14/21 02/10/21 History aspirin 81 mg PO QAM 01/14/21 02/14/21 02/13/21 History venlafaxine [Effexor XR] 37.5 mg PO DAILY 01/14/21 02/14/21 02/13/21 History amiodarone 200 mg PO BID #60 tab 02/21/21 Unknown Rx amlodipine 5 mg PO BID #60 tab 02/21/21 Unknown Rx carvedilol 6.25 mg PO BID #60 tab 02/21/21 Unknown Rx hydrocodone-acetaminophen 1 tab PO Q8H PRN #30 tab 02/21/21 Unknown Rx Allergies Allergy/AdvReac Type Severity Reaction Status Date / Time codeine Allergy Intermediate ALGY-Swell Verified 02/03/21 14:35 Lip/Tongue/Throat PFSH Acute PFSH: Medical History Afib Anticoagulation adequate with anticoagulant therapy Carotid stenosis Chronic kidney disease (CKD) Diabetes Gastritis Hypercholesteremia Hypertension Nausea and vomiting Spinal stenosis, lumbar region, with neurogenic claudication Spondylolisthesis, lumbar region Surgical History History of jeremiah hole surgery Twist drill drainage of bilateral subdural hematomas, 12/20/2016, [facility] [place] History of esophagogastroduodenoscopy (EGD) (~05/2019) History of laparoscopic cholecystectomy (~06/2019) History of lumbar laminectomy Bilateral L4-L5 laminotomy/foraminotomy/limited facetectomy Previous back surgery Status post aorto-coronary artery bypass graft Family History Other CAD (coronary artery disease) Cancer Diabetes Hypertension Stroke Denies family history of Anesthesia complication Bleeding disorder Social History Alcohol intake: never Lives independently: Yes Marital status: Current occupational status: retired History of recent travel: No Vitals/I&O/Wt Last Vital Signs Pulse 58 L 03/02/21 23:15 Resp 16 03/02/21 23:15 BP 94/48 03/02/21 23:15 Pulse Ox 99 03/02/21 23:15 03/02/21 03/02/21 03/03/21 14:59 22:59 06:59 Intake Total 500 / 500 1500 / 2000 Balance 500 / 500 1500 / 2000 Weight last 48 hrs Weight 86.636 kg Weight 90.918 kg Physical Exam Narrative: EXAM NARRATIVE: The patient is awake. No acute distress. Mood and affect are appropriate. Responses are adequate. Skin is warm and dry. Moist mucous brains Eyes PERRL, extraocular muscles are intact Neck supple. No JVD Lungs clear. No respiratory distress Heart S1, S2, regular bradycardia Abdomen soft, nontender, bowel sounds are present Extremities trace edema no cyanosis no calf tenderness bilaterally Neuro examination is nonfocal. Normal speech. Data : 03/02/21 22:09 03/02/21 22:09 Other Labs: Laboratory Results WBC 9.9 10^3/uL (4.0-10.0) 03/02/21 22:09 RBC 3.18 10^6/uL (4.1-5.3) L 03/02/21 22:09 Hgb 9.5 g/dL (11.7-16.6) L 03/02/21 22:09 Hct 29.3 % (42.0-52.0) L 03/02/21 22:09 MCV 92.1 fl (80-94) 03/02/21 22:09 MCH 29.9 pg (28.0-34.0) 03/02/21 22:09 MCHC 32.4 g/dL (30.0-36.0) 03/02/21 22:09 RDW 14.1 % (12.1-15.1) 03/02/21 22:09 Plt Count 331 10^3/cmm (130-400) 03/02/21 22:09 MPV 10.2 fL (7.4-10.4) 03/02/21 22:09 Neut % (Auto) 64.4 % 03/02/21 22:09 Lymph % (Auto) 19.5 % 03/02/21 22:09 [place] % (Auto) 7.4 % 03/02/21 22:09 Eos % (Auto) 7.2 % 03/02/21 22:09 Baso % (Auto) 1.1 % 03/02/21 22:09 Neut # (Auto) 6.39 10^3/uL (1.8-7.7) 03/02/21 22:09 Lymph # (Auto) 1.9 10^3/uL (0.8-4.8) 03/02/21 22:09 [place] # (Auto) 0.7 10^3/uL (0.2-0.9) 03/02/21 22:09 Eos # (Auto) 0.7 10^3/uL (0.0-0.8) 03/02/21 22:09 Baso # (Auto) 0.1 10^3/uL (0.0-0.1) 03/02/21 22:09 Nucleated RBC % (auto) 0 % 03/02/21 22:09 Nucleated RBCs # 0.0 /100WBC 03/02/21 22:09 PT 17.80 SECONDS (12.1-14.9) H 03/02/21 22:09 INR 1.43 (0.8-1.2) H 03/02/21 22:09 Sodium 134 mmol/L (136-145) L 03/02/21 22:09 Potassium 3.7 mmol/L (3.5-5.1) 03/02/21 22:09 Chloride 92 mmol/L (98-107) L 03/02/21 22:09 Carbon Dioxide 30 mmol/L (22-29) H 03/02/21 22:09 Anion Gap 15.7 (5-19) 03/02/21 22:09 BUN 26 mg/dL (8-23) H 03/02/21 22:09 Creatinine 1.3 mg/dL (0.7-1.2) H 03/02/21 22:09 GFR Calculation 55.2 mL/min (90-130) L 03/02/21 22:09 Glucose 189 mg/dL (65-115) H 03/02/21 22:09 POC Glucose 224 mg/dL (70-110) H 03/02/21 22:06 Calculated Osmolality 288 mOsm/kg (285-295) 03/02/21 22:09 Lactate 2.3 mmol/L (0.5-2.2) H 03/02/21 22:09 Calcium 9.1 mg/dL (8.5-10.5) 03/02/21 22:09 Total Bilirubin 0.4 mg/dL (0.15-1.2) 03/02/21 22:09 AST 8 U/L (0-40) 03/02/21 22:09 ALT 8 U/L (0-41) 03/02/21 22:09 Alkaline Phosphatase 92 IU/L (40-130) 03/02/21 22:09 Troponin T Baseline 36 ng/L (0-15) H 03/02/21 22:09 NT-Pro-B Natriuret Pep 232 pg/mL (0-125) H 03/02/21 22:09 Total Protein 6.1 g/dL (6.6-8.7) L 03/02/21 22:09 Albumin 3.6 g/dL (3.5-5.2) 03/02/21 22:09 Globulin 2.5 g/dL (1.3-4.6) 03/02/21 22:09 Impressions Chest X-Ray 03/02/21 21:51 IMPRESSION: Cardiac structures and configuration with cardiomegaly and a water bottle shaped cardiac contour raising the potential for underlying pericardial effusion. Radiation Dose CTDIVOL = (mGy): DLP = (mGy-cm) A&P Assessment and plan (1) Near syncope: Status: Acute (2) Acute hypotension: Status: Acute (3) Status post coronary artery bypass graft: Status: Acute (4) Dehydration: Status: Acute Additional A&P Information 65 year old male with past medical history of hypertension, diabetes, dyslipidemia, coronary artery disease, who underwent CABG by Dr. Batista 2 weeks ago presenting to emergency room due to complaints of lightheadedness, dizziness and low blood pressure. Hypotension. Most likely mainly due to blood pressure medications. Associated dehydration is possible as well. Creatinine is slightly elevated compared to his baseline. We will hydrate the patient very gently. We will hold his home blood pressure medications. We will reassess him in the morning. TSH is ordered. Will do necessary adjustments to his blood pressure medications before discharging him. Dr. Batista was called by the ER physician. Coronary artery disease. We will continue his dual antiplatelet therapy and Lipitor. History of atrial fibrillation. Currently in sinus. We will continue amiodarone and Eliquis. Diabetes. We will hold pioglitazone. We will cover him with insulin sliding scale. DVT prophylaxis. He is on Eliquis. CODE STATUS. He wants to be full code. The plan of care was discussed with the patient and his . They verbalized understanding and agreement. The patient was seen, interviewed and evaluated on March 02, 2021 at 11:59 PM. Attestations Medical Necessity Statement*: Observation Coding Level of Care Code Acute Prop Maker for Chg Fwd Diagnoses Near syncope R55 Acute hypotension I95.9 Status post coronary artery bypass graft Z95.1 Dehydration E86.0
--- NOTE | 2021-03-02 23:59 | USCV_ITS ---
Vinh Taylor Age: 65 Gender: M : 1955 Exam Date: 03/02/2021 22:39 Ordering Phys: Deniz Torrez MD Technologist: Exam Location: [facility] [place] Indication: POST CABG SOB BP: / HR: 55 Rhythm: Sinus Technical Quality: Adequate MEASUREMENTS (Male / Female) Normal Values 2D ECHO LV Diastolic Diameter PLAX 4.5 cm 4.2 - 5.9 / 3.9 - 5.3 cm LV Systolic Diameter PLAX 2.8 cm IVS Diastolic Thickness 1.1 cm 0.6 - 1.0 / 0.6 - 0.9 cm IVS Systolic Thickness 1.6 cm LVPW Diastolic Thickness 1.5 cm 0.6 - 1.0 / 0.6 - 0.9 cm LVPW Systolic Thickness 1.8 cm LVOT Diameter 2.2 cm LV Ejection Fraction 2D Teich 68.3 % LV Ejection Fraction MOD 2C 58.9 % LV Ejection Fraction 2C AL 58.7 % LA Diameter 3.5 cm LA Width 4.5 cm LA Height 5.3 cm RA Width 4.8 cm RA Height 4.9 cm Aorta at Sinotubular Diameter 2.7 cm DOPPLER AV Peak Velocity 200.0 cm/s LVOT Peak Velocity 81.0 cm/s AV Area Cont Eq vti 2.5 cm squared AV Area Cont Eq pk 1.5 cm squared MV Area PHT 5.0 cm squared Mitral E to A Ratio 1.1 MV E' Velocity 52.0 cm/s Mitral E to MV E' Ratio 11.7 Mitral E to LV E' Lateral Ratio 12.4 Mitral E to LV E' Septal Ratio 11.0 TR Peak Velocity 224.7 cm/s TR Peak Gradient 20.2 mmHg TV Peak E Velocity 84.0 cm/s Right Atrial Pressure 3.0 mmHg Pulmonary Artery Systolic Pressu 23.2 mmHg FINDINGS Left Ventricle Mild diffuse hypokinesia of the septum and anteroseptal segments. Left ventricular ejection fraction around 50 to 55%.mild left ventricular hypertrophy. Right Ventricle Possibly of normal size ejection fraction Right Atrium The right atrium is normal in size. Left Atrium Mildly increased left atrial size. Mitral Valve Thickened mitral valve. Aortic Valve No gross abnormalities noted no gross abnormalities noted Tricuspid Valve No gross abnormalities noted Pulmonic Valve Pulmonic valve not well visualized. Pericardium Moderate to large echo-free space in the posterolateral aspect of the left ventricle Aorta Normal ascending aorta dimension. CONCLUSIONS Normal size with borderline normal ejection fraction 50 to 55%. Wall motion normalities as mentioned above. Possible moderate to large loculated pericardial effusion on the posterolateral aspect Mildly dilated left atrium There are no intracardiac masses. Compared to the study from 01/14/2021, the pericardial effusion appears to be new Dr Leti Ma MD FAC (Electronically Signed) Final Date: 03 March 2021 08:58 S
[2021-03-03] VITALS (16 sets, daily range): BP systolic 95–135; BP diastolic 53–73; PULSE 60–76; RESP 8–20; TEMP 36.4–36.5; O2SAT 87–98
[2021-03-03 01:03] LABS: Troponin 5 2HR 29.93 ng/L (0-15)
[2021-03-03 01:07] LABS: Troponin 5 2HR Delta -6.07 ABS# (0-10)
[2021-03-03] MEDS: sodium chloride 0.9% 1,000 ML 75 ML IV (01:40)
--- NOTE | 2021-03-03 02:53 | PC.NURSE ---
Admit Note Patient admitted to CSU room 105 from ED via stretcher. Covering service notified. Patient presents with dizziness, lightheadedness, decreased blood pressure. Orders reviewed & will continue to monitor. Patient and/or outside medical sales representative oriented to environment, equipment, and informed of the following as found in the admission booklet: patient rights & responsibilities, visitor policy, hand and respiratory hygiene practice. Other education includes: fluids. Patient verbalized complete understanding. Patient reports feeling dizzy and lightheaded today with worsening after being up to bathroom having a bowel movement . Denies passing out . Reports pain to left leg which he says has been hurting since his open heart surgery 2 weeks ago. Left leg was used for donor graft sites. Noted bruising to left inner ankle which patient stated, that has been that way since surgery as well. Incision to medial chest appears well healed with no signs of dehiscence. Graft site appear to be healing as well. No edema noted. Patient did say swelling to left leg only recently decreased in past couple of days. Patient received fluid bolus in ED as documented. Patient reports feeling some better but tired at this time. No other distresses observed. Will continue to monitor.
--- NOTE | 2021-03-03 03:51 | ECG_ITS ---
[facility] Test Date: 2021-03-03 Pat Name: Vinh Taylor Department: Room: 105 Gender: Male Philosophy Instructor: : 1955 Requested By: Deniz Torrez Order Number: [id number] Bravo MD: Leti Ma M.D. Measurements Intervals [place] Rate: 68 P: 37 DE: 177 QRS: 60 QRSD: 98 T: 124 QT: 431 QTc: 461 Interpretive Statements SINUS RHYTHM NONSPECIFIC T-WAVE ABNORMALITY Compared to ECG 03/03/2021 02:56:37 Prolonged QT interval no longer present T-wave abnormality still present Electronically Signed On 03-03-2021 22:54:03 AIRFRAME TECHNICIAN by Leti Ma M.D. [id number]
[2021-03-03 04:13] LABS: Blood Urea Nitrogen 24 mg/dL (8-23); Calcium 8.2 mg/dL (8.5-10.5); Carbon Dioxide 30 mmol/L (22-29); Chloride 100 mmol/L (98-107); Glomerular Filtration Rate 60.6 mL/min (90-130); Glucose 145 mg/dL (65-115); Osmolality Calculated 291 mOsm/kg (285-295); Sodium 137 mmol/L (136-145)
[2021-03-03 04:31] LABS: Troponin 5 6HR 28.37 ng/L (0-15)
[2021-03-03 04:32] LABS: Magnesium 2.2 mg/dL (1.7-2.3)
[2021-03-03 04:39] LABS: Troponin 5 6HR Delta -7.63 ng/L (0-12)
[2021-03-03] MEDS: aspirin 81 mg EC Tablet PO (05:17)
[2021-03-03 06:58] LABS: Glucose Point of Care 123 mg/dL (70-110)
[2021-03-03] MEDS: docusate sodium 100 mg Capsule PO ×2 (07:46→17:51)
[2021-03-03] MEDS: apixaban 5 mg Tablet PO (07:46)
[2021-03-03] MEDS: atorvastatin 40 mg Tablet 80 MG PO (07:46)
[2021-03-03] MEDS: amiodarone 200 mg Tablet PO ×2 (07:46→17:51)
[2021-03-03] MEDS: gabapentin 300 mg Capsule PO ×2 (07:47→17:51)
[2021-03-03] MEDS: pantoprazole DR 40 mg Tablet PO ×2 (07:47→17:51)
[2021-03-03 09:41] LABS: Basophils # 0.1 10^3/uL (0.0-0.1); Eosinophils # 0.4 10^3/uL (0.0-0.8); Hematocrit 27.3 % (42.0-52.0); Hemoglobin 8.5 g/dL (11.7-16.6); Lymphocytes # 1.3 10^3/uL (0.8-4.8); Lymphocytes % 16.4 %; Mean Corpuscular HGB Conc 31.1 g/dL (30.0-36.0); Mean Corpuscular Hemoglobin 29.6 pg (28.0-34.0); Mean Corpuscular Volume 95.1 fl (80-94); Mean Platelet Volume 10.4 fL (7.4-10.4); Monocytes # 0.5 10^3/uL (0.2-0.9); Monocytes % 6.4 %; Neutrophils # 5.55 10^3/uL (1.8-7.7); Neutrophils % 70.9 %; Nucleated Red Blood Cells % 0 %; Platelet Count 284 10^3/cmm (130-400); Red Blood Count 2.87 10^6/uL (4.1-5.3); Red Cell Distribution Width 13.9 % (12.1-15.1); White Blood Count 7.8 10^3/uL (4.0-10.0)
--- NOTE | 2021-03-03 09:44 | P.CONIM_ITS ---
Providers/Reason For Consult Consulting Physician/Specialty*: [facility] [place]/cardiothoracic surgery Reason for Consult*: Admission for hypotension/status post CABG Requesting Physician: Dr. Torrez Attending Physician: Rob Dill MD Primary Care Provider: Guicho Vega DO History of Present Illness History of Present Illness Vinh Taylor is a 65 year old male status post CABG times 23 January 2025 secondary to complex RCA disease proximally as well as left main stenosis. Postop he did well. He was readmitted to the emergency department last night after presenting with hypotension and some near syncope. He currently is resting on this cardiac stepdown rudolph. At the time of my exam this morning his heart rate was 81 and sinus and his blood pressure was 124/83. He states he is feeling well. No specific sternotomy discomforts. Initial EKG revealed sinus rhythm no acute ST wave changes were noted. Transthoracic echocardiogram does reveal a dependent posterior effusion though it does not appear to be any evidence for tamponade physiology. Days prior to admission he was making several walking laps in his driveway daily without particular concerns. X-ray is clear without effusion or infiltrate though there is slight globular change to the cardiac silhouette. This might be related to the posterior effusion or to the positioning of the patient at the time of the x-ray. Review of Systems Const: Denies: fever(s), chills, change in appetite, change in weight, fatigue or night sweats Eyes: Denies: change in vision or blurry vision ENMT: Denies: odynophagia or hoarseness Card: Reports: lightheadedness and dyspnea on exertion; Denies: chest pain, palpitations, irregular heart rhythm or edema Resp: Denies: dyspnea or productive cough GI: Denies: abdominal pain, nausea, vomiting, dysphagia, heartburn or change in bowel habits : Denies: difficulty urinating, dysuria, urinary frequency, urinary urgency or urinary hesitancy Musc: Denies: extremity pain or extremity swelling Skin/Breast: Denies: rash Neuro: Denies: headache(s), numbness in extremities, weakness in extremities or sensory changes Psych: Denies: anxiety, depression or change in appetite Endo: Denies: polyuria, polydipsia or cold intolerance Donny/Lymph: Denies: easy bruising, easy bleeding, petechiae or enlarged lymph nodes Meds/Allergies Home Medications and Allergies Home Medications Medication Instructions Recorded Confirmed Last Taken Type allopurinol 300 mg tablet 300 mg PO DAILY 05/06/19 03/03/21 03/02/21 08:00 History atorvastatin 80 mg tablet 80 mg PO DAILY 05/06/19 03/03/21 03/02/21 08:00 History cetirizine 10 mg capsule 10 mg PO QAM 05/06/19 03/03/21 03/02/21 08:00 History docusate sodium 100 mg capsule 100 mg PO BID 05/06/19 03/03/21 03/02/21 20:00 History ferrous sulfate 325 mg (65 mg 325 mg PO BID 05/06/19 03/03/21 03/02/21 17:00 History iron) tablet fluticasone propionate 50 2 spray INTRANASAL DAILY PRN 05/06/19 03/03/21 02/13/21 History mcg/actuation nasal spray,suspension hydrochlorothiazide 25 mg tablet 25 mg PO QAM 05/06/19 03/03/21 03/02/21 08:00 History lisinopril 40 mg tablet 40 mg PO DAILY 05/06/19 03/03/21 03/02/21 08:00 History omeprazole 20 mg tablet,delayed 20 mg PO BID 05/06/19 03/03/21 03/02/21 17:00 History release pioglitazone 30 mg tablet 30 mg PO DAILY 05/06/19 03/03/21 03/02/21 08:00 History tamsulosin 0.8 mg PO BEDTIME 05/27/19 03/03/21 03/02/21 20:00 History gabapentin 300 mg capsule 300 mg PO BID cap 10/14/19 03/03/21 03/02/21 20:00 History albuterol sulfate [ProAir HFA] 2 puff INHALATION Q4H PRN 01/14/21 03/03/21 03/02/21 History apixaban 5 mg PO BID 01/14/21 03/03/21 03/02/21 20:00 History aspirin 81 mg PO QAM 01/14/21 03/03/21 03/02/21 08:00 History venlafaxine [Effexor XR] 37.5 mg PO DAILY 01/14/21 03/03/21 03/02/21 08:00 History amiodarone 200 mg PO BID #60 tab 02/21/21 03/03/21 03/02/21 20:00 Rx amlodipine 5 mg PO BID #60 tab 02/21/21 03/03/21 03/02/21 08:00 Rx carvedilol 6.25 mg PO BID #60 tab 02/21/21 03/03/21 03/02/21 21:00 Rx hydrocodone-acetaminophen 1 tab PO Q8H PRN #30 tab 02/21/21 03/03/21 03/02/21 12:00 Rx cholecalciferol (vitamin D3) 125 mcg PO DAILY 03/03/21 03/03/21 03/02/21 08:00 History [Vitamin D3] diltiazem HCl [Cardizem CD] 120 mg PO DAILY 03/03/21 03/03/21 03/02/21 08:00 History Allergies Allergy/AdvReac Type Severity Reaction Status Date / Time codeine Allergy Intermediate ALGY-Swell Verified 02/03/21 14:35 Lip/Tongue/Throat Current Medications Current Medications Generic Name Dose Route Start Last Admin Trade Name Freq PRN Reason Stop Dose Admin Amiodarone HCl 200 mg 03/03/21 09:00 03/03/21 07:46 Amiodarone 200 Mg Tablet PO 200 mg BID MITCHEL Administration Aspirin 81 mg 03/03/21 06:00 03/03/21 05:17 Aspirin 81 Mg Ec Tablet PO 81 mg QAM MITCHEL Administration Atorvastatin Calcium 80 mg 03/03/21 09:00 03/03/21 07:46 Atorvastatin 40 Mg Tablet PO 80 mg DAILY MITCHEL Administration Docusate Sodium 100 mg 03/03/21 09:00 03/03/21 07:46 Docusate Sodium 100 Mg Capsule PO 100 mg BID MITCHEL Administration Gabapentin 300 mg 03/03/21 09:00 03/03/21 07:47 Gabapentin 300 Mg Capsule PO 300 mg BID MITCHEL Administration Sodium Chloride 1,000 mls @ 75 mls/hr 03/03/21 00:50 03/03/21 01:40 Sodium Chloride 0.9% IV 03/03/21 14:09 75 mls/hr .[id number] MITCHEL Administration Insulin Human Lispro 0 unit 03/03/21 08:00 03/03/21 07:17 Insulin Lispro 100 Unit/1 Ml SUBCUT Not Given WM&BEDTIME MTICHEL Protocol Pantoprazole Sodium 40 mg 03/03/21 09:00 03/03/21 07:[address] 40 Mg Tablet PO 40 mg BID MITCHEL Administration PFSH Acute PFSH: Medical History Afib Anticoagulation adequate with anticoagulant therapy Carotid stenosis Chronic kidney disease (CKD) Diabetes Gastritis Hypercholesteremia Hypertension Left main coronary artery disease Nausea and vomiting Spinal stenosis, lumbar region, with neurogenic claudication Spondylolisthesis, lumbar region Surgical History History of jeremiah hole surgery Twist drill drainage of bilateral subdural hematomas, 12[place]20/2016[place] [facility] [place] History of esophagogastroduodenoscopy (EGD) (~05/2019) History of laparoscopic cholecystectomy (~06/2019) History of lumbar laminectomy Bilateral L4-L5 laminotomy/foraminotomy/limited facetectomy Previous back surgery Status post aorto-coronary artery bypass graft Family History Other CAD (coronary artery disease) Cancer Diabetes Hypertension Stroke Denies family history of Anesthesia complication Bleeding disorder Social History Alcohol intake: never Lives independently: Yes Marital status: Current occupational status: retired History of recent travel: No Vitals/I&O/Wt Last Vital Signs Temp 97.6 F 03/03/21 09:39 Pulse 76 03/03/21 09:39 Resp 12 03/03/21 09:39 BP 95/54 03/03/21 09:39 Pulse Ox 96 03/03/21 09:39 03/02/21 03/03/21 03/03/21 22:59 06:59 14:59 Intake Total 500 / 500 1500 / 2000 236 / 236 Output Total 900 / 900 Balance 500 / 500 1500 / 1999 -664 / -664 Weight last 48 hrs Weight 191 lb Weight 200 lb 7.055 oz Physical Exam Const: COMMON NORMALS: patient oriented x3 and alert ORIENTATION/CONSCIOUSNESS: Yes oriented to person, Yes oriented to place and Yes oriented to time HENMT: COMMON NORMALS: normocephalic HEAD & SCALP: normocephalic; no cranial bruits Neck/C-Spine: COMMON NORMALS: full ROM, supple, no JVD and No carotid bruits GENERAL: Yes trachea midline CERVICAL SPINE: Yes cervical ROM normal Chest: COMMONS NORMALS: normal inspection of the chest (The incision is healing well. Drain sites well approximated.) and normal palpation of entire chest wall Resp: COMMON NORMALS: normal respiratory effort, No use of accessory muscles, clear to auscultation bilaterally and percussion normal EFFORT & INSPECTION: Yes able to speak in complete sentences and Yes symmetric chest movement AU SCULTATION: clear to auscultation bilaterally PERCUSSION: percussion normal Cardio: COMMON NORMALS: no JVD, regular rate, regular rhythm, S1 normal heart sound present, S2 normal heart sound present, No gallops present (Cardio), No murmurs present (Cardio), No rub (Cardio) and Peripheral pulses 2+ throughout JUGULAR VENOUS DISTENTION: no JVD RATE: regular rate RHYTHM: regular rhythm HEART SOUNDS: S1 normal heart sound present and S2 normal heart sound present PERIPHERAL PULSES: Peripheral pulses 2+ throughout Extremity: NARRATIVE EXTREMITY EXAM: Trace of edema of the left lower extremity which was the site of vein harvest Neuro: COMMON NORMALS: patient oriented x3, no focal motor deficits and no sensory deficits noted SENSORIUM/ORIENTATION: Yes alert, Yes oriented to person, Yes oriented to place and Yes oriented to time A&P Assessment and plan (1) Status post coronary artery bypass graft: 2-1/2 weeks status post CABG x3. Dependent posterior effusion without tamponade physiology. Plan: I have conferred with my colleague Dr. Dill. I would recommend continued on supportive measures I do not see an immediate need to intervene for this postoperative effusion. I would consider holding Eliquis however, as he has remained in sinus rhythm since his surgical revascularization. Aspirin may be continued. I greatly appreciate the expertise and assistance of our hospitalist and cardiology colleagues. Status: Acute Consult Attestations Medical Necessity Statement: 2 and half weeks status post CABG with a hypertension, modest pericardial effusion without tamponade physiology. Time Spent in Patient Care: 16 - 35 minutes Coding Level of Care Code Acute Manufacturing Controls Engineer for Chg Fwd Diagnoses Status post coronary artery bypass graft Z95.1
[2021-03-03 11:08] LABS: Glucose Point of Care 196 mg/dL (70-110)
[2021-03-03] MEDS: insulin lispro 100 unit/1 mL SUBCUT ×2 (11:35→20:42)
--- NOTE | 2021-03-03 13:18 | P.PN_ITS ---
Subjective Subjective: Interval history: Patient was seen and examined this morning,deny any chest pain, sob,dizziness.B/P is stable with good MAP. Currently in Sinus rthym. His other vitals and labs have been reviewed, Medications: Reviewed: Yes Vitals/I&O/Wt Last Vital Signs Temp 97.6 F 03/03/21 09:39 Pulse 71 03/03/21 12:15 Resp 13 03/03/21 12:15 BP 135/73 03/03/21 12:15 Pulse Ox 94 03/03/21 12:15 03/02/21 03/03/21 03/03/21 22:59 06:59 14:59 Intake Total 500 / 500 1500 / 2000 472 / 472 Output Total 900 / 900 Balance 500 / 500 1500 / 2000 -428 / -428 Weight last 48 hrs Weight 86.636 kg Weight 90.918 kg Physical Exam Const: COMMON NORMALS: patient oriented x3 HENMT: COMMON NORMALS: normocephalic and atraumatic HEAD & SCALP: normocephalic and atraumatic Resp: COMMON NORMALS: clear to auscultation bilaterally EFFORT & INSPECTION: Yes symmetric chest movement AUSCULTATION: clear to auscultation bilaterally Cardio: COMMON NORMALS: regular rate, regular rhythm, S1 normal heart sound present, S2 normal heart sound present, No gallops present (Cardio), No murmurs present (Cardio), No rub (Cardio) and Peripheral pulses 2+ throughout RATE: regular rate RHYTHM: regular rhythm HEART SOUNDS: S1 normal heart sound present and S2 normal heart sound present PERIPHERAL PULSES: Peripheral pulses 2+ throughout GI: COMMON NORMALS: Normal to inspection, nondistended, normoactive bowel sounds present, Soft to palpation, non-tender, No hepatosplenomegaly present and no masses AUSCULTATION: Yes normoactive bowel sounds PALPATION: Yes Soft to palpation and Yes No hepatosplenomegaly present RECTAL EXAM: Yes deferred Extremity: COMMON NORMALS: no clubbing, cyanosis or edema and no pedal edema Neuro: COMMON NORMALS: patient oriented x3 Data : 03/03/21 03:38 03/03/21 03:38 A&P Assessment and plan (1) Near syncope: Patient was admitted overnight with near syncope likely 2/2 to hypotension. Currently Anti HTN Medications on hold. Orthostatic Hypotension :Negative SR ON Tele Plan is continue to monitor for now. Status: Acute (2) Pericardial effusion: 2D Echo Done in the am has shown: Possible moderate to large loculated pericardial effusion on the posterolateral aspect without tamponade physiology. Findings were discussed with CT.Surgeon.IT has been agreed upon to continue to m onitor for now. Will follow with 2D Echo Status: Acute (3) Atrial fibrillation: Paroxysmal Atrial Fibrillation Currently in sinus Continue amidarone Ac is currently on hold. Status: Acute (4) Acute hypotension: Status: Acute (5) Status post coronary artery bypass graft: Status: Acute (6) Dehydration: Status: Acute Additional A&P Information 65 year old male with past medical history of hypertension, diabetes, dyslipidemia, coronary artery disease, who underwent CABG by Dr. Batista 2 weeks ago presenting to emergency room due to complaints of lightheadedness, dizziness and low blood pressure. Hypotension. Most likely mainly due to blood pressure medications. Associated dehydration is possible as well. Creatinine is slightly elevated compared to his baseline. We will hydrate the patient very gently. We will hold his home blood pressure medications. We will reassess him in the morning. TSH is ordered. Will do necessary adjustments to his blood pressure medications before discharging him. Dr. Batista was called by the ER physician. Coronary artery disease. We will continue his dual antiplatelet therapy and Lipitor. History of atrial fibrillation. Currently in sinus. We will continue amiodarone and Eliquis. Diabetes. We will hold pioglitazone. We will cover him with insulin sliding scale. DVT prophylaxis. He is on Eliquis. CODE STATUS. He wants to be full code. The plan of care was discussed with the patient and his . They verbalized understanding and agreement. The patient was seen, interviewed and evaluated on March 02, 2021 at 11:59 PM. Attestations Medical Necessity Statement*: Patient needs to be in hospital for the management of above defined problems. 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
[2021-03-03 16:23] LABS: Glucose Point of Care 120 mg/dL (70-110)
[2021-03-03 20:33] LABS: Glucose Point of Care 155 mg/dL (70-110)
[2021-03-03] MEDS: acetaminophen 325 mg Tablet 650 MG PO (20:44)
--- NOTE | 2021-03-03 21:31 | PC.NURSE ---
Received report from ALEXSANDRA Ballesteros. Patient lying in bed watching TV. Reports feeling much better. Discussed plan to monitor this night with possible discharge in the am. Patient c/o pain to left leg feeling like prickly sensation to donor sites. Administered Tylenol as ordered. Patient denies other needs or complaints. No distress observed. Will continue to monitor.
[2021-03-04] VITALS (10 sets, daily range): BP systolic 117–149; BP diastolic 65–86; PULSE 73–84; RESP 14–22; TEMP 36.4–37; O2SAT 94–98
[2021-03-04] MEDS: aspirin 81 mg EC Tablet PO (04:59)
[2021-03-04 05:36] LABS: Alanine Aminotransferase 7 U/L (0-41); Alkaline Phosphatase 96 IU/L (40-130); Anion Gap 10.5 (5-19); Aspartate Amino Transferase 7 U/L (0-40); Blood Urea Nitrogen 16 mg/dL (8-23); Calcium 8.5 mg/dL (8.5-10.5); Carbon Dioxide 29 mmol/L (22-29); Chloride 99 mmol/L (98-107); Globulin 2.6 g/dL (1.3-4.6); Glomerular Filtration Rate 96.7 mL/min (90-130); Glucose 113 mg/dL (65-115); Osmolality Calculated 282 mOsm/kg (285-295); Potassium 3.5 mmol/L (3.5-5.1); Sodium 135 mmol/L (136-145); Thyroid Stimulating Hormone 7.28 uIU/mL (0.27-4.20); Total Bilirubin 0.4 mg/dL (0.15-1.2); Total Protein 5.6 g/dL (6.6-8.7)
[2021-03-04 06:50] LABS: Glucose Point of Care 124 mg/dL (70-110)
[2021-03-04] MEDS: atorvastatin 40 mg Tablet 80 MG PO (08:10)
[2021-03-04] MEDS: docusate sodium 100 mg Capsule PO ×2 (08:10→17:22)
[2021-03-04] MEDS: gabapentin 300 mg Capsule PO ×2 (08:10→17:23)
[2021-03-04] MEDS: allopurinol 300 mg Tablet PO (08:11)
[2021-03-04] MEDS: pantoprazole DR 40 mg Tablet PO ×2 (08:11→17:22)
[2021-03-04] MEDS: amiodarone 200 mg Tablet PO ×2 (08:11→17:23)
[2021-03-04] MEDS: amlodipine 5 mg Tablet PO (08:43)
[2021-03-04] MEDS: carvedilol 6.25 mg Tablet PO ×2 (08:43→17:23)
[2021-03-04] MEDS: venlafaxine ER (24HR) 37.5 mg Capsule PO (08:43)
[2021-03-04 11:37] LABS: Glucose Point of Care 111 mg/dL (70-110)
--- NOTE | 2021-03-04 13:21 | PC.CHAP ---
Pastoral Care Encounter/Spiritual Assessment Type of Contact [] Declined head of digital visit [] Patient/Family/Request visit [] Outpatient visit [] Follow-up visit [] Physician referral [] Code/Alert [] Routine visit [] Staff referral [] Actively dying [] Patient sleeping [] Family support [] [xx] Out of room [] Palliative care [] [] Receiving care in room [] Pre-surgical visit [] Trauma [] Long length of stay [] ICU visit [] Other: Relational/Emotional Strength [] Patient feels connected with others/family/visitors/staff [] Distress [] Loneliness/isolation [] Abandonment Spirituality of Patient [] Person of Amairani [] Attends Voodoo of their Amairani [] Believes in Prayer [] Reads Bible or Religion materials [] There are Spiritual issues to be addressed Operator [employer] Interventions [] Prayer [] Active listening [] Non-anxious presence [] Spiritual/emotional support [] Crisis/trauma care [] Spiritual counseling [] Bereavement support [] Provided bereavement packet [] Provided Bible/devotional materials [] Provided toy/stuffed animal, coloring book to patient or family member [] Provided Communion [] Anointing/[place] [] Salvation [] Completed spiritual assessment [] Other: Impact on Illness or Injury [] Angry [] Fearful [] Anxious [] Often cries [] Exhaustion [] Unable to work [] Unable to attend nondenominational [] Unable to walk/stand [] Unable to read [] Unable to drive [] Unable to eat/drink [] Unable to sleep [] Unable to be with family [] Patient intubated [] Other: Summary Patient out of room for medical care. Follow up later. Time spent with patient 1 minute
--- NOTE | 2021-03-04 13:45 | P.PN_ITS ---
Subjective Subjective: Interval history: Patient was seen and examined this morning, orthostatic vital signs done yesterday was negative, blood pressure is stable, kidney function has normalized, currently in normal sinus rhythm. Denies any similar episode of dizziness or lightheaded. Medications: Reviewed: Yes Vitals/I&O/Wt Last Vital Signs Temp 97.6 F 03/04/21 11:55 Pulse 80 03/04/21 11:55 Resp 20 H 03/04/21 11:55 BP 118/77 03/04/21 11:55 Pulse Ox 98 03/04/21 11:55 03/03/21 03/04/21 03/04/21 22:59 06:59 14:59 Intake Total 1356 / 1828 236 / 236 Output Total 650 / 1550 Balance 1356 / 928 -650 / 278 236 / 236 Weight last 48 hrs Weight 86.636 kg Weight 90.918 kg Physical Exam Const: COMMON NORMALS: patient oriented x3 HENMT: COMMON NORMALS: normocephalic and atraumatic HEAD & SCALP: norm ocephalic and atraumatic Resp: COMMON NORMALS: clear to auscultation bilaterally EFFORT & INSPECTION: Yes symmetric chest movement AUSCULTATION: clear to auscultation bilaterally Cardio: COMMON NORMALS: regular rate, regular rhythm, S1 normal heart sound present, S2 normal heart sound present, No gallops present (Cardio), No murmurs present (Cardio), No rub (Cardio) and Peripheral pulses 2+ throughout RATE: regular rate RHYTHM: regular rhythm HEART SOUNDS: S1 normal heart sound present and S2 normal heart sound present PERIPHERAL PULSES: Peripheral pulses 2+ throughout GI: COMMON NORMALS: Normal to inspection, nondistended, normoactive bowel so unds present, Soft to palpation, non-tender, No hepatosplenomegaly present and no masses AUSCULTATION: Yes normoactive bowel sounds PALPATION: Yes Soft to palpation and Yes No hepatosplenomegaly present RECTAL EXAM: Yes deferred Extremity: COMMON NORMALS: no clubbing, cyanosis or edema and no pedal edema Neuro: COMMON NORMALS: patient oriented x3 Data : 03/03/21 03:38 03/04/21 04:29 A&P Assessment and plan (1) Near syncope: Patient was admitted overnight with near syncope likely 2/2 to hypotension. Orthostatic Hypotension :Negative Amlodipine 5 mg p.o. daily has been started, he is on 5 mg p.o. twice daily at home. Carvedilol home dose has been resumed. Continue to hold hydrochlorothiazide. SR ON Tele Plan is continue to monitor for now. Status: Acute (2) Pericardial effusion: 2D Echo Done in the am has shown: Possible moderate to large loculated pericardial effusion on the posterolateral aspect without tamponade physiology. Findings were discussed with CT.Surgeon.IT has been agreed upon to continue to monitor for now. Will follow with repeat 2D Echo as outpatient. Status: Acute (3) Atrial fibrillation: H/o Atrial Fibrillation Currently in sinus Continue amidarone Ac is currently on hold. Status: Acute (4) Acute kidney injury superimposed on CKD: JEFFREY on CKD stage III likely secondary to prerenal JEFFREY//ATN due to acute hypotension. Currently resolved Continue to monitor BMP Status: Acute (5) Acute hypotension: Resolved Status: Acute (6) Status post coronary artery bypass graft: Status: Acute (7) Dehydration: Status: Acute Additional A&P Information CODE STATUS. full code. Attestations Medical Necessity Statement*: Needs to be in hospital for management of above defined problems.Need for optimization of medications. Coding Level of Care Code Acute [employer] Expedition Guide for g Fwd Exam Detailed Diagnoses Near syncope R55 Pericardial effusion I31.3 Atrial fibrillation I48.91 Acute kidney injury superimposed on CKD N17.9; N18.9 Acute hypotension I95.9 Status post coronary artery bypass graft Z95.1 Dehydration E86.0
[2021-03-04 16:55] LABS: Glucose Point of Care 125 mg/dL (70-110)
--- NOTE | 2021-03-04 17:52 | PC.NURSE ---
Patient has had an uneventful day. patient has walked in the hallway. Pt has not endorsed any chest pain, only mild discomfort in the left leg.
[2021-03-04 20:19] LABS: Glucose Point of Care 201 mg/dL (70-110)
[2021-03-04] MEDS: insulin lispro 100 unit/1 mL SUBCUT (21:05)
[2021-03-04] MEDS: acetaminophen 325 mg Tablet 650 MG PO (21:13)
[2021-03-05 00:43] VITALS: BP 128/66; PULSE 67; RESP 11; O2SAT 92
[2021-03-05 04:22] VITALS: BP 143/83; PULSE 91; RESP 18; TEMP 37; O2SAT 93
[2021-03-05] MEDS: aspirin 81 mg EC Tablet PO (05:02)
[2021-03-05 05:03] LABS: Basophils # 0.1 10^3/uL (0.0-0.1); Basophils % 1.3 %; Eosinophils # 0.8 10^3/uL (0.0-0.8); Eosinophils % 10.6 %; Hematocrit 28.2 % (42.0-52.0); Hemoglobin 8.8 g/dL (11.7-16.6); Lymphocytes # 1.7 10^3/uL (0.8-4.8); Lymphocytes % 24.5 %; Mean Corpuscular HGB Conc 31.2 g/dL (30.0-36.0); Mean Corpuscular Volume 93.1 fl (80-94); Monocytes # 0.6 10^3/uL (0.2-0.9); Monocytes % 7.8 %; Neutrophils # 3.94 10^3/uL (1.8-7.7); Neutrophils % 55.5 %; Nucleated Red Blood Cells % 0 %; Platelet Count 271 10^3/cmm (130-400); Red Blood Count 3.03 10^6/uL (4.1-5.3); White Blood Count 7.1 10^3/uL (4.0-10.0)
[2021-03-05 05:40] LABS: Anion Gap 12.6 (5-19); Blood Urea Nitrogen 17 mg/dL (8-23); Carbon Dioxide 29 mmol/L (22-29); Chloride 100 mmol/L (98-107); Glomerular Filtration Rate 96.7 mL/min (90-130); Glucose 106 mg/dL (65-115); Osmolality Calculated 288 mOsm/kg (285-295); Potassium 3.6 mmol/L (3.5-5.1); Sodium 138 mmol/L (136-145)
[2021-03-05 05:46] LABS: Free T4 Free Thyroxine 1.28 ng/dL (0.82-1.77); Thyroid Stimulating Hormone 8.96 uIU/mL (0.27-4.20)
[2021-03-05 05:51] VITALS: PULSE 76
[2021-03-05 07:00] LABS: Glucose Point of Care 130 mg/dL (70-110)
[2021-03-05 08:00] VITALS: BP 135/69; BP 137/75; BP 146/71; PULSE 76; PULSE 80; PULSE 86; RESP 16; TEMP 36.4; O2SAT 98
[2021-03-05] MEDS: docusate sodium 100 mg Capsule PO (08:45)
[2021-03-05] MEDS: carvedilol 6.25 mg Tablet PO (08:45)
[2021-03-05] MEDS: amlodipine 5 mg Tablet PO (08:45)
[2021-03-05] MEDS: amiodarone 200 mg Tablet PO (08:45)
[2021-03-05] MEDS: hydroCHLOROthiazide 25 mg Tablet PO (08:45)
[2021-03-05] MEDS: atorvastatin 40 mg Tablet 80 MG PO (08:45)
[2021-03-05] MEDS: pantoprazole DR 40 mg Tablet PO (08:46)
[2021-03-05] MEDS: acetaminophen 325 mg Tablet 650 MG PO (08:46)
[2021-03-05] MEDS: venlafaxine ER (24HR) 37.5 mg Capsule PO (08:46)
[2021-03-05] MEDS: gabapentin 300 mg Capsule PO (08:46)
[2021-03-05] MEDS: allopurinol 300 mg Tablet PO (08:46)
[2021-03-05 09:12] VITALS: PULSE 70; RESP 18; O2SAT 97
--- NOTE | 2021-03-05 10:24 | P.DS_ITS ---
Discharge Providers Date of Admission: 03/03/21 00:50 Date of Discharge: March 05, 2021 Attending Provider at Admission: Saman Lopez Attending Provider at Discharge: Rob Dill MD Primary Care Provider: Guicho Vega DO Diagnoses at Discharge Discharge Diagnosis (1) Near syncope: Status: Resolved (2) Pericardial effusion: Status: Acute (3) Atrial fibrillation: (4) Acute kidney injury superimposed on CKD: (5) Acute hypotension: Status: Resolved (6) Status post coronary artery bypass graft: (7) Dehydration: Status: Resolved Reason for Visit Reason for Visit: low Bp , low HR post 2 week open heart surgery Hospital Course Hospital Course 65 year old male with past medical history of hypertension, diabetes, dy slipidemia, coronary artery disease, who underwent CABG by Dr. Batista 2 weeks ago. Today he is presenting to emergency room due to complaints of lightheadedness, dizziness and low blood pressure. He was admitted for the management of Near syncope likely 2/2 Acute hypotension likley 2/2 dehydration,medications,as well as pre renal JEFFREY.During the hospital stay he was adequately rehydrated with I.V Fluids, anti hypertensions medications were initially kept on hold.Amlodipine was discontinued on discharge, lisinopril and carvedilol was kept on hold for a week till he see his pcp or clinical geneticist for further medication optimization.He was in sinus rhythm during the hospital stay, initially eliquis was kept on hold during the hospital stay, given the new diagnosis of moderate pericardial efusion likely post op result of recent CABG, and the possibility of any intervention.It was resumed on discharge.Pericardial effusion will need to be reevaluated in some time post discharge with 2D echo if deemed necessary by his good clinical geneticist/CTS.Orthostatic vital signs were negative. At the time of discharge JEFFREY has resolved SCR was at its baseline.His vitals were stable,he responded well to the above medical management andw was discharged in stable condition to home to follow hip PCP,clinical geneticist as well as CTS as outpatient. Physical Exam Const: COMMON NORMALS: patient oriented x3 HENMT: COMMON NORMALS: normocephalic and atraumatic HEAD & SCALP: normocephalic and atraumatic Resp: COMMON NORMALS: clear to auscultation bilaterally EFFORT & INSPECTION: Yes symmetric chest movement AUSCULTATION: clear to auscultation bilaterally Cardio: COMMON NORMALS: regular rate, regular rhythm, S1 normal heart sound present, S2 normal heart sound present, No gallops present (Cardio), No murmurs present (Cardio), No rub (Cardio) and Peripheral pulses 2+ throughout RATE: regular rate RHYTHM: regular rhythm HEART SOUNDS: S1 normal heart sound present and S2 normal heart sound present PERIPHERAL PULSES: Peripheral pulses 2+ throughout GI: COMMON NORMALS: Normal to inspection, nondistended, normoactive bowel sounds present, Soft to palpation, non-tender, No hepatosplenomegaly present and no masses AUSCULTATION: Yes normoactive bowel sounds PALPATION: Yes Soft to palpation and Yes No hepatosplenomegaly present RECTAL EXAM: Yes deferred Extremity: COMMON NORMALS: no clubbing, cyanosis or edema and no pedal edema Neuro: COMMON NORMALS: patient oriented x3 Discharge Data Data Completed and Pending: Completed Studies During Hospitalization Category Date Time Status XR chest 1V fahad ble [id number] Stat Exams 03/02/21 21:51 Completed CV. echo complete * [id number] Routine Ultrasound 03/02/21 23:59 Completed Pending at discharge Category Date Time Status Urinalysis Stat Lab 03/02/21 23:38 Uncollected Labs from last 24 hours 03/05/21 03/05/21 03/05/21 06:54 04:08 04:08 WBC 7.1 RBC 3.03 L Hgb 8.8 L Hct 28.2 L MCV 93.1 MCH 29.0 MCHC 31.2 RDW 14.0 Plt Count 271 MPV 10.0 Neut % (Auto) 55.5 Lymph % (Auto) 24.5 Brooke % (Auto) 7.8 Eos % (Auto) 10.6 Baso % (Auto) 1.3 Neut # (Auto) 3.94 Lymph # (Auto) 1.7 Brooke # (Auto) 0.6 Eos # (Auto) 0.8 Baso # (Auto) 0.1 Nucleated RBC % (a uto) 0 Nucleated RBCs # 0.0 Sodium 138 Potassium 3.6 Chloride 100 Carbon Dioxide 29 Anion Gap 12.6 BUN 17 Creatinine 0.8 GFR Calculation 96.7 Glucose 106 POC Glucose 130 H Calculated Osmolal ity 288 Calcium 9.0 TSH Free T4 03/05/21 03/04/21 03/04/21 04:08 20:09 16:29 WBC RBC Hgb Hct MCV MCH MCHC RDW Plt Count MPV Neut % (Auto) Lymph % (Auto) Brooke % (Auto) Eos % (Auto) Baso % (Auto) Neut # (Auto) Lymph # (Auto) Brooke # (Auto) Eos # (Auto) Baso # (Auto) Nucleated RBC % (a uto) Nucleated RBCs # Sodium Potassium Chloride Carbon Dioxide Anion Gap BUN Creatinine GFR Calculation Glucose POC Glucose 201 H 125 H Calculated Osmolal ity Calcium TSH 8.96 H Free T4 1.28 03/04/21 11:24 WBC RBC Hgb Hct MCV MCH MCHC RDW Plt Count MPV Neut % (Auto) Lymph % (Auto) Brooke % (Auto) Eos % (Auto) Baso % (Auto) Neut # (Auto) Lymph # (Auto) Brooke # (Auto) Eos # (Auto) Baso # (Auto) Nucleated RBC % (a uto) Nucleated RBCs # Sodium Potassium Chloride Carbon Dioxide Anion Gap BUN Creatinine GFR Calculation Glucose POC Glucose 111 H Calculated Osmolal ity Calcium TSH Free T4 Vitals: Last Vital Signs Temp 97.6 F 03/05/21 08:00 Pulse 70 03/05/21 09:12 Resp 18 03/05/21 09:12 BP 146/71 03/05/21 08:00 Pulse Ox 97 03/05/21 09:12 Discharge Plan Discharge Patient Disposition: Home Condition: Stable Prescriptions: Continued allopurinol 300 mg tablet 300 mg PO DAILY RF: 0 atorvastatin 80 mg tablet 80 mg PO DAILY RF: 0 docusate sodium 100 mg capsule 100 mg PO BID RF: 0 ferrous sulfate 325 mg (65 mg iron) tablet 325 mg PO BID RF: 0 fluticasone propionate [Allergy Relief (fluticasone)] 50 mcg/actuation spray,suspension 2 spray INTRANASAL DAILY PRN (Reason: Allergy Symptoms) RF: 0 hydrochlorothiazide 25 mg tablet 25 mg PO QAM RF: 0 omeprazole 20 mg tablet,delayed release (DR/EC) 20 mg PO BID RF: 0 pioglitazone 30 mg tablet 30 mg PO DAILY RF: 0 gabapentin 300 mg capsule 300 mg PO BID RF: 0 tamsulosin 0.4 mg Capsule 0.8 mg PO BEDTIME RF: 0 venlafaxine [Effexor XR] 37.5 mg Capsule,Extended Release 24hr 37.5 mg PO DAILY RF: 0 aspirin 81 mg Tablet,Delayed Release (Dr/Ec) 81 mg PO QAM RF: 0 albuterol sulfate [ProAir HFA] 90 mcg/actuation Hfa Aerosol Inhaler 2 puff INHALATION Q4H PRN (Reason: Shortness Of Breath) RF: 0 apixaban 5 mg Tablet 5 mg PO BID RF: 0 Cardizem CD 120 mg Capsule,Extended Release 24hr 120 mg PO DAILY RF: 0 Vitamin D3 125 mcg (5,000 unit) Tablet 125 mcg PO DAILY RF: 0 amiodarone 200 mg tablet 200 mg PO BID Qty: 60 RF: 2 hydrocodone-acetaminophen 5-325 mg tablet 1 tab PO Q8H PRN (Reason: pain) Qty: 30 RF: 0 Held lisinopril 40 mg tablet 40 mg PO DAILY RF: 0 Hold Instructions: Resume on 03/12/21. carvedilol 6.25 mg Tablet 6.25 mg PO BID Qty: 60 RF: 4 Hold Instructions: Resume on 03/12/21. Discontinued cetirizine 10 mg capsule 10 mg PO QAM RF: 0 amlodipine 5 mg Tablet 5 mg PO BID Qty: 60 RF: 4 Discharge Orders: Discharge Order (Routine); Ordered 03/05/21 Ordered By: Rob Dill Referrals: [facility] ([facility]) [Outside] Arpit Marcano M.D [Physician] - 04/01/21 9:45 am ([facility] will contcat you to schedule an follow-up appointment with Dr. Marcano in 1 month. If you haven't heard from them by Sunday. Please all ) Guicho Vega, DO [Primary Care Provider] - (Please call for an follow-up with Dr. Vega in 4 to 7 days. ) Francoise Bentley FNP [Nurse Practitioner] - 03/14/21 2:45 pm ([facility] will contact you to schedule an follow-up appointment with Francoise Bentley in 1 week. If you haven't heard from them by Sunday morning. Please call ) Discharge Diet: Cardiac Discharge Activity: Increase activity as tolerated Patient Instructions: Syncope (DC), Pericardial Effusion (DC) Discharge Attestations Time Spent in Discharge Care*: less than 30 min Specific Discharge Activities: educating patient, educating and/or supporting family/caregiver, discussing with pcp/other providers, discussing with casework manager/social workers/dc planners, documenting/other paperwork and evaluating patient/reviewing data Status at Discharge: Cognitive status at discharge: cognitively intact , Behavioral status at discharge: cooperative , Quality Metrics Clinical Quality Measures During this hospital stay, did patient experience: None Coding Level of Care Code Acute Chg FW DC note Diagnoses Near syncope R55 Pericardial effusion I31.3 Atrial fibrillation I48.91 Acute kidney injury superimposed on CKD N17.9; N18.9 Acute hypotension I95.9 Status post coronary artery bypass graft Z95.1 Dehydration E86.0
[2021-03-05 11:14] VITALS: PULSE 70; RESP 26; O2SAT 96
== END 2021-03-05 12:00 | disposition home or self-care (01) ==
LOC: ER 23:57 → CSU 03-03 00:47
PROVIDERS: Admitting Provider Internal Medicine; Emergency Provider Emergency Medicine; PCP Emergency Medicine Emergency Medical Services; Visit Provider Internal Medicine
DX: I95.9 Hypotension, unspecified (principal); R55 Syncope and collapse; I48.91 Unspecified atrial fibrillation; I12.9 Hypertensive chronic kidney disease with stage 1 through stage 4 chronic kidney disease, or unspecified chronic kidney disease; E11.22 Type 2 diabetes mellitus with diabetic chronic kidney disease; N18.9 Chronic kidney disease, unspecified; N17.9 Acute kidney failure, unspecified; I31.3 Pericardial effusion (noninflammatory); E86.0 Dehydration; E11.9 Type 2 diabetes mellitus without complications; E78.5 Hyperlipidemia, unspecified; E78.00 Pure hypercholesterolemia, unspecified; I25.10 Atherosclerotic heart disease of native coronary artery without angina pectoris; Z79.82 Long term (current) use of aspirin; Z79.01 Long term (current) use of anticoagulants; Z79.899 Other long term (current) drug therapy; Z95.1 Presence of aortocoronary bypass graft; Z82.49 Family history of ischemic heart disease and other diseases of the circulatory system
CPT/HCPCS: 36415; 36416; 71045; 80048; 80053; 82962; 83605; 83735; 83880; 84439; 84443; 84484; 85025; 85610; 93005; 93306; 96360; 96361; 96372; 97116; 97162; 97165; 99285; G0378; J1815; J7030; J7040

== ENCOUNTER → 2021-04-12 13:39 | Outpatient (BNVA) | payer OTHER, SELFPAY | PROVIDERS: PCP Emergency Medicine Emergency Medical Services; Visit Provider Specialist | DX: G40.219 Localization-related (focal) (partial) symptomatic epilepsy and epileptic syndromes with complex partial seizures, intractable, without status epilepticus (principal); R51.9 Headache, unspecified; Z87.891 Personal history of nicotine dependence | CPT/HCPCS: 99214 ==

== ENCOUNTER 2021-07-05 12:29 | Emergency (ER) | payer OTHER, MEDICARE, SELFPAY ==
[2021-07-05 12:37] VITALS: BP 166/85; PULSE 55; RESP 18; TEMP 36.8; O2SAT 96; BMI 30.7
[2021-07-05 12:43] VITALS: BP 146/88; PULSE 57; RESP 18; TEMP 36.2; O2SAT 96
[2021-07-05 12:58] LABS: Add Urine Microscopic? NO; Charge for UA Resulting for Rev
--- NOTE | 2021-07-05 13:05 | ECG_ITS ---
[facility] Test Date: 2021-07-05 Pat Name: Vinh Taylor Department: Room: Gender: Male Lpn Per Diem: : 1955 Requested By: Kailey Bender Order Number: [id number] Bravo MD: Arpit Marcano M.D. Measurements Intervals Marlette Rate: 55 P: 58 NJ: 180 QRS: 94 QRSD: 100 T: -62 QT: 441 QTc: 424 Interpretive Statements SINUS BRADYCARDIA BORDERLINE RIGHT AXIS DEVIATION [QRS AXIS > 90] NONSPECIFIC T-WAVE ABNORMALITY Compared to ECG 03/03/2021 05:45:31 Sinus rhythm no longer present T-wave abnormality still present Electronically Signed On 07-05-2021 22:24:58 CDT by Arpit Marcano M.D. [id number]
[2021-07-05 13:06] LABS: Bilirubin Urine Neg (Negative); Blood Urine Neg (Negative); Glucose Urine UA Norm (Normal); Ketones Urine Negative (Negative); Leukocyte Esterase Urine Negative (Negative); Nitrate Urine Negative (Negative); Protein Urine Neg (Negative); Specific Gravity, Urine 1.005 (1.005-1.030); Urine Appearance Clear (CLEAR); Urine Color Yellow (Yellow); Urobilinogen Urine Neg (Negative); pH Urine 7 (5-7)
[2021-07-05 13:13] VITALS: BP 154/91; PULSE 57; RESP 18; TEMP 36.2; O2SAT 96
--- NOTE | 2021-07-05 13:16 | XR_ITS ---
WS: [id number] Portable AP upright chest, 07/05/2021 Clinical Data: eval per mo hospital Comparison: Portable chest, 03/02/2021. Findings: No nodules, masses or effusions are seen. The heart is slightly enlarged. The pulmonary vas cularity is not increased. No pneumonia or pneumothorax is seen. The aortic arch and descending thora cic aorta show minimal calcification and tortuosity. Midline sternotomy sutures are present. There is a healed right midclavicular fracture. XR/XR chest 1V portable [id number] Impression: Atherosclerosis and cardiomegaly.
--- NOTE | 2021-07-05 13:19 | PC.NURSE ---
Per Francoise @[place], pt [facility] to [facility]. They initially were going to obtain CXR & lab there, but their emissions repair technician is out so they referred him to [facility].
--- NOTE | 2021-07-05 13:19 | W.ED.GENADLT ---
HPI - General Adult General: Chief complaint: Nausea/Vomiting/Diarrhea Stated complaint: Vomiting Time Seen by Provider: 07/05/21 12:44 History of Present Illness: Patient is a 66-year-old male with history of cholecystectomy, afib on eliquis who presents the emergency room for evaluation of vomiting x1 day. Patient report having one episode of vomitus that looks dark and coffee colored. Patient went to the [facility] was told to come to the emergency room since there is no electronic lab technician who was on today. Patient denies any melena or hematochezia. 1970s, patient had an episode of duodenal peptic ulcer. Patient recently underwent EGD in August with finding of gastritis and reflux. Patient denies any more episodes of vomiting today. Denies any acute abdominal pain. Patient is a Onset: 1 day ago Duration:once Location:home Severity:moderate Associated symptoms: Reports vomiting (+dark vomitus x 1 episode); Deny chest pain, dyspnea, nausea, rash or palpitations Review of Systems Const: Denies: fever(s) or chills Eyes: Denies: change in vision ENMT: Denies: mouth pain Card: Denies: chest pain or palpitations Resp: Denies: dyspnea or non-productive cough GI: Reports: vomiting (+dark vomitus x 1 episode); Denies: abdominal pain, nausea or diarrhea : Denies: dysuria Musc: Denies: extremity pain Skin/Breast: Denies: rash or new lesions Neuro: Denies: weakness in extremities Psych: Reports: other (Normal mood) Donny/Lymph: Denies: easy bruising PFSH ED PFSH: Medical History Acute kidney injury superimposed on CKD Afib Anticoagulation adequate with anticoagulant therapy Atherosclerosis of coronary artery Atrial fibrillation Carotid stenosis Chronic kidney disease (CKD) Diabetes Gastritis Hypercholesteremia Hypertension Left main coronary artery disease Nausea and vomiting Spinal stenosis, lumbar region, with neurogenic claudication Spondylolisthesis, lumbar region Surgical History History of jeremiah hole surgery Twist drill drainage of bilateral subdural hematomas, 12/20/2016, [facility] [place] History of esophagogastroduodenoscopy (EGD) (~05/2019) History of laparoscopic cholecystectomy (~06/2019) History of lumbar laminectomy Bilateral L4-L5 laminotomy/foraminotomy/limited facetectomy Previous back surgery Status post aorto-coronary artery bypass graft Family History Other CAD (coronary artery disease) Cancer Diabetes Hypertension Stroke Denies family history of Anesthesia complication Bleeding disorder Social History Smoking and tobacco status: former smoker Alcohol intake: former Lives independently: Yes Marital status: Current occupational status: retired History of recent travel: No Physical Exam Const: COMMON NORMALS: alert HENMT: COMMON NORMALS: atraumatic HEAD & SCALP: atraumatic MOUTH: moist mucous membranes not abnormal Eye: COMMON NORMALS: EOMs intact bilaterally and conjunctivae normal CONJUNCTIVA: Yes conjunctivae normal Neck/C-Spine: COMMON NORMALS: full ROM and supple Resp: COMMON NORMALS: normal respiratory effort and clear to auscultation bilaterally AUSCULTATION: clear to auscultation bilaterally Cardio: COMMON NORMALS: regular rate RATE: regular rate GI: COMMON NORMALS: Soft to palpation and non-tender PALPATION: Yes Soft to palpation OTHER: No focal TTP. NO guarding rebound, guarding, rigidity. No CVA tenderness to percussion. Neg Cyr/Neg McBurney's point tenderness, no suprabupic tenderness to palpation. : OTHER: +hemoocult negative brown stool Extremity: COMMON NORMALS: full ROM Neuro: SENSORIUM/ORIENTATION: Yes alert MOTOR EXAM: No Abnormal motor strength present and Other motor observations present (no focal motor deficits) Psych: COMMON NORMALS: speech normal SPEECH: Yes normal speech MOOD & AFFECT: Yes euthymic mood Course Vital Signs: Vital signs: Vital Signs Temperature 97.8 F 07/05/21 14:48 Pulse Rate 66 07/05/21 14:48 Respiratory Rate 18 07/05/21 14:48 Blood Pressure 169/82 07/05/21 14:48 Pulse Oximetry 96 07/05/21 13:13 [facility] - General Adult Medical Decision Making 66-year-old male with history of atrial fibrillation on Eliquis, CKD, chronic abdominal pain with vomiting who presents the emergency room for evaluation of 1 episode of dark vomitus yesterday. Patient has not had any significant vomiting today. Rectal exam showed hemoocult negative stool. Patient's hemoglobin of 14 today which is a significant improvement from baseline of 8-9. Patient has not had any active vomiting in the emergency room. Given the fact that patient is on Eliquis, case was discussed with Dr. Sullivan who recommended offering patient admission versus close follow-up. At 1:58pm I have offered patient admission for inpatient admission with urgent EGD. However patient declined to be admitted today stating I have been in the hospital way too many times. I discussed the risk which include possible upper GI bleed and the fact the patient is on anticoagulation. Patient verbalized understanding of the risk and still desires to go home. I discussed her case with our leather case finisher Karen who schedule patient for an appointment at [address] Sullivan. Patient is aware of this appointment. I have given patient strict return precaution for any signs of rectal bleeding including melena hematochezia or any other episodes of vomiting or abdominal pain or any hemoptysis or coffee-ground emesis. Patient verbalized understanding of everything discussed today. Disposition: discharge, Lab Data : 07/05/21 13:15 07/05/21 13:15 Radiology Impressions Chest X-Ray 07/05/21 13:16 Impression: Atherosclerosis and cardiomegaly. Laboratory Results WBC 6.3 10^3/uL (4.0-10.0) 07/05/21 13:15 RBC 4.64 10^6/uL (4.1-5.3) 07/05/21 13:15 Hgb 14.0 g/dL (11.7-16.6) 07/05/21 13:15 Hct 42.9 % (42.0-52.0) 07/05/21 13:15 MCV 92.5 fl (80-94) 07/05/21 13:15 MCH 30.2 pg (28.0-34.0) 07/05/21 13:15 MCHC 32.6 g/dL (30.0-36.0) 07/05/21 13:15 RDW 15.9 % (12.1-15.1) H 07/05/21 13:15 Plt Count 168 10^3/cmm (130-400) 07/05/21 13:15 MPV 10.9 fL (7.4-10.4) H 07/05/21 13:15 Neut % (Auto) 69.1 % 07/05/21 13:15 Lymph % (Auto) 18.7 % 07/05/21 13:15 Grant % (Auto) 7.3 % 07/05/21 13:15 Eos % (Auto) 3.7 % 07/05/21 13:15 Baso % (Auto) 1.0 % 07/05/21 13:15 Neut # (Auto) 4.33 10^3/uL (1.8-7.7) 07/05/21 13:15 Lymph # (Auto) 1.2 10^3/uL (0.8-4.8) 07/05/21 13:15 Grant # (Auto) 0.5 10^3/uL (0.2-0.9) 07/05/21 13:15 Eos # (Auto) 0.2 10^3/uL (0.0-0.8) 07/05/21 13:15 Baso # (Auto) 0.1 10^3/uL (0.0-0.1) 07/05/21 13:15 Nucleated RBC % (auto) 0 % 07/05/21 13:15 Nucleated RBCs # 0.0 /100WBC 07/05/21 13:15 Sodium 137 mmol/L (136-145) 07/05/21 13:15 Potassium 3.9 mmol/L (3.5-5.1) 07/05/21 13:15 Chloride 97 mmol/L (98-107) L 07/05/21 13:15 Carbon Dioxide 30 mmol/L (22-29) H 07/05/21 13:15 Anion Gap 13.9 (5-19) 07/05/21 13:15 BUN 16 mg/dL (8-23) 07/05/21 13:15 Creatinine 1.2 mg/dL (0.7-1.2) 07/05/21 13:15 GFR Calculation 60.4 mL/min (90-130) L 07/05/21 13:15 Glucose 109 mg/dL (65-115) 07/05/21 13:15 Calculated Osmolality 286 mOsm/kg (285-295) 07/05/21 13:15 Calcium 8.6 mg/dL (8.5-10.5) 07/05/21 13:15 Total Bilirubin 0.4 mg/dL (0.15-1.2) 07/05/21 13:15 AST 19 U/L (0-40) 07/05/21 13:15 ALT 14 U/L (0-41) 07/05/21 13:15 Alkaline Phosphatase 98 IU/L (40-130) 07/05/21 13:15 Troponin T Baseline 12 ng/L (0-15) 07/05/21 13:15 Total Protein 6.6 g/dL (6.6-8.7) 07/05/21 13:15 Albumin 4.3 g/dL (3.5-5.2) 07/05/21 13:15 Globulin 2.3 g/dL (1.3-4.6) 07/05/21 13:15 Lipase 42 U/L (13-60) 07/05/21 13:15 Urine Color Yellow (Yellow) 07/05/21 12:50 Urine Appearance Clear (CLEAR) 07/05/21 12:50 Urine pH 7 (5-7) 07/05/21 12:50 Ur Specific Henry 1.005 (1.005-1.030) 07/05/21 12:50 Urine Protein Neg (Negative) 07/05/21 12:50 Urine Glucose (UA) Norm (Normal) 07/05/21 12:50 Urine Ketones Negative (Negative) 07/05/21 12:50 Urine Blood Neg (Negative) 07/05/21 12:50 Urine Nitrate Negative (Negative) 07/05/21 12:50 Urine Bilirubin Neg (Negative) 07/05/21 12:50 Urine Urobilinogen Neg mg/dL (Negative) 07/05/21 12:50 Ur Leukocyte Esterase Negative (Negative) 07/05/21 12:50 Discharge Plan Discharge Patient Disposition: Home Clinical Impression: Vomiting Condition: Stable Prescriptions: New pantoprazole 40 mg tablet,delayed release (DR/EC) 40 mg PO DAILY 28 Days 0RF Discontinued omeprazole 20 mg tablet,delayed release (DR/EC) 20 mg PO BID 0RF No Action allopurinol 300 mg tablet 300 mg PO DAILY 0RF atorvastatin 80 mg tablet 80 mg PO DAILY 0RF docusate sodium 100 mg capsule 100 mg PO BID 0RF ferrous sulfate 325 mg (65 mg iron) tablet 325 mg PO BID 0RF fluticasone propionate [Allergy Relief (fluticasone)] 50 mcg/actuation spray,suspension 2 spray INTRANASAL DAILY PRN (Reason: Allergy Symptoms) 0RF hydrochlorothiazide 25 mg tablet 25 mg PO QAM 0RF lisinopril 40 mg tablet 40 mg PO DAILY 0RF Hold Instructions: Resume on 03/12/21. pioglitazone 30 mg tablet 30 mg PO DAILY 0RF gabapentin 300 mg capsule 300 mg PO BID 0RF tamsulosin 0.4 mg Capsule 0.8 mg PO BEDTIME 0RF venlafaxine [Effexor XR] 37.5 mg Capsule,Extended Release 24hr 37.5 mg PO DAILY 0RF aspirin 81 mg Tablet,Delayed Release (Dr/Ec) 81 mg PO QAM 0RF albuterol sulfate [ProAir HFA] 90 mcg/actuation Hfa Aerosol Inhaler 2 puff INHALATION Q4H PRN (Reason: Shortness Of Breath) 0RF apixaban 5 mg Tablet 5 mg PO BID 0RF Cardizem CD 120 mg Capsule,Extended Release 24hr 120 mg PO DAILY 0RF Vitamin D3 125 mcg (5,000 unit) Tablet 125 mcg PO DAILY 0RF carvedilol 6.25 mg Tablet 6.25 mg PO BID Qty: 60 4RF Hold Instructions: Resume on 03/12/21. amiodarone 200 mg tablet 200 mg PO BID Qty: 60 2RF Discharge Orders: Discharge ED (Routine); Ordered 07/05/21 Ordered By: Kailey Bender Referrals: Paco Sullivan MD [Physician] - 07/06/21 3:30 pm Guicho Vega DO [Primary Care Provider] - Discharge Diet: Advance as tolerated Discharge Activity: Increase activity as tolerated Activity Restrictions/Additional Instructions: You have an appointment with Dr. Salter at 07/06/2021 at 3:30pm. Please call with Dr. Sullivan office or call the emergency room for us to help you locate his office. Come back to the emergency room for any worsening vomiting episodes, lightheadedness, feeling fatigued, blood or dark vomit okay dark or tarry stool, or any abdominal pain. Coding Level of Care Code ED Reel Stripper for Chg Fwd Exam Comprehensive
[2021-07-05 13:31] LABS: Basophils # 0.1 10^3/uL (0.0-0.1); Eosinophils # 0.2 10^3/uL (0.0-0.8); Eosinophils % 3.7 %; Hematocrit 42.9 % (42.0-52.0); Lymphocytes # 1.2 10^3/uL (0.8-4.8); Lymphocytes % 18.7 %; Mean Corpuscular HGB Conc 32.6 g/dL (30.0-36.0); Mean Corpuscular Hemoglobin 30.2 pg (28.0-34.0); Mean Corpuscular Volume 92.5 fl (80-94); Mean Platelet Volume 10.9 fL (7.4-10.4); Monocytes # 0.5 10^3/uL (0.2-0.9); Monocytes % 7.3 %; Neutrophils # 4.33 10^3/uL (1.8-7.7); Neutrophils % 69.1 %; Nucleated Red Blood Cells % 0 %; Platelet Count 168 10^3/cmm (130-400); Red Blood Count 4.64 10^6/uL (4.1-5.3); Red Cell Distribution Width 15.9 % (12.1-15.1); White Blood Count 6.3 10^3/uL (4.0-10.0)
--- NOTE | 2021-07-05 13:32 | PC.NURSE ---
Hemocult was negative
--- NOTE | 2021-07-05 13:50 | DCPLANNER ---
Addendum entered by Becky Starr 07/29/21 08:26: Patient had a follow up appointment scheduled for 07.06.21 with general surgery - patient did attend appointment. Original Note: ediscovery project manager was asked to schedule a follow up appointment for patient with general surgery. ediscovery project manager called the General Surgery clinic, spoke with Raysa, gave clinic patients information. A follow up appointment was scheduled for Sunday, July 06, 2021 at 3:[address] Sullivan at [facility] General Surgery. ediscovery project manager informed patient and physician of the scheduled appointment.
[2021-07-05 13:51] LABS: Troponin(5th) Baseline 12 ng/L (0-15)
[2021-07-05 14:02] LABS: Alanine Aminotransferase 14 U/L (0-41); Albumin Level 4.3 g/dL (3.5-5.2); Alkaline Phosphatase 98 IU/L (40-130); Aspartate Amino Transferase 19 U/L (0-40); Blood Urea Nitrogen 16 mg/dL (8-23); Calcium 8.6 mg/dL (8.5-10.5); Carbon Dioxide 30 mmol/L (22-29); Chloride 97 mmol/L (98-107); Globulin 2.3 g/dL (1.3-4.6); Glomerular Filtration Rate 60.4 mL/min (90-130); Glucose 109 mg/dL (65-115); Lipase 42 U/L (13-60); Osmolality Calculated 286 mOsm/kg (285-295); Sodium 137 mmol/L (136-145); Total Bilirubin 0.4 mg/dL (0.15-1.2); Total Protein 6.6 g/dL (6.6-8.7)
[2021-07-05 14:06] LABS: Anion Gap 13.9 (5-19); Potassium 3.9 mmol/L (3.5-5.1)
[2021-07-05 14:48] VITALS: BP 169/82; PULSE 66; RESP 18; TEMP 36.6
== END 2021-07-05 14:49 | disposition home or self-care (01) ==
PROVIDERS: Emergency Provider Emergency Medicine; PCP Emergency Medicine Emergency Medical Services
DX: R11.11 Vomiting without nausea (principal); Z79.82 Long term (current) use of aspirin; I25.10 Atherosclerotic heart disease of native coronary artery without angina pectoris; E11.9 Type 2 diabetes mellitus without complications; I10 Essential (primary) hypertension; Z95.1 Presence of aortocoronary bypass graft; Z87.891 Personal history of nicotine dependence
CPT/HCPCS: 71045; 80053; 81003; 83690; 84484; 85025; 93005; 99283

== ENCOUNTER 2021-07-08 08:01 | Day surgery (SDC) | payer OTHER, MEDICARE, SELFPAY ==
[2021-07-07 12:17] VITALS: BMI 30.7
--- NOTE | 2021-07-08 08:10 | ANES.PREANE2 ---
Pre-Anesthetic Assessment Height/Weight: Height 1.73 m Weight 91.626 kg Preop Diagnosis: Chest pain/unstable angina: Left Main stenosis Operation Date: 07/08/21 09:30 Proposed Procedures p EGD 44616/r11.10(Not Applicable) - Paco Sullivan MD Familial anesthetic complications: took a while to wake up after his CEA Was Beta Denae taken within 24 hours: Yes Was Clonidine taken within 24 hours: N/A Last intake: > 8hrs Social No alcohol and No tobacco Exam alert, oriented x 3, clear to auscultation bilaterally and regular rate & rhythm Airway Mallampati: Class III Dentition: false Comments: Comments: full hall Pulmonary None reported CV/HEM Coronary Artery Disease (cabg feb 14 w/ anguiano after finding severe left main disease on cath ) and Hypertension GI Gastroesophageal Reflux Disease and Hiatal Hernia Metabolic Diabetes Mellitus and Hyperlipidemia Neuropsych Seizure (last one a week ago - currently being worked up by ronn (she says they are migraines)) and Transient Ischemic Attack hx of head trauma few years back Anesthetic Plan ASA status: 4 Anesthesia: MAC Medications/Allergies Home Medications Medication Instructions Recorded Confirmed Last Taken Type allopurinol 300 mg tablet 300 mg PO DAILY 05/06/19 07/07/21 03/02/21 08:00 History atorvastatin 80 mg tablet 80 mg PO DAILY 05/06/19 07/07/21 03/02/21 08:00 History docusate sodium 100 mg capsule 200 mg PO BID 05/06/19 07/07/21 03/02/21 20:00 History ferrous sulfate 325 mg (65 mg 325 mg PO BID 05/06/19 07/07/21 03/02/21 17:00 History iron) tablet fluticasone propionate 50 2 spray INTRANASAL DAILY PRN 05/06/19 07/07/21 02/13/21 History mcg/actuation nasal spray,suspension (Allergy Relief (fluticasone)) hydrochlorothiazide 25 mg tablet 25 mg PO QAM 05/06/19 07/07/21 03/02/21 08:00 History lisinopril 40 mg tablet 40 mg PO DAILY 05/06/19 07/07/21 03/02/21 08:00 History pioglitazone 30 mg tablet 30 mg PO DAILY 05/06/19 07/07/21 03/02/21 08:00 History tamsulosin 0.4 mg capsule 0.8 mg PO BEDTIME 05/27/19 07/07/21 03/02/21 20:00 History gabapentin 300 mg capsule 300 mg PO BID cap 10/14/19 07/07/21 03/02/21 20:00 History albuterol sulfate 90 mcg/actuation 2 puff INHALATION Q4H PRN 01/14/21 07/07/21 03/02/21 History aerosol inhaler (ProAir HFA) apixaban 5 mg tablet 5 mg PO BID 01/14/21 07/07/21 03/02/21 20:00 History aspirin 81 mg tablet,delayed 81 mg PO QAM 01/14/21 07/07/21 03/02/21 08:00 History release venlafaxine 37.5 mg 37.5 mg PO DAILY 01/14/21 07/07/21 03/02/21 08:00 History capsule,extended release 24 hr (Effexor XR) amiodarone 200 mg tablet 200 mg PO BID #60 tab 02/21/21 07/07/21 03/02/21 20:00 Rx carvedilol 6.25 mg tablet 6.25 mg PO BID #60 tab 02/21/21 07/07/21 03/02/21 21:00 Rx cholecalciferol (vitamin D3) 125 125 mcg PO DAILY 03/03/21 07/07/21 03/02/21 08:00 History mcg (5,000 unit) tablet (Vitamin D3) diltiazem HCl 120 mg 120 mg PO DAILY 03/03/21 07/07/21 03/02/21 08:00 History capsule,extended release 24 hr (Cardizem CD) pantoprazole 40 mg tablet,delayed 40 mg PO DAILY 28 Days tab 07/05/21 07/07/21 Unknown Rx release Allergies Allergy/AdvReac Type Severity Reaction Status Date / Time codeine Allergy Intermediate ALGY-Swell Verified 07/07/21 15:22 Lip/Tongue/Throat [facility] Anesthesia Medical History (Updated 07/07/21 @ 15:25 by Paco Sullivan MD) Acute kidney injury superimposed on CKD Afib Anticoagulation adequate with anticoagulant therapy Atherosclerosis of coronary artery Atrial fibrillation Carotid stenosis Chronic kidney disease (CKD) Diabetes Diabetic gastroparesis Gastritis Hypercholesteremia Hypertension Left main coronary artery disease Nausea and vomiting Spinal stenosis, lumbar region, with neurogenic claudication Spondylolisthesis, lumbar region Surgical History History of jeremiah hole surgery Twist drill drainage of bilateral subdural hematomas, 12[place]20/[place] [facility] [place] History of esophagogastroduodenoscopy (EGD) (~05/2019) History of laparoscopic cholecystectomy (~06/2019) History of lumbar laminectomy Bilateral L4-L5 laminotomy/foraminotomy/limited facetectomy Previous back surgery Status post aorto-coronary artery bypass graft Family History Other CAD (coronary artery disease) Cancer Diabetes Hypertension Stroke Denies family history of Anesthesia complication Bleeding disorder Social History Smoking and tobacco status: former smoker Alcohol intake: former Lives independently: Yes Marital status: Current occupational status: retired History of recent travel: No Data Anesthesia Cardiac Studies: Echocardiogram 03/02/21
[2021-07-08 08:45] VITALS: BP 136/86; PULSE 58; RESP 18; TEMP 36.2; O2SAT 94
[2021-07-08] MEDS: sodium chloride 0.9% 1,000 ML 30 ML IV (09:02)
--- NOTE | 2021-07-08 09:36 | W.PM.OPSUD ---
Surgery/Procedure H&P Update DATE OF PROCEDURE: July 08, 2021 DATE H&P PERFORMED: 07/06/21 CHANGES TO PREVIOUS DOCUMENTATION: none PREOP DIAGNOSIS: Coffee-ground emesis PRIMARY INDICATION FOR PROCEDURE: the same PLANNED PROCEDURE: Operation Date: 07/08/21 09:30 Proposed Procedures p EGD 85597/r11.10(Not Applicable) - Paco uSllivan MD
--- NOTE | 2021-07-08 09:55 | PC.NURSE ---
10mL epi soultion injected into gastric ulcer
[2021-07-08 10:00] VITALS: BP 130/68; PULSE 48; RESP 16; TEMP 36.1; O2SAT 97
--- NOTE | 2021-07-08 10:02 | ANE.PACU2 ---
Inpatient post-anesthesia follow up: Airway intact: Yes Vital signs: Temperature 97.0 F Pulse Rate 48 Respiratory Rate 16 Blood Pressure 130/68 Pulse Oximetry 97 Oxygen Delivery Me thod Room Air Oxygen Flow Rate Fraction of Inspir ed Oxygen Hydration adequate: Yes Nausea and vomiting: No Pain level: 1 Mental status: Baseline
[2021-07-08 10:09] VITALS: BP 151/70; PULSE 48; RESP 18; O2SAT 97
== END 2021-07-08 10:20 | disposition home or self-care (01) ==
PROVIDERS: PCP Emergency Medicine Emergency Medical Services; Visit Provider Surgery
PROC: 0DJ08ZZ Inspection of Upper Intestinal Tract, Via Natural or Artificial Opening Endoscopic (ICD-10-PCS; CPT 43235; principal; 2021-07-08 09:30)
DX: R11.10 Vomiting, unspecified (principal); K21.00 Gastro-esophageal reflux disease with esophagitis, without bleeding; K44.9 Diaphragmatic hernia without obstruction or gangrene; K25.3 Acute gastric ulcer without hemorrhage or perforation; K29.70 Gastritis, unspecified, without bleeding; I25.10 Atherosclerotic heart disease of native coronary artery without angina pectoris; Z95.1 Presence of aortocoronary bypass graft; E78.5 Hyperlipidemia, unspecified; Z86.73 Personal history of transient ischemic attack (TIA), and cerebral infarction without residual deficits; Z79.82 Long term (current) use of aspirin; I48.91 Unspecified atrial fibrillation; Z79.01 Long term (current) use of anticoagulants; E11.22 Type 2 diabetes mellitus with diabetic chronic kidney disease; I12.9 Hypertensive chronic kidney disease with stage 1 through stage 4 chronic kidney disease, or unspecified chronic kidney disease; N18.9 Chronic kidney disease, unspecified; E78.00 Pure hypercholesterolemia, unspecified; Z82.49 Family history of ischemic heart disease and other diseases of the circulatory system; Z87.891 Personal history of nicotine dependence
CPT/HCPCS: 43236; 43239; 88305; J2704; J7030

== ENCOUNTER 2021-07-15 11:07 | Emergency (ER) | payer OTHER, MEDICARE, SELFPAY ==
[2021-07-15 11:14] VITALS: BP 100/64; PULSE 59; RESP 18; TEMP 36.7; O2SAT 97; BMI 30.2
[2021-07-15 11:24] VITALS: TEMP 36.6
--- NOTE | 2021-07-15 11:36 | W.ED.FALL ---
HPI - Fall General: Chief Complaint: Fall Stated Complaint: Head pain, Fell and hit head a couple days ago Time Seen by Provider: 07/15/21 11:36 History of Present Illness: 66-year-old male presents the emergency department chief complaint of recent episode of syncope and collapse he reports he was getting an x-ray done at the [facility] yesterday which while holding his breath for a chest x-ray he collapsed and became unresponsive undisclosed by the time he did strike the back of his head he reported he presents to the emergency department as he been having a headache since that time he reports no neck pain with it. Patient does have a reported history of head bleed requiring surgical management when he was younger. Patient also reports he struck his left thigh. Associated symptoms-after fall: Reports headache(s); Denies abdominal pain or chest pain Review of Systems General: Reports: 10 or more systems reviewed and unremarkable except in HPI and below Const: Denies: fever(s), chills, fatigue or malaise Eyes: Denies: change in vision or blurry vision Card: Denies: chest pain or palpitations Resp: Denies: dyspnea or productive cough GI: Denies: abdominal pain, nausea or vomiting : Denies: flank pain Musc: Reports: extremity pain and joint pain Skin/Breast: Denies: rash or pruritus Neuro: Reports: headache(s) Psych: Denies: anxiety or depression Donny/Lymph: Denies: easy bleeding All/Imm: Denies: urticaria, throat swelling or facial swelling PFSH ED PFSH: Medical History Acute kidney injury superimposed on CKD Afib Anticoagulation adequate with anticoagulant therapy Atherosclerosis of coronary artery Atrial fibrillation Carotid stenosis Chronic kidney disease (CKD) Diabetes Diabetic gastroparesis Gastritis Hypercholesteremia Hypertension Left main coronary artery disease Nausea and vomiting Spinal stenosis, lumbar region, with neurogenic claudication Spondylolisthesis, lumbar region Surgical History History of jeremiah hole surgery Twist drill drainage of bilateral [place]omas[place] [facility] [place] esophagogastroduodenoscopy (EGD) (~05/2019) History of laparoscopic cholecystectomy (~06/2019) History of lumbar laminectomy Bilateral L4-L5 laminotomy/foraminotomy/limited facetectomy Previous back surgery Status post aorto-coronary artery bypass graft Family History Other CAD (coronary artery disease) Cancer Diabetes Hypertension Stroke Denies family history of Anesthesia complication Bleeding disorder Social History Smoking and tobacco status: former smoker Alcohol intake: former Lives independently: Yes Marital status: Current occupational status: retired History of recent travel: No Physical Exam Const: COMMON NORMALS: no acute distress, patient oriented x3 and healthy appearing HENMT: COMMON NORMALS: normocephalic (Mild pain to palpation noted except the area of the scalp no obvious step-o) and atraumatic HEAD & SCALP: normocephalic (Mild pain to palpation noted except the area of the scalp no obvious step-o) and atraumatic Eye: COMMON NORMALS: Equal, round and reactive pupils present and EOMs intact bilaterally PUPIL: Yes Equal, round and reactive pupils present Neck/C-Spine: COMMON NORMALS: full ROM, supple and no JVD Lymph: LYMPHATIC: no lymphadenopathy noted Chest: COMMONS NORMALS: normal inspection of the chest and normal palpation of entire chest wall Resp: COMMON NORMALS: normal respiratory effort, No retractions and clear to auscultation bilaterally EFFORT & INSPECTION: Yes able to speak in complete sentences and Yes symmetric chest movement AUSCULTATION: clear to auscultation bilaterally Cardio: COMMON NORMALS: no JVD, regular rate and regular rhythm RATE: regular rate RHYTHM: regular rhythm GI: COMMON NORMALS: Normal to inspection, nondistended, normoactive bowel sounds present, Soft to palpation and non-tender INSPECTION: Yes normal to inspection PALPATION: Yes Soft to palpation : COMMON NORMALS: Yes no CVA tenderness BLADDER/KIDNEY EXAM: Yes no CVA tenderness Back/Pelvis: COMMON NORMALS: no CVA tenderness Extremity: COMMON NORMALS: normal to inspection and full ROM Neuro: COMMON NORMALS: patient oriented x3, CN's II-XII intact bilaterally, moves all extremities and no focal motor deficits OTHER: No focal neuro deficits appreciated Psych: COMMON NORMALS: mental status grossly normal, Normal thought process present, cooperative and normal affect THOUGHT PROCESS: Normal thought process present Skin: COMMON NORMALS: no rashes or lesions noted GENERAL SKIN EXAM: no rashes or lesions noted Course Vital Signs: Vital signs: Vital Signs Temperature 97.9 F 07/15/21 11:24 Pulse Rate 52 L 07/15/21 14:39 Respiratory Rate 20 H 07/15/21 14:39 Blood Pressure 135/91 07/15/21 14:39 Pulse Oximetry 90 07/15/21 14:39 MDM - Fall Medical Decision Making Due to the patient's symptom condition will be doing a syncope work-up on the patient as well as obtaining a CT of the head as well as a left femur x-ray we will continue to follow patient currently is neurologically intact cranial nerves II through XII grossly intact bilaterally with a GCS of 15 NIH of 0. However due to the patient's known history of intracerebral head bleed requiring surgical management and increases that my concerns about potential underlying intracranial pathology CAT scan imaging came back unremarkable patient remained stable condition at this time emergency department mild dehydration was noted by limited no other acute findings were appreciated patient was happily discharged home with medications for his breakthrough headache advised further follow-up primary care in 2 to 3 days which is advised to return the interim if any of his symptoms persist or worse. . Lab Data : 07/15/21 12:25 07/15/21 12:25 Radiology Impressions Chest X-Ray 07/15/21 12:24 IMPRESSION: No acute findings. Head CT 07/15/21 12:24 IMPRESSION: No acute intracranial abnormality. Femur X-Ray 07/15/21 12:41 IMPRESSION: No acute findings. Laboratory Results WBC 7.4 10^3/uL (4.0-10.0) 07/15/21 12:25 RBC 4.56 10^6/uL (4.1-5.3) 07/15/21 12:25 Hgb 14.0 g/dL (11.7-16.6) 07/15/21 12:25 Hct 41.3 % (42.0-52.0) L 07/15/21 12:25 MCV 90.6 fl (80-94) 07/15/21 12:25 MCH 30.7 pg (28.0-34.0) 07/15/21 12:25 MCHC 33.9 g/dL (30.0-36.0) 07/15/21 12:25 RDW 15.9 % (12.1-15.1) H 07/15/21 12:25 Plt Count 166 10^3/cmm (130-400) 07/15/21 12:25 MPV 11.4 fL (7.4-10.4) H 07/15/21 12:25 Neut % (Auto) 74.3 % 07/15/21 12: Lymph % (Auto) 14.4 % 07/15/21 12:25 Wells % (Auto) 8.3 % 07/15/21 12:25 Eos % (Auto) 1.9 % 07/15/21 12:25 Baso % (Auto) 0.8 % 07/15/21 12:25 Neut # (Auto) 5.49 10^3/uL (1.8-7.7) 07/15/21 12: Lymph # (Auto) 1.1 10^3/uL (0.8-4.8) 07/15/21 12:25 Wells # (Auto) 0.6 10^3/uL (0.2-0.9) 07/15/21 12:25 Eos # (Auto) 0.1 10^3/uL (0.0-0.8) 07/15/21 12:25 Baso # (Auto) 0.1 10^3/uL (0.0-0.1) 07/15/21 12: Nucleated RBC % (auto) 0 % 07/15/21 12: Nucleated RBCs # 0.0 /100WBC 07/15/21 12:25 Sodium 131 mmol/L (136-145) L 07/15/21 12:25 Potassium 3.4 mmol/L (3.5-5.1) L 07/15/21 12:25 Chloride 91 mmol/L (98-107) L 07/15/21 12:25 Carbon Dioxide 29 mmol/L (22-29) 07/15/21 12:25 Anion Gap 14.4 (5-19) 07/15/21 12:25 BUN 23 mg/dL (8-23) 07/15/21 12:25 Creatinine 1.3 mg/dL (0.7-1.2) H 07/15/21 12:25 GFR Calculation 55.1 mL/min (90-130) L 07/15/21 12:25 Glucose 116 mg/dL (65-115) H 07/15/21 12:25 POC Glucose 118 mg/dL (70-110) H 07/15/21 12:44 Calculated Osmolality 277 mOsm/kg (285-295) L 07/15/21 12:25 Calcium 9.4 mg/dL (8.5-10.5) 07/15/21 12:25 Total Bilirubin 0.6 mg/dL (0.15-1.2) 07/15/21 12:25 AST 18 U/L (0-40) 07/15/21 12:25 ALT 14 U/L (0-41) 07/15/21 12:25 Alkaline Phosphatase 94 IU/L (40-130) 07/15/21 12:25 Troponin T Baseline 11 ng/L (0-15) 07/15/21 12:25 Troponin T 120 Minute 10.24 ng/L (0-15) 07/15/21 14:36 NT-Pro-B Natriuret Pep 96 pg/mL (0-125) 07/15/21 12:25 Total Protein 6.9 g/dL (6.6-8.7) 07/15/21 12:25 Albumin 4.0 g/dL (3.5-5.2) 07/15/21 12:25 Globulin 2.9 g/dL (1.3-4.6) 07/15/21 12:25 Urine Color Yellow (Yellow) 07/15/21 12:10 Urine Appearance Clear (CLEAR) 07/15/21 12:10 Urine pH 6 (5-7) 07/15/21 12:10 Ur Specific [place] 1.010 (1.005-1.030) 07/15/21 12:10 Urine Protein Neg (Negative) 07/15/21 12:10 Urine Glucose (UA) Norm (Normal) 07/15/21 12:10 Urine Ketones 1+ (Negative) H 07/15/21 12:10 Urine Blood Neg (Negative) 07/15/21 12:10 Urine Nitrate Negative (Negative) 07/15/21 12:10 Urine Bilirubin 1+ (Negative) H 07/15/21 12:10 Urine Urobilinogen 1 mg/dL (Negative) H 07/15/21 12:10 Ur Leukocyte Esterase Negative (Negative) 07/15/21 12:10 Discharge Plan Discharge Patient Disposition: Home Clinical Impression: Syncope and collapse, Head injury due to trauma, Headache Condition: Stable Prescriptions: New tramadol 100 mg tablet 100 mg PO Q12H PRN (Reason: pain) Qty: 10 0RF No Action allopurinol 300 mg tablet 300 mg PO DAILY 0RF atorvastatin 80 mg tablet 80 mg PO DAILY 0RF docusate sodium 100 mg capsule 200 mg PO BID PRN (Reason: Constipation) 0RF ferrous sulfate 325 mg (65 mg iron) tablet 325 mg PO DAILY 0RF fluticasone propionate [Allergy Relief (fluticasone)] 50 mcg/actuation spray,suspension 2 spray INTRANASAL DAILY PRN (Reason: Allergy Symptoms) 0RF hydrochlorothiazide 25 mg tablet 25 mg PO QAM 0RF lisinopril 40 mg tablet 40 mg PO DAILY 0RF Hold Instructions: Resume on 03/12/21. pioglitazone 30 mg tablet 30 mg PO DAILY 0RF gabapentin 300 mg capsule 300 mg PO BID 0RF tamsulosin 0.4 mg Capsule 0.8 mg PO BEDTIME 0RF venlafaxine [Effexor XR] 37.5 mg Capsule,Extended Release 24hr 37.5 mg PO DAILY 0RF albuterol sulfate [ProAir HFA] 90 mcg/actuation Hfa Aerosol Inhaler 2 puff INHALATION Q4H PRN (Reason: Shortness Of Breath) 0RF diltiazem HCl [Cardizem CD] 120 mg Capsule,Extended Release 24hr 120 mg PO DAILY 0RF cholecalciferol (vitamin D3) [Vitamin D3] 125 mcg (5,000 unit) Tablet 125 mcg PO DAILY 0RF carvedilol 6.25 mg Tablet 6.25 mg PO BID Qty: 60 4RF Hold Instructions: Resume on 03/12/21. amiodarone 200 mg tablet 200 mg PO BID Qty: 60 2RF sucralfate [Carafate] 1 gram tablet 1 g PO Q6H 84 Days Qty: 336 0RF pantoprazole 40 mg tablet,delayed release (DR/EC) 40 mg PO BIDWM 30 Days Qty: 60 3RF Aspir-81 81 mg Tablet,Delayed Release (Dr/Ec) 81 mg PO DAILY 0RF levothyroxine 25 mcg Tablet 75 mcg PO DAILY 0RF omeprazole 20 mg Tablet,Delayed Release (Dr/Ec) 20 mg PO DAILY 0RF Eucerin Cream 1 applic TOPICAL DAILY 0RF apixaban 5 mg Tablet 5 mg PO BID 0RF Discharge Orders: Discharge ED (Routine); Ordered 07/15/21 Ordered By: Jono Hinton Referrals: Guicho Vega DO [Primary Care Provider] - 1-3 days Discharge Diet: As Directed Discharge Activity: Resume usual activity Patient Instructions: Syncope (ED), Head Injury (ED), Acute Headache (ED), Opioid Safety Activity Restrictions/Additional Instructions: Please follow-up with your primary care doctor in 2 to 3 days, take medications as prescribed and return the interim if any of your symptoms persist or worse. Coding Level of Care Code ED Strategic Marketing Manager for Chg Fwd Exam Comprehensive
--- NOTE | 2021-07-15 11:40 | PC.NURSE ---
Patient states he has pain in his left side of his head, left hip and left buttocks. Patient states he had a fall yesterday while getting an xray. He was instructed to hold breath and that is when he passed out and fell on the ground. Patient did not get checked out yesterday he stated they wheeled him to his truck and he drove home. RN attempted to get IV access and patient declined before starting he states he hates IV's and would like to wait until provider sees him. Patient denies any needs at this time, call light within reach.
[2021-07-15 12:02] VITALS: BP 126/79; PULSE 55; RESP 16; O2SAT 92
--- NOTE | 2021-07-15 12:04 | PC.NURSE ---
Patient denies taking blood thinners.
--- NOTE | 2021-07-15 12:24 | CTR_ITS ---
PROCEDURE INFORMATION: Exam: CT Head Without Contrast Exam date and time: 07/15/2021 12:40 PM Age: 66 years old Clinical indication: Other: Recent syncope and collapse; Prior surgery; Surgery date: 6+ months; Patient HX: [place] hole surgery-bilat subdural hematomas; Additional info: Syncope with prior head injury with SX TECHNIQUE: Imaging protocol: Computed tomography of the head without contrast. Radiation optimization: All CT scans at this facility use at least one of these dose optimization techniques: automated exposure control; mA and/or kV adjustment per patient size (includes targeted exams where dose is matched to clinical indication); or iterative reconstruction. COMPARISON: CT head wo con* [id number] 11/03/2019 3:59 PM RADIATION DOSE METRICS: Total DLP (mGy-cm): 983.83 FINDINGS: Brain: No hemorrhage. Moderate diffuse cerebral atrophy and sequela of chronic small vessel ischemic disease. Redemonstrated old lacunar infarcts in the basal ganglia. No mass effect. Cerebral ventricles: No ventriculomegaly. Paranasal sinuses: Visualized sinuses are unremarkable. No fluid levels. Mastoid air cells: Visualized mastoid air cells are well aerated. Bones/joints: Left frontal jeremiah hole. No acute fracture. Soft tissues: Unremarkable. CT/CT head wo con* [id number] IMPRESSION: No acute intracranial abnormality.
--- NOTE | 2021-07-15 12:24 | XRR_ITS ---
PROCEDURE INFORMATION: Exam: XR Chest Exam date and time: 07/15/2021 12:35 PM Age: 66 years old Clinical indication: Prior surgery; Surgery date: 6+ months; Surgery type: [place] hole surgery- twist drill drainage of bilat subdural hematomas; Patient HX: Syncope and collapse yesterday TECHNIQUE: Imaging protocol: XR of the chest. Views: 1 view. COMPARISON: CR XR chest 1V portable [id number] 07/05/2021 12:21 PM FINDINGS: Lungs: Unremarkable. No consolidation. Pleural spaces: Unremarkable. No pleural effusion. No pneumothorax. Heart/Mediastinum: Similar mild cardiomegaly. Bones/joints: Sternotomy wires noted. Visualized osseous structures are intact. Old callused right mid clavicular fracture noted. XR/XR chest 1V portable [id number] IMPRESSION: No acute findings.
--- NOTE | 2021-07-15 12:25 | ECG_ITS ---
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 Measurements Intervals [place] Rate: 51 P: 36 CA: 206 QRS: 75 QRSD: 106 T: -85 QT: 491 QTc: 456 Interpretive Statements SINUS BRADYCARDIA MODERATE INTRAVENTRICULAR CONDUCTION DELAY [105+ ms QRS DURATION, 80+ ms Q/S IN V1/V2, NO Q AND 60+ ms R IN I/aVL/V5/V6] MODERATE T-WAVE ABNORMALITY, CONSIDER LATERAL ISCHEMIA [-0.1+ mV T-WAVE IN I/aVL/V5/V6] MODERATE T-WAVE ABNORMALITY, CONSIDER INFERIOR ISCHEMIA [-0.1+ mV T-WAVE IN II/aVF] Compared to ECG 07/05/2021 12:20:25 Intraventricular conduction delay now present Possible ischemia now present T-wave abnormality still present Electronically Signed On 07-15-2021 17:50:29 CDT by Leti Ma M.D. [id number]
--- NOTE | 2021-07-15 12:34 | PC.NURSE ---
Patient leaving unit to go to CT.
[2021-07-15 12:37] LABS: Basophils # 0.1 10^3/uL (0.0-0.1); Basophils % 0.8 %; Eosinophils # 0.1 10^3/uL (0.0-0.8); Eosinophils % 1.9 %; Hematocrit 41.3 % (42.0-52.0); Lymphocytes # 1.1 10^3/uL (0.8-4.8); Lymphocytes % 14.4 %; Mean Corpuscular HGB Conc 33.9 g/dL (30.0-36.0); Mean Corpuscular Hemoglobin 30.7 pg (28.0-34.0); Mean Corpuscular Volume 90.6 fl (80-94); Mean Platelet Volume 11.4 fL (7.4-10.4); Monocytes # 0.6 10^3/uL (0.2-0.9); Monocytes % 8.3 %; Neutrophils # 5.49 10^3/uL (1.8-7.7); Neutrophils % 74.3 %; Nucleated Red Blood Cells % 0 %; Platelet Count 166 10^3/cmm (130-400); Red Blood Count 4.56 10^6/uL (4.1-5.3); Red Cell Distribution Width 15.9 % (12.1-15.1); White Blood Count 7.4 10^3/uL (4.0-10.0)
[2021-07-15 12:39] LABS: Add Urine Microscopic? NO; Charge for UA Resulting for Rev
--- NOTE | 2021-07-15 12:41 | XRR_ITS ---
PROCEDURE INFORMATION: Exam: XR Left Femur Exam date and time: 07/15/2021 12:48 PM Age: 66 years old Clinical indication: Injury or trauma; Blunt trauma; Thigh or upper leg; Patient HX: Syncope and collapse yesterday. C/O fall and struck left femur. Pain left femur TECHNIQUE: Imaging protocol: XR Left femur. Views: 2 views. COMPARISON: DX Knee 3 views, LEFT* [id number] 10/31/2019 9:34 AM FINDINGS: Bones/joints: No acute fracture. Soft tissues: Unremarkable. XR/XR femur LT 1V [id number] IMPRESSION: No acute findings.
[2021-07-15 12:46] LABS: Troponin(5th) Baseline 11 ng/L (0-15)
[2021-07-15 12:47] LABS: Bilirubin Urine 1+ (Negative); Blood Urine Neg (Negative); Glucose Urine UA Norm (Normal); Ketones Urine 1+ (Negative); Leukocyte Esterase Urine Negative (Negative); Nitrate Urine Negative (Negative); Protein Urine Neg (Negative); Urine Appearance Clear (CLEAR); Urine Color Yellow (Yellow); Urobilinogen Urine 1 mg/dL (Negative); pH Urine 6 (5-7)
[2021-07-15 12:50] LABS: Glucose Point of Care 118 mg/dL (70-110)
--- NOTE | 2021-07-15 12:52 | PC.NURSE ---
Radiology at bedside taking xray.
[2021-07-15 12:53] LABS: Alanine Aminotransferase 14 U/L (0-41); Alkaline Phosphatase 94 IU/L (40-130); Aspartate Amino Transferase 18 U/L (0-40); Blood Urea Nitrogen 23 mg/dL (8-23); Calcium 9.4 mg/dL (8.5-10.5); Carbon Dioxide 29 mmol/L (22-29); Chloride 91 mmol/L (98-107); Globulin 2.9 g/dL (1.3-4.6); Glomerular Filtration Rate 55.1 mL/min (90-130); Glucose 116 mg/dL (65-115); NT Pro B Type Natriuretic Pept 96 pg/mL (0-125); Osmolality Calculated 277 mOsm/kg (285-295); Sodium 131 mmol/L (136-145); Total Bilirubin 0.6 mg/dL (0.15-1.2); Total Protein 6.9 g/dL (6.6-8.7)
[2021-07-15 12:54] LABS: Anion Gap 14.4 (5-19); Potassium 3.4 mmol/L (3.5-5.1)
[2021-07-15] MEDS: sodium chloride 0.9% 1,000 ML 999 ML IV (13:07)
[2021-07-15 13:16] VITALS: BP 139/84; PULSE 55; RESP 18; O2SAT 90
[2021-07-15 13:31] VITALS: BP 152/94; PULSE 52; RESP 18; O2SAT 96
--- NOTE | 2021-07-15 13:40 | PC.NURSE ---
Patient in bed resting, vitals stable, and notified of patient vitals signs. Heart rate 49 oxygen 96%. Patient sleeping heart rate is 48-49 and awake in 50's.
--- NOTE | 2021-07-15 14:25 | ECG_ITS ---
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 Measurements Intervals [place] Rate: 50 P: 45 UT: 207 QRS: 76 QRSD: 109 T: 267 QT: 467 QTc: 426 Interpretive Statements SINUS BRADYCARDIA MODERATE INTRAVENTRICULAR CONDUCTION DELAY [105+ ms QRS DURATION, 80+ ms Q/S IN V1/V2, NO Q AND 60+ ms R IN I/aVL/V5/V6] NONSPECIFIC T-WAVE ABNORMALITY Compared to ECG 07/15/2021 12:33:26 Possible ischemia no longer present T-wave abnormality still present Electronically Signed On 07-15-2021 17:58:14 CDT by Leti Ma M.D. [id number]
[2021-07-15 14:39] VITALS: BP 135/91; PULSE 52; RESP 20; O2SAT 90
[2021-07-15 15:01] LABS: Troponin 5 2HR 10.24 ng/L (0-15)
[2021-07-15 15:10] LABS: Troponin 5 2HR Delta -0.76 ABS# (0-10)
--- NOTE | 2021-07-15 15:41 | PC.NURSE ---
RN gave verbal and written discharge instructions. Patient verbalized understanding. patient IV removed before discharge. IV site was appropriate at discharge. Patient states he is feeling better but is hungry and going home to eat. 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 Patient denies any questions or needs before leaving. Patient vitals stable upon discharge. Vitals are as follows 53 heart rate, respirations 16, 91 % on room air, 155/83, Dr. Hinton aware of vitals.
== END 2021-07-15 15:47 | disposition home or self-care (01) ==
PROVIDERS: Emergency Provider Emergency Medicine; PCP Emergency Medicine Emergency Medical Services
DX: R55 Syncope and collapse (principal); S09.90XA Unspecified injury of head, initial encounter; Z79.82 Long term (current) use of aspirin; I25.10 Atherosclerotic heart disease of native coronary artery without angina pectoris; E11.9 Type 2 diabetes mellitus without complications; I10 Essential (primary) hypertension; Z95.1 Presence of aortocoronary bypass graft; Z87.891 Personal history of nicotine dependence
CPT/HCPCS: 36415; 36416; 70450; 71045; 73551; 80053; 81003; 82962; 83880; 84484; 85025; 93005; 96360; 99284; J7030

== ENCOUNTER 2021-08-01 10:27 | Emergency (ER) | payer OTHER, SELFPAY ==
[2021-08-01 11:16] VITALS: BP 152/87; PULSE 59; RESP 16; TEMP 36.6; O2SAT 97; BMI 30.7
--- NOTE | 2021-08-01 11:31 | ED_ITS ---
HPI - Fall General: Chief Complaint: Fall Stated Complaint: fainting / right foot injury Time Seen by Provider: 08/01/21 11:22 Source: patient Mode of arrival: ambulatory Limitations: no limitations History of Present Illness: 66-year-old male who fell while at home last night. He was in his garden was going to sit down because he got to feeling tired and he stumbled and fell twisting his right foot. Complaining of pain in the right foot he may have struck his head he cannot really recall whether or not he got knocked out he does not have any obvious trauma or abrasion. He went to get seen today at the [facility] and they forwarded him to the ER. complaint: fall Onset (ago): day(s) (1) Fall from: standing Fall witnessed: no Place fall occurred: home Loss of consciousness: Unsure Prolonged down time: no Symptoms prior to fall: none Context: tripped/slipped Location of injury - extremities: Right: foot Severity: moderate Quality: aching Associated symptoms-after fall: Denies abdominal pain, chest pain, confusion, difficulty walking, headache(s), hematuria, lightheadedness, neck pain, numbness, short of breath, vertigo or weakness Review of Systems Card: Denies: chest pain or lightheadedness GI: Denies: abdominal pain : Denies: hematuria Musc: Denies: neck pain Neuro: Denies: headache(s), difficulty walking, vertigo or confusion PFS ED PFSH: Medical History Acute kidney injury superimposed on CKD Afib Anticoagulation adequate with anticoagulant therapy Atherosclerosis of coronary artery Atrial fibrillation Carotid stenosis Chronic kidney disease (CKD) Diabetes Diabetic gastroparesis Gastritis Hypercholesteremia Hypertension Left main coronary artery disease Nausea and vomiting Spinal stenosis, lumbar region, with neurogenic claudication Spondylolisthesis, lumbar region Surgical History History of jeremiah hole surgery Twist drill drainage of bilateral subdural hematomas, 12/20/2016, [facility] [place] History of esophagogastroduodenoscopy (EGD) (~05/2019) History of laparoscopic cholecystectomy (~06/2019) History of lumbar laminectomy Bilateral L4-L5 laminotomy/foraminotomy/limited facetectomy Previous back surgery Status post aorto-coronary artery bypass graft Family History Other CAD (coronary artery disease) Cancer Diabetes Hypertension Stroke Denies family history of Anesthesia complication Bleeding disorder Social History Smoking and tobacco status: former smoker Alcohol intake: former Lives independently: Yes Marital status: Current occupational status: retired History of recent travel: No Course Vital Signs: Vital signs: Vital Signs Temperature 98 F 08/01/21 13:48 Pulse Rate 61 08/01/21 13:48 Respiratory Rate 16 08/01/21 13:48 Blood Pressure 120/82 08/01/21 13:48 Pulse Oximetry 95 08/01/21 13:48 MDM - Fall Medical Decision Making Sprain of the foot no acute fracture CT head C-spine negative labs unremarkable mild hypokalemia which would give some potassium supplement but otherwise no significant findings. Discharge home can use diclofenac as needed follow-up as needed Medical Records I reviewed the patient's medical records. Lab Data I reviewed the patient's lab results. : 08/01/21 11:40 08/01/21 12:04 Radiology Impressions Cervical Spine X-Ray 08/01/21 11:31 IMPRESSION: Arthritis and listhesis. Foot X-Ray 08/01/21 11:31 IMPRESSION: Arthritis. No fracture. Head CT 08/01/21 11:31 IMPRESSION: 1. No acute intracranial hemorrhage or edema. 2. Mild to moderate atrophy with moderate small vessel ischemic changes and lacunar infarcts which are unchanged since 07/15/2021. Laboratory Results WBC 8.1 10^3/uL (4.0-10.0) 08/01/21 11:40 RBC 4.65 10^6/uL (4.1-5.3) 08/01/21 11:40 Hgb 14.4 g/dL (11.7-16.6) 08/01/21 11:40 Hct 42.6 % (42.0-52.0) 08/01/21 11:40 MCV 91.6 fl (80-94) 08/01/21 11:40 MCH 31.0 pg (28.0-34.0) 08/01/21 11:40 MCHC 33.8 g/dL (30.0-36.0) 08/01/21 11:40 RDW 16.1 % (12.1-15.1) H 08/01/21 11:40 Plt Count 156 10^3/cmm (130-400) 08/01/21 11:40 MPV 11.0 fL (7.4-10.4) H 08/01/21 11:40 Neut % (Auto) 74.0 % 08/01/21 11:40 Lymph % (Auto) 14.5 % 08/01/21 11:40 Mcminn % (Auto) 8.7 % 08/01/21 11:40 Eos % (Auto) 1.9 % 08/01/21 11:40 Baso % (Auto) 0.5 % 08/01/21 11:40 Neut # (Auto) 5.99 10^3/uL (1.8-7.7) 08/01/21 11:40 Lymph # (Auto) 1.2 10^3/uL (0.8-4.8) 08/01/21 11:40 Mcminn # (Auto) 0.7 10^3/uL (0.2-0.9) 08/01/21 11:40 Eos # (Auto) 0.2 10^3/uL (0.0-0.8) 08/01/21 11:40 Baso # (Auto) 0.0 10^3/uL (0.0-0.1) 08/01/21 11:40 Nucleated RBC % (auto) 0 % 08/01/21 11:40 Nucleated RBCs # 0.0 /100WBC 08/01/21 11:40 Sodium 137 mmol/L (136-145) 08/01/21 12:04 Potassium 3.2 mmol/L (3.5-5.1) L 08/01/21 12:04 Chloride 94 mmol/L (98-107) L 08/01/21 12:04 Carbon Dioxide 33 mmol/L (22-29) H 08/01/21 12:04 Anion Gap 13.2 (5-19) 08/01/21 12:04 BUN 15 mg/dL (8-23) 08/01/21 12:04 Creatinine 1.3 mg/dL (0.7-1.2) H 08/01/21 12:04 GFR Calculation 55.1 mL/min (90-130) L 08/01/21 12:04 Glucose 115 mg/dL (65-115) 08/01/21 12:04 Calculated Osmolality 286 mOsm/kg (285-295) 08/01/21 12:04 Calcium 10.1 mg/dL (8.5-10.5) 08/01/21 12:04 Total Bilirubin 0.6 mg/dL (0.15-1.2) 08/01/21 12:04 AST 20 U/L (0-40) 08/01/21 12:04 ALT 18 U/L (0-41) 08/01/21 12:04 Alkaline Phosphatase 105 IU/L (40-130) 08/01/21 12:04 Total Protein 6.9 g/dL (6.6-8.7) 08/01/21 12:04 Albumin 4.4 g/dL (3.5-5.2) 08/01/21 12:04 Globulin 2.5 g/dL (1.3-4.6) 08/01/21 12:04 Urine Color Yellow (Yellow) 08/01/21 11:50 Urine Appearance Clear (CLEAR) 08/01/21 11:50 Urine pH 7 (5-7) 08/01/21 11:50 Ur Specific [place] 1.005 (1.005-1.030) 08/01/21 11:50 Urine Protein Neg (Negative) 08/01/21 11:50 Urine Glucose (UA) Norm (Normal) 08/01/21 11:50 Urine Ketones Negative (Negative) 08/01/21 11:50 Urine Blood Neg (Negative) 08/01/21 11:50 Urine Nitrate Negative (Negative) 08/01/21 11:50 Urine Bilirubin 1+ (Negative) H 08/01/21 11:50 Urine Urobilinogen Norm mg/dL (Negative) 08/01/21 11:50 Ur Leukocyte Esterase Negative (Negative) 08/01/21 11:50 Discharge Plan Discharge Patient Disposition: Home Clinical Impression: Foot sprain, Fall Condition: Stable Prescriptions: New diclofenac sodium 75 mg tablet,delayed release (DR/EC) 75 mg PO Q12H PRN (Reason: pain) Qty: 20 0RF No Action allopurinol 300 mg tablet 300 mg PO DAILY 0RF atorvastatin 80 mg tablet 80 mg PO DAILY 0RF docusate sodium 100 mg capsule 200 mg PO BID PRN (Reason: Constipation) 0RF ferrous sulfate 325 mg (65 mg iron) tablet 325 mg PO DAILY 0RF fluticasone propionate [Allergy Relief (fluticasone)] 50 mcg/actuation spray,suspension 2 spray INTRANASAL DAILY PRN (Reason: Allergy Symptoms) 0RF hydrochlorothiazide 25 mg tablet 25 mg PO QAM 0RF lisinopril 40 mg tablet 40 mg PO DAILY 0RF Hold Instructions: Resume on 03/12/21. pioglitazone 30 mg tablet 30 mg PO DAILY 0RF gabapentin 300 mg capsule 300 mg PO BID 0RF pantoprazole 40 mg tablet,delayed release (DR/EC) 40 mg PO BIDWM 30 Days Qty: 60 3RF sucralfate [Carafate] 1 gram tablet 1 g PO Q6H 84 Days Qty: 336 0RF tamsulosin 0.4 mg Capsule 0.8 mg PO BEDTIME 0RF venlafaxine [Effexor XR] 37.5 mg Capsule,Extended Release 24hr 37.5 mg PO DAILY 0RF albuterol sulfate [ProAir HFA] 90 mcg/actuation Hfa Aerosol Inhaler 2 puff INHALATION Q4H PRN (Reason: Shortness Of Breath) 0RF diltiazem HCl [Cardizem CD] 120 mg Capsule,Extended Release 24hr 120 mg PO DAILY 0RF cholecalciferol (vitamin D3) [Vitamin D3] 125 mcg (5,000 unit) Tablet 125 mcg PO DAILY 0RF carvedilol 6.25 mg Tablet 6.25 mg PO BID Qty: 60 4RF Hold Instructions: Resume on 03/12/21. amiodarone 200 mg tablet 200 mg PO BID Qty: 60 2RF Aspir-81 81 mg Tablet,Delayed Release (Dr/Ec) 81 mg PO DAILY 0RF levothyroxine 25 mcg Tablet 75 mcg PO DAILY 0RF omeprazole 20 mg Tablet,Delayed Release (Dr/Ec) 20 mg PO DAILY 0RF Eucerin Cream 1 applic TOPICAL DAILY 0RF apixaban 5 mg Tablet 5 mg PO BID 0RF tramadol 100 mg tablet 100 mg PO Q12H PRN (Reason: pain) Qty: 10 0RF Discharge Orders: Discharge ED (Routine); Ordered 08/01/21 Ordered By: Rene Chaudhari Referrals: Guicho Vega, [Primary Care Provider] - Discharge Diet: Usual diet Discharge Activity: Increase activity as tolerated Patient Instructions: Opioid Safety Coding Level of Care Code ED Clinical Program Director for Jason Foley
--- NOTE | 2021-08-01 11:31 | CT_ITS ---
WS: [id number] CT HEAD NONCONTRAST HISTORY: closed head injury TECHNIQUE: Contiguous axial imaging performed through the brain in 2.5 mm imaging. Bone and soft tiss ue windows. Sagittal and coronal reformats reviewed. All CT scans at [facility] use at least one of these dose optimization techniques: automated exposure control; mA and/or kV adjustment per pa tient size (includes targeted exams where dose is matched to clinical indication); or iterative recon struction. DLP: 880.2 mGy.cm COMPARISON: 07/15/2021 Mild to moderate atrophy with moderate small vessel ischemic changes which are diffuse. Remote lacuna r infarcts in the basal ganglia. Small lacunar infarct in the RIGHT caudate. Mild cerebellar atrophy. Ventricles: Normal size with no hydrocephalus. No inferior displacement of cerebellar tonsils. Paranasal sinuses: As visualized are clear. Mastoid air cells: Well pneumatized. Calvarium and scalp: Skull is intact with no soft tissue edema or swelling. CT/CT head wo con* [id number] IMPRESSION: 1. No acute intracranial hemorrhage or edema. 2. Mild to moderate atrophy with moderate small vessel ischemic changes and la cunar infarcts which are unchanged since 07/15/2021.
--- NOTE | 2021-08-01 11:31 | XRR_ITS ---
PROCEDURE INFORMATION: Exam: XR Right Foot Exam date and time: 08/01/2021 11:39 AM Age: 66 years old Clinical indication: Pain and injury or trauma; Fall; Blunt trauma; Foot; Right; Additional info: Pain after fall TECHNIQUE: Imaging protocol: XR Right foot. Views: 3 or more views. COMPARISON: CR Foot 3 views, RIGHT* [id number] 11/07/2016 4:27 PM FINDINGS: Bones/joints: Unfused 5th metatarsal physis versus calcification of distal peroneus brevis tendon which is stable. Arthritic changes moderate to severe involving the 1st metatarsophalangeal joint. No fracture. Stable calcaneal spur. Soft tissues: Normal. XR/XR foot RT min 3V* [id number] IMPRESSION: Arthritis. No fracture.
--- NOTE | 2021-08-01 11:31 | XRR_ITS ---
PROCEDURE INFORMATION: Exam: XR Cervical Spine Exam date and time: 08/01/2021 11:43 AM Age: 66 years old Clinical indication: Injury or trauma; Fall; Blunt trauma TECHNIQUE: Imaging protocol: XR of the cervical spine. Views: 2 or 3 views. COMPARISON: CT head wo con* [id number] 07/15/2021 12:40 PM FINDINGS: Bones/joints: There is listhesis C2 1 mm anterior to C3. There is listhesis C3 3.5 mm anterior to C4. There is listhesis C4 2 mm anterior to C5. There is no fracture. Moderate degenerative joint disease seen within the facet joints with the disc heights maintained. There is straightening with slight reversal of the normal cervical lordotic curve. Soft tissues: Surgical clips in the neck questionably from carotid surgery. Other findings: Sternal sutures. XR/XR cervical spine 3V* [id number] IMPRESSION: Arthritis and listhesis.
--- NOTE | 2021-08-01 11:32 | ECG_ITS ---
[facility] Test Date: 2021-08-01 Pat Name: Vinh Taylor Department: Room: Gender: Male Block Cutter: : 1955 Requested By: Rene Torres Order Number: [id number] Bravo MD: Leti Ma M.D. Measurements Intervals [place] Rate: 54 P: 66 NC: 187 QRS: 85 QRSD: 110 T: -60 QT: 457 QTc: 433 Interpretive Statements SINUS BRADYCARDIA POSSIBLE LEFT ATRIAL ENLARGEMENT [-0.1mV P-WAVE IN V1/V2] MODERATE INTRAVENTRICULAR CONDUCTION DELAY [105+ ms QRS DURATION, 80+ ms Q/S IN V1/V2, NO Q AND 60+ ms R IN I/aVL/V5/V6] ST DEVIATION AND MODERATE T-WAVE ABNORMALITY, CONSIDER LATERAL ISCHEMIA [-0.1+ mV T-WAVE IN I/aVL/V5/V6] ST DEVIATION AND MODERATE T-WAVE ABNORMALITY, CONSIDER INFERIOR ISCHEMIA [-0.1+ mV T-WAVE IN II/aVF] Compared to ECG 07/15/2021 14:28:42 Possible ischemia now present T-wave abnormality still present Electronically Signed On 08-01-2021 22:59:28 CDT by Leti Ma M.D. [email or web address]
[2021-08-01 11:43] LABS: Basophils % 0.5 %; Eosinophils # 0.2 10^3/uL (0.0-0.8); Eosinophils % 1.9 %; Hematocrit 42.6 % (42.0-52.0); Hemoglobin 14.4 g/dL (11.7-16.6); Lymphocytes # 1.2 10^3/uL (0.8-4.8); Lymphocytes % 14.5 %; Mean Corpuscular HGB Conc 33.8 g/dL (30.0-36.0); Mean Corpuscular Volume 91.6 fl (80-94); Monocytes # 0.7 10^3/uL (0.2-0.9); Monocytes % 8.7 %; Neutrophils # 5.99 10^3/uL (1.8-7.7); Nucleated Red Blood Cells % 0 %; Platelet Count 156 10^3/cmm (130-400); Red Blood Count 4.65 10^6/uL (4.1-5.3); Red Cell Distribution Width 16.1 % (12.1-15.1); White Blood Count 8.1 10^3/uL (4.0-10.0)
[2021-08-01 12:07] LABS: Add Urine Microscopic? NO; Charge for UA Resulting for Rev
[2021-08-01 12:10] LABS: Bilirubin Urine 1+ (Negative); Blood Urine Neg (Negative); Glucose Urine UA Norm (Normal); Ketones Urine Negative (Negative); Leukocyte Esterase Urine Negative (Negative); Nitrate Urine Negative (Negative); Protein Urine Neg (Negative); Specific Gravity, Urine 1.005 (1.005-1.030); Urine Appearance Clear (CLEAR); Urine Color Yellow (Yellow); Urobilinogen Urine Norm (Negative); pH Urine 7 (5-7)
[2021-08-01 12:36] LABS: Alanine Aminotransferase 18 U/L (0-41); Albumin Level 4.4 g/dL (3.5-5.2); Alkaline Phosphatase 105 IU/L (40-130); Anion Gap 13.2 (5-19); Aspartate Amino Transferase 20 U/L (0-40); Blood Urea Nitrogen 15 mg/dL (8-23); Calcium 10.1 mg/dL (8.5-10.5); Carbon Dioxide 33 mmol/L (22-29); Chloride 94 mmol/L (98-107); Globulin 2.5 g/dL (1.3-4.6); Glomerular Filtration Rate 55.1 mL/min (90-130); Glucose 115 mg/dL (65-115); Osmolality Calculated 286 mOsm/kg (285-295); Potassium 3.2 mmol/L (3.5-5.1); Sodium 137 mmol/L (136-145); Total Bilirubin 0.6 mg/dL (0.15-1.2); Total Protein 6.9 g/dL (6.6-8.7)
[2021-08-01] MEDS: potassium chloride oral liq 20 mEq/15 mL UDC 40 MEQ PO (13:45)
[2021-08-01 13:48] VITALS: BP 120/82; PULSE 61; RESP 16; TEMP 36.6; O2SAT 95
== END 2021-08-01 14:01 | disposition home or self-care (01) ==
PROVIDERS: Emergency Provider Family Medicine; PCP Emergency Medicine Emergency Medical Services
DX: S93.601A Unspecified sprain of right foot, initial encounter (principal); W01.0XXA Fall on same level from slipping, tripping and stumbling without subsequent striking against object, initial encounter; Y92.096 Garden or yard of other non-institutional residence as the place of occurrence of the external cause; E87.6 Hypokalemia; I10 Essential (primary) hypertension; I48.91 Unspecified atrial fibrillation; Z79.01 Long term (current) use of anticoagulants; Z79.82 Long term (current) use of aspirin
CPT/HCPCS: 70450; 72040; 73630; 80053; 81003; 85025; 93005; 99283

== ENCOUNTER 2021-08-18 06:13 | Outpatient (CLI) | payer OTHER, SELFPAY ==
--- NOTE | 2021-08-18 06:38 | USCV_ITS ---
Sutton Vinh Age: 66 Gender: M : 1955 Exam Date: 08/18/2021 06:47 Ordering Phys: Guicho Vega DO Technologist: [place] [facility] [place]: lt side art cca stenosis Risk Factors: Previous Vascular Surgery: Right Brachial BP: / Left Brachial BP: / Right Left Velocity (cm/s) Spectral Plaque Velocity (cm/s) Spectral Plaque Syst/Diast Broadening Syst/Diast Broadening 106.90/18.70 Prox CCA 98.60 / 17.10 87.10/ 16.50 Mid CCA 97.30 / 14.50 56.70/ 14.00 Hetro Distal CCA 122.30/ 19.70 90.10/ 21.80 Hetro Prox ICA 111.50/ 32.40 110.30/29.50 Mid ICA 109.70/ 27.00 111.90/24.90 Distal ICA 97.10 / 28.80 171.80 ECA 201.50 1.05 ICA/CCA 0.91 Antegrade Vertebral Antegrade 47.40/ 11.70 cm/s 37.90/ 5.90 cm/s Tri Subclavian Tri 153.8 116.6 0 0 FINDINGS Comparison:. 07/16/19. Diffuse, mild bilateral scattered calcified plaque and intimal thickening throughout the common carotid arteries and extending through the bifurcation. No significant elevation of systolic or diastolic velocities. CONCLUSIONS Bilateral ICA stenosis less than 50%. Mild diffuse carotid atherosclerosis. Dr. Liane Dyer DO (Electronically Signed) Final Date: 18 August 2021 07:28 S
== END 2021-08-18 06:14 | disposition home or self-care (01) ==
LOC: RAD 06:14
PROVIDERS: PCP Emergency Medicine Emergency Medical Services; Visit Provider Emergency Medicine Emergency Medical Services
DX: Z01.89 Encounter for other specified special examinations (principal); I25.118 Atherosclerotic heart disease of native coronary artery with other forms of angina pectoris
CPT/HCPCS: 93880

== ENCOUNTER 2021-09-03 14:55 | Emergency (ER) | payer OTHER, MEDICARE, SELFPAY ==
[2021-09-03 15:09] VITALS: BP 104/60; PULSE 75; RESP 16; TEMP 36.9; O2SAT 98
--- NOTE | 2021-09-03 17:02 | ED_ITS ---
HPI - Extremity Problem General: Chief complaint: Extremity Injury, Upper Stated complaint: Left shoulder pain Time Seen by Provider: 09/03/21 17:02 Source: patient Mode of arrival: ambulatory Limitations: no limitations History of Present Illness: 60-year-old male presents emergency room with complaint left shoulder pain. He was lifting a small refrigerator at home his felt a ripping sensation in the left shoulder and now can no longer AB ducted. He has previously had rotator cuff surgery on that side. He has no numbness or tingling in the arm as long as he leaves it in a dependent position he has no discomfort when he goes to try to move it to AB duct or externally rotate he has severe pain. No fall no other injury. MD Complaint: joint pain Onset (ago): hour(s) Pain Consistency: constant Location: left and upper extremity (Shoulder) Quality: aching and sharp Radiation: none Relieving factors: immobilization Exacerbating factors: range of motion and palpation Associated symptoms: Deny arthralgias, chest pain, fever(s), myalgias, rash or short of breath Review of Systems Const: Denies: fever(s) or chills ENMT: Denies: throat pain, ear or mastoid pain, nasal discharge or nasal congestion Card: Denies: chest pain, palpitations, irregular heart rhythm or edema Resp: Denies: dyspnea, productive cough or non-productive cough GI: Denies: abdominal pain, nausea, vomiting, hematemesis, coffee ground emesis, diarrhea, constipation, bloating, hematochezia or melena : Denies: flank pain, difficulty urinating, dysuria, urinary frequency or urinary urgency Musc: Reports: joint pain; Denies: neck pain or back pain Skin/Breast: Denies: rash or pruritus PFSH ED PFSH: Medical History Acute kidney injury superimposed on CKD Afib Anticoagulation adequate with anticoagulant therapy Atherosclerosis of coronary artery Atrial fibrillation Carotid stenosis Chronic kidney disease (CKD) Diabetes Diabetic gastroparesis Gastritis Hypercholesteremia Hypertension Left main coronary artery disease Nausea and vomiting Spinal stenosis, lumbar region, with neurogenic claudication Spondylolisthesis, lumbar region Surgical History History of jeremiah hole surgery Twist drill drainage of bilateral subdural hematomas, 12/20/2016, [facility] [place] History of esophagogastroduodenoscopy (EGD) (~05/2019) History of laparoscopic cholecystectomy (~06/2019) History of lumbar laminectomy Bilateral L4-L5 laminotomy/foraminotomy/limited facetectomy Previous back surgery Status post aorto-coronary artery bypass graft Family History Other CAD (coronary artery disease) Cancer Diabetes Hypertension Stroke Denies family history of Anesthesia complication Bleeding disorder Social History Smoking and tobacco status: former smoker Alcohol intake: former Lives independently: Yes Marital status: Current occupational status: retired History of recent travel: No Physical Exam Const: COMMON NORMALS: no acute distress GENERAL APPEARANCE: cooperative and comfortable ORIENTATION/CONSCIOUSNESS: Yes awake, Yes oriented to person, Yes oriented to place and Yes oriented to time HENMT: COMMON NORMALS: normocephalic, atraumatic and hearing grossly normal bilaterally HEAD & SCALP: normocephalic and atraumatic Neck/C-Spine: COMMON NORMALS: no JVD Resp: COMMON NORMALS: normal respiratory effort, No retractions, No use of accessory muscles and clear to auscultation bilaterally AUSCULTATION: clear to auscultation bilaterally Cardio: COMMON NORMALS: no JVD, regular rate, regular rhythm and No murmurs present (Cardio) RATE: regular rate RHYTHM: regular rhythm Extremity: OTHER: Pain with any attempted manipulation of the shoulder in particular external rotation. Unable to AB duct due to pain. Neuro: SENSORIUM/ORIENTATION: Yes oriented to person, Yes oriented to place and Yes oriented to time Skin: COMMON NORMALS: no rashes or lesions noted GENERAL SKIN EXAM: no rash es or lesions noted Course Vital Signs: Vital signs: Vital Signs Temperature 98.5 F 09/03/21 18:22 Pulse Rate 75 09/03/21 18:22 Respiratory Rate 16 09/03/21 18:22 Blood Pressure 104/60 09/03/21 18:22 Pulse Oximetry 98 09/03/21 18:22 MDM - Extremity (Nontraumatic) Medical Decision Making Discharge home arm sling anti-inflammatories set up for MRI and follow-up with Ortho Medical Records I reviewed the patient's medical records. Lab Data I reviewed the patient's lab results. Radiology Impressions Shoulder X-Ray 09/03/21 17:02 IMPRESSION: No acute findings. Status post sternotomy Discharge Plan Discharge Patient Disposition: Home Clinical Impression: Rotator cuff injury Condition: Stable Prescriptions: New hydrocodone-acetaminophen 5-325 mg tablet 1 tab PO Q6H PRN (Reason: pain) Qty: 10 0RF No Action allopurinol 300 mg tablet 300 mg PO DAILY 0RF atorvastatin 80 mg tablet 80 mg PO DAILY 0RF docusate sodium 100 mg capsule 200 mg PO BID PRN (Reason: Constipation) 0RF ferrous sulfate 325 mg (65 mg iron) tablet 325 mg PO DAILY 0RF fluticasone propionate [Allergy Relief (fluticasone)] 50 mcg/actuation spray,suspension 2 spray INTRANASAL DAILY PRN (Reason: Allergy Symptoms) 0RF hydrochlorothiazide 25 mg tablet 25 mg PO QAM 0RF lisinopril 40 mg tablet 40 mg PO DAILY 0RF Hold Instructions: Resume on 03/12/21. pioglitazone 30 mg tablet 30 mg PO DAILY 0RF gabapentin 300 mg capsule 300 mg PO BID 0RF pantoprazole 40 mg tablet,delayed release (DR/EC) 40 mg PO BIDWM 30 Days Qty: 60 3RF sucralfate [Carafate] 1 gram tablet 1 g PO Q6H 84 Days Qty: 336 0RF tamsulosin 0.4 mg Capsule 0.8 mg PO BEDTIME 0RF venlafaxine [Effexor XR] 37.5 mg Capsule,Extended Release 24hr 37.5 mg PO DAILY 0RF albuterol sulfate [ProAir HFA] 90 mcg/actuation Hfa Aerosol Inhaler 2 puff INHALATION Q4H PRN (Reason: Shortness Of Breath) 0RF diltiazem HCl [Cardizem CD] 120 mg Capsule,Extended Release 24hr 120 mg PO DAILY 0RF cholecalciferol (vitamin D3) [Vitamin D3] 125 mcg (5,000 unit) Tablet 125 mcg PO DAILY 0RF carvedilol 6.25 mg Tablet 6.25 mg PO BID Qty: 60 4RF Hold Instructions: Resume on 03/12/21. amiodarone 200 mg tablet 200 mg PO BID Qty: 60 2RF aspirin [Aspir-81] 81 mg Tablet,Delayed Release (Dr/Ec) 81 mg PO DAILY 0RF levothyroxine 25 mcg Tablet 75 mcg PO DAILY 0RF omeprazole 20 mg Tablet,Delayed Release (Dr/Ec) 20 mg PO DAILY 0RF Eucerin Cream 1 applic TOPICAL DAILY 0RF apixaban 5 mg Tablet 5 mg PO BID 0RF tramadol 100 mg tablet 100 mg PO Q12H PRN (Reason: pain) Qty: 10 0RF diclofenac sodium 75 mg tablet,delayed release (DR/EC) 75 mg PO Q12H PRN (Reason: pain) Qty: 20 0RF Discharge Orders: Discharge ED (Routine); Ordered 09/03/21 Ordered By: Rene Chaudhari Referrals: Guicho Vega DO [Primary Care Provider] - Discharge Diet: Usual diet Discharge Activity: Limit activity as instructed Patient Instructions: Opioid Safety Activity Restrictions/Additional Instructions: Wear arm sling as needed for comfort. Continue to use your diclofenac or the hydrocodone prescribed today for pain. Case management will call with a follow- up appointment to the orthopedic clinic. Coding Level of Care Code ED Ship Design Teacher for Jason Foley
--- NOTE | 2021-09-03 17:02 | XRR_ITS ---
PROCEDURE INFORMATION: Exam: XR Left Shoulder Exam date and time: 09/03/2021 5:10 PM Age: 66 years old Clinical indication: Pain; Shoulder; Left TECHNIQUE: Imaging protocol: XR Left shoulder. Views: 2 or more views. COMPARISON: CR XR cervical spine 3V* [id number] 08/01/2021 11:43 AM FINDINGS: Bones/joints: Negative for acute bony abnormality. Metallic sternotomy wires are in place. Soft tissues: Normal. XR/XR shoulder LT min 2V* [id number] IMPRESSION: No acute findings. Status post sternotomy
[2021-09-03] MEDS: HYDROcodone-acetaminophen 5-325 mg Tablet 1 TAB PO (17:12)
[2021-09-03 17:15] VITALS: BP 104/60; PULSE 75; RESP 16; TEMP 36.9; O2SAT 98
[2021-09-03 18:22] VITALS: BP 104/60; PULSE 75; RESP 16; TEMP 36.9; O2SAT 98
--- NOTE | 2021-09-05 15:32 | DCPLANNER ---
Addendum entered by Becky Starr 12/13/21 12:02: Patient had a follow up appointment scheduled with ortho - patient did attend appointment. Addendum entered by Becky Starr 09/09/21 09:19: Patient has a follow up appointment scheduled for Monday, October 11, 2021 at 9:[address] Casey at ortho. Clinic will call patient with appointment information. Original Note: project manager interior design had message to schedule a follow up appointment for patient with ortho. project manager interior design sent patients information to the front office staff at ortho. Patients information will be printed and reviewed. Clinic will call patient with appointment information.
== END 2021-09-03 18:24 | disposition home or self-care (01) ==
PROVIDERS: Emergency Provider Family Medicine; PCP Emergency Medicine Emergency Medical Services
DX: S46.002A Unspecified injury of muscle(s) and tendon(s) of the rotator cuff of left shoulder, initial encounter (principal); X50.0XXA Overexertion from strenuous movement or load, initial encounter
CPT/HCPCS: 73030; 99283

== ENCOUNTER 2021-09-08 08:12 | Day surgery (SDC) | payer OTHER, MEDICARE, SELFPAY ==
[2021-09-06 10:11] VITALS: BMI 30.1
--- NOTE | 2021-09-08 08:34 | P.HP_ITS ---
Same Day Surgery H&P Indication for Procedure/HPI DATE OF PROCEDURE: September 08, 2021 CHIEF COMPLAINT/INDICATIONFOR SURGICAL PROCEDURE: Follow-up EGD PREOP DIAGNOSIS: Gastric ulcer PLANNED PROCEDURE: Operation Date: 09/08/21 09:45 Proposed Procedures p EGD 00856/k25.9(Not Applicable) - Paco Sullivan MD 07/20/2021 Mr. Taylor comes today status post EGD and was found to have a gastric ulcer at the antrum and periulcer injection of epinephrine 1/10,000 was done.? As patient had an episode of coffee-ground emesis prior to.? Patient now is off blood thinners and overall he feels better.? Comes today for follow-up 09/08/2021 Patient comes today for repeat EGD due to history of gastric ulcer ROS All systems have been reviewed negative except as for the above or per problem list. Medications/Allergies* Home Medications Medication Instructions Recorded Confirmed Type allopurinol 300 mg tablet 300 mg PO DAILY 05/06/19 09/06/21 History atorvastatin 80 mg tablet 80 mg PO DAILY 05/06/19 09/06/21 History docusate sodium 100 mg capsule 200 mg PO BID PRN 05/06/19 09/06/21 History ferrous sulfate 325 mg (65 mg 325 mg PO DAILY 05/06/19 09/06/21 History iron) tablet fluticasone propionate 50 2 spray INTRANASAL DAILY PRN 05/06/19 09/06/21 History mcg/actuation nasal spray,suspension (Allergy Relief (fluticasone)) hydrochlorothiazide 25 mg tablet 25 mg PO QAM 05/06/19 09/06/21 History lisinopril 40 mg tablet 40 mg PO DAILY 05/06/19 09/06/21 History pioglitazone 30 mg tablet 30 mg PO DAILY 05/06/19 09/06/21 History tamsulosin 0.4 mg capsule 0.8 mg PO BEDTIME 05/27/19 09/06/21 History gabapentin 300 mg capsule 300 mg PO BID cap 10/14/19 09/06/21 History albuterol sulfate 90 mcg/actuation 2 puff INHALATION Q4H PRN 01/14/21 09/06/21 History aerosol inhaler (ProAir HFA) venlafaxine 37.5 mg 37.5 mg PO DAILY 01/14/21 09/06/21 History capsule,extended release 24 hr (Effexor XR) cholecalciferol (vitamin D3) 125 125 mcg PO DAILY 03/03/21 09/06/21 History mcg (5,000 unit) tablet (Vitamin D3) diltiazem HCl 120 mg 120 mg PO DAILY 03/03/21 09/06/21 History capsule,extended release 24 hr (Cardizem CD) apixaban 5 mg tablet 5 mg PO BID 07/15/21 09/07/21 History aspirin 81 mg tablet,delayed 81 mg PO DAILY 07/15/21 09/07/21 History release lanolin alcohols-mineral 1 applic TOPICAL DAILY 07/15/21 09/06/21 History oil-w.petrolatum-ceresin topical cream (Eucerin) levothyroxine 25 mcg tablet 75 mcg PO DAILY 07/15/21 09/06/21 History Allergies/Adverse Reactions Allergy/AdvReac Type Severity Reaction Status Date / Time codeine Allergy Intermediate ALGY-Swell Verified 09/08/21 08:35 Lip/Tongue/Throat Pertinent History/Comorbid Conditions* Medical History (Updated 09/03/21 @ 17:51 by Rene Chaudhari DO) Acute kidney injury superimposed on CKD Afib Anticoagulation adequate with anticoagulant therapy Atherosclerosis of coronary artery Atrial fibrillation Carotid stenosis Chronic kidney disease (CKD) Diabetes Diabetic gastroparesis Gastritis Hypercholesteremia Hypertension Left main coronary artery disease Nausea and vomiting Spinal stenosis, lumbar region, with neurogenic claudication Spondylolisthesis, lumbar region Surgical History (Updated 03/23/21 @ 13:32 by CARMELA Allen) History of jeremiah hole surgery Twist drill drainage of bilateral subdural hematomas, 12/20/2016, [facility] [place] History of esophagogastroduodenoscopy (EGD) (~05/2019) History of laparoscopic cholecystectomy (~06/2019) History of lumbar laminectomy Bilateral L4-L5 laminotomy/foraminotomy/limited facetectomy Previous back surgery Status post aorto-coronary artery bypass graft Family History (Updated 07/22/19 @ 11:09 by Patti Marie LPN) Diabetes CAD (coronary artery disease) Cancer Hypertension Stroke Denies family history of Anesthesia complication Bleeding disorder Social History Smoking and tobacco status: former smoker Alcohol intake: former Lives independently: Yes Marital status: Current occupational status: retired History of recent travel: No Pertinent Exam Findings alert, oriented x 3, regular rate & rhythm and procedure specific exam findings (Abdominal examination nontender nondistended soft) Recommendations Surgery/Procedure today (EGD with possible biopsy) Coding Level of Care Code 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
[2021-09-08 08:41] VITALS: BP 160/92; PULSE 56; RESP 18; TEMP 36.2; O2SAT 95
--- NOTE | 2021-09-08 08:49 | P.ANESASSM_ITS ---
Pre-Anesthetic Assessment Height/Weight: Height 1.73 m Weight 89.811 kg Temp Pulse Resp BP Pulse Ox 97.2 F L 56 L 18 160/92 95 09/08/21 08:41 09/08/21 08:41 09/08/21 08:41 09/08/21 08:41 09/08/21 08:41 Preop Diagnosis: Gastric ulcer Operation Date: 09/08/21 09:45 Proposed Procedures p EGD 88874/k25.9(Not Applicable) - Paco Sullivan MD Was Beta Denae taken within 24 hours: Yes Last intake: Intake Last Liquid Date 09/07/21 Last Liquid Time 21:00 Last Solid Date 09/07/21 Last Solid Time 20:30 Social quit smoking Exam alert and oriented x 3 Airway Submandibular: within normal limits Cervical ROM: within normal limits Mallampati: Class III Dentition: false History/ROS No significant history except as noted Pulmonary Chronic Obstructive Pulmonary Disease CV/HEM Coronary Artery Disease (CABG denies CP) and Hypertension None reported Hepatic None reported GI Gastroesophageal Reflux Disease and Hiatal Hernia Metabolic Diabetes Mellitus Musc/skel Lower Back Pain and Osteoarthritis/DJD Neuropsych Seizure (possible migraines- gets aura; last 3 months ago) and Transient Ischemic Attack (left weaker) Anesthetic Plan ASA status: 3 Anesthesia: Anesthesia Evaluation and MAC Risk of > 500 ml blood loss (7ml/kg in children): No Medications/Allergies Home Medications Medication Instructions Recorded Confirmed Last Taken Type allopurinol 300 mg tablet 300 mg PO DAILY 05/06/19 09/06/21 09/07/21 History atorvastatin 80 mg tablet 80 mg PO DAILY 05/06/19 09/06/21 09/07/21 History docusate sodium 100 mg capsule 200 mg PO BID PRN 05/06/19 09/06/21 09/07/21 History ferrous sulfate 325 mg (65 mg 325 mg PO DAILY 05/06/19 09/06/21 09/07/21 History iron) tablet fluticasone propionate 50 2 spray INTRANASAL DAILY PRN 05/06/19 09/06/21 09/07/21 History mcg/actuation nasal spray,suspension (Allergy Relief (fluticasone)) hydrochlorothiazide 25 mg tablet 25 mg PO QAM 05/06/19 09/06/21 09/07/21 History lisinopril 40 mg tablet 40 mg PO DAILY 05/06/19 09/06/21 09/07/21 History pioglitazone 30 mg tablet 30 mg PO DAILY 05/06/19 09/06/21 09/07/21 History tamsulosin 0.4 mg capsule 0.8 mg PO BEDTIME 05/27/19 09/06/21 09/07/21 History gabapentin 300 mg capsule 300 mg PO BID cap 10/14/19 09/06/21 09/07/21 History albuterol sulfate 90 mcg/actuation 2 puff INHALATION Q4H PRN 01/14/21 09/06/21 2 Months Ago History aerosol inhaler (ProAir HFA) ~05/10/21 venlafaxine 37.5 mg 37.5 mg PO DAILY 01/14/21 09/06/21 09/07/21 History capsule,extended release 24 hr (Effexor XR) amiodarone 200 mg tablet 200 mg PO BID #60 tab 02/21/21 09/06/21 09/08/21 Rx carvedilol 6.25 mg tablet 6.25 mg PO BID #60 tab 02/21/21 09/06/21 09/08/21 Rx cholecalciferol (vitamin D3) 125 125 mcg PO DAILY 03/03/21 09/06/21 09/07/21 History mcg (5,000 unit) tablet (Vitamin D3) diltiazem HCl 120 mg 120 mg PO DAILY 03/03/21 09/06/21 09/08/21 History capsule,extended release 24 hr (Cardizem CD) apixaban 5 mg tablet 5 mg PO BID 07/15/21 09/07/21 07/12/21 History aspirin 81 mg tablet,delayed 81 mg PO DAILY 07/15/21 09/07/21 07/12/21 History release lanolin alcohols-mineral 1 applic TOPICAL DAILY 07/15/21 09/06/21 09/07/21 History oil-w.petrolatum-ceresin topical cream (Eucerin) levothyroxine 25 mcg tablet 75 mcg PO DAILY 07/15/21 09/06/21 09/07/21 History pantoprazole 40 mg tablet,delayed 40 mg PO BIDWM 30 Days #60 tab 07/26/21 09/06/21 09/07/21 Rx release sucralfate 1 gram tablet (Carafate) 1 g PO Q6H 84 Days #336 tab 07/26/21 09/06/21 09/07/21 Rx diclofenac sodium 75 mg 75 mg PO Q12H PRN #20 tab 08/01/21 09/06/21 09/07/21 Rx tablet,delayed release hydrocodone 5 mg-acetaminophen 325 1 tab PO Q6H PRN #10 tab 09/03/21 09/06/21 09/07/21 Rx mg tablet Allergies Allergy/AdvReac Type Severity Reaction Status Date / Time codeine Allergy Intermediate ALGY-Swell Verified 09/08/21 08:35 [facility]ue[facility] Medical History Acute kidney injury superimposed on CKD Afib Anticoagulation adequate with anticoagulant therapy Atherosclerosis of coronary artery Atrial fibrillation Carotid stenosis Chronic kidney disease (CKD) Diabetes Diabetic gastroparesis Gastritis Hypercholesteremia Hypertension Left main coronary artery disease Nausea and vomiting Spinal stenosis, lumbar region, with neurogenic claudication Spondylolisthesis, lumbar region Surgical History History of jeremiah hole surgery Twist drill drainage of bilateral subdural hematomas, 12/20/2016, [facility] [place] History of esophagogastroduodenoscopy (EGD) (~05/2019) History of laparoscopic cholecystectomy (~06/2019) History of lumbar laminectomy Bilateral L4-L5 laminotomy/foraminotomy/limited facetectomy Previous back surgery Status post aorto-coronary artery bypass graft Family History Other CAD (coronary artery disease) Cancer Diabetes Hypertension Stroke Denies family history of Anesthesia complication Bleeding disorder Social History Smoking and tobacco status: former smoker Alcohol intake: former Lives independently: Yes Marital status: Current occupational status: retired History of recent travel: No Data Anesthesia Cardiac Studies: Echocardiogram 03/02/21 Anesthesia Procedures Date of Procedure 09/08/21
[2021-09-08] MEDS: sodium chloride 0.9% 1,000 ML 30 ML IV (09:03)
[2021-09-08 09:46] VITALS: BP 105/60; PULSE 45; RESP 18; TEMP 36.2; O2SAT 96
[2021-09-08 09:57] VITALS: BP 146/72; PULSE 48; RESP 18; O2SAT 94
--- NOTE | 2021-09-08 13:41 | ANE.PACU2 ---
Inpatient post-anesthesia follow up: Airway intact: Yes Vital signs: Temperature 97.2 F Pulse Rate 48 Respiratory Rate 18 Blood Pressure 146/72 Pulse Oximetry 94 Oxygen Delivery Me thod Room Air Oxygen Flow Rate Fraction of Inspir ed Oxygen Hydration adequate: Yes Nausea and vomiting: No Pain level: 1 Mental status: Baseline
== END 2021-09-08 10:23 | disposition home or self-care (01) ==
PROVIDERS: PCP Emergency Medicine Emergency Medical Services; Visit Provider Surgery
PROC: 0DJ08ZZ Inspection of Upper Intestinal Tract, Via Natural or Artificial Opening Endoscopic (ICD-10-PCS; CPT 43235; principal; 2021-09-08 09:45)
DX: Z87.11 Personal history of peptic ulcer disease (principal); K21.00 Gastro-esophageal reflux disease with esophagitis, without bleeding; K44.9 Diaphragmatic hernia without obstruction or gangrene; K29.70 Gastritis, unspecified, without bleeding; J44.9 Chronic obstructive pulmonary disease, unspecified; I25.10 Atherosclerotic heart disease of native coronary artery without angina pectoris; Z95.1 Presence of aortocoronary bypass graft; K21.9 Gastro-esophageal reflux disease without esophagitis; I48.91 Unspecified atrial fibrillation; E78.00 Pure hypercholesterolemia, unspecified; E11.22 Type 2 diabetes mellitus with diabetic chronic kidney disease; I12.9 Hypertensive chronic kidney disease with stage 1 through stage 4 chronic kidney disease, or unspecified chronic kidney disease; N18.9 Chronic kidney disease, unspecified; Z87.891 Personal history of nicotine dependence
CPT/HCPCS: 43239; 88305; J2704; J7030

== ENCOUNTER → 2021-09-12 09:40 | Outpatient (BNVA) | payer OTHER, MEDICARE, SELFPAY | PROVIDERS: PCP Emergency Medicine Emergency Medical Services; Visit Provider Nurse Practitioner Family | DX: S49.92XA Unspecified injury of left shoulder and upper arm, initial encounter (principal); X50.0XXA Overexertion from strenuous movement or load, initial encounter | CPT/HCPCS: 99213 ==

== ENCOUNTER → 2021-09-22 13:10 | Outpatient (BNVA) | payer OTHER, SELFPAY | PROVIDERS: PCP Emergency Medicine Emergency Medical Services; Visit Provider Surgery | DX: Z09 Encounter for follow-up examination after completed treatment for conditions other than malignant neoplasm (principal); K21.9 Gastro-esophageal reflux disease without esophagitis; K44.9 Diaphragmatic hernia without obstruction or gangrene | CPT/HCPCS: 99213 ==

== ENCOUNTER → 2021-09-27 10:36 | Outpatient (BNVA) | payer OTHER, SELFPAY | PROVIDERS: PCP Emergency Medicine Emergency Medical Services; Visit Provider Specialist | DX: G43.109 Migraine with aura, not intractable, without status migrainosus (principal); R56.9 Unspecified convulsions; Z98.890 Other specified postprocedural states; Z87.820 Personal history of traumatic brain injury | CPT/HCPCS: 99213; 99214 ==

== ENCOUNTER → 2021-10-03 13:42 | Outpatient (BNVA) | payer OTHER, SELFPAY | PROVIDERS: PCP Emergency Medicine Emergency Medical Services; Referring Provider Specialist; Visit Provider Specialist | DX: R56.9 Unspecified convulsions (principal) | CPT/HCPCS: 95816 ==

== ENCOUNTER 2021-10-20 14:17 | Outpatient (CLI) | payer OTHER, SELFPAY ==
--- NOTE | 2021-10-20 14:30 | MR_ITS ---
WS: [id number] MRI LEFT SHOULDER NONCONTRAST TECHNIQUE: Sagittal T2, coronal T1, T2 and proton density imaging. Axial gradient PDE imaging. CLINICAL INFORMATION: pain COMPARISON: 2019 FINDINGS: Mild degenerative arthritis AC joint. Mild downsloping acromion. Marked narrowing of the subacromial space. High-grade complete tear of the infraspinatus with retraction to the level of the glenohumeral joint. Edema within the infraspinatus muscle belly. Chronic thinning of the distal supraspinatus which appe ars intact distally. Moderate joint effusion. Normal teres minor. High-grade intrasubstance tear subscapularis tendon with edema and irregularity. Fluid along the subs capularis tendon sheath. Medial dislocation of the intra-articular biceps tendon with high-grade tear and marked atrophy. Tiny remnant biceps tendon near the glenohumeral joint. Small intra-articular bi ceps tendon. Degenerative fraying of the glenoid labrum. Normal bone marrow signal in the glenoid. Degenerative cy stic change along the greater tuberosity. MR/MR shoulder LT wo con* [id number] IMPRESSION: 1. High-grade complete tear of the infraspinatus with retraction to the level of glenohumeral joint appears new since 2019 2. Chronic atrophy of the supraspinatus which appears intact distally. 3. High-grade intrasubstance partial tear of the subscapularis with edema and irregularity appears new since 2019 4. Medial dislocation of the intra-articular biceps tendon with high-grade par tial tear and marked atrophy is new since 2019. 5. Tiny remnant biceps tendon near the glenohumeral joint. Small remnant intra -articular biceps tendon.
== END 2021-10-20 14:18 | disposition home or self-care (01) ==
LOC: RAD 14:19
PROVIDERS: PCP Emergency Medicine Emergency Medical Services; Visit Provider Nurse Practitioner Family
DX: S49.90XA Unspecified injury of shoulder and upper arm, unspecified arm, initial encounter (principal); X58.XXXA Exposure to other specified factors, initial encounter
CPT/HCPCS: 73221

== ENCOUNTER → 2021-11-02 13:08 | Outpatient (BNVA) | payer OTHER, SELFPAY | PROVIDERS: PCP Emergency Medicine Emergency Medical Services; Visit Provider Orthopaedic Surgery | DX: M75.102 Unspecified rotator cuff tear or rupture of left shoulder, not specified as traumatic (principal) | CPT/HCPCS: 99214 ==

== ENCOUNTER → 2021-11-08 12:46 | Outpatient (BNVA) | payer OTHER, SELFPAY | PROVIDERS: PCP Emergency Medicine Emergency Medical Services; Visit Provider Internal Medicine | DX: I25.119 Atherosclerotic heart disease of native coronary artery with unspecified angina pectoris (principal); Z95.1 Presence of aortocoronary bypass graft; I12.9 Hypertensive chronic kidney disease with stage 1 through stage 4 chronic kidney disease, or unspecified chronic kidney disease; E11.22 Type 2 diabetes mellitus with diabetic chronic kidney disease; N18.9 Chronic kidney disease, unspecified; Z79.84 Long term (current) use of oral hypoglycemic drugs; Z87.891 Personal history of nicotine dependence | CPT/HCPCS: 99214 ==

== ENCOUNTER → 2021-11-21 10:43 | Day surgery (SDC) | payer OTHER, SELFPAY | PROVIDERS: PCP Emergency Medicine Emergency Medical Services; Visit Provider Orthopaedic Surgery | DX: Z01.818 Encounter for other preprocedural examination (principal) | CPT/HCPCS: 93005 ==

== ENCOUNTER 2021-12-02 09:37 | Outpatient (CLI) | payer OTHER, SELFPAY ==
--- NOTE | 2021-12-02 | CT_ITS ---
WS: [id number] CT LEFT SHOULDER, NONCONTRAST. HISTORY: LEFT shoulder surgery, pain. Technique: All [facility] scans at [facility] use at least one of these dose optimization techniques: automated exposure control; mA and/or kV adjustment per patient size (includes targeted exams where dose is matched to clinical indication); or iterative reconstruction. DLP: 671.20 mGy.cm COMPARISON: Radiograph 09/05/2021 High riding humeral head nearly abuts the undersurface of the acromion. Significant subacromial impin gement. Very mild narrowing of the glenohumeral joint and AC joint. Mild cortical irregularity involv ing the anterior humeral head. No os acromion. No fracture or loose body in the glenohumeral joint. Marked atrophy of the supraspinatus muscle. There is likely a complete supraspinatus tendon tear with retraction of the supraspinatus tendon. Very mild atrophy of the infraspinatus muscle. Visualized LE FT lung is clear. Prior CABG. Atherosclerosis within the visualized aorta and proximal great vessels. CT/CT shoulder LT wo con* [id number] IMPRESSION: 1. High riding humeral head. 2. Marked atrophy of the supraspinatus muscle. Suspect complete tear of the kohler praspinatus with retraction of the tendon. 3. Moderate atrophy of the infraspinatus muscle.
== END 2021-12-02 09:38 | disposition home or self-care (01) ==
LOC: RAD 09:38
PROVIDERS: PCP Emergency Medicine Emergency Medical Services; Visit Provider Orthopaedic Surgery
DX: M25.512 Pain in left shoulder (principal); Z98.890 Other specified postprocedural states; M62.522 Muscle wasting and atrophy, not elsewhere classified, left upper arm
CPT/HCPCS: 73200

== ENCOUNTER 2021-12-05 14:55 | Observation (INO) | payer OTHER, SELFPAY ==
[2021-11-21 10:11] VITALS: BMI 30.7
[2021-11-21 10:41] LABS: Basophils # 0.1 10^3/uL (0.0-0.1); Eosinophils # 0.3 10^3/uL (0.0-0.8); Eosinophils % 3.6 %; Hematocrit 33.9 % (42.0-52.0); Hemoglobin 11.3 g/dL (11.7-16.6); Lymphocytes # 1.1 10^3/uL (0.8-4.8); Lymphocytes % 15.6 %; Mean Corpuscular HGB Conc 33.3 g/dL (30.0-36.0); Mean Corpuscular Volume 99.1 fl (80-94); Mean Platelet Volume 11.5 fL (7.4-10.4); Monocytes # 0.6 10^3/uL (0.2-0.9); Monocytes % 7.9 %; Neutrophils # 4.96 10^3/uL (1.8-7.7); Neutrophils % 71.6 %; Nucleated Red Blood Cells % 0 %; Platelet Count 151 10^3/cmm (130-400); Red Blood Count 3.42 10^6/uL (4.1-5.3); Red Cell Distribution Width 14.7 % (12.1-15.1); White Blood Count 6.9 10^3/uL (4.0-10.0)
--- NOTE | 2021-11-21 10:43 | ECG_ITS ---
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 Measurements Intervals [place] Rate: 54 P: 26 SC: 164 QRS: 61 QRSD: 103 T: 33 QT: 448 QTc: 427 Interpretive Statements SINUS BRADYCARDIA NONSPECIFIC T-WAVE ABNORMALITY Compared to ECG 08/01/2021 11:27:53 Intraventricular conduction delay no longer present Possible ischemia no longer present T-wave abnormality still present Electronically Signed On 11-22-2021 21:18:59 CDT by Leti Ma M.D. [id number]
--- NOTE | 2021-11-21 10:53 | ANES.PREANE2 ---
Pre-Anesthetic Assessment Height/Weight: Height 1.73 m Weight 91.626 kg Preop Diagnosis: Massive tear of left rotator cuff Operation Date: 12/05/21 07:00 Proposed Procedures p left reverse total shoulder arthroplasty/ 75131(Left) - Carlos Alberto Casey MD Was Beta Denae taken within 24 hours: Yes Airway Dentition: false Pulmonary None reported CV/HEM s/p CABG approximately 1 year ago Unstable angina METS > 4 None reported Hepatic None reported GI None reported Musc/skel Osteoarthritis/DJD Neuropsych Transient Ischemic Attack (Frequent TIA ) Medications/Allergies Home Medications Medication Instructions Recorded Confirmed Last Taken Type allopurinol 300 mg tablet 300 mg PO DAILY 05/06/19 11/21/21 09/07/21 History atorvastatin 80 mg tablet 80 mg PO DAILY 05/06/19 11/21/21 09/07/21 History docusate sodium 100 mg capsule 200 mg PO BID PRN Constipation 05/06/19 11/21/21 09/07/21 History ferrous sulfate 325 mg (65 mg 325 mg PO DAILY 05/06/19 11/21/21 09/07/21 History iron) tablet fluticasone propionate 50 2 spray intranasal DAILY PRN 05/06/19 11/21/21 09/07/21 History mcg/actuation nasal Allergy Symptoms spray,suspension (Allergy Relief (fluticasone)) hydrochlorothiazide 25 mg tablet 25 mg PO QAM 05/06/19 11/21/21 09/07/21 History pioglitazone 30 mg tablet 30 mg PO DAILY 05/06/19 11/21/21 09/07/21 History tamsulosin 0.4 mg capsule 0.8 mg PO BEDTIME 05/27/19 11/21/21 09/07/21 History gabapentin 300 mg capsule 300 mg PO BID 10/14/19 11/21/21 09/07/21 History albuterol sulfate 90 mcg/actuation 2 puff inhalation Q4H PRN 01/14/21 11/21/21 2 Months Ago History aerosol inhaler (ProAir HFA) Shortness Of Breath ~05/10/21 venlafaxine 37.5 mg 37.5 mg PO DAILY 01/14/21 11/21/21 09/07/21 History capsule,extended release 24 hr (Effexor XR) amiodarone 200 mg tablet 200 mg PO BID #60 tabs 02/21/21 11/21/21 09/08/21 Rx carvedilol 6.25 mg tablet 6.25 mg PO BID #60 tabs 02/21/21 11/21/21 09/08/21 Rx cholecalciferol (vitamin D3) 125 125 mcg PO DAILY 03/03/21 11/21/21 09/07/21 History mcg (5,000 unit) tablet (Vitamin D3) diltiazem HCl 120 mg 120 mg PO DAILY 03/03/21 11/21/21 09/08/21 History capsule,extended release 24 hr (Cardizem CD) apixaban 5 mg tablet 5 mg PO BID 07/15/21 11/21/21 07/12/21 History aspirin 81 mg tablet,delayed 81 mg PO DAILY 07/15/21 11/21/21 07/12/21 History release lanolin alcohols-mineral 1 applic topical DAILY 07/15/21 11/21/21 09/07/21 History oil-w.petrolatum-ceresin topical cream (Eucerin) levothyroxine 25 mcg tablet 75 mcg PO DAILY 07/15/21 11/21/21 09/07/21 History pantoprazole 40 mg tablet,delayed 40 mg PO BIDWM upset stomach 30 07/26/21 11/21/21 09/07/21 Rx release days #60 tabs diclofenac sodium 75 mg 75 mg PO Q12H PRN pain #20 tabs 08/01/21 11/21/21 09/07/21 Rx tablet,delayed release divalproex 500 mg tablet,extended 500 mg PO DAILY #90 tabs 09/27/21 11/21/21 Unknown Rx release 24 hr (Depakote ER) cyclobenzaprine 10 mg tablet 10 mg PO TID muscle spasms 11/08/21 11/21/21 Unknown History lisinopril 40 mg tablet 20 mg PO DAILY 11/08/21 11/21/21 Unknown History Allergies Allergy/AdvReac Type Severity Reaction Status Date / Time codeine Allergy Intermediate ALGY-Swell Verified 11/21/21 10:01 Lip/Tongue/Throat [facility] Anesthesia Medical History Acute kidney injury superimposed on CKD Afib Anticoagulation adequate with anticoagulant therapy Atherosclerosis of coronary artery Atrial fibrillation Carotid stenosis Chronic kidney disease (CKD) Coffee ground emesis Diabetes Diabetic gastroparesis Gastric ulcer Gastritis Hypercholesteremia Hypertension Left main coronary artery disease Nausea and vomiting Spinal stenosis, lumbar region, with neurogenic claudication Spondylolisthesis, lumbar region Surgical History History of jeremiah hole surgery Twist drill drainage of bilateral subdural hematomas, 12/20/2016, [facility] [place] History of esophagogastroduodenoscopy (EGD) (~05/2019) History of laparoscopic cholecystectomy (~06/2019) History of lumbar laminectomy Bilateral L4-L5 laminotomy/foraminotomy/limited facetectomy Previous back surgery Status post aorto-coronary artery bypass graft Family History Other CAD (coronary artery disease) Cancer Diabetes Hypertension Stroke Denies family history of Anesthesia complication Bleeding disorder Social History Smoking and tobacco status: former smoker Alcohol intake: former Lives independently: Yes Marital status: Current occupational status: retired History of recent travel: No Data Anesthesia : 11/21/21 10:34 11/21/21 10:34 Short CBC 11/21/21 Range/Units 10:34 WBC 6.9 (4.0-10.0) 10^3/uL Hgb 11.3 L (11.7-16.6) g/dL Hct 33.9 L (42.0-52.0) % MCV 99.1 H (80-94) fl Plt Count 151 (130-400) 10^3/cmm Neut % (Auto) 71.6 % Neut # (Auto) 4.96 (1.8-7.7) 10^3/uL Cardiac Studies: Echocardiogram 03/02/21
[2021-11-21 11:11] LABS: Blood Urea Nitrogen 20 mg/dL (8-23); Calcium 9.3 mg/dL (8.5-10.5); Carbon Dioxide 34 mmol/L (22-29); Chloride 101 mmol/L (98-107); Glomerular Filtration Rate 66.8 mL/min (90-130); Glucose 116 mg/dL (65-115); Osmolality Calculated 296 mOsm/kg (285-295); Sodium 141 mmol/L (136-145)
--- NOTE | 2021-11-21 15:39 | ANES.PREANE2 ---
Pre-Anesthetic Assessment Height/Weight: Height 1.73 m Weight 91.626 kg Preop Diagnosis: Massive tear of left rotator cuff Operation Date: 12/05/21 07:00 Proposed Procedures p left reverse total shoulder arthroplasty/ 07447(Left) - Carlos Alberto Casey MD Familial anesthetic complications: Per patient he is slow to wake up Was Beta Denae taken within 24 hours: Yes Was Clonidine taken within 24 hours: N/A Social No alcohol and No tobacco Exam alert, oriented x 3, clear to auscultation bilaterally and regular rate & rhythm Airway Submandibular: within normal limits Cervical ROM: within normal limits Mallampati: Class II Dentition: false CV/HEM Atrial Fibrillation (Hx of afib w/ RVR), Coronary Artery Disease, Hypertension and Peripheral Vascular Disease Hx of carotid stenosis S/P CABG 02/14/22 , 3 vessel Unstable angina Able to go up a flight of stairs w/o CP/SOB TTE 02/2021 CONCLUSIONS ?Normal size with borderline normal ejection fraction 50 to 55%. ?Wall motion normalities as mentioned above. ?Possible moderate to large loculated pericardial effusion on the ?posterolateral aspect ?Mildly dilated left atrium ?There are no intracardiac masses. ?Compared to the study from? 01/14/2021, the pericardial effusion ?appears to be new Carotid Doppler 07/2021 ?CONCLUSIONS ?Bilateral ICA stenosis less than 50%. ?Mild diffuse carotid atherosclerosis. CT 07/2021 CT/CT head wo con* [id number] IMPRESSION: ? 1.? No acute intracranial hemorrhage or edema. 2.? Mild to moderate atrophy with moderate small vessel ischemic changes and lacunar infarcts which are unchanged since 07/15/2021. ? Chronic Renal Insufficiency Hepatic None reported GI Gastroesophageal Reflux Disease and Hiatal Hernia Gastritis Diabetic gastroparesis Metabolic Diabetes Mellitus [facility] Lower Back Pain and Osteoarthritis/DJD Spinal stenosis Neuropsych Cerebrovascular Accident (Patient states he has hx of TIA with no resiudual sequelae from neurology note seizure disorder is suspected, however presentation does have stroke like symptoms ), Headache, Neuropathy and Seizure (EEG did not reveal seizure activity) Reports hx of seizures with tunnel vision, per patient poor compliance with anticonvulsant medications Anesthetic Plan ASA status: 3 Anesthesia: General and Regional (specify below) (Brachial plexus block) Other: We discussed risk and benefits of general anesthesia including PONV, sore throat (sometimes severe), corneal abrasion, positioning and peripheral nerve injuries, life threatening allergic reaction, post operative ICU admission requiring prolonged intubation, aspiration, stroke, heart attack, , and rare incidences of recall. Patient consents to proceed with general anesthesia. We discussed risk and benefits of nerve block for post op pain control including management of pain and titration of pain medications as signs/symptoms of nerve block wearing off begin to appear and/or prior bed. We discussed risk of failed nerve block, vascular injury or other vital structure injury, abscess/infection, LAST, PTx, and nerve injury. Plan GETA with arterial line for blood pressure monitoring and brachial plexus block for post op pain control. Risk of > 500 ml blood loss (7ml/kg in children): No Medications/Allergies Home Medications Medication Instructions Recorded Confirmed Last Taken Type allopurinol 300 mg tablet 300 mg PO DAILY 05/06/19 11/21/21 09/07/21 History atorvastatin 80 mg tablet 80 mg PO DAILY 05/06/19 11/21/21 09/07/21 History docusate sodium 100 mg capsule 200 mg PO BID PRN Constipation 05/06/19 11/21/21 09/07/21 History ferrous sulfate 325 mg (65 mg 325 mg PO DAILY 05/06/19 11/21/21 09/07/21 History iron) tablet fluticasone propionate 50 2 spray intranasal DAILY PRN 05/06/19 11/21/21 09/07/21 History mcg/actuation nasal Allergy Symptoms spray,suspension (Allergy Relief (fluticasone)) hydrochlorothiazide 25 mg tablet 25 mg PO QAM 05/06/19 11/21/21 09/07/21 History pioglitazone 30 mg tablet 30 mg PO DAILY 05/06/19 11/21/21 09/07/21 History tamsulosin 0.4 mg capsule 0.8 mg PO BEDTIME 05/27/19 11/21/21 09/07/21 History gabapentin 300 mg capsule 300 mg PO BID 10/14/19 11/21/21 09/07/21 History albuterol sulfate 90 mcg/actuation 2 puff inhalation Q4H PRN 01/14/21 11/21/21 2 Months Ago History aerosol inhaler (ProAir HFA) Shortness Of Breath ~05/10/21 venlafaxine 37.5 mg 37.5 mg PO DAILY 01/14/21 11/21/21 09/07/21 History capsule,extended release 24 hr (Effexor XR) amiodarone 200 mg tablet 200 mg PO BID #60 tabs 02/21/21 11/21/21 09/08/21 Rx carvedilol 6.25 mg tablet 6.25 mg PO BID #60 tabs 02/21/21 11/21/21 09/08/21 Rx cholecalciferol (vitamin D3) 125 125 mcg PO DAILY 03/03/21 11/21/21 09/07/21 History mcg (5,000 unit) tablet (Vitamin D3) diltiazem HCl 120 mg 120 mg PO DAILY 03/03/21 11/21/21 09/08/21 History capsule,extended release 24 hr (Cardizem CD) apixaban 5 mg tablet 5 mg PO BID 07/15/21 11/21/21 07/12/21 History aspirin 81 mg tablet,delayed 81 mg PO DAILY 07/15/21 11/21/21 07/12/21 History release lanolin alcohols-mineral 1 applic topical DAILY 07/15/21 11/21/21 09/07/21 History oil-w.petrolatum-ceresin topical cream (Eucerin) levothyroxine 25 mcg tablet 75 mcg PO DAILY 07/15/21 11/21/21 09/07/21 History pantoprazole 40 mg tablet,delayed 40 mg PO BIDWM upset stomach 30 07/26/21 11/21/21 09/07/21 Rx release days #60 tabs diclofenac sodium 75 mg 75 mg PO Q12H PRN pain #20 tabs 08/01/21 11/21/21 09/07/21 Rx tablet,delayed release divalproex 500 mg tablet,extended 500 mg PO DAILY #90 tabs 09/27/21 11/21/21 Unknown Rx release 24 hr (Depakote ER) cyclobenzaprine 10 mg tablet 10 mg PO TID muscle spasms 11/08/21 11/21/21 Unknown History lisinopril 40 mg tablet 20 mg PO DAILY 11/08/21 11/21/21 Unknown History Allergies Allergy/AdvReac Type Severity Reaction Status Date / Time codeine Allergy Intermediate ALGY-Swell Verified 11/21/21 10:01 [facility] Medical History Acute kidney injury superimposed on CKD Afib Anticoagulation adequate with anticoagulant therapy Atherosclerosis of coronary artery Atrial fibrillation Carotid stenosis Chronic kidney disease (CKD) Coffee ground emesis Diabetes Diabetic gastroparesis Gastric ulcer Gastritis Hypercholesteremia Hypertension Left main coronary artery disease Nausea and vomiting Spinal stenosis, lumbar region, with neurogenic claudication Spondylolisthesis, lumbar region Surgical History History of jeremiah hole surgery Twist drill drainage of bilateral subdural hematomas, 12/20/2016, [facility] [place] History of esophagogastroduodenoscopy (EGD) (~05/2019) History of laparoscopic cholecystectomy (~06/2019) History of lumbar laminectomy Bilateral L4-L5 laminotomy/foraminotomy/limited facetectomy Previous back surgery Status post aorto-coronary artery bypass graft Family History Other CAD (coronary artery disease) Cancer Diabetes Hypertension Stroke Denies family history of Anesthesia complication Bleeding disorder Social History Smoking and tobacco status: former smoker Alcohol intake: former Lives independently: Yes Marital status: Current occupational status: retired History of recent travel: No Data Anesthesia : 11/21/21 10:34 11/21/21 10:34 Short CBC 11/21/21 Range/Units 10:34 WBC 6.9 (4.0-10.0) 10^3/uL Hgb 11.3 L (11.7-16.6) g/dL Hct 33.9 L (42.0-52.0) % MCV 99.1 H (80-94) fl Plt Count 151 (130-400) 10^3/cmm Neut % (Auto) 71.6 % Neut # (Auto) 4.96 (1.8-7.7) 10^3/uL BMP 11/21/21 10:34 Sodium 141 Potassium 4.0 Chloride 101 Carbon Dioxide 34 H BUN 20 Creatinine 1.1 Glucose 116 H Calcium 9.3 Cardiac Studies: Echocardiogram 03/02/21
[2021-12-05] VITALS (19 sets, daily range): BP systolic 127–174; BP diastolic 57–90; PULSE 50–58; RESP 9–18; TEMP 36.1–36.4; O2SAT 88–100
[2021-12-05] MEDS: sodium chloride 0.9% 1,000 ML 30 ML IV (06:10)
[2021-12-05 06:13] LABS: Glucose Point of Care 122 mg/dL (70-110)
[2021-12-05] MEDS: oxyCODONE 20 mg ER (12 HR) Tablet PO (06:15)
[2021-12-05] MEDS: gabapentin 300 mg Capsule PO ×2 (06:15→20:33)
[2021-12-05] MEDS: CELEcoxib 200 mg Capsule 400 MG PO (06:15)
[2021-12-05] MEDS: acetaminophen 500 mg Tablet 1000 MG PO ×3 (06:15→20:34)
[2021-12-05] MEDS: ceFAZolin 2,000 MG in sodium chloride 0.9% (plus) 50 ML 100 MG IV (08:08)
--- NOTE | 2021-12-05 08:14 | P.ANESASSM_ITS ---
Pre-Anesthetic Assessment Height/Weight: Height 1.73 m Weight 91.626 kg Temp Pulse Resp BP Pulse Ox O2 Del Method 97.5 F L 58 L 16 131/72 93 12/05/21 06:04 12/05/21 06:04 12/05/21 06:15 12/05/21 06:04 12/05/21 06:15 12/05/21 06:04 Preop Diagnosis: Massive tear of left rotator cuff Operation Date: 12/05/21 07:40 Proposed Procedures p left reverse total shoulder arthroplasty/ [id number](Left) - Carlos Alberto Casey MD Familial anesthetic complications: None Was Beta Denae taken within 24 hours: N/A Was Clonidine taken within 24 hours: N/A Last intake: Intake Last Liquid Date 12/04/21 Last Liquid Time 21:00 Last Solid Date 12/04/21 Last Solid Time 21:00 Social No alcohol and No tobacco (h/o smoking) Exam alert and oriented x 3 Joe Airway Submandibular: within normal limits Cervical ROM: within normal limits Mallampati: Class II Dentition: false Comments: Comments: [facility] Chronic Obstructive Pulmonary Disease CV/HEM Coronary Artery Disease and Hypertension Medications/Allergies Home Medications Medication Instructions Recorded Confirmed Last Taken Type allopurinol 300 mg tablet 300 mg PO DAILY 05/06/19 12/05/21 12/04/21 History atorvastatin 80 mg tablet 80 mg PO DAILY 05/06/19 12/05/21 12/04/21 History docusate sodium 100 mg capsule 200 mg PO BID PRN Constipation 05/06/19 11/21/21 09/07/21 History ferrous sulfate 325 mg (65 mg 325 mg PO DAILY 05/06/19 12/05/21 12/04/21 History iron) tablet fluticasone propionate 50 2 spray intranasal DAILY PRN 05/06/19 11/21/21 09/07/21 History mcg/actuation nasal Allergy Symptoms spray,suspension (Allergy Relief (fluticasone)) hydrochlorothiazide 25 mg tablet 25 mg PO QAM 05/06/19 12/05/21 12/04/21 History pioglitazone 30 mg tablet 30 mg PO DAILY 05/06/19 12/05/21 12/04/21 History tamsulosin 0.4 mg capsule 0.8 mg PO BEDTIME 05/27/19 12/05/21 12/04/21 History gabapentin 300 mg capsule 300 mg PO BID 10/14/19 12/05/21 12/04/21 History albuterol sulfate 90 mcg/actuation 2 puff inhalation Q4H PRN 01/14/21 11/21/21 2 Months Ago History aerosol inhaler (ProAir HFA) Shortness Of Breath ~05/10/21 venlafaxine 37.5 mg 37.5 mg PO DAILY 01/14/21 12/05/21 12/04/21 History capsule,extended release 24 hr (Effexor XR) amiodarone 200 mg tablet 200 mg PO BID #60 tabs 02/21/21 12/05/21 12/05/21 Rx carvedilol 6.25 mg tablet 6.25 mg PO BID #60 tabs 02/21/21 12/05/21 12/05/21 Rx cholecalciferol (vitamin D3) 125 125 mcg PO DAILY 03/03/21 12/05/21 12/04/21 History mcg (5,000 unit) tablet (Vitamin D3) diltiazem HCl 120 mg 120 mg PO DAILY 03/03/21 12/05/21 12/04/21 History capsule,extended release 24 hr (Cardizem CD) apixaban 5 mg tablet 5 mg PO BID 07/15/21 12/05/21 12/02/21 History aspirin 81 mg tablet,delayed 81 mg PO DAILY 07/15/21 12/05/21 12/02/21 History release lanolin alcohols-mineral 1 applic topical DAILY 07/15/21 12/05/21 12/04/21 History oil-w.petrolatum-ceresin topical cream (Eucerin) levothyroxine 25 mcg tablet 75 mcg PO DAILY 07/15/21 12/05/21 12/04/21 History pantoprazole 40 mg tablet,delayed 40 mg PO BIDWM upset stomach 30 07/26/21 12/05/21 12/04/21 Rx release days #60 tabs diclofenac sodium 75 mg 75 mg PO Q12H PRN pain #20 tabs 08/01/21 11/21/21 Rx tablet,delayed release divalproex 500 mg tablet,extended 500 mg PO DAILY #90 tabs 09/27/21 12/05/21 12/04/21 Rx release 24 hr (Depakote ER) cyclobenzaprine 10 mg tablet 10 mg PO TID muscle spasms 11/08/21 12/05/21 12/04/21 History lisinopril 40 mg tablet 20 mg PO DAILY 11/08/21 12/05/21 12/04/21 History Allergies Allergy/AdvReac Type Severity Reaction Status Date / Time codeine Allergy Intermediate ALGY-Swell Verified 11/21/21 10:01 Lip/Tongue/Throat Current Medications Generic Name Dose Route Start Last Admin Trade Name Martha PRN Reason Stop Dose Admin Sodium Chloride 1,000 mls @ 30 mls/hr 12/05/21 06:00 12/05/21 06:10 Sodium Chloride 0.9% IV 12/06/21 05:59 30 mls/hr .Q24H MITCHEL Administration PFSH Anesthesia Medical History Acute kidney injury superimposed on CKD Afib Anticoagulation adequate with anticoagulant therapy Atherosclerosis of coronary artery Atrial fibrillation Carotid stenosis Chronic kidney disease (CKD) Coffee ground emesis Diabetes Diabetic gastroparesis Gastric ulcer Gastritis Hypercholesteremia Hypertension Left main coronary artery disease Nausea and vomiting Spinal stenosis, lumbar region, with neurogenic claudication Spondylolisthesis, lumbar region Surgical History History of jeremiah hole surgery Twist drill drainage of bilateral subdural hematomas, 12/20/2016, [facility] [place] History of esophagogastroduodenoscopy (EGD) (~05/2019) History of laparoscopic cholecystectomy (~06/2019) History of lumbar laminectomy Bilateral L4-L5 laminotomy/foraminotomy/limited facetectomy Previous back surgery Status post aorto-coronary artery bypass graft Family History Other CAD (coronary artery disease) Cancer Diabetes Hypertension Stroke Denies family history of Anesthesia complication Bleeding disorder Social History Smoking and tobacco status: former smoker Alcohol intake: former Lives independently: Yes Marital status: Current occupational status: retired History of recent travel: No Data Anesthesia : 11/21/21 10:34 11/21/21 10:34 Cardiac Studies: Echocardiogram 03/02/21
--- NOTE | 2021-12-05 08:16 | P.ANESUD_ITS ---
Pre-Anesthetic Update Pre-Anesthetic Assessment: Date of Surgery/Procedure: 12/05/21 Preop Kaelyn gnosis: Massive tear of left rotator cuff Proposed Procedure: Operation Date: 12/05/21 07:40 Proposed Procedures p left reverse total shoulder arthroplasty/ [id number](Left) - Carlos Alberto Casey MD Any changes to Pre-Anesthetic Assessment?: No Last Intake: Intake Last Liquid Date 12/04/21 Last Liquid Time 21:00 Last Solid Date 12/04/21 Last Solid Time 21:00 Vitals: Temperature 97.5 F L 12/05/21 06:04 Temperature Source Temporal Artery S can 12/05/21 06:04 Pulse Rate 58 L 12/05/21 06:04 Respiratory Rate 16 12/05/21 06:15 Respiratory Effort 12/05/21 06:15 Respiratory Depth Normal 12/05/21 06:15 Respiratory Patter n 12/05/21 06:15 Blood Pressure 131/72 12/05/21 06:04 Blood Pressure Rachana n 91 12/05/21 06:04 Pulse Oximetry 93 12/05/21 06:15 Oxygen Delivery Me thod 12/05/21 06:04 Exam: Pre-Anes Outpt Exam: alert and oriented x 3 Additional Exam Findings (including area of procedure): Joe Cardiac Studies: Echocardiogram 03/02/21 Anesthesia Procedures Nerve Block: Nerve Block 1: Main Anesthesia: general anesthesia Time Out Performed: Yes Consent: requested by attending/covering physician, from patient, risks and benefits reviewed and patient agrees to proceed Nerve block location: interscalene (left) Nerve block position: semi sitting Anesthetic Used: ropivicaine 0.5% Amount of anesthesia used (mL): 30 Ultrasound used to: recognize landmarks and visualize and ID brachial plexus Nerve Stimulator Used?: No Interscalene/Femoral BLK: 2 stimuplex 22 g needle used for position and inplane approach Injection: neg aspiration of heme Patient Tolerated Procedure: well Complications: none
--- NOTE | 2021-12-05 08:27 | W.PM.OPSFHP ---
Same Day Surgery H&P Indication for Procedure/HPI DATE OF PROCEDURE: December 05, 2021 CHIEF COMPLAINT/INDICATIONFOR SURGICAL PROCEDURE: Rotator cuff tear arthropathy left shoulder PREOP DIAGNOSIS: Massive tear of left rotator cuff PLANNED PROCEDURE: Operation Date: 12/05/21 07:40 Proposed Procedures p left reverse total shoulder arthroplasty/ [id number](Left) - Carlos Alberto Casey MD The patient is a 66-year-old male with a distant history of rotator cuff repair and continued pain and weakness in his shoulder. Radiographs and an MRI revealed proximal migration of the humeral head in the glenoid consistent with massive rotator cuff tearing. He has failed reasonable measures including anti-inflammatories. He is here for elective reverse total shoulder to improve pain and function. Medications/Allergies* Home Medications Medication Instructions Recorded Confirmed Type allopurinol 300 mg tablet 300 mg PO DAILY 05/06/19 12/05/21 History atorvastatin 80 mg tablet 80 mg PO DAILY 05/06/19 12/05/21 History docusate sodium 100 mg capsule 200 mg PO BID PRN Constipation 05/06/19 11/21/21 History ferrous sulfate 325 mg (65 mg 325 mg PO DAILY 05/06/19 12/05/21 History iron) tablet fluticasone propionate 50 2 spray intranasal DAILY PRN 05/06/19 11/21/21 History mcg/actuation nasal Allergy Symptoms spray,suspension (Allergy Relief (fluticasone)) hydrochlorothiazide 25 mg tablet 25 mg PO QAM 05/06/19 12/05/21 History pioglitazone 30 mg tablet 30 mg PO DAILY 05/06/19 12/05/21 History tamsulosin 0.4 mg capsule 0.8 mg PO BEDTIME 05/27/19 12/05/21 History gabapentin 300 mg capsule 300 mg PO BID 10/14/19 12/05/21 History albuterol sulfate 90 mcg/actuation 2 puff inhalation Q4H PRN 01/14/21 11/21/21 History aerosol inhaler (ProAir HFA) Shortness Of Breath venlafaxine 37.5 mg 37.5 mg PO DAILY 01/14/21 12/05/21 History capsule,extended release 24 hr (Effexor XR) cholecalciferol (vitamin D3) 125 125 mcg PO DAILY 03/03/21 12/05/21 History mcg (5,000 unit) tablet (Vitamin D3) diltiazem HCl 120 mg 120 mg PO DAILY 03/03/21 12/05/21 History capsule,extended release 24 hr (Cardizem CD) apixaban 5 mg tablet 5 mg PO BID 07/15/21 12/05/21 History aspirin 81 mg tablet,delayed 81 mg PO DAILY 07/15/21 12/05/21 History release lanolin alcohols-mineral 1 applic topical DAILY 07/15/21 12/05/21 History oil-w.petrolatum-ceresin topical cream (Eucerin) levothyroxine 25 mcg tablet 75 mcg PO DAILY 07/15/21 12/05/21 History cyclobenzaprine 10 mg tablet 10 mg PO TID muscle spasms 11/08/21 12/05/21 History lisinopril 40 mg tablet 20 mg PO DAILY 11/08/21 12/05/21 History Allergies/Adverse Reactions Allergy/AdvReac Type Severity Reaction Status Date / Time codeine Allergy Intermediate ALGY-Swell Verified 11/21/21 10:01 Lip/Tongue/Throat Current Medications: Generic Name Dose Route Start Last Admin Trade Name Freq PRN Reason Stop Dose Admin Sodium Chloride 1,000 mls @ 30 mls/hr 12/05/21 06:00 12/05/21 06:10 Sodium Chloride 0.9% IV 12/06/21 05:59 30 mls/hr .Q24H MITCHEL Administration Pertinent History/Comorbid Conditions* Medical History (Updated 09/23/21 @ 06:21 by Paco Sullivan MD) Acute kidney injury superimposed on CKD Afib Anticoagulation adequate with anticoagulant therapy Atherosclerosis of coronary artery Atrial fibrillation Carotid stenosis Chronic kidney disease (CKD) Coffee ground emesis Diabetes Diabetic gastroparesis Gastric ulcer Gastritis Hypercholesteremia Hypertension Left main coronary artery disease Nausea and vomiting Spinal stenosis, lumbar region, with neurogenic claudication Spondylolisthesis, lumbar region Surgical History (Updated 03/23/21 @ 13:32 by CARMELA Allen) History of jeremiah hole surgery Twist drill drainage of bilateral subdural hematomas, 12/20/2016, [facility] [place] History of esophagogastroduodenoscopy (EGD) (~05/2019) History of laparoscopic cholecystectomy (~06/2019) History of lumbar laminectomy Bilateral L4-L5 laminotomy/foraminotomy/limited facetectomy Previous back surgery Status post aorto-coronary artery bypass graft Family History (Updated 07/22/19 @ 11:09 by Patti Marie LPN) Diabetes CAD (coronary artery disease) Cancer Hypertension Stroke Denies family history of Anesthesia complication Bleeding disorder Social History Smoking and tobacco status: former smoker Alcohol intake: former Lives independently: Yes Marital status: Current occupational status: retired History of recent travel: No Pertinent Exam Findings alert, oriented x 3, clear to auscultation bilaterally and regular rate & rhythm Recommendations Surgery/Procedure today Coding Level of Care Code Acute Data Acquisition Technician for Jason Foley
[2021-12-05] MEDS: sodium chloride 0.9% 100 mL Bag XX (09:11)
--- NOTE | 2021-12-05 10:44 | PM.OP ---
Operative Report Date of procedure: December 05, 2021 Pre-op diagnosis: Preop Diagnosis Massive tear of left rotator cuff Post-op diagnosis: same Post-op findings: The patient had a complete tear of the supraspinatus and infraspinatus musculature. His humeral head and glenoid were relatively free of chondromalacia. Procedure done: Left reverse total shoulder Implants: 1) Tornier Aequalis Ascend Flex 5B stem 2) Flex Shoulder System low offset reversed baseplate +0mm 3) Flex Shoulder System 42 mm +6 mm reversed insert 4) Aequalis PerForm Reversed 42 mm standard glenosphere 5) Perform Reversed 29mm standard baseplate 6) Glenoid screws: central 40 mm, superior 38 mm inferior 30 mm, anterior 22 mm, posterior 22 mm Pathology: none sent Surgeon: Carlos Alberto Casey Anesthesia: General and Nerve Block (Interscalene block) Estimated blood loss (mL): 500 Findings: The patient had a massive tear of his rotator cuff involving the supraspinatus and infraspinatus. No humeral head or glenoid chondromalacia was noted. Condition: stable Disposition: PACU Brief History: Mr. Maldonado is a 66-year-old male with a history of previous rotator cuff repair and severe shoulder pain and functional loss. MRI revealed massive tearing of the rotator cuff. Reverse total shoulder was chosen to improve pain and function. Procedure: An intrascalene blocks provided the holding area. The patient was taken to the operating room and given a general anesthesia. They were given 2 g of Ancef. A Grey stand was covered and use to support support the arm A timeout was performed. A 10 cm long incision was made over the deltopectoral groove and dissection carried out with a scalpel blade to the deltopectoral interval. The cephalic vein was identified and retracted laterally. Digital dissection was accomplished to free lesions beneath the deltoid and beneath the coracobrachialis musculature. An Nithin medium tissue protector was used to retract the pectoralis major and the deltoid. The biceps tendon appeared to be scarred distally in the bicipital groove and immobile and was not tenodesed.. The subscapularis and a capsule was then peeled off of the lesser tuberosity and fixed with 3 tape sutures in a locking Krak?w fashion from superior to inferior. Capsular release was accomplished across the inferior capsule from the glenoid. Utilizing electrocautery the glenoid was exposed circumferentially. The centering guide was used to place the central guidepin at a slight inferior slope in accordance with our preoperative plan to bring the glenoid down to neutral tilt. Glenoid reaming entailedremoving slightly more inferior bone. A 29 mm Aequalis PerForm baseplate was secured with a 40 by 6.5 mm cnetral crew, a superior locking 38 mm screw, an inferior locking 30 mm screw, an anterior 22 mm screw and a posterior 22 mm screw. A standard 42 mm Aequalis perFORM ReversedGlenosphere was then placed. Attention was then focused on the humerus. Sequential and broaching of the canal was accomplished up to a size 5B stem with satisfactory stability.. A trial reduction with the 42, +6 mm reversed insert provided adequate stability. The final humeral stem, reverse tray and insert were press-fit into place and the shoulder reduced with a stable reduction. 4 drill holes were then made in the bicipital groove. Sutures through the subscapularis were then passed through tunnels at the most superior suture through the most proximal hole. The second pair of sutures through the second hole, the third pair of sutures to the third hole in the fourth suture through the fourth hole. They were tied over a small [place] 4-hole mini plate. The wound was irrigated with a gentamicin antibiotic solution. The deltopectoral interval was closed with 0 Vicryl. The subcutaneous tissues were closed with 2-0 Stratafix. The skin was closed with a running 4-0 Stratafix. Sterile dressings were applied. The patient was placed in a shoulder immobilizer, extubated and taken to recovery room in stable condition.
--- NOTE | 2021-12-05 11:03 | XRR_ITS ---
PROCEDURE INFORMATION: Exam: XR Left Shoulder Exam date and time: 12/05/2021 11:23 AM Age: 66 years old Clinical indication: Device placement; Other: Left reverse total shoulder; Prior surgery; Surgery date: Post-operative (0-2 days) TECHNIQUE: Imaging protocol: Radiologic exam of the Left shoulder. Views: 2 or more views. COMPARISON: CT shoulder LT wo con* [id number] 12/02/2021 10:06 AM FINDINGS: Bones/joints: Metallic arthroplasty is seen in the left shoulder in good position. Soft tissues: Soft tissues there is subcutaneous emphysema in the soft tissues near the shoulder consistent with postoperative changes. XR/XR shoulder LT min 2V* [id number] IMPRESSION: 1. Metallic arthroplasty left shoulder good position 2. Postoperative soft tissue changes 3. No acute findings.
--- NOTE | 2021-12-05 13:07 | ANE.PACU2 ---
Inpatient post-anesthesia follow up: Airway intact: Yes Vital signs: Temperature 97.3 F Pulse Rate 50 Respiratory Rate 16 Blood Pressure 143/62 Pulse Oximetry 98 Oxygen Delivery Me thod Simple Mask Oxygen Flow Rate 2 Fraction of Inspir ed Oxygen Hydration adequate: Yes Nausea and vomiting: No Pain level: 1 Mental status: Baseline
[2021-12-05] MEDS: oxyCODONE 5 mg IR Tab/Cap PO (14:40)
[2021-12-05] MEDS: sodium chloride 0.9% 1,000 ML 80 ML IV (15:47)
[2021-12-05] MEDS: ceFAZolin 1,000 MG in sodium chloride 0.9% (plus) 50 ML 100 MG IV ×2 (17:10→23:48)
[2021-12-05] MEDS: pantoprazole DR 40 mg Tablet PO (17:16)
[2021-12-05 17:29] LABS: Glucose Point of Care 147 mg/dL (70-110)
[2021-12-05] MEDS: CELEcoxib 200 mg Capsule PO (20:33)
[2021-12-05] MEDS: tamsulosin 0.4 mg Capsule 0.8 MG PO (20:33)
[2021-12-05] MEDS: carvedilol 6.25 mg Tablet PO (20:33)
[2021-12-05] MEDS: amiodarone 200 mg Tablet PO (20:34)
[2021-12-05 22:03] LABS: Glucose Point of Care 147 mg/dL (70-110)
[2021-12-06] MEDS: sodium chloride 0.9% 1,000 ML 80 ML IV (02:22)
[2021-12-06] MEDS: acetaminophen 500 mg Tablet 1000 MG PO (06:24)
[2021-12-06 06:25] VITALS: RESP 18
[2021-12-06] MEDS: oxyCODONE 5 mg IR Tab/Cap PO (06:25)
[2021-12-06] MEDS: hydroCHLOROthiazide 25 mg Tablet PO (06:27)
[2021-12-06 06:54] LABS: Glucose Point of Care 132 mg/dL (70-110)
[2021-12-06 07:56] VITALS: PULSE 55; RESP 16; O2SAT 98
[2021-12-06] MEDS: divalproex ER 500 mg Tablet (24H) PO (09:24)
[2021-12-06] MEDS: lisinopril 20 mg Tablet PO (09:24)
[2021-12-06] MEDS: atorvastatin 40 mg Tablet 80 MG PO (09:24)
[2021-12-06] MEDS: apixaban 5 mg Tablet PO (09:24)
[2021-12-06] MEDS: pantoprazole DR 40 mg Tablet PO (09:24)
[2021-12-06] MEDS: docusate sodium 100 mg Capsule 200 MG PO (09:25)
[2021-12-06] MEDS: allopurinol 300 mg Tablet PO (09:25)
[2021-12-06] MEDS: carvedilol 6.25 mg Tablet PO (09:25)
[2021-12-06] MEDS: venlafaxine ER (24HR) 37.5 mg Capsule PO (09:25)
[2021-12-06] MEDS: aspirin 81 mg EC Tablet PO (09:25)
[2021-12-06] MEDS: dilTIAZem ER (24HR) 120 mg Capsule PO (09:25)
[2021-12-06] MEDS: CELEcoxib 200 mg Capsule PO (09:25)
[2021-12-06] MEDS: levothyroxine 75 mcg Tablet PO (09:25)
[2021-12-06] MEDS: gabapentin 300 mg Capsule PO (09:26)
[2021-12-06] MEDS: cholecalciferol (vitamin D3) 5,000 unit Tablet 5000 UNIT PO (09:26)
[2021-12-06] MEDS: amiodarone 200 mg Tablet PO (09:26)
[2021-12-06] MEDS: ferrous sulfate EC 325 mg Tablet PO (09:26)
[2021-12-06 09:37] VITALS: BP 155/79; PULSE 55; RESP 16; TEMP 36.7; O2SAT 98
--- NOTE | 2021-12-06 09:53 | P.DS_ITS ---
Discharge Providers Date of Admission: 12/05/21 14:55 Date of Discharge: December 06, 2021 Attending Provider at Admission: Carlos Alberto Marshall MD Attending Provider at Discharge: Carlos Alberto Marshall MD Primary Care Provider: Guicho Vega DO Diagnoses at Discharge Discharge Diagnosis (1) Status post replacement of left shoulder joint: Status: Acute Reason for Visit Reason for Visit: Brief History: This is a 66-year-old male with chronic pain and weakness in the right shoulder secondary to massive tearing of the rotator cuff. He was admitted for elective left reverse total shoulder arthroplasty. Hospital Course Hospital Course The patient tolerated surgery well. They remained hemodynamically stable. They was begun on aspirin and his reoperative Eliquis. The patient was mobilized with therapy beginning the day of surgery and by the first postoperative day was tolerating exercises under the supervision of occupational therapy as the pain was adequately controlled and they were fully mobile they were discharged home. Physical Exam Narrative: On the day of discharge the patient's dressing was clean and dry. The patient's would fire his deltoid and their biceps. No distal neurovascular deficits were noted. Discharge Data Studies Completed and Pending Completed Studies During Hospitalization Category Date Time Status XR shoulder LT min 2V* [id number] Routine Exams 12/05/21 11:03 Completed Radiology Impressions Shoulder X-Ray 12/05/21 11:03 IMPRESSION: 1. Metallic arthroplasty left shoulder good position 2. Postoperative soft tissue changes 3. No acute findings. Laboratory Results WBC 6.9 10^3/uL (4.0-10.0) 11/21/21 10:34 RBC 3.42 10^6/uL (4.1-5.3) L 11/21/21 10:34 Hgb 11.3 g/dL (11.7-16.6) L 11/21/21 10:34 Hct 33.9 % (42.0-52.0) L 11/21/21 10:34 MCV 99.1 fl (80-94) H 11/21/21 10:34 MCH 33.0 pg (28.0-34.0) 11/21/21 10:34 MCHC 33.3 g/dL (30.0-36.0) 11/21/21 10:34 RDW 14.7 % (12.1-15.1) 11/21/21 10:34 Plt Count 151 10^3/cmm (130-400) 11/21/21 10:34 MPV 11.5 fL (7.4-10.4) H 11/21/21 10:34 Neut % (Auto) 71.6 % 11/21/21 10:34 Lymph % (Auto) 15.6 % 11/21/21 10:34 [place] % (Auto) 7.9 % 11/21/21 10:34 Eos % (Auto) 3.6 % 11/21/21 10:34 Baso % (Auto) 1.0 % 11/21/21 10:34 Neut # (Auto) 4.96 10^3/uL (1.8-7.7) 11/21/21 10:34 Lymph # (Auto) 1.1 10^3/uL (0.8-4.8) 11/21/21 10:34 [place] # (Auto) 0.6 10^3/uL (0.2-0.9) 11/21/21 10:34 Eos # (Auto) 0.3 10^3/uL (0.0-0.8) 11/21/21 10:34 Baso # (Auto) 0.1 10^3/uL (0.0-0.1) 11/21/21 10:34 Nucleated RBC % (auto) 0 % 11/21/21 10:34 Nucleated RBCs # 0.0 /100WBC 11/21/21 10:34 Sodium 141 mmol/L (136-145) 11/21/21 10:34 Potassium 4.0 mmol/L (3.5-5.1) 11/21/21 10:34 Chloride 101 mmol/L (98-107) 11/21/21 10:34 Carbon Dioxide 34 mmol/L (22-29) H 11/21/21 10:34 Anion Gap 10.0 (5-19) 11/21/21 10:34 BUN 20 mg/dL (8-23) 11/21/21 10:34 Creatinine 1.1 mg/dL (0.7-1.2) 11/21/21 10:34 GFR Calculation 66.8 mL/min (90-130) L 11/21/21 10:34 Glucose 116 mg/dL (65-115) H 11/21/21 10:34 POC Glucose 132 mg/dL (70-110) H 12/06/21 06:19 Calculated Osmolality 296 mOsm/kg (285-295) H 11/21/21 10:34 Calcium 9.3 mg/dL (8.5-10.5) 11/21/21 10:34 Vitals Last Vital Signs Temp 97.6 F 12/05/21 22:30 Pulse 55 L 12/06/21 07:56 Resp 16 12/06/21 07:56 BP 134/79 12/05/21 22:30 Pulse Ox 98 12/06/21 07:56 O2 Del Method 12/06/21 07:56 O2 Flow Rate 2 12/06/21 07:56 Discharge Plan Discharge Patient Disposition: Home Condition: Stable Prescriptions: New oxycodone 5 mg Tablet 5 - 10 mg PO Q4H PRN (Reason: Moderate To Severe Pain) 7 Days Qty: 30 0RF acetaminophen 500 mg Tablet 1,000 mg PO Q8H 14 Days Qty: 84 0RF Continued allopurinol 300 mg tablet 300 mg PO DAILY atorvastatin 80 mg tablet 80 mg PO DAILY docusate sodium 100 mg capsule 200 mg PO BID PRN (Reason: Constipation) ferrous sulfate 325 mg (65 mg iron) tablet 325 mg PO DAILY fluticasone propionate [Allergy Relief (fluticasone)] 50 mcg/actuation spray,suspension 2 spray INTRANASAL DAILY PRN (Reason: Allergy Symptoms) hydrochlorothiazide 25 mg tablet 25 mg PO QAM pioglitazone 30 mg tablet 30 mg PO DAILY gabapentin 300 mg capsule 300 mg PO BID divalproex [Depakote ER] 500 mg tablet extended release 24 hr 500 mg PO DAILY Qty: 90 2RF cyclobenzaprine 10 mg tablet 10 mg PO TID lisinopril 40 mg tablet 20 mg PO DAILY Hold Instructions: Resume on 03/12/21. pantoprazole 40 mg tablet,delayed release (DR/EC) 40 mg PO BIDWM 30 Days Qty: 60 3RF tamsulosin 0.4 mg Capsule 0.8 mg PO BEDTIME venlafaxine [Effexor XR] 37.5 mg Capsule,Extended Release 24hr 37.5 mg PO DAILY albuterol sulfate [ProAir HFA] 90 mcg/actuation Hfa Aerosol Inhaler 2 puff INHALATION Q4H PRN (Reason: Shortness Of Breath) diltiazem HCl [Cardizem CD] 120 mg Capsule,Extended Release 24hr 120 mg PO DAILY cholecalciferol (vitamin D3) [Vitamin D3] 125 mcg (5,000 unit) Tablet 125 mcg PO DAILY carvedilol 6.25 mg Tablet 6.25 mg PO BID Qty: 60 4RF Hold Instructions: Resume on 03/12/21. amiodarone 200 mg tablet 200 mg PO BID Qty: 60 2RF aspirin 81 mg Tablet,Delayed Release (Dr/Ec) 81 mg PO DAILY Hold Instructions: Resume on 09/15/21. levothyroxine 25 mcg Tablet 75 mcg PO DAILY Eucerin Cream 1 applic TOPICAL DAILY apixaban 5 mg Tablet 5 mg PO BID Hold Instructions: Resume on 09/15/21. diclofenac sodium 75 mg tablet,delayed release (DR/EC) 75 mg PO Q12H PRN (Reason: pain) Qty: 20 0RF Hold Instructions: Resume on 09/14/21. Discharge Orders: Discharge Order (Routine); Ordered 12/06/21 Ordered By: Carlos Alberto Marshall Referrals: Jg Ricardo FNP [Physician Advisor [facility]] - 12/09/21 8:00 am Discharge Diet: Advance as tolerated Discharge Activity: Limit activity as instructed Patient Instructions: Opioid Safety Activity Restrictions/Additional Instructions: Okay to shower. No soaking incision in tub Apply FirstIce up to 20 min/hr for pain and swelling Take Celebrex twice a day for the next 15 days for pain , discontinue other anti-inflammatories Take Tylenol 500mg (up to 2 tabs) 3 times a day for mild pain take oxycodone for breakthrough pain. Exercises per Occupational Therapy IF HAVE ANY PROBLEMS OR QUESTIONS CALL HOSPITAL SNAPPER ON AT AND ASK TO HAVE DR. MARSHALL PAGED. Discharge Attestations Time Spent in Discharge Care*: other Status at Discharge: Cognitive status at discharge: cognitively intact , Behavioral status at discharge: cooperative , Quality Metrics Clinical Quality Measures [ No reported AMI, CVA or VTE this stay] Coding Level of Care Code Acute Chg FW DC note Diagnoses Status post replacement of left shoulder joint Z96.612
[2021-12-06 11:05] LABS: Glucose Point of Care 146 mg/dL (70-110)
[2021-12-06 11:43] VITALS: BP 131/72; PULSE 83; RESP 18; TEMP 37.1; O2SAT 97
[2021-12-06 13:39] VITALS: BP 131/72; PULSE 83; RESP 18; TEMP 37.1; O2SAT 97
== END 2021-12-06 13:41 | disposition home health service (06) ==
LOC: MEDSURG 14:57
PROVIDERS: Anesthesiology; Admitting Provider Orthopaedic Surgery; PCP Emergency Medicine Emergency Medical Services; Visit Provider Orthopaedic Surgery
PROC: (CPT 23472; principal; 2021-12-05 07:40)
DX: M75.102 Unspecified rotator cuff tear or rupture of left shoulder, not specified as traumatic (principal); Z79.82 Long term (current) use of aspirin; Z79.01 Long term (current) use of anticoagulants; I48.91 Unspecified atrial fibrillation; E11.9 Type 2 diabetes mellitus without complications; E78.00 Pure hypercholesterolemia, unspecified; I10 Essential (primary) hypertension; Z87.891 Personal history of nicotine dependence; Z95.1 Presence of aortocoronary bypass graft; I25.110 Atherosclerotic heart disease of native coronary artery with unstable angina pectoris
CPT/HCPCS: 23472; 36415; 36416; 73030; 80048; 82962; 85025; 97166; C1713; C1776; G0378; J0330; J0690; J1100; J1580; J2370; J2405; J2704; J2710; J2795; J3010; J3490; J7030; P9041

== ENCOUNTER → 2021-12-21 13:02 | Outpatient (BNVA) | payer OTHER, SELFPAY | PROVIDERS: PCP Emergency Medicine Emergency Medical Services; Visit Provider Orthopaedic Surgery | DX: Z96.612 Presence of left artificial shoulder joint (principal) | CPT/HCPCS: 99024 ==

== ENCOUNTER 2022-01-04 06:00 | Outpatient (RCR) | payer OTHER, SELFPAY | END 2022-01-20 23:59 | disposition home or self-care (01) | LOC: SPT 06:00 | PROVIDERS: PCP Emergency Medicine Emergency Medical Services; Visit Provider Orthopaedic Surgery | DX: Z96.612 Presence of left artificial shoulder joint (principal); Z47.1 Aftercare following joint replacement surgery; M25.512 Pain in left shoulder | CPT/HCPCS: 97110; 97161 ==

== ENCOUNTER 2022-01-21 06:00 | Outpatient (RCR) | payer OTHER, SELFPAY | END 2022-02-20 23:59 | disposition home or self-care (01) | LOC: SPT 06:00 | PROVIDERS: PCP Emergency Medicine Emergency Medical Services; Visit Provider Orthopaedic Surgery | DX: Z47.1 Aftercare following joint replacement surgery (principal); Z96.612 Presence of left artificial shoulder joint | CPT/HCPCS: 97110 ==

== ENCOUNTER 2022-02-21 06:00 | Outpatient (RCR) | payer OTHER, SELFPAY | END 2022-03-22 23:59 | disposition home or self-care (01) | LOC: SPT 06:00 | PROVIDERS: PCP Emergency Medicine Emergency Medical Services; Visit Provider Orthopaedic Surgery | DX: Z47.1 Aftercare following joint replacement surgery (principal); Z96.612 Presence of left artificial shoulder joint; M25.512 Pain in left shoulder | CPT/HCPCS: 97110 ==

== ENCOUNTER → 2022-02-28 15:16 | Outpatient (BNVA) | payer OTHER, SELFPAY | PROVIDERS: PCP Emergency Medicine Emergency Medical Services; Visit Provider Orthopaedic Surgery | DX: Z98.890 Other specified postprocedural states (principal); Z96.612 Presence of left artificial shoulder joint | CPT/HCPCS: 73030; 99024 ==

== ENCOUNTER → 2022-03-07 13:28 | Outpatient (BNVA) | payer OTHER, SELFPAY | PROVIDERS: PCP Emergency Medicine Emergency Medical Services; Visit Provider Specialist | DX: G40.219 Localization-related (focal) (partial) symptomatic epilepsy and epileptic syndromes with complex partial seizures, intractable, without status epilepticus (principal) | CPT/HCPCS: 99214 ==

== ENCOUNTER 2022-03-23 06:00 | Outpatient (RCR) | payer OTHER, SELFPAY | END 2022-04-11 23:59 | disposition home or self-care (01) | LOC: SPT 06:00 | PROVIDERS: PCP Emergency Medicine Emergency Medical Services; Visit Provider Orthopaedic Surgery | DX: Z96.612 Presence of left artificial shoulder joint (principal); Z47.1 Aftercare following joint replacement surgery; M25.512 Pain in left shoulder | CPT/HCPCS: 97110 ==

== ENCOUNTER → 2022-04-04 10:10 | Outpatient (BNVA) | payer OTHER, SELFPAY | PROVIDERS: PCP Emergency Medicine Emergency Medical Services; Visit Provider Orthopaedic Surgery | DX: Z96.612 Presence of left artificial shoulder joint (principal) | CPT/HCPCS: 99212 ==

== ENCOUNTER → 2022-05-11 13:47 | Outpatient (BNVA) | payer OTHER, SELFPAY | PROVIDERS: PCP Emergency Medicine Emergency Medical Services; Visit Provider Internal Medicine | DX: I25.119 Atherosclerotic heart disease of native coronary artery with unspecified angina pectoris (principal); I12.9 Hypertensive chronic kidney disease with stage 1 through stage 4 chronic kidney disease, or unspecified chronic kidney disease; E11.22 Type 2 diabetes mellitus with diabetic chronic kidney disease; N18.9 Chronic kidney disease, unspecified; Z87.891 Personal history of nicotine dependence; Z79.84 Long term (current) use of oral hypoglycemic drugs; Z95.1 Presence of aortocoronary bypass graft; E78.00 Pure hypercholesterolemia, unspecified | CPT/HCPCS: 99214 ==

== ENCOUNTER 2022-05-25 06:00 | Outpatient (RCR) | payer OTHER, SELFPAY | END 2022-06-20 23:59 | disposition home or self-care (01) | LOC: SPT 06:00 | PROVIDERS: PCP Emergency Medicine Emergency Medical Services; Visit Provider Emergency Medicine Emergency Medical Services | DX: Z96.612 Presence of left artificial shoulder joint (principal) | CPT/HCPCS: 97110; 97161 ==

== ENCOUNTER 2022-06-21 06:00 | Outpatient (RCR) | payer OTHER, SELFPAY | END 2022-07-21 23:59 | disposition home or self-care (01) | LOC: SPT 06:00 | PROVIDERS: PCP Emergency Medicine Emergency Medical Services; Visit Provider Emergency Medicine Emergency Medical Services | DX: Z96.612 Presence of left artificial shoulder joint (principal) | CPT/HCPCS: 97110 ==

== ENCOUNTER 2022-07-14 14:41 | Emergency (ER) | payer OTHER, SELFPAY ==
[2022-07-14 15:18] VITALS: BP 151/82; PULSE 57; RESP 15; TEMP 36.5; O2SAT 96; BMI 31.9
--- NOTE | 2022-07-14 15:35 | ED_ITS ---
HPI - Neck Pain/Injury General: Chief Complaint: Neck Pain/Injury Stated Complaint: unable to move head or neck Time Seen by Provider: 07/14/22 15:23 History of Present Illness: Patient is a 67-year-old male comes to the ED with neck pain. Patient said symptoms started this morning. Patient currently has been doing therapy to help with his left shoulder a couple days a week. Today he was helping out with [employer] and picking up and and staring 1 gallon paint containers. He was lifting one of the paint cans and felt pain side of his neck and it radiated down to his left arm. He rates the pain currently a 6 out of 10. He has not taken any pain meds before coming to the ED. Associated symptoms: Denies headache(s) or nausea Review of Systems Const: Denies: fever(s), chills or fatigue Eyes: Denies: change in vision or eye discomfort ENMT: Denies: throat pain, odynophagia, nasal discharge or nasal congestion Card: Denies: chest pain, palpitations, edema, swelling of feet/ankles, dyspnea on exertion or orthopnea Resp: Denies: dyspnea, productive cough or non-productive cough GI: Denies: abdominal pain, nausea, vomiting, diarrhea, constipation or hematochezia : Denies: flank pain, difficulty urinating, dysuria or hematuria Musc: Reports: neck pain (Left-sided neck pain); Denies: back pain, extremity pain or extremity swelling Skin/Breast: Denies: rash or new lesions Neuro: Denies: headache(s), numbness in extremities or weakness in extremities PFS ED PFSH: Medical History Acute kidney injury superimposed on CKD Afib Anticoagulation adequate with anticoagulant therapy Atherosclerosis of coronary artery Atrial fibrillation Carotid stenosis Chronic kidney disease (CKD) Coffee ground emesis Diabetes Diabetic gastroparesis Gastric ulcer Gastritis Hypercholesteremia Hypertension Left main coronary artery disease Nausea and vomiting Spinal stenosis, lumbar region, with neurogenic claudication Spondylolisthesis, lumbar region Surgical History History of [place] hole surgery Twist drill drainage of bilateral subdural hematomas[place] [facility] of esophagogastroduodenoscopy (EGD) (~05/2019) History of laparoscopic cholecystectomy (~06/2019) History of lumbar laminectomy Bilateral L4-L5 laminotomy/foraminotomy/limited facetectomy Previous back surgery Status post aorto-coronary artery bypass graft Family History Other CAD (coronary artery disease) Cancer Diabetes Hypertension Stroke Denies family history of Anesthesia complication Bleeding disorder Social History Smoking and tobacco status: former smoker Alcohol intake: former Lives independently: Yes Marital status: Current occupational status: retired Physical Exam Const: COMMON NORMALS: no acute distress, patient oriented x3 and alert HENMT: COMMON NORMALS: normocephalic HEAD & SCALP: normocephalic MOUTH: Normal oral and palatal mucosa present THROAT: posterior oropharynx normal and uvula midline Neck/C-Spine: COMMON NORMALS: supple GENERAL: Yes normal visual inspection CERVICAL SPINE: Yes pain with cervical ROM, Yes Paracervical muscle tenderness left and Yes Trapezius muscle tenderness left Resp: COMMON NORMALS: normal respiratory effort, No retractions, No use of accessory muscles and clear to auscultation bilaterally AUSCULTATION: clear to auscultation bilaterally Cardio: COMMON NORMALS: regular rate, regular rhythm, S1 normal heart sound present, S2 normal heart sound present, No gallops present (Cardio), No clicks present (Cardio), No murmurs present (Cardio) and Peripheral pulses 2+ throughout RATE: regular rate RHYTHM: regular rhythm HEART SOUNDS: S1 normal heart sound present and S2 normal heart sound present PERIPHERAL PULSES: Peripheral pulses 2+ throughout GI: COMMON NORMALS: Normal to inspection, nondistended, normoactive bowel sounds present, Soft to palpation, non-tender and no masses PALPATION: Yes Soft to palpation : COMMON NORMALS: Yes no CVA tenderness BLADDER/KIDNEY EXAM: Yes no CVA tenderness Back/Pelvis: COMMON NORMALS: no CVA tenderness Extremity: COMMON NORMALS: normal to inspection Neuro: COMMON NORMALS: patient oriented x3 SENSORIUM/ORIENTATION: Yes alert GAIT: Yes Normal gait present Skin: GENERAL SKIN EXAM: dry skin Course Vital Signs: Vital signs: Vital Signs Temperature 97.7 F 07/14/22 15:18 Pulse Rate 57 L 07/14/22 15:18 Respiratory Rate 15 07/14/22 15:18 Blood Pressure 151/82 07/14/22 15:18 Pulse Oximetry 96 07/14/22 15:18 Oxygen Delivery Me thod 07/14/22 15:18 MDM - Neck Pain/Injury Medical Decision Making Patient is a 67-year-old male comes to the ED with neck pain. Patient said symptoms started this morning. Patient currently has been doing therapy to help with his left shoulder a couple days a week. Today he was helping out with [employer] and picking up and and staring 1 gallon paint containers. He was lifting one of the paint cans and felt pain side of his neck and it radiated down to his left arm. He rates the pain currently a 6 out of 10. He has not taken any pain meds before coming to the ED. vitals are stable. Exam shows a patient in no acute distress and is sitting comfortably in exam chair when entered the room. He has some left paracervical muscle tenderness and left trapezius muscle tenderness. Given his history and exam findings he strained muscle and neck from lifting. He was diagnosed with left-sided neck pain and was given a dose of hydrocodone and muscle relaxer here in the ED. He was stable for discharge home and sent home with a prescription for a muscle relaxer and extra strength Tylenol. Told to follow-up with his PCP in the next week for reevaluation. Return precautions given. Patient understood and agreed with plan. Discharge Plan Discharge Patient Disposition: Home Clinical Impression: Neck pain on left side Condition: Stable Prescriptions: New methocarbamol 750 mg tablet 750 mg PO TID PRN (Reason: Muscle spasms and pain) Qty: 20 0RF acetaminophen 650 mg tablet extended release 650 mg PO Q8H PRN (Reason: pain) Qty: 30 0RF No Action allopurinol 300 mg tablet 300 mg PO DAILY atorvastatin 80 mg tablet 80 mg PO DAILY docusate sodium 100 mg capsule 200 mg PO BID PRN (Reason: Constipation) ferrous sulfate 325 mg (65 mg iron) tablet 325 mg PO DAILY fluticasone propionate [Allergy Relief (fluticasone)] 50 mcg/actuation spray,suspension 2 spray INTRANASAL DAILY PRN (Reason: Allergy Symptoms) hydrochlorothiazide 25 mg tablet 25 mg PO QAM pioglitazone 30 mg tablet 30 mg PO DAILY gabapentin 300 mg capsule 300 mg PO BID cyclobenzaprine 10 mg tablet 10 mg PO TID divalproex [Depakote ER] 500 mg tablet extended release 24 hr 500 mg PO BID 90 Days Qty: 180 2RF pantoprazole 40 mg tablet,delayed release (DR/EC) 40 mg PO BIDWM 30 Days Qty: 60 3RF amlodipine 5 mg tablet 5 mg PO DAILY Qty: 90 3RF tamsulosin 0.4 mg Capsule 0.8 mg PO BEDTIME venlafaxine [Effexor XR] 37.5 mg Capsule,Extended Release 24hr 37.5 mg PO DAILY albuterol sulfate [ProAir HFA] 90 mcg/actuation Hfa Aerosol Inhaler 2 puff INHALATION Q4H PRN (Reason: Shortness Of Breath) cholecalciferol (vitamin D3) [Vitamin D3] 125 mcg (5,000 unit) Tablet 125 mcg PO DAILY carvedilol 6.25 mg Tablet 6.25 mg PO BID Qty: 60 4RF Hold Instructions: Resume on 03/12/21. amiodarone 200 mg tablet 200 mg PO BID Qty: 60 2RF aspirin 81 mg Tablet,Delayed Release (Dr/Ec) 81 mg PO DAILY Hold Instructions: Resume on 09/15/21. levothyroxine 25 mcg Tablet 75 mcg PO DAILY Eucerin Cream 1 applic TOPICAL DAILY apixaban 5 mg Tablet 5 mg PO BID Hold Instructions: Resume on 09/15/21. Discharge Orders: Discharge ED (Routine); Ordered 07/14/22 Ordered By: Paul Ayala Referrals: Guicho Vega, [Primary Care Provider] - Discharge Diet: Regular Discharge Activity: Increase activity as tolerated Patient Instructions: Neck Pain (ED) Activity Restrictions/Additional Instructions: Follow-up with medical provider as directed in the next 5 to 7 days for re evaluation. Take medications as prescribed. Return to the ER or your medical provider if condition worsens. Please read and understand discharge instructions. Thank you for choosing [facility] for your healthcare needs today. Please realize this is an emergency room and that we are providing you with a medical screening exam and this may not be complete and all inclusive of all the testing and or work up that you may need to determine your ailment or severity of your illness. It is very important that you follow up as instructed or that you return to the Emergency Department should you have concerns or if your condition changes or worsens in any way. Coding Level of Care Code ED Supervisor [employer] for Jason Foley
[2022-07-14] MEDS: orphenadrine 30 mg/mL Inj 2 mL 60 MG IM (15:49)
[2022-07-14] MEDS: HYDROcodone-acetaminophen 7.5-325 mg Tablet 1 TAB PO (15:49)
== END 2022-07-14 15:55 | disposition home or self-care (01) ==
PROVIDERS: Emergency Provider Physician Assistant; PCP Emergency Medicine Emergency Medical Services
DX: M54.2 Cervicalgia (principal); I12.9 Hypertensive chronic kidney disease with stage 1 through stage 4 chronic kidney disease, or unspecified chronic kidney disease; N18.9 Chronic kidney disease, unspecified; E11.22 Type 2 diabetes mellitus with diabetic chronic kidney disease; I25.10 Atherosclerotic heart disease of native coronary artery without angina pectoris; E78.00 Pure hypercholesterolemia, unspecified; Z79.82 Long term (current) use of aspirin; Z79.01 Long term (current) use of anticoagulants; Z87.891 Personal history of nicotine dependence
CPT/HCPCS: 96372; 99284; J2360

== ENCOUNTER 2022-07-22 06:00 | Outpatient (RCR) | payer OTHER, SELFPAY | END 2022-08-07 23:59 | disposition home or self-care (01) | LOC: SPT 06:00 | PROVIDERS: PCP Emergency Medicine Emergency Medical Services; Visit Provider Emergency Medicine Emergency Medical Services | DX: Z47.89 Encounter for other orthopedic aftercare (principal) | CPT/HCPCS: 97110 ==

== ENCOUNTER → 2022-08-08 08:41 | Outpatient (BNVA) | payer OTHER, SELFPAY | PROVIDERS: PCP Emergency Medicine Emergency Medical Services; Visit Provider Orthopaedic Surgery | DX: Z96.612 Presence of left artificial shoulder joint (principal) | CPT/HCPCS: 99212 ==

== ENCOUNTER → 2022-09-05 11:34 | Outpatient (BNVA) | payer OTHER, SELFPAY | PROVIDERS: PCP Emergency Medicine Emergency Medical Services; Visit Provider Specialist | DX: G40.219 Localization-related (focal) (partial) symptomatic epilepsy and epileptic syndromes with complex partial seizures, intractable, without status epilepticus (principal); G47.33 Obstructive sleep apnea (adult) (pediatric); I48.20 Chronic atrial fibrillation, unspecified; I25.10 Atherosclerotic heart disease of native coronary artery without angina pectoris; Z95.1 Presence of aortocoronary bypass graft | CPT/HCPCS: 99214 ==

== ENCOUNTER 2022-09-19 13:50 | Emergency (ER) | payer OTHER, SELFPAY ==
[2022-09-19] VITALS (52 sets, daily range): BP systolic 119–180; BP diastolic 63–87; PULSE 49–57; RESP 5–20; TEMP 36.4; O2SAT 86–97; BMI 31.1
--- NOTE | 2022-09-19 14:51 | PC.NURSE ---
pt o2 sat was not getting over 89/90 so i placed him on 2L o2 to supplement.
--- NOTE | 2022-09-19 15:01 | ED_ITS ---
HPI - Seizure General: Chief Complaint: Seizure Stated Complaint: possible seizure, head pain Time Seen by Provider: 09/19/22 14:08 Source: patient Mode of arrival: ambulatory Limitations: no limitations History of Present Illness: HPI Narrative: This patient made his way to the emergency department today. He states that since last week sometime after he saw Dr. Wei he has had these episodes where he just feels out of sorts where he not sure whether he is having seizures or what. He calls them seizures but he denies any generalized tonic-clonic activity etc. He does have a longstanding history of what sounds like partial seizures or absence type seizures in which that he gets tunnel vision and then is fatigued and sleeps after these episodes. He is wondering if some of his medication changes may be at play. He denies any fevers chills nausea vomiting diarrhea or focal weakness etc. He does not drink alcohol and does not smoke tobacco. He states he has been faithful to all his medications and has not been exposed to any illness toxins etc. Seizure History: Yes Place: Home Associated symptoms: Deny chest pain, chills, fever(s) or syncope Review of Systems Const: Denies: fever(s) or chills Eyes: Denies: change in vision, blurry vision or blind spots ENMT: Denies: odynophagia, nasal discharge or nasal congestion Card: Denies: chest pain, palpitations, lightheadedness, syncope or pre- syncope Resp: Denies: dyspnea, productive cough or non-productive cough GI: Denies: abdominal pain, nausea, vomiting or diarrhea : Denies: flank pain, difficulty urinating, dysuria or urinary frequency Musc: Denies: neck pain, back pain, extremity pain or extremity swelling Skin/Breast: Denies: rash, pruritus, erythema or photosensitivity Neuro: Denies: numbness in extremities, weakness in extremities, dizziness or seizure-like activity Psych: Denies: anxiety All/Imm: Reports: urticaria PFSH ED PFSH: Medical History Acute kidney injury superimposed on CKD Afib Anticoagulation adequate with anticoagulant therapy Atherosclerosis of coronary artery Atrial fibrillation Carotid stenosis Chronic kidney disease (CKD) Coffee ground emesis Diabetes Diabetic gastroparesis Gastric ulcer Gastritis Hypercholesteremia Hypertension Left main coronary artery disease Nausea and vomiting Spinal stenosis, lumbar region, with neurogenic claudication Spondylolisthesis, lumbar region Surgical History History of jeremiah hole surgery Twist drill drainage of bilateral subdural hematomas, 12/20/2016, [facility] [place] History of esophagogastroduodenoscopy (EGD) (~05/2019) History of laparoscopic cholecystectomy (~06/2019) History of lumbar laminectomy Bilateral L4-L5 laminotomy/foraminotomy/limited facetectomy Previous back surgery Status post aorto-coronary artery bypass graft Family History Other CAD (coronary artery disease) Cancer Diabetes Hypertension Stroke Denies family history of Anesthesia complication Bleeding disorder Social History Smoking and tobacco status: former smoker Alcohol intake: former Substance/Drug Use: current Substance/Drug use frequency: daily Lives independently: Yes Marital status: Current occupational status: retired Physical Exam Narrative: EXAM NARRATIVE: He a spontaneous eye opening makes good eye contact. He generally is goal- directed in his speech but somewhat slow to respond as he seems to jacinta over the answers. Const: COMMON NORMALS: no acute distress, average body habitus, patient oriented x3 and alert GENERAL APPEARANCE: cooperative ORIENTATION/CONSCIOUSNESS: Yes awake and Yes oriented to person HENMT: COMMON NORMALS: normocephalic, atraumatic, Normal nasal mucous membranes and turbinates present, moist oral mucous membranes and oropharynx normal HEAD & SCALP: normocephalic and atraumatic FACE & SINUS: normal facial exam NOSE: Normal nasal mucous membranes and turbinates present Eye: COMMON NORMALS: Equal, round and reactive pupils present, EOMs intact bilaterally and conjunctivae normal CONJUNCTIVA: Yes conjunctivae normal PUPIL: Yes Equal, round and reactive pupils present OTHER: No nystagmus noted Neck/C-Spine: COMMON NORMALS: full ROM, no lymphadenopathy, supple and no JVD Chest: COMMONS NORMALS: normal inspection of the chest Resp: COMMON NORMALS: normal respiratory effort, No retractions and clear to auscultation bilaterally AUSCULTATION: clear to auscultation bilaterally Cardio: COMMON NORMALS: no JVD, regular rate, regular rhythm, No murmurs present (Cardio) and Peripheral pulses 2+ throughout RATE: regular rate RHYTHM: regular rhythm PERIPHERAL PULSES: Peripheral pulses 2+ throughout GI: COMMON NORMALS: Normal to inspection, nondistended, normoactive bowel sounds present, Soft to palpation, non-tender and no masses PALPATION: Yes Soft to palpation : COMMON NORMALS: Yes no CVA tenderness BLADDER/KIDNEY EXAM: Yes no CVA tenderness Back/Pelvis: COMMON NORMALS: no CVA tenderness, thoracic and lumbar spine normal to inspection, no thoracic nor lumbar tenderness, thoraco-lumbar ROM normal and straight leg raise negative bilaterally Extremity: COMMON NORMALS: normal to inspection, full ROM, capillary refill normal, no calf tenderness and no pedal edema Neuro: COMMON NORMALS: patient oriented x3, moves all extremities, no focal motor deficits and no sensory deficits noted SENSORIUM/ORIENTATION: Yes alert and Yes oriented to person CRANIAL NERVES: Yes CN normal except as noted SPEECH: speech normal MOTOR EXAM: 5/5 motor strength present throughout Psych: COMMON NORMALS: mental status grossly normal Skin: COMMON NORMALS: no rashes or lesions noted, no wounds and turgor normal GENERAL SKIN EXAM: no rashes or lesions noted and turgor normal Course Reevaluation(s): Reevaluation #1: The patient is doing well. He has received a total of 100 mEq of potassium p.o. which should elevate his serum potassium somewhere in the mid 3-4 range. He has not displayed any arrhythmias etc. while in the emergency department. We have reviewed all his findings and their implications and recommendations for further treatment and follow-up. Time: 18:24 Consultations: Consultation #1: Briefly reviewed with Dr. Wei his neurologist. She wonders if it is re lated to his medication changes well and recommends continue on Depakote 5 mg daily and his other medications unchanged after I am comfortable that no other issues are at play at this time. Time: 15:11 Vital Signs: Vital signs: Vital Signs Temperature 97.5 F L 09/19/22 14:00 Pulse Rate 53 L 09/19/22 18:05 Respiratory Rate 16 09/19/22 18:05 Blood Pressure 175/86 09/19/22 18:05 Pulse Oximetry 94 09/19/22 18:05 Oxygen Delivery Me thod Nasal Cannula 09/19/22 14:51 Oxygen Flow Rate 2 09/19/22 14:51 MDM - Seizure MDM Narrative Medical decision making narrative: This patient presents to the emergency department because he is not felt his normal self had some various somatic complaints to include fatigue, leg cramps, feeling out of sorts. He wonders if his medication changed last week from neurology may have had an effect on how he feels. He denies any fevers or chills, actual seizure activity. He has what sounds like absence seizure or partial complex migraine type symptoms rather than tonic-clonic, [place] type seizures. States he is not been recently ill with nausea vomiting diarrhea etc. and has been faithful to all his other medications. His clinical exam did not reveal any focal findings either on his physical or neurologic examination to suggest central nervous system issues or other worrisome stigmata of emergency condition at this time. He has neurologist was consulted prior to work-up and she wondered if perhaps his medication regimen may or may not be affecting him adversely. Some screening labs were obtained which did reveal a low potassium as well as a significantly elevated TSH. He did not display any arrhythmias or other concerning findings on his resting electrocardiogram or on his monitor to suggest worrisome arrhythmia at the time of his ED evaluation. He received oral potassium replacement sufficient to take him in the mid 3 to mid 4 range. We will also increase his Synthroid dose to 100 mcg daily with the proviso that he will likely need that adjusted upwards after another 30 days or so. At this time he does not have any evidence of an ongoing emergency medical condition that requires further observation and/or admission. All questions were answered and he is comfortable with the plan of care. Lab Data 09/19/22 15:25 09/19/22 15:25 Labs: Laboratory Results WBC 6.7 10^3/uL (4.0-10.0) 09/19/22 15:25 RBC 3.93 10^6/uL (4.1-5.3) L 09/19/22 15:25 Hgb 12.8 g/dL (11.7-16.6) 09/19/22 15:25 Hct 37.9 % (42.0-52.0) L 09/19/22 15:25 MCV 96.4 fl (80-94) H 09/19/22 15:25 MCH 32.6 pg (28.0-34.0) 09/19/22 15:25 MCHC 33.8 g/dL (30.0-36.0) 09/19/22 15:25 RDW 15.1 % (12.1-15.1) 09/19/22 15:25 Plt Count 178 10^3/cmm (130-400) 09/19/22 15:25 MPV 10.6 fL (7.4-10.4) H 09/19/22 15:25 Neut % (Auto) 70.7 % 09/19/22 15:25 Lymph % (Auto) 18.1 % 09/19/22 15:25 Starr % (Auto) 7.4 % 09/19/22 15:25 Eos % (Auto) 2.7 % 09/19/22 15:25 Baso % (Auto) 0.7 % 09/19/22 15:25 Neut # (Auto) 4.76 10^3/uL (1.8-7.7) 09/19/22 15:25 Lymph # (Auto) 1.2 10^3/uL (0.8-4.8) 09/19/22 15:25 Starr # (Auto) 0.5 10^3/uL (0.2-0.9) 09/19/22 15:25 Eos # (Auto) 0.2 10^3/uL (0.0-0.8) 09/19/22 15:25 Baso # (Auto) 0.1 10^3/uL (0.0-0.1) 09/19/22 15:25 Nucleated RBC % (auto) 0 % 09/19/22 15:25 Nucleated RBCs # 0.0 /100WBC 09/19/22 15:25 Sodium 138 mmol/L (136-145) 09/19/22 15:25 Potassium 2.7 mmol/L (3.5-5.1) L* 09/19/22 15:25 Chloride 96 mmol/L (98-107) L 09/19/22 15:25 Carbon Dioxide 32 mmol/L (22-29) H 09/19/22 15:25 Anion Gap 12.7 (5-19) 09/19/22 15:25 BUN 24 mg/dL (8-23) H 09/19/22 15:25 Creatinine 1.4 mg/dL (0.7-1.2) H 09/19/22 15:25 GFR Calculation 50.4 mL/min (90-130) L 09/19/22 15:25 Glucose 101 mg/dL (65-115) 09/19/22 15:25 Calculated Osmolality 290 mOsm/kg (285-295) 09/19/22 15:25 Calcium 9.0 mg/dL (8.5-10.5) 09/19/22 15:25 Total Bilirubin 0.5 mg/dL (0.15-1.2) 09/19/22 15:25 AST 23 U/L (0-40) 09/19/22 15:25 ALT 25 U/L (0-41) 09/19/22 15:25 Alkaline Phosphatase 101 U/L (40-130) 09/19/22 15:25 Total Protein 7.2 g/dL (6.6-8.7) 09/19/22 15:25 Albumin 4.1 g/dL (3.5-5.2) 09/19/22 15:25 Globulin 3.1 g/dL (1.3-4.6) 09/19/22 15:25 TSH 47.95 uIU/mL (0.27-4.20) H 09/19/22 15:25 EKG Data EKG 1: Attestation: I personally reviewed and interpreted this EKG as follows: Interpretation: Contemporaneous review of resting EKG reveals a ventricular rate of 49 bpm. OH interval is normal, QRS duration is normal, corrected QT interval is normal. Loss of anterior forces on precordial leads V2 and V3. Consistent with sinus bradycardia. Essentially unchanged from prior tracing within the system. Discharge Plan Discharge Patient Disposition: Home Clinical Impression: Hypokalemia, Hypothyroidism Condition: Stable Prescriptions: New Synthroid 50 mcg tablet 100 mcg PO DAILY Qty: 60 1RF Discontinued levothyroxine 25 mcg Tablet 75 mcg PO DAILY No Action allopurinol 300 mg tablet 300 mg PO DAILY atorvastatin 80 mg tablet 80 mg PO DAILY docusate sodium 100 mg capsule 200 mg PO BID PRN (Reason: Constipation) ferrous sulfate 325 mg (65 mg iron) tablet 325 mg PO DAILY fluticasone propionate [Allergy Relief (fluticasone)] 50 mcg/actuation spray,suspension 2 spray INTRANASAL DAILY PRN (Reason: Allergy Symptoms) hydrochlorothiazide 25 mg tablet 25 mg PO QAM pioglitazone 30 mg tablet 30 mg PO DAILY gabapentin 300 mg capsule 300 mg PO BID cyclobenzaprine 10 mg tablet 10 mg PO TID zonisamide [Zonegran] 100 mg capsule 200 mg PO DAILY 7 Days Qty: 14 0RF Rx Instructions: Take 2 tabs daily for 7 days zonisamide [Zonegran] 100 mg capsule 400 mg PO DAILY 90 Days Qty: 360 3RF pantoprazole 40 mg tablet,delayed release (DR/EC) 40 mg PO BIDWM 30 Days Qty: 60 3RF amlodipine 5 mg tablet 5 mg PO DAILY Qty: 90 3RF tamsulosin 0.4 mg Capsule 0.8 mg PO BEDTIME venlafaxine [Effexor XR] 37.5 mg Capsule,Extended Release 24hr 37.5 mg PO DAILY albuterol sulfate [ProAir HFA] 90 mcg/actuation Hfa Aerosol Inhaler 2 puff INHALATION Q4H PRN (Reason: Shortness Of Breath) cholecalciferol (vitamin D3) [Vitamin D3] 125 mcg (5,000 unit) Tablet 125 mcg PO DAILY carvedilol 6.25 mg Tablet 6.25 mg PO BID Qty: 60 4RF Hold Instructions: Resume on 03/12/21. amiodarone 200 mg tablet 200 mg PO BID Qty: 60 2RF aspirin 81 mg Tablet,Delayed Release (Dr/Ec) 81 mg PO DAILY Hold Instructions: Resume on 09/15/21. Eucerin Cream 1 applic TOPICAL DAILY apixaban 5 mg Tablet 5 mg PO BID Hold Instructions: Resume on 09/15/21. methocarbamol 750 mg tablet 750 mg PO TID PRN (Reason: Muscle spasms and pain) Qty: 20 0RF acetaminophen 650 mg tablet extended release 650 mg PO Q8H PRN (Reason: pain) Qty: 30 0RF Discharge Orders: Discharge ED (Routine); Ordered 09/19/22 Ordered By: Dave Andrade Referrals: Guicho Vega DO [Primary Care Provider] - 1 month (Recheck thyroid replacement) Discharge Diet: Usual diet Discharge Activity: Increase activity as tolerated Patient Instructions: Opioid Safety, Pain Management Activity Restrictions/Additional Instructions: As we discussed your potassium was low in the emergency department. We have replaced your potassium while in the emergency department we recommend you taking 2 of your regular potassium pills daily for the next week and then return ing back to once daily as previously prescribed. We have changed your thyroid medication dose to a higher dose and which will likely require additional monitoring and changing as needed. Call your doctor to set up an appointment in approximately 1 month for reevaluation of your thyroid medication. If you have any new or worsening symptoms you are welcome to return to the emergency department for reevaluation. Coding Level of Care Code ED Unit Operator for Jason Foley
--- NOTE | 2022-09-19 15:24 | ECG_ITS ---
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 Measurements Intervals [place] Rate: 49 P: 51 WV: 199 QRS: 93 QRSD: 114 T: 40 QT: 474 QTc: 430 Interpretive Statements SINUS BRADYCARDIA BORDERLINE RIGHT AXIS DEVIATION [QRS AXIS > 90] LEFT VENTRICULAR HYPERTROPHY AND ST-T CHANGE [VOLTAGE CRITERIA PLUS ST/T ABNORMALITY] Compared to ECG 11/21/2021 10:43:09 Left ventricular hypertrophy now present ST (T wave) deviation now present T-wave abnormality no longer present Electronically Signed On 09-19-2022 16:22:17 CDT by Nancy Benson M.D. [id number]
[2022-09-19 15:48] LABS: Basophils # 0.1 10^3/uL (0.0-0.1); Basophils % 0.7 %; Eosinophils # 0.2 10^3/uL (0.0-0.8); Eosinophils % 2.7 %; Hematocrit 37.9 % (42.0-52.0); Hemoglobin 12.8 g/dL (11.7-16.6); Lymphocytes # 1.2 10^3/uL (0.8-4.8); Lymphocytes % 18.1 %; Mean Corpuscular HGB Conc 33.8 g/dL (30.0-36.0); Mean Corpuscular Hemoglobin 32.6 pg (28.0-34.0); Mean Corpuscular Volume 96.4 fl (80-94); Mean Platelet Volume 10.6 fL (7.4-10.4); Monocytes # 0.5 10^3/uL (0.2-0.9); Monocytes % 7.4 %; Neutrophils # 4.76 10^3/uL (1.8-7.7); Neutrophils % 70.7 %; Nucleated Red Blood Cells % 0 %; Platelet Count 178 10^3/cmm (130-400); Red Blood Count 3.93 10^6/uL (4.1-5.3); Red Cell Distribution Width 15.1 % (12.1-15.1); White Blood Count 6.7 10^3/uL (4.0-10.0)
--- NOTE | 2022-09-19 16:05 | PC.PHAR ---
FAXED [place] FOR MED LIST
[2022-09-19 16:24] LABS: Alanine Aminotransferase 25 U/L (0-41); Albumin Level 4.1 g/dL (3.5-5.2); Alkaline Phosphatase 101 U/L (40-130); Anion Gap 12.7 (5-19); Aspartate Amino Transferase 23 U/L (0-40); Blood Urea Nitrogen 24 mg/dL (8-23); Carbon Dioxide 32 mmol/L (22-29); Chloride 96 mmol/L (98-107); Globulin 3.1 g/dL (1.3-4.6); Glomerular Filtration Rate 50.4 mL/min (90-130); Glucose 101 mg/dL (65-115); Osmolality Calculated 290 mOsm/kg (285-295); Sodium 138 mmol/L (136-145); Thyroid Stimulating Hormone 47.95 uIU/mL (0.27-4.20); Total Bilirubin 0.5 mg/dL (0.15-1.2); Total Protein 7.2 g/dL (6.6-8.7)
[2022-09-19 16:38] LABS: Potassium 2.7 mmol/L (3.5-5.1)
--- NOTE | 2022-09-19 16:40 | PC.NURSE ---
potassium was 2.7, Andrade was notified and Potassium was ordered.
[2022-09-19] MEDS: potassium bicarb 25 mEq Tablet 50 MEQ PO ×2 (16:46→17:48)
[2022-09-19 21:10] LABS: Free T4 Free Thyroxine 1.09 ng/dL (0.82-1.77)
== END 2022-09-19 18:38 | disposition home or self-care (01) ==
PROVIDERS: Emergency Provider Emergency Medicine; PCP Emergency Medicine Emergency Medical Services
DX: E87.6 Hypokalemia (principal); E03.9 Hypothyroidism, unspecified
CPT/HCPCS: 36415; 80053; 84439; 84443; 85025; 93005; 99284

== ENCOUNTER → 2022-10-02 08:02 | Outpatient (BNVA) | payer OTHER, SELFPAY | PROVIDERS: PCP Emergency Medicine Emergency Medical Services; Visit Provider Specialist | DX: G40.219 Localization-related (focal) (partial) symptomatic epilepsy and epileptic syndromes with complex partial seizures, intractable, without status epilepticus (principal); E03.9 Hypothyroidism, unspecified; I25.10 Atherosclerotic heart disease of native coronary artery without angina pectoris; G47.30 Sleep apnea, unspecified; G25.3 Myoclonus; G47.10 Hypersomnia, unspecified | CPT/HCPCS: 36415; 80048; 99214 ==

== ENCOUNTER → 2022-10-25 13:28 | Outpatient (BNVA) | payer OTHER, SELFPAY | PROVIDERS: PCP Emergency Medicine Emergency Medical Services; Visit Provider Nurse Practitioner Family | DX: I25.119 Atherosclerotic heart disease of native coronary artery with unspecified angina pectoris (principal); Z95.1 Presence of aortocoronary bypass graft; Z87.891 Personal history of nicotine dependence; I12.9 Hypertensive chronic kidney disease with stage 1 through stage 4 chronic kidney disease, or unspecified chronic kidney disease; E11.22 Type 2 diabetes mellitus with diabetic chronic kidney disease; N18.9 Chronic kidney disease, unspecified; Z79.84 Long term (current) use of oral hypoglycemic drugs | CPT/HCPCS: 99214 ==

== ENCOUNTER 2022-11-09 07:45 | Outpatient (CLI) | payer OTHER, SELFPAY ==
--- NOTE | 2022-11-09 | ECG_ITS ---
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 Interpretive Statements NAME OF STUDY: LEXISCAN SESTAMIBI STRESS TEST INDICATION: Chest Pain PROCEDURE: At the baseline, the blood pressure was 200/79 mmHg with a heart rate of 52 bpm. The electrocardiogram showed sinus bradycardia, left ventricular hypertrophy and ST-T wave changes. The Lexiscan was infused over a period of 20 seconds. A total of 0.4 milligrams of Lexiscan was infused. The stress phase was continued for a total of 5 minutes. Heart rate at the end of the stress phase was 65 bpm with a blood pressure 164/66 mmHg. The EKG at the peak infusion revealed no changes. Sestamibi was injected 20 seconds after the Lexiscan infusion. Blood pressure at the end of the recovery phase was 143/ 67 mm Hg with a heart rate of 56 beats per minute. CONCLUSION: 1. No significant EKG changes with the LexiScan infusion. 2. No LexiScan induced chest pain or cardiac arrhythmia. 3. Normal blood pressure and heart rate response. 4. Sestamibi/sestamibi perfusion scan pending; see separate report. Electronically Signed On 11-16-2022 12:40:09 CDT by Nancy Benson M.D. [id number]
[2022-11-09 08:42] VITALS: BMI 30.5
--- NOTE | 2022-11-09 08:55 | NMCV_ITS ---
NM sergei perf SPECT r/s* [id number] Vinh Taylor Age: 67 Gender: M : 1955 Exam Date: 11/09/2022 09:34 Ordering Phys: Francoise Bentley Technologist: LISETTE Perez Exam Location: [facility] Indications: ATHEROSCLEROTIC HEART DISEASE STRESS TEST Please see separate stress test report in [facility] for full findings IMAGE PROTOCOL Rest/Stress 1 Lexiscan Day Radiopharmaceutical Dose (mCi) Administration Site Administered by Rest: Tc-99m 10.8 IV LISETTE Fernando Sestamibi Stress:Tc-99m 32.9 IV LISETTE Fernando Sestamibi Rest: 09-Nov-2022 60 Discovery 630 Stress: 09-Nov-2022 30 Discovery 630 0.4mg Lexiscan. Images obtained in supine and prone position. SPECT RESULTS Technical Quality: Excellent Raw Data Analysis: Normal Image Corrections: No attenuation or motion correction applied Summed Stress Score: 4 Summed Rest Score: 0 Summed Difference Score: 4 PERFUSION FINDINGS SPECT images demonstrate homogeneous tracer distribution throughout the myocardium. FUNCTIONAL RESULTS (calculated via Gated SPECT) Stress Image LV EF (%): 68 Stress EDV (mL):127 TID: 1.07 Stress ESV (mL):41 FUNCTIONAL FINDINGS: The left ventricle is normal in size. Transient Ischemia Dilatation of 1.1. The left ventricular ejection fraction is normal with a value of 68%. There is normal left ventricular wall thickening. IMPRESSIONS 1. Myocardial perfusion imaging is normal. 2. Overall left ventricular systolic function is normal without regional wall motion abnormalities, LVEF=68%. 3. EKG Portion of the study will be reported separately. 4. Scan indicates low risk for cardiac events. Nancy Benson MD (Electronically Signed) Final Date: 20 November 2022 10:23 S
[2022-11-09] MEDS: regadenoson 0.4 Mg/5 ml Syringe IVP (10:31)
[2022-11-09] MEDS: aminophylline 25 mg/mL SDV 10 mL IVP (10:50)
[2022-11-09 11:01] VITALS: BP 146/83; PULSE 83
== END 2022-11-09 07:46 | disposition home or self-care (01) ==
LOC: CDL 07:46
PROVIDERS: PCP Emergency Medicine Emergency Medical Services; Visit Provider Nurse Practitioner Family
DX: R07.9 Chest pain, unspecified (principal); R53.83 Other fatigue
CPT/HCPCS: 36415; 78452; 93017; 96374; 96375; A9500; J0280; J2785

== ENCOUNTER 2022-11-22 20:00 | Outpatient (CLI) | payer OTHER, SELFPAY | END 2022-11-22 20:01 | disposition home or self-care (01) | LOC: SLEEP 11-23 05:46 | PROVIDERS: PCP Emergency Medicine Emergency Medical Services; Visit Provider Emergency Medicine Emergency Medical Services | DX: G47.33 Obstructive sleep apnea (adult) (pediatric) (principal) | CPT/HCPCS: 95810 ==

== ENCOUNTER → 2022-12-07 07:35 | Outpatient (BNVA) | payer OTHER, SELFPAY | PROVIDERS: PCP Emergency Medicine Emergency Medical Services; Visit Provider Podiatrist Foot & Ankle Surgery | DX: L60.0 Ingrowing nail (principal); N18.9 Chronic kidney disease, unspecified; Z79.01 Long term (current) use of anticoagulants; E11.42 Type 2 diabetes mellitus with diabetic polyneuropathy; L60.3 Nail dystrophy; E11.22 Type 2 diabetes mellitus with diabetic chronic kidney disease | CPT/HCPCS: 11721; 99204 ==

== ENCOUNTER → 2022-12-21 09:30 | Outpatient (BNVA) | payer OTHER, SELFPAY | PROVIDERS: PCP Emergency Medicine Emergency Medical Services; Visit Provider Podiatrist Foot & Ankle Surgery | DX: L60.3 Nail dystrophy (principal); E11.42 Type 2 diabetes mellitus with diabetic polyneuropathy; L60.0 Ingrowing nail | CPT/HCPCS: 11750 ==

== ENCOUNTER → 2023-01-01 08:11 | Outpatient (BNVA) | payer OTHER, SELFPAY | PROVIDERS: PCP Emergency Medicine Emergency Medical Services; Visit Provider Specialist | DX: G47.33 Obstructive sleep apnea (adult) (pediatric) (principal); G43.109 Migraine with aura, not intractable, without status migrainosus; G40.219 Localization-related (focal) (partial) symptomatic epilepsy and epileptic syndromes with complex partial seizures, intractable, without status epilepticus; I95.1 Orthostatic hypotension | CPT/HCPCS: 36415; 84443; 99214 ==

== ENCOUNTER → 2023-01-04 07:41 | Outpatient (BNVA) | payer OTHER, SELFPAY | PROVIDERS: PCP Emergency Medicine Emergency Medical Services; Referring Provider Specialist; Visit Provider Specialist | DX: R56.9 Unspecified convulsions (principal) | CPT/HCPCS: 95819 ==

== ENCOUNTER → 2023-01-17 11:52 | Outpatient (BNVA) | payer OTHER, SELFPAY | PROVIDERS: PCP Emergency Medicine Emergency Medical Services; Visit Provider Internal Medicine | DX: E03.9 Hypothyroidism, unspecified (principal); E23.3 Hypothalamic dysfunction, not elsewhere classified; I97.89 Other postprocedural complications and disorders of the circulatory system, not elsewhere classified; I48.91 Unspecified atrial fibrillation; Z79.890 Hormone replacement therapy | CPT/HCPCS: 36415; 84439; 84443; 99204 ==

== ENCOUNTER → 2023-01-29 08:21 | Outpatient (BNVA) | payer OTHER, SELFPAY | PROVIDERS: PCP Emergency Medicine Emergency Medical Services; Visit Provider Specialist | DX: Z96.612 Presence of left artificial shoulder joint (principal); G56.92 Unspecified mononeuropathy of left upper limb | CPT/HCPCS: 73030; 99204 ==

== ENCOUNTER 2023-02-02 14:34 | Emergency (ER) | payer OTHER, SELFPAY ==
[2023-02-02 14:38] VITALS: BP 103/66; PULSE 51; RESP 16; TEMP 37.1; O2SAT 95; BMI 29.3
--- NOTE | 2023-02-02 14:50 | CT_ITS ---
WS: [id number] CT HEAD NONCONTRAST HISTORY: ams TECHNIQUE: Contiguous axial imaging performed through the brain in 2.5 mm imaging. Bone and soft tiss ue windows. Sagittal and coronal reformats reviewed. All CT scans at [facility] use at least one of these dose optimization techniques: automated exposure control; mA and/or kV adjustment per pa tient size (includes targeted exams where dose is matched to clinical indication); or iterative recon struction. DLP: 1017.18 mGy.cm COMPARISON: 08/01/2021 No acute intracranial hemorrhage, midline shift or mass effect. Moderate atrophy. Both cerebellar and cerebral atrophy. No acute intracranial hemorrhage. There are n umerous bilateral lacunar infarcts and confluent low-attenuation from chronic white matter disease. T hese findings are very similar to the prior examination. No progression of lacunar infarcts or white matter disease. Ventricles: Normal size with no hydrocephalus. No inferior displacement of the cerebellar tonsils. Paranasal sinuses: As visualized are clear. Mastoid air cells: Well pneumatized. Calvarium and scalp: Skull is intact with no soft tissue edema or swelling. IMPRESSION: 1. No acute intracranial hemorrhage or edema. 2. Moderate small vessel ischemic disease in small bilateral lacunar infarcts. Similar to the prior s tudy. Small vessel ischemic disease is more pronounced than expected for patient of this age.
--- NOTE | 2023-02-02 14:50 | ECG_ITS ---
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 Measurements Intervals [place] Rate: 50 P: 46 WV: 185 QRS: 60 QRSD: 110 T: 66 QT: 448 QTc: 412 Interpretive Statements SINUS BRADYCARDIA MODERATE INTRAVENTRICULAR CONDUCTION DELAY [105+ ms QRS DURATION, 80+ ms Q/S IN V1/V2, NO Q AND 60+ ms R IN I/aVL/V5/V6] NONSPECIFIC T-WAVE ABNORMALITY Compared to ECG 09/19/2022 15:24:48 Intraventricular conduction delay now present T-wave abnormality now present Left ventricular hypertrophy no longer present ST (T wave) deviation no longer present Electronically Signed On 02-02-2023 20:28:07 CDT by Nancy Benson M.D. [id number]
[2023-02-02 14:51] LABS: Glucose Point of Care 135 mg/dL (70-110)
--- NOTE | 2023-02-02 14:52 | ED_ITS ---
HPI - Altered Mental Status General: Chief Complaint: Altered Mental Status Stated Complaint: foggy brain, weakness, sob Time Seen by Provider: 02/02/23 14:50 History of Present Illness: 67-year-old male patient comes in today with weakness. Patient reports that he sees Dr. Wei for the spells and she had recommended that he come into the emergency room to be evaluated when he has 1 of these spells. Patient appears nontoxic. Patient reports that these incidents have been going on for years. Today patient had smoked some marijuana in the morning but then this afternoon started feeling weak and his brain was foggy . Patient reports no chest pain or shortness of breath. Patient appears nontoxic. Patient appears in no pain. Patient does appear depressed or apathetic. Patient has a history of coronary artery disease, CABG, hypertension, diabetes, arthritis, and sleep apnea. Patient denies depression. Review of Systems General: Reports: 10 or more systems reviewed and unremarkable except in HPI and below Const: Reports: fatigue and malaise Card: Denies: chest pain Resp: Denies: dyspnea GI: Denies: nausea, vomiting, diarrhea or constipation : Denies: difficulty urinating Musc: Denies: neck pain or back pain Skin/Breast: Denies: rash Neuro: Reports: other (Weakness generalized) FORMERLY [facility], [facility]–1983 ED PFSH: Medical History Acute kidney injury superimposed on CKD Afib Anticoagulation adequate with anticoagulant therapy Atherosclerosis of coronary artery Atrial fibrillation Carotid stenosis Chronic kidney disease (CKD) Coffee ground emesis Diabetes Diabetic gastroparesis Gastric ulcer Gastritis Hypercholesteremia Hypertension Left main coronary artery disease Nausea and vomiting Spinal stenosis, lumbar region, with neurogenic claudication Spondylolisthesis, lumbar region Surgical History History of jeremiah hole surgery Twist drill drainage of bilateral subdural hematomas, 12/20/2016, [facility] History of esophagogastroduodenoscopy (EGD) (~05/2019) History of laparoscopic cholecystectomy (~06/2019) History of lumbar laminectomy Bilateral L4-L5 laminotomy/foraminotomy/limited facetectomy Previous back surgery Status post aorto-coronary artery bypass graft Family History Other CAD (coronary artery disease) Cancer Diabetes Hypertension Stroke Denies family history of Anesthesia complication Bleeding disorder Social History Smoking and tobacco/nicotine status: former use of tobacco/nicotine Alcohol intake: former Substance/Drug Use: current Substance/Drug use frequency: daily Lives independently: Yes Marital status: Current occupational status: retired Physical Exam Const: COMMON NORMALS: alert HENMT: COMMON NORMALS: normocephalic HEAD & SCALP: normocephalic THROAT: posterior oropharynx normal Neck/C-Spine: COMMON NORMALS: full ROM and no meningeal signs Resp: COMMON NORMALS: normal respiratory effort and clear to auscultation bilaterally AUSCULTATION: clear to auscultation bilaterally Cardio: COMMON NORMALS: regular rate and regular rhythm RATE: regular rate RHYTHM: regular rhythm GI: COMMON NORMALS: non-tender Back/Pelvis: COMMON NORMALS: thoracic and lumbar spine normal to inspection Extremity: COMMON NORMALS: normal to inspection and no pedal edema Neuro: SENSORIUM/ORIENTATION: Yes alert MENINGEAL SIGNS: Yes no meningeal signs Psych: COMMON NORMALS: cooperative APPEARANCE: Yes disheveled ATTITUDE: Yes Withdrawn affect present Course Vital Signs: Vital signs: Vital Signs Temperature 98.8 F 02/02/23 14:38 Pulse Rate 49 L 02/02/23 16:15 Respiratory Rate 16 02/02/23 14:38 Blood Pressure 120/51 02/02/23 16:15 Pulse Oximetry 95 02/02/23 14:38 Oxygen Delivery Me thod Room Air 02/02/23 14:38 MDM - Altered Mental Status Medical Decision Making 67-year-old male patient comes in today for complaints of weakness and confusion. On exam patient is alert and oriented. NIH scale is 0. Patient moves all extremities well. Abdomen soft nontender. Skin is warm and dry. Vital signs are normal except for some decreased heart rate in the 50s. Differ ential diagnosis includes not limited to TIA, atherosclerosis, carotid occlusion, CVA, major depression disorder, malnutrition, sleep apnea, hypothyroidism, adverse drug effect. CBC noted some mild anemia with a hemoglobin of 10.6, CMP noted creatinine of 2.0. Troponin was slightly elevated at 21 but with a negative delta curve. TSH was normal. CT of the head was unremarkable. Believe patient's symptoms are probably due to his medications and chronic disease. Patient was given 1 L of IV fluid for some orthostatic hypotension. We discussed need for patient to increase fluid intake to maintain hydration. We also discussed patient need to follow-up with primary care to adjust medications for further effectiveness. I recommended at this time decreasing carvedilol to 3.125 mg twice a day to help with bradycardia that was noted on EKG. Patient reported understanding of care plan and need for follow- up or return to the ER. Lab Data 02/02/23 15:00 02/02/23 15:00 Laboratory Results WBC 7.09 10^3/uL (3.29-11.43) 02/02/23 15:00 RBC 3.46 10^6/uL (3.85-5.65) L 02/02/23 15:00 Hgb 10.60 g/dL (11.27-16.99) L 02/02/23 15:00 Hct 32.2 % (37-53) L 02/02/23 15:00 MCV 93.1 fl (82-101) 02/02/23 15:00 MCH 30.6 pg (27-33) 02/02/23 15:00 MCHC 32.9 g/dL (30-55) 02/02/23 15:00 RDW 14.4 % (12.1-15.1) 02/02/23 15:00 Plt Count 185 10^3/cmm (157-399) 02/02/23 15:00 MPV 11.7 fL (7.4-10.4) H 02/02/23 15:00 Neut % (Auto) 70.0 % 02/02/23 15:00 Lymph % (Auto) 16.2 % 02/02/23 15:00 Rusk % (Auto) 8.5 % 02/02/23 15:00 Eos % (Auto) 3.9 % 02/02/23 15:00 Baso % (Auto) 1.0 % 02/02/23 15:00 Neut # (Auto) 4.96 10^3/uL (1.8-7.7) 02/02/23 15:00 Lymph # (Auto) 1.2 10^3/uL (0.8-4.8) 02/02/23 15:00 Rusk # (Auto) 0.6 10^3/uL (0.2-0.9) 02/02/23 15:00 Eos # (Auto) 0.3 10^3/uL (0.0-0.8) 02/02/23 15:00 Baso # (Auto) 0.1 10^3/uL (0.0-0.1) 02/02/23 15:00 Nucleated RBC % (auto) 0 % 02/02/23 15:00 Nucleated RBCs # 0.0 /100WBC 02/02/23 15:00 Sodium 138 mmol/L (136-145) 02/02/23 15:00 Potassium 4.4 mmol/L (3.5-5.1) 02/02/23 15:00 Chloride 101 mmol/L (98-107) 02/02/23 15:00 Carbon Dioxide 26 mmol/L (22-29) 02/02/23 15:00 Anion Gap 15.4 (5-19) 02/02/23 15:00 BUN 29 mg/dL (8-23) H 02/02/23 15:00 Creatinine 2.0 mg/dL (0.7-1.2) H 02/02/23 15:00 GFR Calculation 33.4 mL/min (90-130) L 02/02/23 15:00 Glucose 128 mg/dL (65-115) H 02/02/23 15:00 POC Glucose 135 mg/dL (70-110) H 02/02/23 14:40 Calculated Osmolality 293 mOsm/kg (285-295) 02/02/23 15:00 Calcium 9.1 mg/dL (8.5-10.5) 02/02/23 15:00 Total Bilirubin 0.4 mg/dL (0.15-1.2) 02/02/23 15:00 AST 40 U/L (0-40) 02/02/23 15:00 ALT 54 U/L (0-41) H 02/02/23 15:00 Alkaline Phosphatase 120 U/L (40-130) 02/02/23 15:00 Troponin T Baseline 21 ng/L (0-15) H 02/02/23 15:00 Total Protein 6.3 g/dL (6.6-8.7) L 02/02/23 15:00 Albumin 4.0 g/dL (3.5-5.2) 02/02/23 15:00 Globulin 2.3 g/dL (1.3-4.6) 02/02/23 15:00 TSH 0.50 uIU/mL (0.27-4.20) 02/02/23 15:00 All radiology interpretation(s) finalized by discharge Discharge Plan Discharge Patient Disposition: Home Clinical Impression: Orthostatic hypotension, Dehydration Chronic kidney disease (CKD) Qualifiers: Chronic kidney disease stage: stage 3 (moderate) Chronic kidney disease stage 3 subtype: stage 3b (GFR 30-44) Qualified Code(s): N18.32 - Chronic kidney disease, stage 3b Condition: Stable Prescriptions: No Action allopurinol 300 mg tablet 300 mg PO QPM atorvastatin 80 mg tablet 80 mg PO QAM docusate sodium 100 mg capsule 200 mg PO BID PRN (Reason: Constipation) fluticasone propionate [Allergy Relief (fluticasone)] 50 mcg/actuation spray,suspension 2 spray INTRANASAL DAILY PRN (Reason: Allergy Symptoms) hydrochlorothiazide 25 mg tablet 25 mg PO QAM pioglitazone 30 mg tablet 30 mg PO QAM gabapentin 300 mg capsule 300 mg PO BID cyclobenzaprine 10 mg tablet 10 mg PO TID potassium chloride 20 mEq tablet extended release 20 meq PO BID pantoprazole 40 mg tablet,delayed release (DR/EC) 40 mg PO BIDWM 30 Days Qty: 60 3RF lisinopril 40 mg tablet 40 mg PO QPM tamsulosin 0.4 mg Capsule 0.8 mg PO BEDTIME venlafaxine [Effexor XR] 37.5 mg Capsule,Extended Release 24hr 37.5 mg PO EVERY OTHER DAY albuterol sulfate [ProAir HFA] 90 mcg/actuation Hfa Aerosol Inhaler 2 puff INHALATION Q4H PRN (Reason: Shortness Of Breath) cholecalciferol (vitamin D3) [Vitamin D3] 125 mcg (5,000 unit) Tablet 125 mcg PO QAM carvedilol 6.25 mg Tablet 6.25 mg PO BID Qty: 60 4RF Hold Instructions: Resume on 03/12/21. amiodarone 200 mg tablet 200 mg PO BID Qty: 60 2RF aspirin 81 mg Tablet,Delayed Release (Dr/Ec) 81 mg PO QAM Hold Instructions: Resume on 09/15/21. Eucerin Cream 1 applic TOPICAL DAILY apixaban 5 mg Tablet 5 mg PO BID Hold Instructions: Resume on 09/15/21. amlodipine 5 mg tablet 5 mg PO QPM Zonegran 100 mg capsule 100 mg PO BID Synthroid 50 mcg tablet 100 mcg PO QAM acetaminophen 650 mg tablet extended release 650 mg PO Q8H PRN (Reason: pain) Qty: 30 0RF Discharge Orders: Discharge ED (Routine); Ordered 02/02/23 Ordered By: Jorge Luis Bee Referrals: Guicho Vega DO [Primary Care Provider] - Discharge Diet: Usual diet Discharge Activity: Increase activity as tolerated Patient Instructions: Dehydration (ED) Activity Restrictions/Additional Instructions: Decrease carvedilol to 1/2 tablet twice a day which will be 3.125 mg 2 times daily. This should help with some of your energy and increase your heart rate some. Continue with other medications as directed. Follow-up with primary care for further instructions. Make sure to drink at least 2 L of fluids a day. Return to ER for severe headache, fever greater than 100.4, shortness of breath, or severe chest pain. Coding Level of Care Code ED Contract Preparer for Jason Foley
[2023-02-02 15:24] LABS: Basophils # 0.1 10^3/uL (0.0-0.1); Eosinophils # 0.3 10^3/uL (0.0-0.8); Eosinophils % 3.9 %; Hematocrit 32.2 % (37-53); Lymphocytes # 1.2 10^3/uL (0.8-4.8); Lymphocytes % 16.2 %; Mean Corpuscular HGB Conc 32.9 g/dL (30-55); Mean Corpuscular Hemoglobin 30.6 pg (27-33); Mean Corpuscular Volume 93.1 fl (82-101); Mean Platelet Volume 11.7 fL (7.4-10.4); Monocytes # 0.6 10^3/uL (0.2-0.9); Monocytes % 8.5 %; Neutrophils # 4.96 10^3/uL (1.8-7.7); Nucleated Red Blood Cells % 0 %; Platelet Count 185 10^3/cmm (157-399); Red Blood Count 3.46 10^6/uL (3.85-5.65); Red Cell Distribution Width 14.4 % (12.1-15.1); White Blood Count 7.09 10^3/uL (3.29-11.43)
[2023-02-02 15:30] VITALS: BP 139/58; PULSE 48; RESP 14; O2SAT 94
[2023-02-02 15:53] LABS: Troponin(5th) Baseline 21 ng/L (0-15)
[2023-02-02 16:00] VITALS: BP 113/53; PULSE 49; RESP 17; O2SAT 85
[2023-02-02 16:02] LABS: Alanine Aminotransferase 54 U/L (0-41); Alkaline Phosphatase 120 U/L (40-130); Blood Urea Nitrogen 29 mg/dL (8-23); Calcium 9.1 mg/dL (8.5-10.5); Carbon Dioxide 26 mmol/L (22-29); Chloride 101 mmol/L (98-107); Globulin 2.3 g/dL (1.3-4.6); Glomerular Filtration Rate 33.4 mL/min (90-130); Glucose 128 mg/dL (65-115); Osmolality Calculated 293 mOsm/kg (285-295); Sodium 138 mmol/L (136-145); Total Bilirubin 0.4 mg/dL (0.15-1.2); Total Protein 6.3 g/dL (6.6-8.7)
[2023-02-02 16:03] LABS: Anion Gap 15.4 (5-19); Aspartate Amino Transferase 40 U/L (0-40); Potassium 4.4 mmol/L (3.5-5.1)
[2023-02-02 16:15] VITALS: BP 117/59; BP 120/51; BP 95/51; PULSE 49; PULSE 50
[2023-02-02] MEDS: sodium chloride 0.9% 1,000 ML 999 ML IV (16:34)
[2023-02-02 17:00] VITALS: BP 152/78; PULSE 49; RESP 15; O2SAT 98
[2023-02-02 17:40] VITALS: BP 143/79; PULSE 50; RESP 12; O2SAT 97
[2023-02-02 17:40] LABS: Troponin 5 2HR 16.42 ng/L (0-15)
[2023-02-02 17:41] LABS: Troponin 5 2HR Delta -4.58 ABS# (0-10)
== END 2023-02-02 17:42 | disposition home or self-care (01) ==
PROVIDERS: Emergency Provider Nurse Practitioner Family; PCP Emergency Medicine Emergency Medical Services
DX: I95.1 Orthostatic hypotension (principal); E86.0 Dehydration; E11.22 Type 2 diabetes mellitus with diabetic chronic kidney disease; I12.9 Hypertensive chronic kidney disease with stage 1 through stage 4 chronic kidney disease, or unspecified chronic kidney disease; N18.32 Chronic kidney disease, stage 3b; I25.10 Atherosclerotic heart disease of native coronary artery without angina pectoris; Z95.1 Presence of aortocoronary bypass graft; Z87.891 Personal history of nicotine dependence
CPT/HCPCS: 36416; 70450; 80053; 82962; 84443; 84484; 85025; 93005; 99285; J7030

== ENCOUNTER 2023-02-13 20:00 | Outpatient (CLI) | payer OTHER, SELFPAY | END 2023-02-13 20:01 | disposition home or self-care (01) | LOC: SLEEP 02-14 05:40 | PROVIDERS: PCP Emergency Medicine Emergency Medical Services; Visit Provider Emergency Medicine Emergency Medical Services | DX: G47.33 Obstructive sleep apnea (adult) (pediatric) (principal) | CPT/HCPCS: 95811 ==

== ENCOUNTER → 2023-02-22 09:43 | Outpatient (BNVA) | payer OTHER, SELFPAY | PROVIDERS: PCP Emergency Medicine Emergency Medical Services; Visit Provider Podiatrist Foot & Ankle Surgery | DX: E11.42 Type 2 diabetes mellitus with diabetic polyneuropathy (principal); L60.3 Nail dystrophy; L60.0 Ingrowing nail | CPT/HCPCS: 11750 ==

== ENCOUNTER → 2023-02-27 09:12 | Outpatient (BNVA) | payer OTHER, SELFPAY | PROVIDERS: PCP Emergency Medicine Emergency Medical Services; Visit Provider Specialist | DX: G40.219 Localization-related (focal) (partial) symptomatic epilepsy and epileptic syndromes with complex partial seizures, intractable, without status epilepticus (principal); G43.109 Migraine with aura, not intractable, without status migrainosus | CPT/HCPCS: 99214 ==

== ENCOUNTER → 2023-04-30 13:57 | Outpatient (BNVA) | payer OTHER, SELFPAY | PROVIDERS: PCP Emergency Medicine Emergency Medical Services; Visit Provider Internal Medicine | DX: I25.119 Atherosclerotic heart disease of native coronary artery with unspecified angina pectoris (principal); E78.00 Pure hypercholesterolemia, unspecified; I12.9 Hypertensive chronic kidney disease with stage 1 through stage 4 chronic kidney disease, or unspecified chronic kidney disease; E11.22 Type 2 diabetes mellitus with diabetic chronic kidney disease; N18.32 Chronic kidney disease, stage 3b; Z87.891 Personal history of nicotine dependence; Z79.84 Long term (current) use of oral hypoglycemic drugs | CPT/HCPCS: 99214 ==

== ENCOUNTER → 2023-05-16 08:41 | Outpatient (BNVA) | payer OTHER, SELFPAY | PROVIDERS: PCP Emergency Medicine Emergency Medical Services; Visit Provider Specialist | DX: M87.052 Idiopathic aseptic necrosis of left femur (principal) | CPT/HCPCS: 73502; 99214 ==

== ENCOUNTER 2023-05-17 08:07 | Outpatient (CLI) | payer OTHER, SELFPAY ==
--- NOTE | 2023-05-17 08:30 | MR_ITS ---
WS: [id number] MRA ANGIOGRAPHY [place] HISTORY: G45.9 - Transient cerebral ischemic attack, unspecified COMPARISON: None available. TECHNIQUE: 3-D MR angiography is performed of the upper [place]. All images are reviewed including source images. Distal vertebral and basilar arteries are intact with no significant stenosis or plaque. Posterior ce rebral arteries are normal course and caliber. Posterior communicating arteries are both patent but v timbo small caliber. Mild atherosclerotic plaque of the cavernous portions of the carotid arteries. There is mild narrowin g of the supraclinoid carotid arteries. Mild luminal irregularity of the M1 segments bilaterally. No occlusion and no aneurysm. Normal A1 and A2 segments. No aneurysm. IMPRESSION: 1. Mild atherosclerotic plaque and stenosis involving the supraclinoid carotid arteries. No high-gra de stenosis or occlusion. 2. Small caliber/hypoplastic bilateral posterior communicating arteries. 3. No aneurysm. 4. Mild bilateral M1 segment atherosclerosis with no occlusion.
--- NOTE | 2023-05-17 08:45 | MR_ITS ---
WS: [id number] MRI BRAIN WITHOUT CONTRAST HISTORY: G45.9 - Transient cerebral ischemic attack, unspecified COMPARISON: 06/06/2017 TECHNIQUE: Diffusion imaging, multiplanar T1, T2 and FLAIR imaging obtained. No evidence for acute infarct or hemorrhage. Miramontes-white matter differentiation is normal. Mild progression of small vessel ischemic changes throughout the white matter. Bilateral areas of inc reased T2 and FLAIR signal throughout the white matter has become slightly more confluent with new kohler bcortical foci. Prior lacunar infarct RIGHT basal ganglia. No new large territory infarct. Overall mi ld to moderate volume loss is very similar to the prior study. No hippocampal atrophy. Ventricles and extra-axial spaces are normal. No inferior displacement of cerebellar tonsils. The sella turcica and pituitary gland are unremarkabl e. Dural venous sinuses and [place] of [place] demonstrate no abnormality on this unenhanced studies. Paranasal sinuses: Clear. Mastoid air cells: Normal. Calvarium and scalp: Patient has known bilateral frontal lobe jeremiah holes which are difficult to visua lize on today's MRI. IMPRESSION: 1. No acute intracranial hemorrhage or subdural hematoma. 2. Moderate extensive small vessel ischemic disease which has mildly progressed since 2018. No new l arge territory infarct. 3. Overall mild to moderate volume loss similar to the prior study. 4. Normal hippocampal formations. No significant atrophy.
--- NOTE | 2023-05-17 09:30 | MR_ITS ---
WS: [id number] MRA CAROTID ARTERIES HISTORY: G45.9 - Transient cerebral ischemic attack, unspecified COMPARISON: None available. TECHNIQUE: MRA is performed with intravenous gadolinium. MIP and source images are reviewed. Right: No high-grade stenosis or occlusion identified. Overall quality this examination is suboptimal. Left: No high-grade stenosis or occlusion identified. Overall the quality is suboptimal. Subclavian Arteries: Contamination overlying the RIGHT subclavian artery. LEFT subclavian appears pat ent. Vertebral Arteries: Normal vertebral arteries. No stenosis or occlusion. No dissection. IMPRESSION: 1. No significant carotid artery stenosis identified. Overall quality is limited. 2. Patent vertebral arteries. No stenosis.
[2023-05-17] MEDS: gadobenate dimeglumine 20 mL vial IV (10:00)
== END 2023-05-17 08:08 | disposition home or self-care (01) ==
LOC: RAD 08:08
PROVIDERS: Visit Provider Specialist
DX: G45.9 Transient cerebral ischemic attack, unspecified (principal); G43.109 Migraine with aura, not intractable, without status migrainosus; I67.89 Other cerebrovascular disease
CPT/HCPCS: 70544; 70548; 70551; A9577

== ENCOUNTER 2023-05-23 08:47 | Outpatient (CLI) | payer OTHER, SELFPAY ==
--- NOTE | 2023-05-23 09:45 | USCV_ITS ---
Vinh Taylor Age: 68 Gender: M : 1955 Exam Date: 05/23/2023 09:20 Ordering Phys: Arpit Marcano M.D ([email or web address]) Technologist: ANG Exam Location: [facility] [place] Indication: CHEST PAIN AND SHORTNESS OF BREATH BP: 133 / 70 HR: 52 Rhythm: Sinus Technical Quality: Adequate MEASUREMENTS (Male / Female) Normal Values 2D ECHO LVOT Diameter 2.0 cm LV Ejection Fraction MOD 2C 69.4 % LV Ejection Fraction 2C AL 71.6 % LA Diameter 3.8 cm LA Width 4.7 cm LA Height 6.0 cm RA Width 2.5 cm RA Height 5.3 cm Aorta at Sinotubular Diameter 2.2 cm IVC Diameter 1.7 cm M-MODE Aortic Annulus Diameter 3.6 cm LA Ao Ratio MM 0.9 MV E Point Septal Separation 0.7 cm DOPPLER AV Peak Velocity 166.0 cm/s LVOT Peak Velocity 103.0 cm/s AV Area Cont Eq vti 1.9 cm squared AV Area Cont Eq pk 2.0 cm squared MV Peak Velocity 129.0 cm/s MV Area PHT 3.7 cm squared Mitral E to A Ratio 0.9 MV E' Velocity 61.0 cm/s Mitral E to MV E' Ratio 11.6 Mitral E to LV E' Lateral Ratio 11.2 Mitral E to LV E' Septal Ratio 12.1 TR Peak Velocity 275.6 cm/s TR Peak Gradient 30.4 mmHg TR Mean Velocity 228.3 cm/s TR Mean Gradient 22.0 mmHg TR Velocity Time Integral 102.7 cm TV Peak E Velocity 47.0 cm/s Right Atrial Pressure 3.0 mmHg Pulmonary Artery Systolic Pressu 33.4 mmHg PV Peak Velocity 127.0 cm/s RV Acceleration Time 0.1 s RV Ejection Time 0.3 s RV AcT/ET 0.4 FINDINGS Left Ventricle Left ventricle is normal in size. LV systolic function is normal with EF 55 to 60%. No regional wall motion abnormalities are seen. Right Ventricle Normal in size and function Right Atrium Dilated Left Atrium Dilated Mitral Valve Structurally normal mitral valve. Mild mitral regurgitation. Aortic Valve Structurally normal aortic valve. No significant stenosis or regurgitation. Tricuspid Valve Mild tricuspid regurgitation. Pulmonary artery systolic pressure is normal. Pulmonic Valve Not well-visualized. Mild pulmonic regurgitation. Pericardium Normal Aorta Normal in size IVC Appears to be normal CONCLUSIONS LV systolic function is normal with EF of 55 to 60%. Biatrial enlargement. Mild mitral regurgitation. Mild tricuspid regurgitation. Mild pulmonic regurgitation. Arpit Marcano MD (Electronically Signed) Final Date: 29 May 2023 14:23 S
== END 2023-05-23 08:48 | disposition home or self-care (01) ==
LOC: RAD 08:47
PROVIDERS: PCP Emergency Medicine Emergency Medical Services; Visit Provider Internal Medicine
DX: R07.9 Chest pain, unspecified (principal); R06.02 Shortness of breath
CPT/HCPCS: 93306

== ENCOUNTER 2023-05-28 08:26 | Outpatient (RCR) | payer OTHER, SELFPAY | END 2023-06-21 23:59 | disposition home or self-care (01) | LOC: SPT 08:26 | PROVIDERS: PCP Emergency Medicine Emergency Medical Services; Visit Provider Specialist | DX: M54.50 Low back pain, unspecified (principal); M54.32 Sciatica, left side; M25.552 Pain in left hip | CPT/HCPCS: 97110; 97161 ==

== ENCOUNTER → 2023-06-01 13:06 | Outpatient (BNVA) | payer OTHER, SELFPAY | PROVIDERS: PCP Emergency Medicine Emergency Medical Services; Visit Provider Specialist | DX: G43.111 Migraine with aura, intractable, with status migrainosus; G37.9 Demyelinating disease of central nervous system, unspecified | CPT/HCPCS: 99214 ==

== ENCOUNTER 2023-06-22 06:00 | Outpatient (RCR) | payer OTHER, SELFPAY | END 2023-07-22 23:59 | disposition home or self-care (01) | LOC: SPT 06:00 | PROVIDERS: PCP Emergency Medicine Emergency Medical Services; Visit Provider Specialist | DX: M54.42 Lumbago with sciatica, left side (principal) | CPT/HCPCS: 97110 ==

== ENCOUNTER → 2023-07-16 08:54 | Outpatient (BNVA) | payer OTHER, SELFPAY | PROVIDERS: PCP Emergency Medicine Emergency Medical Services; Visit Provider Internal Medicine | DX: E55.9 Vitamin D deficiency, unspecified (principal); E03.9 Hypothyroidism, unspecified; R53.83 Other fatigue; E23.3 Hypothalamic dysfunction, not elsewhere classified; I97.89 Other postprocedural complications and disorders of the circulatory system, not elsewhere classified; I48.91 Unspecified atrial fibrillation; Z79.890 Hormone replacement therapy | CPT/HCPCS: 36415; 82306; 84439; 84443; 99214 ==

== ENCOUNTER 2023-07-23 06:00 | Outpatient (RCR) | payer OTHER, SELFPAY | END 2023-07-31 23:59 | disposition home or self-care (01) | LOC: SPT 06:00 | PROVIDERS: PCP Emergency Medicine Emergency Medical Services; Visit Provider Specialist | DX: M54.50 Low back pain, unspecified (principal); M54.32 Sciatica, left side; M25.552 Pain in left hip | CPT/HCPCS: 97110 ==

== ENCOUNTER → 2023-09-27 12:19 | Outpatient (BNVA) | payer OTHER, SELFPAY | PROVIDERS: PCP Emergency Medicine Emergency Medical Services; Visit Provider Internal Medicine | DX: I25.119 Atherosclerotic heart disease of native coronary artery with unspecified angina pectoris (principal); I12.9 Hypertensive chronic kidney disease with stage 1 through stage 4 chronic kidney disease, or unspecified chronic kidney disease; E11.22 Type 2 diabetes mellitus with diabetic chronic kidney disease; N18.32 Chronic kidney disease, stage 3b; E78.00 Pure hypercholesterolemia, unspecified; Z87.891 Personal history of nicotine dependence; Z79.84 Long term (current) use of oral hypoglycemic drugs | CPT/HCPCS: 99214 ==

== ENCOUNTER → 2023-10-10 09:16 | Outpatient (CLI) | payer OTHER, SELFPAY ==
--- NOTE | 2023-10-10 09:19 | MR_ITS ---
WS: [id number] MRI HEAD WITH CONTRAST WITH ATTENTION TO THE INTERNAL AUDITORY CANALS TECHNIQUE: Sagittal T1, T2 axial, T2 axial flair, axial susceptibility weighted imaging, axial diffus ion weighted images, and coronal T2 images were obtained. Pre and post T1 axial and post T1 coronal i mages. ADC and FSPGR images. Post gadolinium images with attention to the internal auditory canals. A xial fiesta imaging. 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 Ventricular system and basal cisterns are patent. Moderate to advanced small vessel changes with moderate parenchymal volume loss. Chronic lacunar infarct RIGHT de la paz radiata unchanged. Normal posterior fossa. Normal vascular flow voids at the skull base. No extra-axial fluid collections. Paranasal sinuses are well aerated. Mastoid air cells are well aerated. No hemosiderin on the suscept ibly weighted images. Proximal 7th and 8th cranial nerves are normal in appearance. No evidence of en hancing IAC or CP angle mass. Normal trigeminal nerve root entry zones. MR/MR iac's wo/w con* [id number] IMPRESSION: 1. No evidence of restricted diffusion to suggest acute ischemia. 2. Moderate to advanced small vessel changes with moderate parenchymal volume loss unchanged. 3. Proximal 7th and 8th cranial nerves are normal in appearance. Normal trigem inal nerve root entry zones. 4. No evidence of enhancing IAC or CP angle mass. 5. Mastoid air cells are well aerated. Paranasal sinuses are well aerated.
[2023-10-10] MEDS: gadobenate dimeglumine 20 mL vial IV (09:59)
== END | disposition home or self-care (01) ==
LOC: RAD 09:16
PROVIDERS: PCP Emergency Medicine Emergency Medical Services; Visit Provider Specialist
DX: H90.8 Mixed conductive and sensorineural hearing loss, unspecified (principal); H93.13 Tinnitus, bilateral; I67.89 Other cerebrovascular disease; I63.81 Other cerebral infarction due to occlusion or stenosis of small artery
CPT/HCPCS: 70553; A9577

== ENCOUNTER → 2023-11-28 14:08 | Outpatient (BNVA) | payer OTHER, SELFPAY | PROVIDERS: PCP Emergency Medicine Emergency Medical Services; Visit Provider Podiatrist Foot & Ankle Surgery | DX: E11.42 Type 2 diabetes mellitus with diabetic polyneuropathy (principal); L60.3 Nail dystrophy; M21.41 Flat foot [pes planus] (acquired), right foot; M21.42 Flat foot [pes planus] (acquired), left foot | CPT/HCPCS: 99213 ==

== ENCOUNTER → 2023-12-19 13:46 | Outpatient (BNVA) | payer OTHER, SELFPAY | PROVIDERS: PCP Emergency Medicine Emergency Medical Services; Visit Provider Specialist | DX: M25.552 Pain in left hip (principal) | CPT/HCPCS: 73502; 99204 ==

== ENCOUNTER 2024-01-07 07:56 | Outpatient (CLI) | payer OTHER, SELFPAY ==
--- NOTE | 2024-01-07 08:45 | MR_ITS ---
WS: [email or web address] EXAMINATION: MR hip LT wo con* [id number] ORDER DATE: 01/07/2024 9:03 AM COMPARISON: None. HISTORY: left hip pain CONTRAST: None. TECHNIQUE: Coronal STIR of the Pelvis. Coronal proton density, coronal T1, axial T2 fat sat, axial T1 , sagittal T2 fat sat, and sagittal T1 performed of the hip. Some images degraded by patient motion. FINDINGS: Serpiginous low signal abnormality involving the femoral head compatible with avascular necrosis. Mil d associated edema in the femoral head. Minimal subchondral collapse. Normal bone marrow signal in th e femoral neck and proximal femur. No significant joint effusion. Normal bone marrow signal in the vi sualized LEFT pubic rami. Normal bone marrow signal in the RIGHT femoral head and neck. Normal bone marrow signal in the sacral ala. Normal bone marrow signal lower lumbar spine. Incidental fat-containing LEFT inguinal hernia. MR/MR hip LT wo con* [id number] IMPRESSION: 1. Avascular necrosis LEFT femoral head with minimal subchondral collapse. Mil d associated edema. 2. Normal bone marrow signal signal in the LEFT femoral neck and visualized pr oximal femur. 3. No evidence of avascular necrosis in the RIGHT hip. 4. No other acute findings.
== END 2024-01-07 07:57 | disposition home or self-care (01) ==
LOC: RAD 07:57
PROVIDERS: PCP Emergency Medicine Emergency Medical Services; Visit Provider Specialist
DX: M87.052 Idiopathic aseptic necrosis of left femur (principal)
CPT/HCPCS: 73721

== ENCOUNTER → 2024-01-09 11:17 | Outpatient (BNVA) | payer OTHER, SELFPAY | PROVIDERS: PCP Emergency Medicine Emergency Medical Services; Visit Provider Nurse Practitioner Family | DX: I48.91 Unspecified atrial fibrillation (principal); I45.9 Conduction disorder, unspecified; R94.31 Abnormal electrocardiogram [ECG] [EKG] | CPT/HCPCS: 93005; 99214 ==

== ENCOUNTER → 2024-01-14 08:59 | Outpatient (BNVA) | payer OTHER, SELFPAY | PROVIDERS: PCP Emergency Medicine Emergency Medical Services; Visit Provider Internal Medicine | DX: E03.9 Hypothyroidism, unspecified (principal); E55.9 Vitamin D deficiency, unspecified; R53.83 Other fatigue; Z79.890 Hormone replacement therapy | CPT/HCPCS: 99214 ==

== ENCOUNTER → 2024-01-23 10:51 | Outpatient (BNVA) | payer OTHER, SELFPAY | PROVIDERS: PCP Emergency Medicine Emergency Medical Services; Visit Provider Internal Medicine | DX: R00.1 Bradycardia, unspecified (principal); R94.31 Abnormal electrocardiogram [ECG] [EKG] | CPT/HCPCS: 93005 ==

== ENCOUNTER → 2024-04-10 14:27 | Outpatient (BNVA) | payer OTHER, SELFPAY | PROVIDERS: PCP Emergency Medicine Emergency Medical Services; Visit Provider Internal Medicine | DX: I25.10 Atherosclerotic heart disease of native coronary artery without angina pectoris (principal); I12.9 Hypertensive chronic kidney disease with stage 1 through stage 4 chronic kidney disease, or unspecified chronic kidney disease; E11.22 Type 2 diabetes mellitus with diabetic chronic kidney disease; N18.32 Chronic kidney disease, stage 3b; E78.00 Pure hypercholesterolemia, unspecified; Z87.891 Personal history of nicotine dependence | CPT/HCPCS: 99214 ==

== ENCOUNTER 2024-07-15 14:29 | Outpatient (CLI) | payer OTHER, SELFPAY ==
--- NOTE | 2024-07-15 14:38 | MR_ITS ---
WS: [id number] MRI LEFT KNEE HISTORY: LEFT KNEE PAIN COMPARISON: 03/19/2019 Anterior cruciate ligament: Intrasubstance and mucoid degeneration throughout the ACL. ACL is small caliber. Some of the fibers are intact. Suspect the posterior fibers are torn and are now but a horizontal position. There is narrowing of the joint space encroaching upon the ACL. Posterior cruciate ligament: Intact. Medial collateral ligament: No tear. Posterior lateral corner structures: Intact. Medial menisci: Abnormal signal and small caliber posterior horn. Blunting of the free edge with abnormal signal or large portion of the posterior meniscus consistent with a complex tear. Progression of findings since the prior study. Anterior horn is slightly subluxed from the joint. Lateral meniscus: Small caliber anterior horn with increased signal throughout. Posterior horn is intact. Extensor mechanism: Distal quadriceps tendon and patellar tendons are intact. Fluid and soft tissue: Small suprapatellar joint effusion. Small Miranda's cyst. Osseous and articular structures: Patellofemoral compartment: Mild narrowing of the joint space. Very minimal chondromalacia involving the lateral facet. Medial compartment: Marked narrowing of the medial compartment with subchondral edema along the joint line. Complete loss of cartilage. Marginal osteophytes. Subchondral cyst at the base of the tibial spines. Lateral compartment: Marked narrowing with loss of cartilage. No fracture or edema. MR/MR knee LT wo con* [id number] IMPRESSION: 1. Partial tear ACL with progression of tear since 2019. 2. Additional mucoid degeneration within the ACL. 3. Posterior horn medial meniscus is small caliber with diffuse increased sign al consistent with a complex tear. 4. Small caliber anterior horn of the lateral meniscus. 5. Small joint effusion and small Miranda's cyst. 6. Mild patellofemoral joint space narrowing. 7. Marked narrowing of the medial and lateral compartments with advanced chond romalacia. Small amount of marrow edema in the medial femoral condyle and tibia l plateau and at the base of the tibial spines.
== END 2024-07-15 14:30 | disposition home or self-care (01) ==
PROVIDERS: PCP Nurse Practitioner Family; Visit Provider Nurse Practitioner Family
DX: S83.512A Sprain of anterior cruciate ligament of left knee, initial encounter (principal); X58.XXXA Exposure to other specified factors, initial encounter; M23.612 Other spontaneous disruption of anterior cruciate ligament of left knee; R93.6 Abnormal findings on diagnostic imaging of limbs; M71.22 Synovial cyst of popliteal space [Baker], left knee; M94.262 Chondromalacia, left knee; M17.12 Unilateral primary osteoarthritis, left knee; M25.762 Osteophyte, left knee; M85.662 Other cyst of bone, left lower leg
CPT/HCPCS: 73721

== ENCOUNTER → 2024-07-21 14:15 | Outpatient (BNVA) | payer OTHER, SELFPAY | PROVIDERS: PCP Nurse Practitioner Family; Visit Provider Nurse Practitioner | DX: M17.12 Unilateral primary osteoarthritis, left knee (principal) | CPT/HCPCS: 20610; 73560; 73565; 99214; J1100; J2795; J3301; J9999 ==

== ENCOUNTER 2024-10-03 14:05 | Inpatient (IN) | payer OTHER, MEDICARE, SELFPAY ==
--- OUTSIDE RECORDS SUMMARY | 2024-05-07 06:00 | XMS_ITS ---
Author Organization [facility] Address [address] [place] [address] Care Team Providers Care Space Planner Name Role Phone [facility] Guicho VIDAL Primary Care Provider Un available Ginny Michaels Unavailable [place], [place] Unavailable Unavailable Sabino Chapin Unavailable [phone] REASON FOR VISIT Cysto for LUTS refractory to alpha blockers Encounters Encounter Location Date Provider Diagnosis [facility] [address] [facility] [address] [place] [address] 05/07/2024 Sabino Chapin Plan Of Treatment Next Appt Details Provider Name:Ginny Sargent, 01/05/2025 01:10:00 PM, [address], [address], [place], [address], Progress Notes * Vinh TAYLOR ADOB:1955 (69 yo M)Acc No.[id number]:05/07/2024 Patient: Vinh STEELE Provider: Sheryl Chapin MD :1955 A ge:68 Y S ex:Male Date:05/07/2024 Address:[address] [place], [place] [id number] Pcp:Guicho Weir DO Subjective: * Chief Complaints: * 1 . Cysto for LUTS refractory to alpha blockers. * Medical History: Objective: * Vitals: Assessment: Plan: * Treatment: * Billing Information: * Visit Code: * Procedure Codes: * Electronic signature of Dilma Chapin MD on 10/04/2024 at 02:23 PM CDT Sign off status: Pending * Provider: Sheryl Chapin MD Date: 0 05/07/2024 Generated for Socorro noble/Clarissa/Cliff on: 0 10/04/2024 02:23 PM CDT
--- OUTSIDE RECORDS SUMMARY | 2024-06-04 10:00 | XMS_ITS ---
Author Organization [facility] Address [address] [place] [address] Care Team Providers Care Senior Sales Representative Name Role Phone [facility] Guicho VIDAL Primary Care Provider Un available Ginny Michaels Unavailable [place], [place] Unavailable Unavailable Sabino Chapin Unavailable [phone] REASON FOR VISIT Cysto for LUTS refractory to alpha blockers Encounters Encounter Location Date Provider Diagnosis [facility] [address] [facility] [address] [place] [address] 06/04/2024 Sabino Chapin Plan Of Treatment Next Appt Details Provider Name:Ginny Sargent, 01/05/2025 01:10:00 PM, [address] [facility] [address], [place], [address], Progress Notes * Vinh TAYLOR ADOB:1955 (69 yo M)Acc No.[id number]:06/04/2024 Patient: Vinh STEELE Provider: Sheryl Chapin MD :1955 A ge:69 Y S ex:Male Date:06/04/2024 Address:[address] [place], [place] [id number] Pcp:Guicho Weir DO Subjective: * Chief Complaints: * 1 . Cysto for LUTS refractory to alpha blockers. * Medical History: Objective: * Vitals: Assessment: Plan: * Treatment: * Billing Information: * Visit Code: * Procedure Codes: * Electronic signature of Dilma Chapin MD on 10/04/2024 at 02:23 PM CDT Sign off status: Pending * Provider: Sheryl Chapin MD Date: 0 06/04/2024 Generated for Socorro noble/Clarissa/Cliff on: 0 10/04/2024 02:23 PM CDT
[2024-10-03] VITALS (9 sets, daily range): BP systolic 83–127; BP diastolic 41–80; PULSE 46–56; RESP 14–18; TEMP 36.4–36.8; O2SAT 88–99; BMI 32.5
[2024-10-03 14:11] LABS: Glucose Point of Care 189 mg/dL (70-110)
--- NOTE | 2024-10-03 14:17 | W.ED.NEUROSD ---
HPI - Neuro Symptoms/Deficit General: Stated Complaint: stroke symptoms Time Seen by Provider: 10/03/24 14:13 Related Data Home Medications ?Medication ?Instructions ?Recorded ?Confirmed allopurinol 300 mg tablet 300 mg PO QPM 05/06/19 07/21/24 atorvastatin 80 mg tablet 80 mg PO QAM 05/06/19 07/21/24 docusate sodium 100 mg capsule 200 mg PO BID PRN Constipation 05/06/19 07/21/24 fluticasone propionate 50 2 spray intranasal DAILY PRN 05/06/19 07/21/24 mcg/actuation nasal Allergy Symptoms spray,suspension (Allergy Relief (fluticasone)) pioglitazone 30 mg tablet 30 mg PO QAM 05/06/19 07/21/24 tamsulosin 0.4 mg capsule 0.8 mg PO BEDTIME 05/27/19 07/21/24 gabapentin 300 mg capsule 300 mg PO BID 10/14/19 07/21/24 albuterol sulfate 90 mcg/actuation 2 puff inhalation Q4H PRN 01/14/21 07/21/24 aerosol inhaler (ProAir HFA) Shortness Of Breath cholecalciferol (vitamin D3) 125 125 mcg PO QAM 03/03/21 07/21/24 mcg (5,000 unit) tablet (Vitamin D3) apixaban 5 mg tablet 5 mg PO BID 07/15/21 07/21/24 lanolin alcohols-mineral 1 applic topical DAILY 07/15/21 07/21/24 oil-w.petrolatum-ceresin topical cream (Eucerin topical cream) potassium chloride 20 mEq 20 meq PO BID 10/02/22 07/21/24 tablet,extended release amlodipine 5 mg tablet 5 mg PO QPM 02/02/23 05/20/24 cyclobenzaprine 10 mg tablet 10 mg PO TID PRN muscle spasms 09/27/23 07/21/24 meloxicam 15 mg tablet 15 mg PO DAILY PRN 09/27/23 07/21/24 hydrochlorothiazide 25 mg tablet 12.5 mg PO QAM 04/10/24 07/21/24 Previous Rx's ?Medication ?Instructions ?Recorded carvedilol 6.25 mg tablet 6.25 mg PO BID #60 tabs 02/21/21 pantoprazole 40 mg tablet,delayed 40 mg PO BIDWM upset stomach 30 07/26/21 release days #60 tabs lisinopril 20 mg tablet 20 mg PO DAILY #90 tabs 04/30/23 Diabetic shoes #1 ea 11/28/23 amiodarone 200 mg tablet 200 mg PO DAILY #60 tabs 01/09/24 levothyroxine 112 mcg tablet 112 mcg PO DAILY #60 tabs 01/14/24 Allergies Allergy/AdvReac Type Severity Reaction Status Date / Time codeine Allergy Intermediate ALGY-Swell Verified 10/03/24 14:14 Lip/Tongue/Throat PFSH ED PFSH: Medical History Primary osteoarthritis of left knee Gastric ulcer Diabetic gastroparesis Coffee ground emesis Atherosclerosis of coronary artery Acute kidney injury superimposed on CKD Atrial fibrillation Left main coronary artery disease Gastritis Diabetes Carotid stenosis Chronic kidney disease (CKD) Anticoagulation adequate with anticoagulant therapy Hypertension Hypercholesteremia Spondylolisthesis, lumbar region Spinal stenosis, lumbar region, with neurogenic claudication Nausea and vomiting Surgical History Status post aorto-coronary artery bypass graft Previous back surgery History of lumbar laminectomy Bilateral L4-L5 laminotomy/foraminotomy/limited facetectomy History of jeremiah hole surgery Twist drill drainage of bilateral subdural hematomas, 12/20/2016, [facility] History of laparoscopic cholecystectomy (~06/2019) History of esophagogastroduodenoscopy (EGD) (~05/2019) Family History Other CAD (coronary artery disease) Cancer Diabetes Hypertension Stroke Denies family history of Anesthesia complication Bleeding disorder Social History Smoking and tobacco/nicotine status: former use of tobacco/nicotine Alcohol intake: former Substance/Drug Use: current Substance/Drug use frequency: daily Lives independently: Yes Marital status: Current occupational status: retired MDM - Neuro Symptoms/Deficit Lab Data Laboratory Results POC Glucose 189 mg/dL (70-110) H 10/03/24 14:09 Discharge Plan Discharge Condition: Stable Prescriptions: No Action allopurinol 300 mg tablet 300 mg PO QPM atorvastatin 80 mg tablet 80 mg PO QAM docusate sodium 100 mg capsule 200 mg PO BID PRN (Reason: Constipation) fluticasone propionate [Allergy Relief (fluticasone)] 50 mcg/actuation spray,suspension 2 spray INTRANASAL DAILY PRN (Reason: Allergy Symptoms) pioglitazone 30 mg tablet 30 mg PO QAM gabapentin 300 mg capsule 300 mg PO BID levothyroxine 112 mcg tablet 112 mcg PO DAILY Qty: 60 1RF hydrochlorothiazide 25 mg tablet 12.5 mg PO QAM cyclobenzaprine 10 mg tablet 10 mg PO TID PRN (Reason: muscle spasms) potassium chloride 20 mEq tablet extended release 20 meq PO BID lisinopril 20 mg tablet 20 mg PO DAILY Qty: 90 3RF meloxicam 15 mg tablet 15 mg PO DAILY PRN (DME) Diabetic shoes See Rx Instructions .ROUTE .MEDSUPPLY Qty: 1 0RF Rx Instructions: With 3 pairs of inserts amiodarone 200 mg tablet 200 mg PO DAILY Qty: 60 2RF pantoprazole 40 mg tablet,delayed release (DR/EC) 40 mg PO BIDWM 30 Days Qty: 60 3RF tamsulosin 0.4 mg Capsule 0.8 mg PO BEDTIME albuterol sulfate [ProAir HFA] 90 mcg/actuation Hfa Aerosol Inhaler 2 puff INHALATION Q4H PRN (Reason: Shortness Of Breath) cholecalciferol (vitamin D3) [Vitamin D3] 125 mcg (5,000 unit) Tablet 125 mcg PO QAM carvedilol 6.25 mg Tablet 6.25 mg PO BID Qty: 60 4RF Eucerin Cream 1 applic TOPICAL DAILY apixaban 5 mg Tablet 5 mg PO BID amlodipine 5 mg tablet 5 mg PO QPM Referrals: Vee Gabriel, UX SPECIALIST [Primary Care Provider, Family Practice] Print Language: Niuean Coding Level of Care Code ED Circuit Designer for Jason Foley
--- NOTE | 2024-10-03 14:30 | PC.NURSE ---
pt informed of need for urine sample, provided urinal.
--- NOTE | 2024-10-03 14:33 | W.ED.GENADLT ---
HPI - General Adult General: Chief complaint: Weakness Stated complaint: stroke symptoms Time Seen by Provider: 10/03/24 14:13 History of Present Illness: 69-year-old male with history of atrial fibrillation who is on amiodarone and carvedilol for rate control presents to the emergency room states he feels extremely weak has slowed speech says began around 4:00 today. His initial blood sugar was 189 he is on Eliquis for his A-fib. states he has intermittently been having these spells for 2 years this episode seems to have lasted longer when he is initially seen he is feels very weak she has no focal deficits. He denies any chest pain at this time. No recent medication changes. Associated symptoms: Reports malaise; Deny chest pain, dyspnea or rash Related Data Home Medications ?Medication ?Instructions ?Recorded ?Confirmed allopurinol 300 mg tablet 300 mg PO QPM 05/06/19 10/03/24 atorvastatin 80 mg tablet 80 mg PO QPM 05/06/19 10/03/24 docusate sodium 100 mg capsule 200 mg PO TID PRN Constipation 05/06/19 10/03/24 fluticasone propionate 50 2 spray intranasal DAILY PRN 05/06/19 10/03/24 mcg/actuation nasal Allergy Symptoms spray,suspension (Allergy Relief (fluticasone)) pioglitazone 30 mg tablet 30 mg PO QAM 05/06/19 10/03/24 tamsulosin 0.4 mg capsule 0.8 mg PO BEDTIME 05/27/19 10/03/24 gabapentin 300 mg capsule 900 mg PO TID 10/14/19 10/03/24 apixaban 5 mg tablet 5 mg PO BID 07/15/21 10/03/24 potassium chloride 20 mEq 20 meq PO BID 10/02/22 10/03/24 tablet,extended release amlodipine 5 mg tablet 5 mg PO QPM 02/02/23 10/03/24 cyclobenzaprine 10 mg tablet 10 mg PO TID PRN muscle spasms 09/27/23 10/03/24 meloxicam 15 mg tablet 15 mg PO DAILY 09/27/23 10/03/24 hydrochlorothiazide 25 mg tablet 25 mg PO QAM 04/10/24 10/03/24 carvedilol 12.5 mg tablet 6.25 mg PO BID 10/03/24 10/03/24 cholecalciferol (vitamin D3) 50 100 mcg PO DAILY 10/03/24 10/03/24 mcg (2,000 unit) tablet (Vitamin D3) diltiazem HCl 120 mg capsule,24 120 mg PO QAM 10/03/24 10/03/24 hr,extended release ferrous sulfate 325 mg (65 mg 325 mg PO DAILY 10/03/24 10/03/24 iron) tablet finasteride 5 mg tablet 5 mg PO QPM 10/03/24 10/03/24 sucralfate 1 gram tablet 1 g PO BID 10/03/24 10/03/24 triamcinolone acetonide 0.1 % 1 applic topical BID PRN Rash 10/03/24 10/03/24 topical cream Previous Rx's ?Medication ?Instructions ?Recorded pantoprazole 40 mg tablet,delayed 40 mg PO BIDWM upset stomach 30 07/26/21 release days #60 tabs lisinopril 20 mg tablet 20 mg PO DAILY #90 tabs 04/30/23 Diabetic shoes #1 ea 11/28/23 amiodarone 200 mg tablet 200 mg PO DAILY #60 tabs 01/09/24 levothyroxine 112 mcg tablet 112 mcg PO DAILY #60 tabs 01/14/24 Allergies Allergy/AdvReac Type Severity Reaction Status Date / Time codeine Allergy Intermediate ALGY-Swell Verified 10/03/24 14:14 Lip/Tongue/Throat Review of Systems Const: Reports: fatigue and malaise; Denies: fever(s) or chills Card: Denies: chest pain Resp: Denies: dyspnea GI: Denies: abdominal pain : Denies: dysuria, urinary frequency or urinary urgency Musc: Denies: neck pain or back pain Skin/Breast: Denies: rash PFSH ED PFSH: Medical History Primary osteoarthritis of left knee Gastric ulcer Diabetic gastroparesis Coffee ground emesis Atherosclerosis of coronary artery Acute kidney injury superimposed on CKD Atrial fibrillation Left main coronary artery disease Gastritis Diabetes Carotid stenosis Chronic kidney disease (CKD) Anticoagulation adequate with anticoagulant therapy Hypertension Hypercholesteremia Spondylolisthesis, lumbar region Spinal stenosis, lumbar region, with neurogenic claudication Nausea and vomiting Surgical History Status post aorto-coronary artery bypass graft Previous back surgery History of lumbar laminectomy Bilateral L4-L5 laminotomy/foraminotomy/limited facetectomy History of jeremiah hole surgery Twist drill drainage of bilateral subdural hematomas, 12/20/2016, [facility] [place] History of laparoscopic cholecystectomy (~06/2019) History of esophagogastroduodenoscopy (EGD) (~05/2019) Family History Other CAD (coronary artery disease) Cancer Diabetes Hypertension Stroke Denies family history of Anesthesia complication Bleeding disorder Social History Smoking and tobacco/nicotine status: former use of tobacco/nicotine Alcohol intake: former Substance/Drug Use: current Substance/Drug use frequency: daily Lives independently: Yes Marital status: Current occupational status: retired Physical Exam Const: GENERAL APPEARANCE: cooperative ORIENTATION/CONSCIOUSNESS: Yes awake HENMT: COMMON NORMALS: normocephalic, atraumatic and hearing grossly normal bilaterally HEAD & SCALP: normocephalic and atraumatic Resp: COMMON NORMALS: normal respiratory effort, No retractions, No use of accessory muscles and clear to auscultation bilaterally AUSCULTATION: clear to auscultation bilaterally Cardio: COMMON NORMALS: regular rhythm and No murmurs present (Cardio) RATE: bradycardic RHYTHM: regular rhythm GI: COMMON NORMALS: Soft to palpation and No hepatosplenomegaly present AUSCULTATION: Yes normoactive bowel sounds PALPATION: Yes Soft to palpation, No Tenderness to palpation present (GI), No Guarding due to palpation present (GI) and Yes No hepatosplenomegaly present Extremity: COMMON NORMALS: normal to inspection, capillary refill normal, no clubbing, cyanosis or edema, no calf tenderness and no pedal edema Skin: COMMON NORMALS: no rashes or lesions noted GENERAL SKIN EXAM: no rashes or lesions noted Course Vital Signs: Vital signs: Vital Signs Temperature 97.8 F 10/03/24 14:14 Pulse Rate 48 L 10/03/24 16:30 Respiratory Rate 15 10/03/24 15:53 Blood Pressure 116/61 10/03/24 16:30 Pulse Oximetry 95 10/03/24 16:30 Oxygen Delivery Me thod Nasal Cannula 10/03/24 15:53 Oxygen Flow Rate 2 10/03/24 15:53 MDM - General Adult Medical Decision Making Patient presented was rather bradycardic and was hypotensive with fluids his blood pressure improved but he has persistent bradycardia. No recent changes in medications. Discussed with the hospitalist will place him on observation hold his medications as appropriate monitor heart rate. Discussed with the patient and his they are in agreement. No focal neurologic deficits noted. Medical Records I reviewed the patient's medical records. Lab Data I reviewed the patient's lab results. 10/03/24 14:32 10/03/24 14:32 Radiology Impressions Chest X-Ray 10/03/24 14:42 Impression: Atherosclerosis and cardiomegaly. Laboratory Results WBC 9.48 10^3/uL (3.29-11.43) 10/03/24 14:32 RBC 3.31 10^6/uL (3.85-5.65) L 10/03/24 14:32 Hgb 10.70 g/dL (11.27-16.99) L 10/03/24 14:32 Hct 33.0 % (37-53) L 10/03/24 14:32 MCV 99.7 fl (82-101) 10/03/24 14:32 MCH 32.3 pg (27-33) 10/03/24 14:32 MCHC 32.4 g/dL (30-55) 10/03/24 14:32 RDW 16.2 % (12.1-15.1) H 10/03/24 14:32 Plt Count 167 10^3/cmm (157-399) 10/03/24 14:32 MPV 10.7 fL (7.4-10.4) H 10/03/24 14:32 Neut % (Auto) 75.5 % 10/03/24 14:32 Lymph % (Auto) 13.9 % 10/03/24 14:32 Amador % (Auto) 8.2 % 10/03/24 14:32 Eos % (Auto) 1.4 % 10/03/24 14:32 Baso % (Auto) 0.4 % 10/03/24 14:32 Neut # (Auto) 7.15 10^3/uL (1.8-7.7) 10/03/24 14:32 Lymph # (Auto) 1.3 10^3/uL (0.8-4.8) 10/03/24 14:32 Amador # (Auto) 0.8 10^3/uL (0.2-0.9) 10/03/24 14:32 Eos # (Auto) 0.1 10^3/uL (0.0-0.8) 10/03/24 14:32 Baso # (Auto) 0.0 10^3/uL (0.0-0.1) 10/03/24 14:32 Nucleated RBC % (auto) 0 % 10/03/24 14:32 Nucleated RBCs # 0.0 /100WBC 10/03/24 14:32 Sodium 140 mmol/L (136-145) 10/03/24 14:32 Potassium 4.2 mmol/L (3.5-5.1) 10/03/24 14:32 Chloride 104 mmol/L (98-107) 10/03/24 14:32 Carbon Dioxide 25 mmol/L (22-29) 10/03/24 14:32 Anion Gap 15.2 (5-19) 10/03/24 14:32 BUN 36 mg/dL (8-23) H 10/03/24 14:32 Creatinine 1.9 mg/dL (0.7-1.2) H 10/03/24 14:32 GFR Calculation 35.2 mL/min (90-130) L 10/03/24 14:32 Glucose 145 mg/dL (65-115) H 10/03/24 14:32 POC Glucose 189 mg/dL (70-110) H 10/03/24 14:09 Calculated Osmolality 301 mOsm/kg (285-295) H 10/03/24 14:32 Calcium 9.0 mg/dL (8.5-10.5) 10/03/24 14:32 Total Bilirubin 0.6 mg/dL (0.15-1.2) 10/03/24 14:32 AST 15 U/L (0-40) 10/03/24 14:32 ALT 18 U/L (0-41) 10/03/24 14:32 Alkaline Phosphatase 75 U/L (40-130) 10/03/24 14:32 Troponin T Baseline 20 ng/L (0-15) H 10/03/24 14:32 Total Protein 5.7 g/dL (6.6-8.7) L 10/03/24 14:32 Albumin 3.6 g/dL (3.5-5.2) 10/03/24 14:32 Globulin 2.1 g/dL (1.3-4.6) 10/03/24 14:32 TSH 0.09 uIU/mL (0.27-4.20) L 10/03/24 14:32 Urine Color Yellow (Yellow) 10/03/24 15:00 Urine Appearance Clear (CLEAR) 10/03/24 15:00 Urine pH 6.0 (5-7) 10/03/24 15:00 Ur Specific Beaver 1.014 (1.005-1.030) 10/03/24 15:00 Urine Protein Negative (Negative) 10/03/24 15:00 Urine Glucose (UA) Negative (Normal) 10/03/24 15:00 Urine Ketones Trace (Negative) 10/03/24 15:00 Urine Blood Negative (Negative) 10/03/24 15:00 Urine Nitrate Negative (Negative) 10/03/24 15:00 Urine Bilirubin Negative (Negative) 10/03/24 15:00 Urine Urobilinogen 1.0 mg/dL (Negative) 10/03/24 15:00 Ur Leukocyte Esterase Negative (Negative) 10/03/24 15:00 Urine RBC 0-2 /hpf (0-2) 10/03/24 15:00 Urine WBC 0-5 /hpf (0-5) 10/03/24 15:00 Ur Squamous Epith Cells 0-5 /hpf (0-5) 10/03/24 15:00 Amorphous Sediment Not Reportable 10/03/24 15:00 Urine Bacteria None seen /hpf (NONE) 10/03/24 15:00 Hyaline Casts 19.02 /lpf 10/03/24 15:00 All radiology interpretation(s) finalized by discharge Discharge Plan Discharge Patient Disposition: Admitted As Inpatient Admit Provider: Mayuri Turcios Clinical Impression: Bradycardia, Atrial fibrillation, Hypotension Condition: Stable Coding Level of Care Code ED Image Consultant for Jason Foley NIH stroke score NIHSS Level Of Consciousness - 1a: 0 Level Of Consciousness Questions - 1b: Both Correct Level Of Consciousness Commands - 1c: Both Correct Best Gaze - 2: Normal Visual Chadwick - 3: No Visual Loss Facial Palsy - 4: Normal Motor Arm Right - 5: No Drift Motor Arm Left - 5: No Drift Motor Leg Right - 6: No Drift Motor Leg Left - 6: No Drift Limb Ataxia - 7: Absent Sensory - 8: Normal Best Language - 9: No Aphasia Dysarthia - 10: Normal Extinction And Inattention - 11: 0 Score Total Score: 0
--- NOTE | 2024-10-03 14:42 | XR_ITS ---
WS: [id number] Portable AP upright chest, 10/03/2024 Clinical Data: dyspnea/cough Comparison: Portable chest, 07/15/2021 Findings: No nodules, masses or effusions are seen. The heart is enlarged. The pulmonary vascularity is not increased. No pneumonia or pneumothorax is seen. Midline sternotomy sutures are present. The aortic arch and descending thoracic aorta show calcification and tortuosity. There is a healed right midclavicular fracture. There is a left shoulder arthroplasty. Monitor leads are on the chest wall. XR/XR chest 1V portable [id number] Impression: Atherosclerosis and cardiomegaly.
--- NOTE | 2024-10-03 14:42 | ECG_ITS ---
[facility] Pat Name: Vinh Taylor Department: Room: Gender: Male Academic Advisor: : 1955 Requested By: Rene Torres Order Number: [id number] Bravo MD: Leti Ma M.D. Measurements Intervals [place] Rate: 47 P: 46 GA: 169 QRS: 75 QRSD: 105 T: 48 QT: 493 QTc: 436 Interpretive Statements SINUS BRADYCARDIA NONSPECIFIC T-WAVE ABNORMALITY Compared to ECG 01/23/2024 10:57:18 Prolonged QT interval no longer present T-wave abnormality still present Electronically Signed On 10-04-2024 14:35:54 CDT by Leti Ma M.D. [id number]
[2024-10-03 14:47] LABS: Basophils % 0.4 %; Eosinophils # 0.1 10^3/uL (0.0-0.8); Eosinophils % 1.4 %; Lymphocytes # 1.3 10^3/uL (0.8-4.8); Lymphocytes % 13.9 %; Mean Corpuscular HGB Conc 32.4 g/dL (30-55); Mean Corpuscular Hemoglobin 32.3 pg (27-33); Mean Corpuscular Volume 99.7 fl (82-101); Mean Platelet Volume 10.7 fL (7.4-10.4); Monocytes # 0.8 10^3/uL (0.2-0.9); Monocytes % 8.2 %; Neutrophils # 7.15 10^3/uL (1.8-7.7); Neutrophils % 75.5 %; Nucleated Red Blood Cells % 0 %; Platelet Count 167 10^3/cmm (157-399); Red Blood Count 3.31 10^6/uL (3.85-5.65); Red Cell Distribution Width 16.2 % (12.1-15.1); White Blood Count 9.48 10^3/uL (3.29-11.43)
--- NOTE | 2024-10-03 15:00 | PC.NURSE ---
re-educated pt of need for urine sample; offered straight cath. pt denies, states will obtain sample via urinal
--- NOTE | 2024-10-03 15:04 | PC.PHAR ---
Addendum entered by Ely Jim 10/03/24 16:29: Verbal verification obtained by phone wit the [facility]. Original Note: [facility] 10/03/24 3:04pm
[2024-10-03 15:06] LABS: Troponin(5th) Baseline 20 ng/L (0-15)
[2024-10-03 15:14] LABS: Alanine Aminotransferase 18 U/L (0-41); Albumin Level 3.6 g/dL (3.5-5.2); Alkaline Phosphatase 75 U/L (40-130); Aspartate Amino Transferase 15 U/L (0-40); Blood Urea Nitrogen 36 mg/dL (8-23); Carbon Dioxide 25 mmol/L (22-29); Chloride 104 mmol/L (98-107); Creatinine Clr Calc Pharmacy 40.8679; Globulin 2.1 g/dL (1.3-4.6); Glomerular Filtration Rate 35.2 mL/min (90-130); Glucose 145 mg/dL (65-115); Osmolality Calculated 301 mOsm/kg (285-295); Sodium 140 mmol/L (136-145); Thyroid Stimulating Hormone 0.09 uIU/mL (0.27-4.20); Total Bilirubin 0.6 mg/dL (0.15-1.2); Total Protein 5.7 g/dL (6.6-8.7)
[2024-10-03 15:19] LABS: Anion Gap 15.2 (5-19); Potassium 4.2 mmol/L (3.5-5.1)
[2024-10-03 15:35] LABS: Bilirubin Urine Negative (Negative); Blood Urine Negative (Negative); Glucose Urine UA Negative (Normal); Ketones Urine Trace (Negative); Leukocyte Esterase Urine Negative (Negative); Nitrate Urine Negative (Negative); Protein Urine Negative (Negative); Specific Gravity, Urine 1.014 (1.005-1.030); Urine Appearance Clear (CLEAR); Urine Color Yellow (Yellow)
[2024-10-03 15:40] LABS: Add Urine Microscopic? YES; Bacteria Urine None Seen /hpf; Hyaline Casts Urine 19.02 /lpf; RBC Urine 0-2 /hpf (0-2); Squamous Epithelial Cell Urine 0-5 /hpf (0-5); WBC Urine 0-5 /hpf (0-5)
--- NOTE | 2024-10-03 15:40 | USCV_ITS ---
Vinh Taylor Age: 69 Gender: M : 1955 Exam Date: 10/03/2024 18:43 Ordering Phys: Mayuri Turcios MD Technologist: Donnie Argueta [place]am [place] [facility] [place] Indication: bradycardia BP: 115 / 80 HR: 50 Rhythm: Sinus Technical Quality: Adequate MEASUREMENTS (Male / Female) Normal Values 2D ECHO LV Diastolic Diameter PLAX 5.0 cm 4.2 - 5.9 / 3.9 - 5.3 cm IVS Diastolic Thickness 1.4 cm 0.6 - 1.0 / 0.6 - 0.9 cm IVS Systolic Thickness 1.7 cm LVPW Diastolic Thickness 1.9 cm 0.6 - 1.0 / 0.6 - 0.9 cm LVPW Systolic Thickness 2.4 cm LVOT Diameter 2.2 cm LV Ejection Fraction 2D Teich 67.8 % LV Ejection Fraction MOD 4C 77.3 % LV Ejection Fraction MOD 2C 68.2 % LV Ejection Fraction 2C AL 71.7 % LA Diameter 4.4 cm RA Systolic Volume 4C AL 64.2 ml RA Systolic Volume 4C MOD 64.7 ml LA Sys Volume AL 83.1 cm cubed LA Sys Volume Index AL 38.0 cm cubed/m squared Aorta at Sinotubular Diameter 2.4 cm IVC Diameter 1.9 cm M-MODE LA Ao Ratio MM 1.4 AV Cusp Separation MM 1.7 cm DOPPLER AV Peak Velocity 166.0 cm/s LVOT Peak Velocity 102.0 cm/s AV Area Cont Eq vti 2.6 cm squared AV Area Cont Eq pk 2.3 cm squared MV Peak Velocity 133.0 cm/s MV Area PHT 5.3 cm squared Mitral E to A Ratio 1.2 TR Peak Velocity 398.0 cm/s TR Peak Gradient 63.4 mmHg TR Mean Velocity 314.0 cm/s TR Mean Gradient 42.7 mmHg TR Velocity Time Integral 113.0 cm PV Peak Velocity 137.0 cm/s RV Ejection Time 0.4 s FINDINGS Left Ventricle Normal left ventricular size and systolic function, EF 70%. Moderate left ventricular hypertrophy. Grade II/IV diastolic dysfunction, moderately elevated filling pressures. Right Ventricle The right ventricle is normal in size and function. Right Atrium Mildly increased right atrial size. Left Atrium Moderately increased left atrial size. Mitral Valve Mild mitral annular calcification. Mild mitral valve regurgitation. Aortic Valve No gross abnormalities noted Tricuspid Valve Trace tricuspid valve regurgitation. Estimated PA pressures of systolic pressure of 45 mmHg Pulmonic Valve Trace pulmonary valve regurgitation. Pericardium No pericardial effusion. Aorta Normal aortic annulus size. IVC Normal inferior vena cava. CONCLUSIONS Normal left ventricular size and systolic function, EF 70%. Moderate left ventricular hypertrophy. Grade II/IV diastolic dysfunction, moderately elevated filling pressures. Moderately increased left atrial size. Mildly increased right atrial size. Mild mitral annular calcification. Mild mitral valve regurgitation. Trace tricuspid valve regurgitation. Estimated PA pressures of systolic pressure of 45 mmHg. Trace pulmonary valve regurgitation. There is no pericardial effusion. There are no intracardiac masses. Compared to the study from 05/23/2023, there may not be a significant change Dr Leti Ma MD FAC (Electronically Signed) Final Date: 03 October 2024 20:05 S
--- NOTE | 2024-10-03 15:42 | PM.HP ---
Providers/Chief Complaint Primary Care Provider: Vee Gabriel APRN Chief Complaint: stroke symptoms History of Present Illness Vinh Taylor is a 69 year old male with past medical history of CABG times 3 in 2020 presented to the hospital Secondary to complex RCA disease proximally as well as left main stenosis [address] Batista, JEFFREY on CKD, atrial fibrillation, diabetes, carotid stenosis, hypertension, hypercholesterolemia, diabetic gastroparesis presented to the hospital for complaint of lightheadedness and dizziness. He states that he has been having the issue with dizziness and hypotension since quite a few years. He states today the dizziness was worse than his usual therefore he decided to come to the hospital. He also reports mild chest tightness which comes and goes. Denies loss of appetite. Does have mild shortness of breath however he states that is his usual. He quit smoking in 1989. He states he was placed on amiodarone 200 twice daily a few months ago however prior to that he used to take it once a day. He is compliant with his medications. Denies nausea vomiting diarrhea or any other symptoms at this time. In the ER he presented with extreme weakness and slurred speech which he says began around 4:00 today. His initial blood sugar was 189. EKG was obtained which does not show a heart block however did show sinus bradycardia. Patient was hypotensive and was given IV fluids with improved blood pressure. Subsequently dizziness did improve. He was admitted for observation. Medications/Allergies Home Medications ?Medication ?Instructions ?Recorded ?Confirmed ?Last Taken ?Type allopurinol 300 mg tablet 300 mg PO QPM 05/06/19 10/03/24 10/02/24 History atorvastatin 80 mg tablet 80 mg PO QPM 05/06/19 10/03/24 10/02/24 History docusate sodium 100 mg capsule 200 mg PO TID PRN Constipation 05/06/19 10/03/24 09/07/21 History fluticasone propionate 50 2 spray intranasal DAILY PRN 05/06/19 10/03/24 09/07/21 History mcg/actuation nasal Allergy Symptoms spray,suspension (Allergy Relief (fluticasone)) pioglitazone 30 mg tablet 30 mg PO QAM 05/06/19 10/03/24 10/03/24 History tamsulosin 0.4 mg capsule 0.8 mg PO BEDTIME 05/27/19 10/03/24 10/02/24 History gabapentin 300 mg capsule 900 mg PO TID 10/14/19 10/03/24 10/03/24 History apixaban 5 mg tablet 5 mg PO BID 07/15/21 10/03/24 10/03/24 History pantoprazole 40 mg tablet,delayed 40 mg PO BIDWM upset stomach 30 07/26/21 10/03/24 10/03/24 Rx release days #60 tabs potassium chloride 20 mEq 20 meq PO BID 10/02/22 10/03/24 10/03/24 History tablet,extended release amlodipine 5 mg tablet 5 mg PO QPM 02/02/23 10/03/24 10/02/24 History lisinopril 20 mg tablet 20 mg PO DAILY #90 tabs 04/30/23 10/03/24 10/03/24 Rx cyclobenzaprine 10 mg tablet 10 mg PO TID PRN muscle spasms 09/27/23 10/03/24 Unknown History meloxicam 15 mg tablet 15 mg PO DAILY 09/27/23 10/03/24 10/02/24 History Diabetic shoes #1 ea 11/28/23 10/03/24 Unknown Rx amiodarone 200 mg tablet 200 mg PO DAILY #60 tabs 01/09/24 10/03/24 Unknown Rx levothyroxine 112 mcg tablet 112 mcg PO DAILY #60 tabs 01/14/24 10/03/24 10/03/24 Rx hydrochlorothiazide 25 mg tablet 25 mg PO QAM 04/10/24 10/03/24 10/03/24 History carvedilol 12.5 mg tablet 6.25 mg PO BID 10/03/24 10/03/24 10/03/24 History cholecalciferol (vitamin D3) 50 100 mcg PO DAILY 10/03/24 10/03/24 10/03/24 History mcg (2,000 unit) tablet (Vitamin D3) diltiazem HCl 120 mg capsule,24 120 mg PO QAM 10/03/24 10/03/24 10/03/24 History hr,extended release ferrous sulfate 325 mg (65 mg 325 mg PO DAILY 10/03/24 10/03/24 10/03/24 History iron) tablet finasteride 5 mg tablet 5 mg PO QPM 10/03/24 10/03/24 10/02/24 History sucralfate 1 gram tablet 1 g PO BID 10/03/24 10/03/24 10/03/24 History triamcinolone acetonide 0.1 % 1 applic topical BID PRN Rash 10/03/24 10/03/24 Unknown History topical cream Allergies Allergy/AdvReac Type Severity Reaction Status Date / Time codeine Allergy Intermediate ALGY-Swell Verified 10/03/24 14:14 Lip/Tongue/Throat PFSH Acute PFSH: Medical History Primary osteoarthritis of left knee Gastric ulcer Diabetic gastroparesis Coffee ground emesis Atherosclerosis of coronary artery Acute kidney injury superimposed on CKD Atrial fibrillation Left main coronary artery disease Gastritis Diabetes Carotid stenosis Chronic kidney disease (CKD) Anticoagulation adequate with anticoagulant therapy Hypertension Hypercholesteremia Spondylolisthesis, lumbar region Spinal stenosis, lumbar region, with neurogenic claudication Nausea and vomiting Surgical History Status post aorto-coronary artery bypass graft Previous back surgery History of lumbar laminectomy Bilateral L4-L5 laminotomy/foraminotomy/limited facetectomy History of jeremiah hole surgery Twist drill drainage of bilateral subdural hematomas, 12/20/2016, [facility] [place] History of laparoscopic cholecystectomy (~06/2019) History of esophagogastroduodenoscopy (EGD) (~05/2019) Family History Other CAD (coronary artery disease) Cancer Diabetes Hypertension Stroke Denies family history of Anesthesia complication Bleeding disorder Social History Smoking and tobacco/nicotine status: former use of tobacco/nicotine Alcohol intake: former Substance/Drug Use: current Substance/Drug use frequency: daily Lives independently: Yes Marital status: Current occupational status: retired Vitals/I&O/Wt Last Vital Signs Temp 97.8 F 10/03/24 14:14 Pulse 46 L 10/03/24 15:28 Resp 17 10/03/24 15:28 BP 100/49 10/03/24 15:28 Pulse Ox 97 10/03/24 15:28 O2 Del Method Nasal Cannula 10/03/24 15:28 10/03/24 10/03/24 10/03/24 06:59 14:59 22:59 Intake Total 0 / 0 Balance 0 / 0 Weight last 48 hrs Weight 97.069 kg Physical Exam Narrative: Patient laying in bed appearing comfortable at this time. Alert oriented x 3. Currently having echo completed. EOMI, PERRLA No neurological deficit S1, S2, no murmer, No sign of heart failure Abdomen soft, non distended, Saturating well on room air Lower extremities: non edematous Data 10/04/24 04:00 10/04/24 04:00 A&P Assessment and plan (1) Near syncope: (2) Atrial fibrillation: (3) Acute kidney injury superimposed on CKD: (4) Acute hypotension: (5) Status post coronary artery bypass graft: (6) Dehydration: (7) Chest tightness: (8) Lightheadedness: (9) Dizziness: (10) Hypothyroidism: (11) Sinus bradycardia: Plan #Generalized weakness, lightheadedness dizziness #Sinus bradycardia #History of A-fib with RVR chronically on amiodarone and carvedilol #History of CABG x 3 in 2020 #History of pericardial effusion which was loculated 2020 #Hypotension #Possibly polypharmacy #JEFFREY on CKD #Hypothyroidism with low TSH ? Patient has had similar admissions as above in the past. He is generally has lightheadedness dizziness at all times however today it was an exacerbated episode which lasted a long time and he felt really weak therefore came back to the hospital. He appears to be dehydrated. He was given IV fluids in the ER and I will continue 100 cc/h at this time. ? Will stop amiodarone and carvedilol including diltiazem. Continue to monitor patient. ? Hold levothyroxine as TSH 0.09. Will check free T4 ? Hold lisinopril. ? Hold tamsulosin - Patient probably has hypotension due to multiple antihypertensives. Will need to adjust medications at discharge ? Continue to monitor on telemetry overnight ? So far EKG did not show evidence of heart block. ? Check echocardiogram to rule out wall motion abnormalities ? Delta troponin negative at 6 hours. ? Patient does complain of mild chest tightness however that may have been secondary to hypotensive episode. We will continue to monitor. ? He does have history of carotid stenosis listed on the chart. Last carotid Dopplers were done in 2021 showing bilateral ICA stenosis less than 50%. ? Will check carotid Dopplers. ? Check orthostatic vital signs ? Hold gabapentin secondary to JEFFREY at this time. ? Continue Eliquis, atorvastatin ? Will consider cardiology consultation going forward. Full code D prophylaxis: Patient is on Eliquis PDMP PDMP Reviewed: Not Reviewed Attestations Medical Necessity Statement*: Sinus bradycardia lightheadedness dizziness. Will need cardiac telemetry monitoring. Will likely cross greater than 2 midnight stay Diagnoses Near syncope R55 Paroxysmal atrial fibrillation I48.0 Atrial fibrillation type: paroxysmal Acute kidney injury superimposed on CKD N17.9; N18.9 Acute hypotension I95.9 Status post coronary artery bypass graft Z95.1 Dehydration E86.0 Chest tightness R07.89 Lightheadedness R42 Dizziness R42 Hypothyroidism E03.9 Sinus bradycardia R00.1
--- NOTE | 2024-10-03 16:42 | ECG_ITS ---
[facility] Date: 2024-[facility]03 Pat Name: Vinh Taylor Department: Room: 111 Gender: Male Clin Tech: : 1955 Requested By: Rene Torres Order Number: [id number] Reading MD: Leti Ma M.D. Measurements Intervals [place] Rate: 49 P: 42 MT: 156 QRS: 81 QRSD: 105 T: -5 QT: 465 QTc: 423 Interpretive Statements SINUS BRADYCARDIA NONSPECIFIC T-WAVE ABNORMALITY Poor R wave progression Compared to ECG 10/03/2024 14:31:09 No significant changes Electronically Signed On 10-04-2024 14:38:37 CDT by Leti Ma M.D. [email or web address]
[2024-10-03 17:10] LABS: Glucose Point of Care 134 mg/dL (70-110)
[2024-10-03 17:21] LABS: Troponin 5 2HR 16.56 ng/L (0-15)
--- NOTE | 2024-10-03 17:24 | PC.NURSE ---
Patient transferred to CSU from ED via a bed. Patient walked from hallway to bed. Arrived at 1700.
[2024-10-03 17:25] LABS: Troponin 5 2HR Delta -3.44 ABS# (0-10)
[2024-10-03] MEDS: pantoprazole DR 40 mg Tablet PO (17:33)
[2024-10-03] MEDS: allopurinol 300 mg Tablet PO (17:33)
[2024-10-03] MEDS: sodium chloride 0.9% 1,000 ML 100 ML IV (17:34)
[2024-10-03] MEDS: apixaban 5 mg Tablet PO (17:34)
[2024-10-03 19:55] LABS: Glucose Point of Care 135 mg/dL (70-110)
--- NOTE | 2024-10-03 20:42 | ECG_ITS ---
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 Measurements Intervals [place] Rate: 49 P: 48 [place]: 179 QRS: 47 QRSD: 95 T: 51 QT: 461 QTc: 416 Interpretive Statements SINUS BRADYCARDIA Compared to ECG 10/03/2024 16:58:38 T-wave abnormality no longer present Electronically Signed On 10-04-2024 14:36:44 CDT by Leti Ma M.D. [id number] [id number]
[2024-10-03 21:06] LABS: Troponin 5 6HR Delta -8 ng/L (0-12)
[2024-10-03] MEDS: lidocaine 5% Patch 1 PATCH TOPICAL (21:58)
[2024-10-04] VITALS (8 sets, daily range): BP systolic 100–165; BP diastolic 42–82; PULSE 51–77; RESP 11–20; TEMP 36.1–36.8; O2SAT 95–97
[2024-10-04] MEDS: sodium chloride 0.9% 1,000 ML 100 ML IV (03:49)
[2024-10-04 04:43] LABS: Basophils % 0.6 %; Eosinophils # 0.2 10^3/uL (0.0-0.8); Hematocrit 31.9 % (37-53); Lymphocytes # 1.2 10^3/uL (0.8-4.8); Lymphocytes % 17.7 %; Mean Corpuscular HGB Conc 32.6 g/dL (30-55); Mean Corpuscular Volume 101.3 fl (82-101); Mean Platelet Volume 11.3 fL (7.4-10.4); Monocytes # 0.6 10^3/uL (0.2-0.9); Monocytes % 8.7 %; Neutrophils # 4.54 10^3/uL (1.8-7.7); Neutrophils % 69.2 %; Nucleated Red Blood Cells % 0 %; Platelet Count 134 10^3/cmm (157-399); Red Blood Count 3.15 10^6/uL (3.85-5.65); Red Cell Distribution Width 16.3 % (12.1-15.1); White Blood Count 6.56 10^3/uL (3.29-11.43)
[2024-10-04 04:58] LABS: Alanine Aminotransferase 16 U/L (0-41); Alkaline Phosphatase 80 U/L (40-130); Aspartate Amino Transferase 14 U/L (0-40); Blood Urea Nitrogen 33 mg/dL (8-23); Calcium 8.9 mg/dL (8.5-10.5); Carbon Dioxide 28 mmol/L (22-29); Chloride 104 mmol/L (98-107); Creatinine Clr Calc Pharmacy 55.6147; Globulin 2.4 g/dL (1.3-4.6); Glomerular Filtration Rate 50.1 mL/min (90-130); Glucose 116 mg/dL (65-115); Magnesium 1.9 mg/dL (1.7-2.3); Osmolality Calculated 300 mOsm/kg (285-295); Sodium 141 mmol/L (136-145); Total Bilirubin 0.4 mg/dL (0.15-1.2); Total Protein 5.4 g/dL (6.6-8.7)
[2024-10-04] MEDS: cholecalciferol (vitamin D3) 5,000 unit Tablet 5000 UNIT PO (06:06)
[2024-10-04] MEDS: atorvastatin 40 mg Tablet 80 MG PO (06:06)
[2024-10-04 06:07] LABS: Glucose Point of Care 116 mg/dL (70-110)
[2024-10-04] MEDS: apixaban 5 mg Tablet PO ×2 (08:11→18:11)
[2024-10-04] MEDS: pantoprazole DR 40 mg Tablet PO ×2 (08:11→17:05)
--- NOTE | 2024-10-04 11:43 | PC.CHAP ---
Pastoral Care Encounter/Spiritual Assessment Type of Contact [] Declined cnc operator programmer visit [] Patient/Family/Request visit [] Outpatient visit [] Follow-up visit [] Physician referral [] Code/Alert [x] Routine visit [] Staff referral [] Actively dying [] Patient sleeping [] Family support [] [] Out of room [] Palliative care [] [] Receiving care in room [] Pre-surgical visit [] Trauma [] Long length of stay [] ICU visit [] Other: Relational/Emotional Strength [x] Patient feels connected with others/family/visitors/staff [] Distress [] Loneliness/isolation [] Abandonment Spirituality of Patient [x] Person of Amairani [] Attends Sikhism of their Amairani [x] Believes in Prayer [] Reads Bible or Zoroastrian materials [] There are Spiritual issues to be addressed Tie In Machine Operator Interventions [x] Prayer [x] Active listening [] Non-anxious presence [] Spiritual/emotional support [] Crisis/trauma care [] Spiritual counseling [] Bereavement support [] Provided bereavement packet [] Provided Bible/devotional materials [] Provided toy/stuffed animal, coloring book to patient or family member [] Provided Communion [] Anointing/[place] [] Salvation [] Completed spiritual assessment [] Other: Impact on Illness or Injury [] Angry [] Fearful [] Anxious [] Often cries [] Exhaustion [] Unable to work [] Unable to attend mu-ism [] Unable to walk/stand [] Unable to read [] Unable to drive [] Unable to eat/drink [] Unable to sleep [] Unable to be with family [] Patient intubated [] Other: Summary Time spent with patient
--- NOTE | 2024-10-04 11:45 | PC.CHAP ---
Pastoral Care Encounter/Spiritual Assessment Type of Contact [] Declined fish bait picker visit [] Patient/Family/Request visit [] Outpatient visit [] Follow-up visit [] Physician referral [] Code/Alert [x] Routine visit [] Staff referral [] Actively dying [] Patient sleeping [] Family support [] [] Out of room [] Palliative care [] [] Receiving care in room [] Pre-surgical visit [] Trauma [] Long length of stay [] ICU visit [] Other: Relational/Emotional Strength [x] Patient feels connected with others/family/visitors/staff [] Distress [] Loneliness/isolation [] Abandonment Spirituality of Patient [x] Person of Amairani [] Attends Anabaptist of their Amairani [x] Believes in Prayer [] Reads Bible or Judaism materials [] There are Spiritual issues to be addressed Tool And Die Machinist Interventions [x] Prayer [] Active listening [] Non-anxious presence [] Spiritual/emotional support [] Crisis/trauma care [] Spiritual counseling [] Bereavement support [] Provided bereavement packet [] Provided Bible/devotional materials [] Provided toy/stuffed animal, coloring book to patient or family member [] Provided Communion [] Anointing/[place] [] Salvation [] Completed spiritual assessment [] Other: Impact on Illness or Injury [] Angry [] Fearful [] Anxious [] Often cries [] Exhaustion [] Unable to work [] Unable to attend church [] Unable to walk/stand [] Unable to read [] Unable to drive [] Unable to eat/drink [] Unable to sleep [] Unable to be with family [] Patient intubated [] Other: Summary Time spent with patient 40min
[2024-10-04 12:04] LABS: Glucose Point of Care 167 mg/dL (70-110)
--- NOTE | 2024-10-04 13:45 | P.PN_ITS ---
Subjective 2 Subjective: Seen this morning. No evidence of heart block. Patient's heart rate has been between high 40s to 50 range. He states his symptoms have mostly improved. Orthostatic vitals were negative Free T4 pending, carotid Dopplers pending Vitals/I&O/Wt Last Vital Signs Temp 97.3 F L 10/04/24 11:00 Pulse 58 L 10/04/24 11:00 Resp 20 H 10/04/24 11:00 BP 146/82 10/04/24 11:00 Pulse Ox 95 10/04/24 11:00 O2 Del Method Room Air 10/04/24 11:00 O2 Flow Rate 2 10/03/24 15:53 10/03/24 10/04/24 10/04/24 22:59 06:59 14:59 Intake Total 340 / 340 1200 / 1540 840 / 840 Output Total 200 / 200 825 / 1025 1500 / 1500 Balance 140 / 140 375 / 515 -660 / -660 Weight last 48 hrs Weight 97.613 kg Weight 96.615 kg Weight 97.069 kg Physical Exam 2 Narrative: Patient laying in bed appearing comfortable at this time. Alert oriented x 3. Currently having echo completed. EOMI, PERRLA No neurological deficit S1, S2, no murmer, No sign of heart failure Abdomen soft, non distended, Saturating well on room air Lower extremities: non edematous Data 10/04/24 04:00 10/04/24 04:00 A&P Assessment and plan (1) Near syncope: (2) Atrial fibrillation: (3) Acute kidney injury superimposed on CKD: (4) Acute hypotension: (5) Status post coronary artery bypass graft: (6) Dehydration: (7) Chest tightness: (8) Lightheadedness: (9) Dizziness: (10) Hypothyroidism: (11) Sinus bradycardia: Plan #Generalized weakness, lightheadedness dizziness #Sinus bradycardia #History of A-fib with RVR chronically on amiodarone and carvedilol #History of CABG x 3 in 2020 #History of pericardial effusion which was loculated 2020 #Hypotension #Possibly polypharmacy #JEFFREY on CKD #Hypothyroidism with low TSH ? Patient has had similar admissions as above in the past. He is generally has lightheadedness dizziness at all times however today it was an exacerbated episode which lasted a long time and he felt really weak therefore came back to the hospital. He appears to be dehydrated. He was given IV fluids in the ER and I will continue 100 cc/h at this time. ? Will stop amiodarone and carvedilol including diltiazem. Continue to monitor patient. ? Hold levothyroxine as TSH 0.09. Will check free T4 ? Hold lisinopril. ? Hold tamsulosin - Patient probably has hypotension due to multiple antihypertensives. Will need to adjust medications at discharge ? Continue to monitor on telemetry overnight ? So far EKG did not show evidence of heart block. ? Check echocardiogram to rule out wall motion abnormalities ? Delta troponin negative at 6 hours. ? Patient does complain of mild chest tightness however that may have been secondary to hypotensive episode. We will continue to monitor. ? He does have history of carotid stenosis listed on the chart. Last carotid Dopplers were done in 2021 showing bilateral ICA stenosis less than 50%. ? Will check carotid Dopplers. ? Check orthostatic vital signs ? Hold gabapentin secondary to JEFFREY at this time. ? Continue Eliquis, atorvastatin ? Will consider cardiology consultation going forward. Full code D prophylaxis: Patient is on Eliquis 10/04/2024 Will continue on Eliquis atorvastatin, Protonix 40 twice daily, continue sucralfate I will restart tamsulosin at a lower dose of 0.4 daily ? Check free T4. Will need to dose reduce levothyroxine going forward. He currently takes 112 at home. TSH 0.09. ? Carotid Dopplers are pending ? Continue to hold hydrochlorothiazide, lisinopril, amlodipine ? Restart carvedilol at a reduced dose of 3.125 twice daily ? Restart gabapentin at reduced dose of 300 3 times daily. Patient previously on 900 3 times a day ? Continue on amiodarone 100 daily and monitor. ? Will consult Dr. Ma for optimization of cardiac medications ? Patient also has chest tightness. Will consider stress testing inpatient. ? Continue to monitor on telemetry at this time. ? I will stop IV fluids. Creatinine is improving to 1.4 today. Full code DVT prophylaxis: On Eliquis PDMP PDMP Reviewed: Not Reviewed Attestations 2 Medical Necessity Statement*: Requires continued telemetry monitoring and optimization of medications. Diagnoses Near syncope R55 Paroxysmal atrial fibrillation I48.0 Atrial fibrillation type: paroxysmal Acute kidney injury superimposed on CKD N17.9; N18.9 Acute hypotension I95.9 Status post coronary artery bypass graft Z95.1 Dehydration E86.0 Chest tightness R07.89 Lightheadedness R42 Dizziness R42 Hypothyroidism E03.9 Sinus bradycardia R00.1
[2024-10-04 14:03] LABS: Free T4 Free Thyroxine 2.23 ng/dL (0.82-1.77)
--- OUTSIDE RECORDS SUMMARY | 2024-10-04 14:23 | XMS_ITS | Clinical Summary ---
Author Organization [facility] Address [address] [facility] Attn: Epic Prelude ADT KHADIJAH ORELLANA [id number] Care Team Providers Care Aerial Tram Operator Name Role Phone Guicho Vega MD Primary Care Provider Allergies Active Allergy Reactions Criticality Noted Date Comments Codeine Swelling Low 08/01/2023 Medications hydroCHLOROthiazi de 25 mg tablet Take 25 mg by mouth daily. 06/01/2020 Active pioglitazone (ACTOS) 30 mg tablet Take 30 mg by mouth daily with breakfast. 06/01/2020 Active sotaloL (BETAPACE) 160 mg Tablet Take 80 mg by mouth every 12 hours. 06/01/2020 Active omeprazole (PriLOSEC) 40 mg Capsule, Delayed Release(E.C.) Take 40 mg by mouth daily. 06/01/2020 Active gabapentin (NEURONTIN) 300 mg capsule Take 900 mg by mouth 3 times daily. 06/01/2020 Active atorvastatin (LIPITOR) 80 mg tablet Take 80 mg by mouth daily. 06/01/2020 Active allopurinoL (ZYLOPRIM) 300 mg tablet Take 300 mg by mouth daily. 06/01/2020 Active apixaban (ELIQUIS) 5 mg tablet Take by mouth 2 times daily. 06/01/2020 Active levothyroxine 100 mcg tablet Take 100 mcg by mouth daily in the morning. Active finasteride (PROSCAR) 5 mg tablet Take 5 mg by mouth daily. Active docusate sodium (COLACE) 100 mg capsule Take 100 mg by mouth 2 times daily. Active potassium bicarbonate-citri c acid (EFFER-K) 20 mEq Tablet, Effervescent Take 20 mEq by mouth 2 times daily. Active diltiaZEM (CARDIZEM CD) 120 mg Controlled Delivery 24 hour capsule Take 120 mg by mouth daily. Active pantoprazole (PROTONIX) 40 mg Tablet, Delayed Release (E.C.) Take 40 mg by mouth 2 times daily. Active carvediloL (COREG) 12.5 mg tablet Take 12.5 mg by mouth daily. Active tamsulosin (FLOMAX) 0.4 mg capsule Take 0.4 mg by mouth daily. Active amLODIPine (NORVASC) 5 mg tablet Take 5 mg by mouth daily. Active cyclobenzaprine (FLEXERIL) 10 mg tablet Take 10 mg by mouth 3 times daily as needed for Spasm. Active meloxicam (MOBIC) 15 mg tablet Take 15 mg by mouth daily. Active Active Problems Problem Noted Date Diagnosed Date Atrial fibrillation 06/01/2020 Autonomic neuropathy 06/01/2020 Orthostatic dizziness 06/01/2020 Encounters Date Type Department Care Team Description 09/11/2024 External Device Data [facility] Provider, Abstract 09/10/2024 External Device Data [facility] Provider, Abstract 09/09/2024 External Device Data [facility] Provider, Abstract 08/05/2024 External Device Data [facility] Provider, Abstract 07/29/2024 External Device Data [facility] Provider, Abstract 07/14/2024 11:00 AM CDT Office Visit [facility] Neurology [address] [address] Aleida Wheatley MD Orthostatic hypotension (Primary Dx); Atrial fibrillation, unspecified type (CMS/HCC); Gait difficulty; Chronic pain of left knee 07/09/2024 External Device Data [facility] Provider, Abstract from Last 3 Months Social History Tobacco Use Types Packs/Day Years Used Date Smoking Tobacco: Former Cigarettes Smokeless Tobacco: Current Tobacco Cessation:Ready to Q uit: Not Asked; Counseling Given: Not Answered Alcohol Use Standard Drinks/Week Comments Yes 0 (1 standard drink = 0.6 oz pur e alcohol) Sex and Gender Information Value Date Recorded Sex Assigned at Not on file Legal Sex Male 1:26 AM QUALITY AUDITOR Gender Identity Not on file Sexual Orientation Not on file Last Filed Vital Signs Vital Sign Reading Time Taken Comments Blood Pressure 126/82 07/14/2024 10:50 AM CDT Pulse 58 07/14/2024 10:50 AM CDT Temperature 36.1 C (96.9 F) 06/01/2020 2:37 PM QUALITY AUDITOR Respiratory Rate 20 06/01/2020 2:37 PM QUALITY AUDITOR Oxygen Saturation 92% 08/01/2023 8:10 AM CDT Inhaled Oxygen Concentration - - Weight 96.5 kg (212 lb 12.8 oz) 025 10:50 AM CDT Height 172.7 cm (5' 8 ) 07/14/2024 10:5 0 AM CDT Body Mass Index 32.36 07/14/2024 10:50 AM CDT Plan of Treatment Health Maintenance Due Date Last Done Comments DIABETES ANNUAL FOOT EXAM 1972 DIABETES ANNUAL RETINAL EXAM 1972 DIABETES MICROALBUMIN ANNUAL SCREEN 1972 LDL CHOLESTEROL ANNUAL 1972 COLORECTAL SCREENING 1999 Colorectal Cancer Screening 1999 FIT-DNA Q 3 years 1999 FIT/FOBT Q 1 year 1999 Flex Sig/CT Colonography Q 5 years 1999 RSV VACCINE (60+ or ) (1 - Risk 60-74 years 1-dose series) 2014 Abdominal Aortic Aneurysm (A AA) Screening 2019 INFLUENZA VACCINE (#1) 2023 , 02/08/2022, 01/24/2021, Additional history exists DIABETES HBA1C Q 6 MONTHS 01/03/2025 07/03/2024 DTAP/TDAP/TD VACCINES (4 - T d or Tdap) 03/08/2025 03/08/2015, 2007, 10/21/2005 ZOSTER VACCINE Completed 10/15/2018, 07/26/2017 PNEUMOCOCCAL VACCINE 50+ YEARS Completed 0 07/14/2021, 03/23/2016, 05/05/2015, Additional history exists [place] [address] [place] [address] [employer] [place] [employer] [employer] Member Subscriber Plan / Payer (Ef fective 2023-Present) Name:Vinh Taylor Relation to Subscriber:Self Name:Vinh Taylor Payer ID:Not on file Group ID:Not on file Type:CO Address: [place] [id number] Care Teams Aerial Tram Operator Relationship Specialty Start Date End Date Guicho Vega MD [address] [facility] [place] [id number] PCP - General Internal Medicine 08/16/23
--- OUTSIDE RECORDS SUMMARY | 2024-10-04 14:23 | XMS_ITS | Clinical Summary ---
Author Organization Naomy Anderson [facility] Address [address] [facility] [address] [place] [address] Phone Care Team Providers Care Yard Attendant Name Role Phone Unavailable Primary Care Provider Unavailabl e Medications divalproex (DEPAKOTE ER) 500 mg Extended Release 24 hour tablet Take 1,000 mg by mouth daily. Active hydroCHLOROthiaz jay 25 mg tablet Take 25 mg by mouth daily. Active gabapentin (NEURONTIN) 300 mg capsule Take 900 mg by mouth 3 times daily. Active omeprazole (PriLOSEC) 40 mg Capsule, Delayed Release(E.C.) Take 40 mg by mouth daily. Active pioglitazone (ACTOS) 30 mg tablet Take 30 mg by mouth daily with breakfast. Active sotaloL (BETAPACE) 160 mg Tablet Take 80 mg by mouth every 12 hours. Active venlafaxine (EFFEXOR) 37.5 mg tablet Take 37.5 mg by mouth daily. Active allopurinoL (ZYLOPRIM) 300 mg tablet Take 300 mg by mouth daily. Active atorvastatin (LIPITOR) 80 mg tablet Take 80 mg by mouth daily. Active apixaban (ELIQUIS) 5 mg tablet Take by mouth 2 times daily. 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 Gender Identity Not on file Sexual Orientation Not on file Last Filed Vital Signs Vital Sign Reading Time Taken Comments Blood Pressure 163/97 06/01/2020 2:37 PM BLOCK MAKING MACHINE OPERATOR Pulse 63 06/01/2020 2:37 PM BLOCK MAKING MACHINE OPERATOR Temperature 36.1 C (96.9 F) 06/01/2020 2:37 PM BLOCK MAKING MACHINE OPERATOR Respiratory Rate 20 06/01/2020 2:37 PM BLOCK MAKING MACHINE OPERATOR Oxygen Saturation 98% 06/01/2020 2:37 PM BLOCK MAKING MACHINE OPERATOR Inhaled Oxygen Concentration - - Weight 96.8 kg (213 lb 6.4 oz) 06/01/2020 2:37 P M BLOCK MAKING MACHINE OPERATOR Height 172.7 cm (5' 8 ) 06/01/2020 2:37 PM BLOCK MAKING MACHINE OPERATOR Body Mass Index 32.45 06/01/2020 2:37 PM BLOCK MAKING MACHINE OPERATOR Plan of Treatment Health Maintenance Due Date Last Done Comments DTAP/TDAP/TD VACCINES (1 - Tdap) 1973 COLORECTAL SCREENING 1999 Colorectal Cancer Screening 1999 FIT-DNA Q 3 years 1999 FIT/FOBT Q 1 year 1999 Flex Sig/CT Colonography Q 5 years 1999 PNEUMOCOCCAL VACCINE 50+ YEARS (1 of 1 - PCV) 05/20/19 05 ZOSTER VACCINE (1 of 2) 2004 INFLUENZA VACCINE (#1) 2023 RSV VACCINE (60+ or ) (1 - 1-dose 75+ series) 2029 Insurance [facility] [employer]
--- OUTSIDE RECORDS SUMMARY | 2024-10-04 14:23 | XMS_ITS | Encounter Summary ---
Author Organization [facility] Address [address] [place] [address] Care Team Providers Care Warranty Manager Name Role Phone Unavailable Primary Care Provider Unavailabl e Encounter Details Date Type Department Care Team (Latest Contact Info) Description 04/03/2007 Outpatient Historical [facility] [address] 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
--- OUTSIDE RECORDS SUMMARY | 2024-10-04 14:24 | XMS_ITS | Patient Health Record ---
Author Organization [facility] Address [address] [place] [address] Care Team Providers Care Load Haul Dump Operator Name Role Phone [facility] Primary Care Provider Un available Ginny Michaels Unavailable [place], [place] Unavailable Unavailable Jorge Luis Eng Unavailable [phone] Sabino Chapin Unavailable [phone] Allergies Allergen (clinical drug ingredient) Drug/Non Drug Allergy documented on EMR Reaction Allergy Type Onset Date Status codeine Codeine Unknown Drug Allergy Active Results Component Value Reference Range Notes UA Without Micro-[place], [place] - [id number] Reviewed date:03/07/2024 11:31:36 AM Interpretation: Performing Lab: Notes/Report: Glucose 0 Bili 0 Ketones 0 Sp [place] 1.015 Blood 0 pH 6.0 Protein 0 Urobili 0 Nitrites 0 Leukocytes 0 [place] - [id number] Reviewed date:07/01/2024 01:21:51 PM Interpretation: Performing Lab: Notes/Report: Glucose - Bili - Ketones - Sp [place] 1.010 Blood - pH 6.0 Protein - Urobili - Nitrites - Leukocytes - Reason For Referral Reason Urgency of Urination Referring Provider First Name Colby Paulo ff Referring Provider Last Name [facility]erring Provider [facility] Referred Organization [facility] Referred Provider Sabino Chapin Referred Address [address],[place],[address], Referred Provider Specialty Urology Referral Priority Routine Medications Medication SIG (Take, Route, Frequency, Duration) Notes Start Date End Date Status Atorvastatin Calcium 80 MG 1 tablet Orally Once a day Active Pioglitazone HCl 30 MG 1 tablet Orally Once a day Active Carvedilol 12.5 MG 1 tablet with food Orally Twice a day Active Potassium Chloride ER 20 MEQ 1/2 tablet with food Orally Twice a day Active Allopurinol 300 MG 1 tablet Orally Once a day Active Lisinopril 40 MG 1 tablet Orally Once a day Active amLODIPine Besylate 5 MG 1 tablet Orally Once a day Active Pantoprazole Sodium 40 MG 1 tablet Orally twice a day Active Docusate Sodium 100 MG 1 capsule as needed Orally TID or PRN Active Amiodarone HCl 200 MG 1 tablet Orally Twice a day Not-Taking Finasteride 5 MG 1 tablet Orally Once a day Active Ferrous Sulfate 325 (65 Fe) MG 1 tablet Orally Once a day Not-Taking Cyclobenzaprine HCl 10 MG 1 tablet at bedtime as needed Orally three times a day Active Sucralfate 1 GM 1 tablet on an empty stomach Orally Twice a day Active dilTIAZem HCl 120 MG as directed Orally Once a day Active Tamsulosin HCl 0.4 MG 1 capsule Orally Once a day Active Amoxicillin 500 MG 1 capsule by mouth once for 1 days Take after your cystoscopy One pill is correct 07/01/2024 Active Vitamin D (Cholecalciferol) Not-Taking Levothyroxine Sodium 100 MCG 1 tablet in the morning on an empty stomach Orally Once a day Active Fluticasone Furoate 27.5 MCG/SPRAY 2 sprays (1 spray in each nostril) Nasally Once a day Active hydrALAZINE HCl 25 MG 1 tablet with food Orally Three times a day Not-Taking Gabapentin 300 MG 3 tablets Orally twice a day Active Venlafaxine HCl 37.5 MG 1 tablet with food Orally Once a day Not-Taking Social History Tobacco Use: Social History Observation Description Date Details (start date - stop date) Former Smoker NA - NA xTobacco Use/Smoking Question Answer Notes Are you a former smoker Alcohol Screen (Audit-C) Question Answer Notes Did you have a drink containing alcohol in the p ast year? No Points 0 Interpretation Negative Section Notes: Alcohol - Beer liquor daily Tobacco - former smoker Caffeine - Coffee Medical Marijuana Alcohol - Beer liquor daily Tobacco - former smoker Caffeine - Coffee Medical Marijuana Alcohol - Beer liquor daily Tobacco - former smoker Caffeine - Coffee Medical Marijuana Alcohol - Beer liquor daily Tobacco - former smoker Caffeine - Coffee Medical Marijuana Alcohol - Beer liquor daily Tobacco - former smoker Caffeine - Coffee Medical Marijuana Problems Problem Type SNOMED Code ICD Code Onset Dates Problem Status W/U Status Risk Notes Problem 005380157 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) Active confirmed Problem 326228797 Gastroparesis (K31.84) Active confirmed Problem 70849291 Urge incontinenc e (N39.41) Active confirmed Problem Benign prostatic hypertrophy without outflow obstruction (904062615) Benign prostatic hyperplasia without lower urinary tract symptoms (N40.0) Active confirmed Problem 275382282 Controlled type 2 diabetes mellitus without complication, without long-term current use of insulin (E11.9) Active confirmed Problem 540421258 Frequency of urination (R35.0) Active confirmed Problem 69718420 Degeneration, intervertebral disc, cervical (M50.30) Active confirmed Problem 433150286 Gastroesophageal reflux disease, unspecified whether esophagitis present (K21.9) Active confirmed Problem 126619187 Gastroesophageal reflux disease with esophagitis without hemorrhage (K21.00) Active confirmed Vital Signs Heart Rate 57 /min 07/01/2024 Temperature 98.7 degrees Fahrenheit 07/01/2024 Blood pressure diastolic 43 mm Hg 07/01/2024 Height-cm 177.8 cm 07/01/2024 Weight-kg 98.52 kg 07/01/2024 Height 70 in 07/01/2024 Blood pressure systolic 92 mm Hg 07/01/2024 Weight 217.2 lbs 07/01/2024 BMI 31.16 kg/m2 07/01/2024 Encounters Encounter Location Date Provider Diagnosis [facility] [address] [place] [address] [address] [place] [address] 03/07/2024 Ginny Michaels Frequency of urination R35.0 ; Benign prostatic hyperplasia without lower urinary tract symptoms N40.0 and Urge incontinence N39.41 [facility] [address] [place] [address] [address] [place] [address] 07/01/2024 Sabino Chapin Benign prostatic hyperplasia without lower urinary tract symptoms N40.0 ; Frequency of urination R35.0 and Urge incontinence N39.41 [facility] [address] [place] [address] [address] [place] [address] 01/23/2024 Sabino Chapin Assessments Encounter Date Diagnosis (ICD Code) Assessment Notes Treatment Notes Treatment Clinical Notes Section Notes 03/07/2024 Benign prostatic hyperplasia without lower urinary tract symptoms (ICD-10 - N40.0) When educating patients about Benign Prostatic Hyperplasia (BPH), it's important to cover the following points: What is BPH? BPH is a non-cancerous enlargement of the prostate gland that commonly occurs as men age. It can lead to urinary symptoms due to the compression of the urethra. Symptoms: Frequent urination, especially at night (nocturia). Difficulty starting urination (hesitancy). Weak or interrupted urine stream. Feeling of incomplete bladder emptying. Urgency to urinate. Dribbling at the end of urination. Causes: The exact cause of BPH is not well understood, but it is believed to be related to hormonal changes as men age, particularly the balance between testosterone and estrogen. Diagnosis: Medical History and Physical Exam: Including a digital rectal exam (CLIF) to assess the size of the prostate. Urinalysis: To rule out infections or other conditions. Prostate-Specifi c Antigen (PSA) Test: To help rule out prostate cancer. Uroflowmetry: Measures the strength and amount of urine flow. Postvoid Residual Volume Test: Measures the amount of urine left in the bladder after urination. Imaging: Ultrasound or other imaging tests to assess the prostate and urinary tract. Treatment Options: Lifestyle Changes: Reducing fluid intake before bedtime. Limiting caffeine and alcohol, which can irritate the bladder. Regular physical activity and maintaining a healthy weight. Medications: Alpha-blockers (e.g., tamsulosin) to relax the muscles of the prostate and bladder neck. 7-isblk-vasejnym e inhibitors (e.g., finasteride) to shrink the prostate. Combination therapy for more severe symptoms. Minimally Invasive Procedures: Transurethral microwave thermotherapy (TUMT). Transurethral needle ablation (TUNA). Surgical Options: Transurethral resection of the prostate (TURP). Laser surgery. Prostatectomy for very large prostates. Risks and Complications: Untreated BPH can lead to urinary retention, bladder stones, recurrent urinary tract infections, and kidney damage. Potential side effects of treatments, such as sexual dysfunction, urinary incontinence, and bleeding. Prognosis: BPH is a chronic condition, but symptoms can be managed effectively with appropriate treatment. Regular follow-up is important to monitor the condition and adjust treatment as needed. When to Seek Medical Attention: If the patient experiences severe urinary symptoms, pain, blood in the urine, or inability to urinate, they should seek immediate medical attention. By providing this information, patients can better understand BPH, the available treatment options, and when to seek further medical advice. 03/07/2024 Frequency of urination (ICD-10 - R35.0) *Patient Education on Urinary Retention Understanding Urinary Retention Definition: Urinary retention is the inability to empty the bladder completely or at all. It can be acute (sudden and severe) or chronic (gradual and ongoing). Types: Acute Urinary Retention: A medical emergency where the patient cannot urinate at all, causing severe pain and discomfort. Chronic Urinary Retention: A condition where the bladder does not empty completely, leading to frequent urination and other complications. Causes Obstruction: Blockages in the urinary tract, such as an enlarged prostate, urethral stricture, or bladder stones. Nerve Problems: Conditions like diabetes, multiple sclerosis, or spinal cord injuries that affect nerve signals to the bladder. Medications: Certain drugs, including antihistamines, decongestants, and muscle relaxants, can interfere with bladder function. Infections: Urinary tract infections (UTIs) can cause swelling and obstruction. Postoperative: Anesthesia and surgery, particularly pelvic or abdominal procedures, can temporarily affect bladder function. Symptoms Acute Urinary Retention: Sudden inability to urinate, severe lower abdominal pain, and a distended bladder. Chronic Urinary Retention: Frequent urination, difficulty starting urination, weak urine stream, feeling of incomplete bladder emptying, and urinary incontinence. Diagnosis Medical History and Physical Exam: Assessment of symptoms, medical history, and a physical examination, including a digital rectal exam for men. Bladder Scan: Ultrasound to measure the amount of urine left in the bladder after urination. Urodynamic Tests: Assess bladder function and urine flow. Cystoscopy: A scope inserted into the bladder to look for blockages or abnormalities. Treatment Options Catheterization: Inserting a catheter to drain the bladder, providing immediate relief in acute cases. Medications: Alpha-blockers to relax the bladder neck muscles and prostate, or antibiotics if an infection is present. Surgery: Procedures to remove blockages, such as transurethral resection of the prostate (TURP) for an enlarged prostate. Behavioral Therapies: Bladder training and pelvic floor exercises to improve bladder control. Self-Management Strategies Scheduled Voiding: Urinating at regular intervals to prevent bladder overdistension. Double Voiding: Urinating, then waiting a few minutes and trying again to ensure the bladder is empty. Fluid Management: Drinking adequate fluids but avoiding excessive intake, especially before bedtime. Avoid Bladder Irritants: Reducing intake of caffeine, alcohol, and spicy foods. Preventive Measures Regular Check-Ups: Monitoring for conditions that can lead to urinary retention, such as prostate enlargement. Pelvic Floor Exercises: Strengthening pelvic muscles to improve bladder control. Medication Review: Discussing with healthcare providers the potential side effects of medications that may affect bladder function. When to Seek Medical Attention Acute Symptoms: Sudden inability to urinate, severe pain, or a distended bladder requires immediate medical attention. Persistent Symptoms: Difficulty urinating, frequent urination, or a weak urine stream should be evaluated by a healthcare provider. 07/01/2024 Benign prostatic hyperplasia without lower urinary tract symptoms (ICD-10 - N40.0) 07/01/2024 Frequency of urination (ICD-10 - R35.0) 07/01/2024 Urge incontinence (ICD-10 - N39.41) 03/07/2024 Urge incontinence (ICD-10 - N39.41) To help manage urinary urgency, consider the following treatment options: Medications: Antimuscarinics: These medications, such as oxybutynin and tolterodine, help relax the bladder muscle to reduce urgency. Beta-3 adrenergic agonists: Mirabegron (Myrbetriq) is used to treat urge incontinence by relaxing the bladder muscle and increasing bladder capacity. Lifestyle Modifications: Fluid Management: Monitor and adjust fluid intake to avoid excessive bladder filling. Bladder Training: Scheduled voiding and gradually increasing the time between voids can help improve bladder control. Dietary Changes: Avoid bladder irritants such as caffeine, alcohol, and spicy foods. Pelvic Floor Exercises: Kegel Exercises: Strengthening the pelvic floor muscles can help improve bladder control and reduce urgency. Behavioral Therapies: Biofeedback: This technique helps patients become more aware of their pelvic floor muscles and how to control them. Vaginal Estrogen Therapy: For postmenopausal women, vaginal estrogen can help strengthen the muscles and tissues in the urethra and vaginal area. Surgical Options: In cases where conservative treatments are ineffective, surgical interventions may be considered, such as bladder augmentation or nerve stimulation techniques. It's important to tailor the treatment plan to the individual patient's needs and medical history. Consulting with a urologist or a specialist in pelvic floor disorders can provide more personalized management strategies. 07/01/2024 Other 6 months with nurse practitioner with [facility] continue tamsulosin contine finasteride. He was given the option of photo selective vaporization of the prostate. He states since he is doing better on medication he would like to continue the above medications for now. Plan Of Treatment Next Appt Details Provider Name:Ginny Kulkarni John Abdul, 01/05/2025 01:10:00 PM, [address], [place], [address], Insurance Providers Payer Name Payer Address Payer Phone Subscriber Number Group Number Insured Name Patient Relationship to Insured Coverage Start Date Coverage End Date [employer] [address] [place] [id number] Vinh Taylor Self - patient is the insured Medical (General) History Medical History History ICD Code Heart Disease Arthritis type II diabetes hypertension stroke GERD sleep apnea measles mumps chicken pox pneumonia heart disease arthritis epilepsy migraine headaches diabetes back trouble high blood pressure stroke Surgical History Surgery Date(Month/Year) left shoulder brain Triple Heart Bypass Lumbar Fusion Bilateral Shoulder Repair Left Wrist Hospitalization History Reason Date(Month/Year) see surgical hx
[2024-10-04] MEDS: gabapentin 300 mg Capsule PO ×2 (15:54→20:05)
[2024-10-04] MEDS: sucralfate 1 gm Tablet PO (17:05)
[2024-10-04 17:33] LABS: Glucose Point of Care 112 mg/dL (70-110)
[2024-10-04] MEDS: allopurinol 300 mg Tablet PO (18:11)
[2024-10-04] MEDS: carvedilol 3.125 mg Tablet PO (18:11)
[2024-10-04] MEDS: fixodent 39 gm Tube 1 APPLIC DENTAL (18:38)
[2024-10-05] VITALS (7 sets, daily range): BP systolic 120–144; BP diastolic 53–71; PULSE 52–58; RESP 14–18; TEMP 36.6–37; O2SAT 94–97
[2024-10-05 04:49] LABS: Basophils % 0.6 %; Eosinophils # 0.2 10^3/uL (0.0-0.8); Eosinophils % 3.5 %; Hematocrit 33.7 % (37-53); Lymphocytes # 1.3 10^3/uL (0.8-4.8); Lymphocytes % 18.7 %; Mean Corpuscular HGB Conc 32.9 g/dL (30-55); Mean Corpuscular Hemoglobin 32.3 pg (27-33); Mean Platelet Volume 11.4 fL (7.4-10.4); Monocytes # 0.7 10^3/uL (0.2-0.9); Monocytes % 9.9 %; Neutrophils # 4.56 10^3/uL (1.8-7.7); Neutrophils % 66.6 %; Nucleated Red Blood Cells % 0 %; Platelet Count 155 10^3/cmm (157-399); Red Blood Count 3.44 10^6/uL (3.85-5.65); Red Cell Distribution Width 16.2 % (12.1-15.1); White Blood Count 6.85 10^3/uL (3.29-11.43)
[2024-10-05 05:05] LABS: Alanine Aminotransferase 12 U/L (0-41); Albumin Level 3.3 g/dL (3.5-5.2); Alkaline Phosphatase 87 U/L (40-130); Aspartate Amino Transferase 15 U/L (0-40); Blood Urea Nitrogen 23 mg/dL (8-23); Calcium 9.1 mg/dL (8.5-10.5); Carbon Dioxide 28 mmol/L (22-29); Chloride 103 mmol/L (98-107); Creatinine Clr Calc Pharmacy 69.5157; Globulin 2.5 g/dL (1.3-4.6); Glomerular Filtration Rate 66.2 mL/min (90-130); Glucose 105 mg/dL (65-115); Magnesium 1.8 mg/dL (1.7-2.3); Osmolality Calculated 294 mOsm/kg (285-295); Phosphorus 3.3 mg/dL (2.5-4.5); Sodium 140 mmol/L (136-145); Total Bilirubin 0.7 mg/dL (0.15-1.2); Total Protein 5.8 g/dL (6.6-8.7)
[2024-10-05 05:07] LABS: Anion Gap 12.9 (5-19); Potassium 3.9 mmol/L (3.5-5.1)
[2024-10-05] MEDS: sucralfate 1 gm Tablet PO (06:24)
[2024-10-05] MEDS: levothyroxine 88 mcg Tablet PO (06:24)
[2024-10-05] MEDS: atorvastatin 40 mg Tablet 80 MG PO (06:24)
[2024-10-05] MEDS: cholecalciferol (vitamin D3) 5,000 unit Tablet 5000 UNIT PO (06:25)
[2024-10-05] MEDS: ferrous sulfate EC 325 mg Tablet PO (09:01)
[2024-10-05] MEDS: pantoprazole DR 40 mg Tablet PO (09:01)
[2024-10-05] MEDS: gabapentin 300 mg Capsule PO (09:01)
[2024-10-05] MEDS: apixaban 5 mg Tablet PO (09:01)
[2024-10-05] MEDS: amiodarone 200 mg Tablet PO (09:02)
[2024-10-05] MEDS: carvedilol 3.125 mg Tablet PO (09:02)
--- NOTE | 2024-10-05 09:23 | PM.DCS ---
Discharge Providers Date of Admission: 10/03/24 16:05 Date of Discharge: October 05, 2024 Attending Provider at Admission: Mayuri Turcios MD Attending Provider at Discharge: Mayuri Turcios MD Primary Care Provider: Vee Gabriel APRN Diagnoses at Discharge Discharge Diagnosis (1) Near syncope: Status: Resolved (2) Atrial fibrillation: Status: Acute Qualifiers: Atrial fibrillation type: paroxysmal Qualified Code(s): I48.0 - Paroxysmal atrial fibrillation (3) Acute hypotension: Status: Resolved (4) Dehydration: Status: Resolved (5) Chest tightness: Status: Resolved (6) Lightheadedness: Status: Resolved (7) Sinus bradycardia: Status: Resolved Reason for Visit Reason for Visit: stroke symptoms Hospital Course Hospital Course Patient was admitted for generalized weakness lightheadedness dizziness which was fluid responsive. I believe his symptoms were secondary to polypharmacy. A lot of medication adjustments were made. I dose reduced quite a few of his medications and stopped his amlodipine. Coreg was also reduced. He did complain of chest tightness however that resolved as soon as his blood pressure improved. Creatinine was elevated which also improved. I discussed with on-call ent surgeon at length regarding medication reconciliation and discharge patient home to follow-up with cardiology as an outpatient. He is asymptomatic today and doing well. We will recommend outpatient stress testing going forward after following with cardiology. Physical Exam Narrative: Patient laying in bed appearing comfortable at this time. Alert oriented x 3. Currently having echo completed. EOMI, PERRLA No neurological deficit S1, S2, no murmer, No sign of heart failure Abdomen soft, non distended, Saturating well on room air Lower extremities: non edematous Discharge Data Studies Completed and Pending Completed Studies During Hospitalization Category Date Time Status XR chest 1V portable [id number] Stat Exams 10/03/24 14:42 Completed CV. echo complete* [id number] Stat Ultrasound 10/03/24 15:40 Completed Radiology Impressions Chest X-Ray 10/03/24 14:42 Impression: Atherosclerosis and cardiomegaly. Laboratory Results WBC 6.85 10^3/uL (3.29-11.43) 10/05/24 04:29 RBC 3.44 10^6/uL (3.85-5.65) L 10/05/24 04:29 Hgb 11.10 g/dL (11.27-16.99) L 10/05/24 04: Hct 33.7 % (37-53) L 10/05/24 04: MCV 98.0 fl (82-101) 10/05/24 04: MCH 32.3 pg (27-33) 10/05/24 04: MCHC 32.9 g/dL (30-55) 10/05/24 04: RDW 16.2 % (12.1-15.1) H 10/05/24 04:29 Plt Count 155 10^3/cmm (157-399) L 10/05/24 04: MPV 11.4 fL (7.4-10.4) H 10/05/24 04: Neut % (Auto) 66.6 % 10/05/24 04: Lymph % (Auto) 18.7 % 10/05/24 04: [place] % (Auto) 9.9 % 10/05/24 04: Eos % (Auto) 3.5 % 10/05/24 04: Baso % (Auto) 0.6 % 10/05/24 04: Neut # (Auto) 4.56 10^3/uL (1.8-7.7) 10/05/24 04: Lymph # (Auto) 1.3 10^3/uL (0.8-4.8) 10/05/24 04: [place] # (Auto) 0.7 10^3/uL (0.2-0.9) 10/05/24 04: Eos # (Auto) 0.2 10^3/uL (0.0-0.8) 10/05/24 04: Baso # (Auto) 0.0 10^3/uL (0.0-0.1) 10/05/24 04: Nucleated RBC % (auto) 0 % 10/05/24 04: Nucleated RBCs # 0.0 /100WBC 10/05/24 04: Sodium 140 mmol/L (136-145) 10/05/24 04: Potassium 3.9 mmol/L (3.5-5.1) 10/05/24 04: Chloride 103 mmol/L (98-107) 10/05/24 04: Carbon Dioxide 28 mmol/L (22-29) 10/05/24 04:29 Anion Gap 12.9 (5-19) 10/05/24 04:29 BUN 23 mg/dL (8-23) 10/05/24 04:29 Creatinine 1.1 mg/dL (0.7-1.2) 10/05/24 04:29 GFR Calculation 66.2 mL/min (90-130) L 10/05/24 04:29 Glucose 105 mg/dL (65-115) 10/05/24 04:29 POC Glucose 112 mg/dL (70-110) H 10/04/24 17:19 Calculated Osmolality 294 mOsm/kg (285-295) 10/05/24 04:29 Calcium 9.1 mg/dL (8.5-10.5) 10/05/24 04:29 Phosphorus 3.3 mg/dL (2.5-4.5) 10/05/24 04:29 Magnesium 1.8 mg/dL (1.7-2.3) 10/05/24 04:29 Total Bilirubin 0.7 mg/dL (0.15-1.2) 10/05/24 04:29 AST 15 U/L (0-40) 10/05/24 04:29 ALT 12 U/L (0-41) 10/05/24 04:29 Alkaline Phosphatase 87 U/L (40-130) 10/05/24 04:29 Troponin T Baseline 20 ng/L (0-15) H 10/03/24 14:32 Troponin T 120 Minute 16.56 ng/L (0-15) H 10/03/24 16:37 Delta Troponin T -3.44 ABS# (0-10) L 10/03/24 16:37 Troponin T Hi Sens 6Hr 12.60 ng/L (0-15) 10/03/24 20:33 Troponin T Hi Sens 6Hr Delta -8 ng/L (0-12) L 10/03/24 20:33 Total Protein 5.8 g/dL (6.6-8.7) L 10/05/24 04:29 Albumin 3.3 g/dL (3.5-5.2) L 10/05/24 04:29 Globulin 2.5 g/dL (1.3-4.6) 10/05/24 04:29 TSH 0.09 uIU/mL (0.27-4.20) L 10/03/24 14:32 Free T4 2.23 ng/dL (0.82-1.77) H 10/04/24 04:00 Urine Color Yellow (Yellow) 10/03/24 15:00 Urine Appearance Clear (CLEAR) 10/03/24 15:00 Urine pH 6.0 (5-7) 10/03/24 15:00 Ur Specific [place] 1.014 (1.005-1.030) 10/03/24 15:00 Urine Protein Negative (Negative) 10/03/24 15:00 Urine Glucose (UA) Negative (Normal) 10/03/24 15:00 Urine Ketones Trace (Negative) 10/03/24 15:00 Urine Blood Negative (Negative) 10/03/24 15:00 Urine Nitrate Negative (Negative) 10/03/24 15:00 Urine Bilirubin Negative (Negative) 10/03/24 15:00 Urine Urobilinogen 1.0 mg/dL (Negative) 10/03/24 15:00 Ur Leukocyte Esterase Negative (Negative) 10/03/24 15:00 Urine RBC 0-2 /hpf (0-2) 10/03/24 15:00 Urine WBC 0-5 /hpf (0-5) 10/03/24 15:00 Ur Squamous Epith Cells 0-5 /hpf (0-5) 10/03/24 15:00 Amorphous Sediment Not Reportable 10/03/24 15:00 Urine Bacteria None seen /hpf (NONE) 10/03/24 15:00 Hyaline Casts 19.02 /lpf 10/03/24 15:00 Vitals Last Vital Signs Temp 98.6 F 10/05/24 08:00 Pulse 53 L 10/05/24 08:15 Resp 18 10/05/24 08:15 BP 139/67 10/05/24 08:00 Pulse Ox 96 10/05/24 08:15 O2 Del Method Room Air 10/05/24 08:15 O2 Flow Rate 2 10/03/24 15:53 Discharge Plan Discharge Patient Disposition: Home Condition: Stable Prescriptions: New carvedilol 3.125 mg Tablet 3.125 mg PO BID Qty: 60 0RF levothyroxine 88 mcg Tablet 88 mcg PO QAM Qty: 30 0RF Continued allopurinol 300 mg tablet 300 mg PO QPM docusate sodium 100 mg capsule 200 mg PO TID PRN (Reason: Constipation) fluticasone propionate [Allergy Relief (fluticasone)] 50 mcg/actuation spray,suspension 2 spray INTRANASAL DAILY PRN (Reason: Allergy Symptoms) pioglitazone 30 mg tablet 30 mg PO QAM cyclobenzaprine 10 mg tablet 10 mg PO TID PRN (Reason: muscle spasms) meloxicam 15 mg tablet 15 mg PO DAILY (DME) Diabetic shoes See Rx Instructions .ROUTE .MEDSUPPLY Qty: 1 0RF Rx Instructions: With 3 pairs of inserts sucralfate 1 gram Tablet 1 g PO BID triamcinolone acetonide 0.1 % Cream 1 applic TOPICAL BID PRN (Reason: Rash) ferrous sulfate 325 mg (65 mg iron) Tablet 325 mg PO DAILY atorvastatin 80 mg tablet 80 mg PO QPM Qty: 40 0RF amiodarone 200 mg tablet 200 mg PO DAILY Qty: 30 2RF lisinopril 20 mg tablet 20 mg PO DAILY Qty: 30 3RF pantoprazole 40 mg tablet,delayed release (DR/EC) 40 mg PO BIDWM 30 Days Qty: 30 3RF finasteride 5 mg Tablet 5 mg PO QPM Qty: 30 0RF cholecalciferol (vitamin D3) [Vitamin D3] 50 mcg (2,000 unit) Tablet 100 mcg PO DAILY Qty: 30 0RF apixaban 5 mg Tablet 5 mg PO BID Qty: 60 0RF Changed tamsulosin 0.4 mg Capsule 0.4 mg PO BEDTIME Qty: 30 0RF gabapentin 300 mg capsule 300 mg PO TID Qty: 30 0RF potassium chloride 20 mEq tablet extended release 20 meq PO EVERY OTHER DAY Qty: 10 0RF Held amlodipine 5 mg tablet 5 mg PO QPM Hold Instructions: see cardiology Discontinued levothyroxine 112 mcg tablet 112 mcg PO DAILY Qty: 60 1RF hydrochlorothiazide 25 mg tablet 25 mg PO QAM carvedilol 12.5 mg Tablet 6.25 mg PO BID Rx Instructions: must administer with a meal/food diltiazem HCl 120 mg Capsule,Extended Release 24 Hr 120 mg PO QAM Discharge Orders: Discharge Order (Routine); Ordered 10/05/24 Ordered By: Mayuri Turcios Other Ambulatory Orders: Basic Metabolic Panel (Routine) Timeframe: 3 Days Facility: [facility] - Location: Lab - Main Lab Ordered By: Mayuri Turcios Referrals: Vee Gabriel APRN [Primary Care Provider, Family Practice] - 1-3 days Referral Note: Please call your primary doctor about your follow up appointment if you have not heard from them by tomorrow or early sunday. Thank You. Arpit Marcano M.D [Physician, Cardiology] - 4-7 days Referral Note: Please call the cardiology clinic about your follow up appointment if you have not heard from them by tomorrow or early sunday. Thank You. Francoise Bentley FNP [Nurse Practitioner, Cardiology] - 1-3 days Referral Note: rPlease call the cardiology clinic about your follow up appointments if you have not heard from them by tomorr or early sunday. Thank You. Discharge Diet: Cardiac Discharge Activity: Resume usual activity Patient Instructions: Syncope, Hyperthyroidism (DC), Bradycardia (DC), Near Syncope (DC), Chest Pain Stoplight, Opioid Safety Activity Restrictions/Additional Instructions: Keep a record of your blood pressure and heart rate at home atleast twice a day. Keep a log and carry with you when you follow up with your doctors. Please take your medications as prescribed in your current med list. If any worsening of symptoms such unusual chest pain, shortness of breath, syncope to call 911 and come to ER. Discharge Attestations Time Spent in Discharge Care*: greater than 30 min Status at Discharge: Cognitive status at discharge: cognitively intact, Behavioral status at discharge: cooperative, Quality Metrics Clinical Quality Measures [ No reported AMI, CVA or VTE this stay] Coding Level of Care Code Acute Code for Chg Fwd Diagnoses Near syncope R55 Paroxysmal atrial fibrillation I48.0 Atrial fibrillation type: paroxysmal Acute hypotension I95.9 Dehydration E86.0 Chest tightness R07.89 Lightheadedness R42 Sinus bradycardia R00.1
--- NOTE | 2024-10-05 14:48 | PC.NURSE ---
Discharge Note Patient discharged to home via private vehicle accompanied by . Discharge instructions reviewed with patient and/or equal opportunity representative such as medication dose changes, continued medications and stopped medications. Educated pt to notify his providers if any worsening of symptoms such as unusual pain, shortness of breath and synope. 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 Mobile pharmacy medications and/or prescriptions provided. Belongings/home medications returned.
== END 2024-10-05 14:36 | disposition home or self-care (01) | DRG 149 ==
LOC: ER 14:56 → CSU 16:32
PROVIDERS: Admitting Provider Internal Medicine; Emergency Provider Family Medicine; PCP Nurse Practitioner Family; Visit Provider Internal Medicine
DX: R42 Dizziness and giddiness (principal); N17.9 Acute kidney failure, unspecified; R00.1 Bradycardia, unspecified; R55 Syncope and collapse; I48.0 Paroxysmal atrial fibrillation; E11.22 Type 2 diabetes mellitus with diabetic chronic kidney disease; N18.9 Chronic kidney disease, unspecified; E11.43 Type 2 diabetes mellitus with diabetic autonomic (poly)neuropathy; K31.84 Gastroparesis; I95.9 Hypotension, unspecified; I25.10 Atherosclerotic heart disease of native coronary artery without angina pectoris; E86.0 Dehydration; E03.9 Hypothyroidism, unspecified; M17.12 Unilateral primary osteoarthritis, left knee; E78.00 Pure hypercholesterolemia, unspecified; M43.16 Spondylolisthesis, lumbar region; M48.062 Spinal stenosis, lumbar region with neurogenic claudication; R47.81 Slurred speech; T50.995A Adverse effect of other drugs, medicaments and biological substances, initial encounter; Z79.01 Long term (current) use of anticoagulants; Z87.11 Personal history of peptic ulcer disease; Z87.891 Personal history of nicotine dependence; Z95.1 Presence of aortocoronary bypass graft; Z82.49 Family history of ischemic heart disease and other diseases of the circulatory system; Z82.3 Family history of stroke
CPT/HCPCS: 36415; 36416; 71045; 80053; 81001; 82962; 83735; 84100; 84439; 84443; 84484; 85025; 93005; 93306; 99285; A9270; J7030; J9999

== ENCOUNTER → 2024-10-15 13:53 | Outpatient (BNVA) | payer OTHER, SELFPAY | PROVIDERS: PCP Family Medicine Geriatric Medicine; Visit Provider Nurse Practitioner Family | DX: I13.0 Hypertensive heart and chronic kidney disease with heart failure and stage 1 through stage 4 chronic kidney disease, or unspecified chronic kidney disease (principal); E11.22 Type 2 diabetes mellitus with diabetic chronic kidney disease; N18.32 Chronic kidney disease, stage 3b; I50.30 Unspecified diastolic (congestive) heart failure; I25.10 Atherosclerotic heart disease of native coronary artery without angina pectoris; E78.00 Pure hypercholesterolemia, unspecified; Z79.01 Long term (current) use of anticoagulants; Z95.1 Presence of aortocoronary bypass graft; Z87.891 Personal history of nicotine dependence | CPT/HCPCS: 99213 ==

== ENCOUNTER → 2024-12-01 14:55 | Outpatient (BNVA) | payer OTHER, SELFPAY | PROVIDERS: PCP Family Medicine Geriatric Medicine; Visit Provider Nurse Practitioner | DX: M17.12 Unilateral primary osteoarthritis, left knee (principal) | CPT/HCPCS: 20610; 99213; J1100; J2795; J3301; J9999 ==

== ENCOUNTER → 2025-01-19 14:24 | Outpatient (BNVA) | payer OTHER, SELFPAY | PROVIDERS: PCP Family Medicine Geriatric Medicine; Visit Provider Internal Medicine | DX: I25.118 Atherosclerotic heart disease of native coronary artery with other forms of angina pectoris (principal); I12.9 Hypertensive chronic kidney disease with stage 1 through stage 4 chronic kidney disease, or unspecified chronic kidney disease; E11.22 Type 2 diabetes mellitus with diabetic chronic kidney disease; N18.32 Chronic kidney disease, stage 3b; I48.91 Unspecified atrial fibrillation; Z79.01 Long term (current) use of anticoagulants | CPT/HCPCS: 99214 ==

== ENCOUNTER → 2025-02-23 10:40 | Outpatient (BNVA) | payer OTHER, SELFPAY | PROVIDERS: PCP Family Medicine Geriatric Medicine; Referring Provider Family Medicine Geriatric Medicine; Visit Provider Anesthesiology Pain Medicine | DX: M54.2 Cervicalgia (principal) | CPT/HCPCS: 99204 ==

== ENCOUNTER 2025-03-03 06:57 | Outpatient (CLI) | payer OTHER, SELFPAY ==
--- NOTE | 2025-03-03 07:15 | MR_ITS ---
WS: [id number] MRI CERVICAL SPINE NONCONTRAST TECHNIQUE: Sagittal T1, T2 and STIR imaging. Axial T2, gradient, and fiesta imaging. CLINICAL INFORMATION: M54.12 - Radiculopathy, cervical region COMPARISON: None. FINDINGS: Straightening of the normal cervical lordosis. Cord signal is normal. C2-C3: Mild facet arthropathy. Mild RIGHT foraminal narrowing. C3-C4: Disc osteophyte complex eccentric to the LEFT. Moderate LEFT bony foraminal narrowing with moderate LEFT facet arthropathy. Mild central canal stenosis. C4-C5: Mild central canal stenosis. Moderate LEFT facet arthropathy. Moderate LEFT bony foraminal narrowing. C5-C6: Shallow central disc protrusion. Mild central canal stenosis with slight indentation on the cervical cord. Moderate RIGHT and mild LEFT foraminal narrowing. Moderate facet arthropathy. C6-C7: Mild disc bulge with endplate ridging. Mild LEFT and no significant RIGHT foraminal narrowing. Mild facet arthropathy. C7-T1: Mild bilateral bony foraminal narrowing. T1-T2: Mild disc bulge with endplate ridging. Mild LEFT greater than RIGHT foraminal narrowing. Tiny central disc protrusions in the upper thoracic spine at T2-3 and T3-4. Visualized brain stem structures: Normal. Prevertebral soft tissues: Normal. MR/MR cervical spin wo con* [id number] IMPRESSION: Some images degraded by motion 1. Mild central canal stenosis C3-C5. 2. Central protrusion at C5-C6 with mild central canal stenosis and slight ind entation on the cervical cord. Moderate RIGHT bony foraminal narrowing. 3. Moderate LEFT facet arthropathy C3-C4 and C4-C5 with moderate LEFT foramina l narrowing at these levels. Mild facet synovitis LEFT C3-4 and LEFT C4-5. Smal l amount of periarticular edema 4. Mild LEFT C6-7 and LEFT C7-T1 foraminal narrowing
== END 2025-03-03 06:58 | disposition home or self-care (01) ==
LOC: RAD 06:58
PROVIDERS: PCP Family Medicine Geriatric Medicine; Visit Provider Anesthesiology Pain Medicine
DX: M50.122 Cervical disc disorder at C5-C6 level with radiculopathy (principal); M47.812 Spondylosis without myelopathy or radiculopathy, cervical region; M48.02 Spinal stenosis, cervical region; M25.78 Osteophyte, vertebrae; M47.22 Other spondylosis with radiculopathy, cervical region; M48.03 Spinal stenosis, cervicothoracic region; M51.34 Other intervertebral disc degeneration, thoracic region; M48.04 Spinal stenosis, thoracic region; M50.321 Other cervical disc degeneration at C4-C5 level; M50.322 Other cervical disc degeneration at C5-C6 level
CPT/HCPCS: 72141

== ENCOUNTER → 2025-03-09 14:45 | Outpatient (BNVA) | payer OTHER, SELFPAY | PROVIDERS: PCP Family Medicine Geriatric Medicine; Visit Provider Nurse Practitioner | DX: M17.12 Unilateral primary osteoarthritis, left knee (principal) | CPT/HCPCS: 20610; J1100; J2795; J3301; J9999 ==

== ENCOUNTER → 2025-03-10 09:11 | Outpatient (BNVA) | payer OTHER, SELFPAY | PROVIDERS: PCP Family Medicine Geriatric Medicine; Visit Provider Anesthesiology Pain Medicine | DX: M54.2 Cervicalgia (principal) | CPT/HCPCS: 99214 ==

== ENCOUNTER 2025-04-20 10:28 | Outpatient (RCR) | payer OTHER, SELFPAY | END 2025-04-22 23:59 | disposition home or self-care (01) | LOC: SPT 10:28 | PROVIDERS: PCP Family Medicine Geriatric Medicine; Visit Provider Anesthesiology Pain Medicine | DX: M54.2 Cervicalgia (principal) | CPT/HCPCS: 97161 ==